=== PATIENT | male | born 1950 | race Caucasian/White ===

== ENCOUNTER 2024-11-06 21:28 | Inpatient (IN) | payer OTHER, BC ==
[~2024-11-06] VITALS: Ht 177.8 cm; Wt 104.9 kg
[2024-11-06] MEDS: SODIUM CHLORIDE 0.9% 1,000 ML IV ONE ×4 (00:34→23:34)
[2024-11-06] MEDS: FUROSEMIDE 40 MG/4 ML VIAL IV ONE (01:30)
--- NOTE | 2024-11-06 21:45 | ECG ---
[facility] Test Date: 2024-11-06 Test Time: 21:29:52 Pat Name: CLARITZA MCKEE Department: ED Room: 0264D Gender: M Certified Pediatric Nurse Practitioner: ignacio : 1950 Requested By: JACOB BISHOP Order Number: [id number] Reading MD: Khai Patel Measurements Intervals [place] Rate: 88 P: 61 ND: 200 QRS: 128 QRSD: 125 T: -4 QT: 378 QTc: 458 Interpretive Statements Atrial-sensed ventricular-paced complexes No further analysis attempted due to paced rhythm Electronically Signed On 11-10-2024 18:55:56 PDT by Khai Patel Please click the below link to view image of tracing.
[2024-11-06 22:28] LABS: Alanine Aminotransferase 26 U/L (7-40); Albumin 3.8 g/dL (3.2-4.8); Alkaline Phosphatase 77 U/L (46-116); Anion Gap 10 (5-15); BUN/Creatinine Ratio 19.8 (10.0-20.0); Bilirubin, Total 0.8 mg/dL (0.2-1.0); Calcium 10.1 mg/dL (8.7-10.4); Carbon Dioxide 31 mmol/L (20-31); Chloride 103 mmol/L (98-107); Magnesium 1.9 mg/dL (1.6-2.6); Potassium 4.7 mmol/L (3.5-5.1); Sodium 144 mmol/L (136-145); Total Protein 5.7 g/dL (5.7-8.2)
[2024-11-06 22:30] LABS: Base Excess 1.9 mmol/L (-2.0-3.0)
[2024-11-06 22:30] LABS: Blood Urea Nitrogen 40 mg/dL (9-23); Glucose 144 mg/dL (74-106)
[2024-11-06] MEDS: MORPHINE SULFATE INJ 2 MG/ml SYRG IV ONE (22:30)
[2024-11-06 22:31] LABS: Lactic Acid w/Reflex 3.6 mmol/L (0.4-2.0)
--- NOTE | 2024-11-06 22:43 | DVH ---
CHEST RADIOGRAPH Indication: cp Technique: Single frontal view of the chest was obtained COMPARISON: None FINDINGS: Lines and Tubes: Dual-lead pacemaker overlying left chest wall. Lungs: Lung volumes are low with crowding of the bronchovascular markings. No evidence of pulmonary e elena. No pulmonary infiltrates identified. Pleura: No effusion. No pneumothorax. Cardiomediastinal contours: Unremarkable Bones: Thoracolumbar spinal instrumentation noted. IMPRESSION: No acute abnormality demonstrated.
--- NOTE | 2024-11-06 22:55 | ED.PDOC ---
History of Present Illness HPI Comments 74-year-old male is brought in by ambulance from private residence for chief complaint of nonradiating, substernal chest pain, generalized weakness, and dizziness. Per EMS report, patient endorses on progressively worsening symptoms for the past 2-3 days following a, unprovoked onset. Pain is a 6/10 severity. on scene also commented on patient no longer being as mobile as his usual baseline self, today, following onset of symptoms. Significant history of bradycardia status post pacemaker placement, sleep apnea with CPAP use, hypertension, and Parkinson's disease. No recent injuries, sick contact, travel, or events or lifestyle changes endorsed. Vitals stable within normal li mits, with the exception of an initial SpO2 of 52% on room air. Patient was placed on oxygen EN route, with positive improvement. Patient denies having any palpitations, shortness of breath, cough, congestion, fever, chills, nausea, vomiting, or further associated symptoms. Chief Complaint: Chest Pain Time Seen by MD: 21:40 Reviewed Notes: Nurses Notes, Medications, Allergies Allergies: Coded Allergies: NO KNOWN ALLERGIES (Unverified , 11/06/24) Information Source: Patient, Emergency Med Personnel Mode of Arrival: EMS Severity: Moderate Timing: Days Duration: Since onset Prehospital treatment: 12 Lead EKG, Rotary Driller Prospecting, Oxygen Review of Systems: REVIEW OF SYSTEMS: No fever, no chills, or fatigue HEENT: No sore throat, no earache, no congestion, no neck pain. Cardiac: chest pain. No palpitations. Lungs: No shortness of breath, no cough. GI: No nausea, no vomiting, no diarrhea, no constipation, no abdominal pain : No dysuria, frequency, or urgency. No hematuria. Musculoskeletal: No joint pain , no joint swelling, no extremity edema. Skin: No rash, no itching. Neuro: Dizziness, weakness, no headache Vital Signs Vital Signs Date Time Temp Pulse Resp B/P (MAP) Pulse Ox O2 Delivery O2 Flow Rate FiO2 11/06/24 23:43 24 94 Nasal Cannula* 5 40 11/06/24 23:00 74 97/56 (70) 11/06/24 21:59 98.3 98.3 Physical Exam General: Awake, alert and oriented. No acute distress. Skin: Skin in warm, dry and intact. Appropriate color for ethnicity. HEENT: The head is normocephalic and atraumatic. Conjunctivae are clear without exudates or hemorrhage. Sclera is non-icteric. EOM are intact. No signs of nystagmus. Eyelids are normal in appearance without swelling or lesions. Oral mucosa is pink and moist Neck: The neck is supple with normal range of motion. No JVD. Cardiac: Heart rate and rhythm are normal. No murmurs, gallops, or rubs are auscultated. Respiratory: Diminished lung sounds, bilaterally. No signs of respiratory di stress. No signs of rales, rhonchi, or wheezes. Abdominal: Abdomen is soft, non-tender without distention, guarding or rigidity. Bowel sounds are present and normoactive in all four quadrants. Extremities: 1+ pitting edema to bilateral lower extremities. Otherwise, remaining upper and lower extremities are atraumatic in appearance without deformity or edema. Neurological: The patient is awake, alert and oriented to person, place, and time with normal speech. Speech is clear. There is no facial asymmetry. Weakness to bilateral upper and lower extremities. Psychiatric: Appropriate mood and affect. Good judgement and insight. Past Medical History PAST MEDICAL HISTORY: HTN Past Medical History (Other): Bradycardia status post pacemaker Sleep apnea with CPAP use Parkinson's disease Surgical History: Pacemaker (Secondary to bradycardia) Family History Family History: Reviewed,noncontributory to illness Social History Smoker: Non-Smoker Alcohol: Denies ETOH Use Drugs: Denies Drug Use Lives In: Home Was a procedure done? Was a procedure done?: No EKG EKG : Pulse Rate (adult): 88 [place]: Normal Cardiac Rhythm: Paced (atrial sensed, ventricularly paced complexes) Block: None Hypertrophy: None ST: Normal Differential Dx Considerations may include: Differential diagnoses considered include acute ischemic coronary syndrome, aort ic dissection, cardiac tamponade, mediastinitis, pulmonary embolus, pneumothorax, tension pneumothorax, esophageal rupture, coronary artery vasospasm, myocarditis, pericarditis, pneumonia, pulmonary edema, esophageal tear, pancreatitis, aortic stenosis, dilated cardiomyopathy, hypertrophic cardiomyopathy, mitral valve prolapse, malignancy, pleuritis, pneumomediastinum, primary pulmonary hypertension, cholecystitis, esophageal spasm, esophagus, gastritis, GERD, peptic ulcer disease, costochondritis, fibromyalgia, rib fracture, herpes zoster, radicular syndromes, thoracic outlet syndrome, somatization. X-Ray, Labs, Meds, VS Vital Signs Date Time Temp Pulse Resp B/P (MAP) Pulse Ox O2 Delivery O2 Flow Rate FiO2 11/06/24 23:43 24 94 Nasal Cannula* 5 40 11/06/24 23:00 74 13 97/56 (70) 94 11/06/24 22:55 88 11/06/24 21:59 98.3 74 25 97/53 (68) 86 98.3 11/06/24 21:40 92 11/06/24 21:40 98.6 4 16 125/77 (93) 93 98.6 11/06/24 21:29 88 11/06/24 01:30 91/48 Lab Test 11/06/24 23:07 11/06/24 22:00 11/06/24 21:55 Range/Units Troponin I High Sensitivity 100 *H 80 *H </=54 ng/L Triglycerides Level 81 < 150 mg/dL Cholesterol Level 108 < 200 mg/dL LDL Cholesterol 64 < 100 mg/dL HDL Cholesterol 35 L 40-59 mg/dL Blood Gas Specimen Type Arterial Blood Gas Sample Site Right radial Blood Gas Patient Temperature 37.0 Arterial Blood Date Drawn [id number] Arterial Blood pH 7.289 L 7.350-7.450 Arterial Blood Partial Pressure CO2 64.4 *H 35.0-48.0 mmHg Arterial Blood Partial Pressure O2 40.7 *L 83.0-108.0 mmHg Arterial Blood HCO3 30.2 H 21.0-28.0 mmol/L Arterial Blood Oxygen Saturation 67.9 *L 94.0-98.0 % Arterial Blood Base Excess 1.9 -2.0-3.0 mmol/L Arterial Blood Oxyhemoglobin 66.1 L 94.0-98.0 % Arterial Blood Carboxyhemoglobin 1.8 H 0.5-1.5 % Arterial Blood Methemoglobin 0.8 0.0-1.5 % Adonis Test Yes Blood Gas Total Hemoglobin 13.70 13.5-17.5 g/dL Blood Gas Modality Room air Blood Gas Spontaneous Rate 22 FiO2 % 21.0 Blood Gas Critical Value Read Back yes Blood Gas Notified Whom md shyam bishop Blood Gas Notified Time [id number] Blood Gas Notified By obstetrics and gynecology professor konrad pierson White Blood Count 37.1 *H 4.4-10.8 10^3/uL Red Blood Count 6.02 H 4.5-5.90 10^6/uL Hemoglobin 12.7 L 13.5-17.5 g/dL Hematocrit 41.3 41.0-53.0 % Mean Corpuscular Volume 68.6 L 80.0-100.0 fL Mean Corpuscular Hemoglobin 21.1 L 28.0-32.0 pg Mean Corpuscular Hemoglobin Concent 30.8 L 32.0-36.0 g/dL Red Cell Distribution Width 18.9 H 11.8-14.3 % Platelet Count 96 L 140-450 10^3/uL Mean Platelet Volume 9.1 6.9-10.8 fL Neutrophils (%) (Auto) 37.0-80.0 % Lymphocytes (%) (Auto) 10.0-50.0 % Monocytes (%) (Auto) 0.0-12.0 % Basophils (%) (Auto) 0.0-2.0 % Neutrophils # (Auto) 1.6-8.6 10 ^3/uL Lymphocytes # (Auto) 0.4-5.4 10 ^3/uL Monocytes # (Auto) 0-1.3 10 ^3/uL Differential Total Cells Counted 100.0 100 Neutrophils % (Manual) 64 37.0-80.0 Band Neutrophils % (Manual) 2 Lymphocytes % (Manual) 11 10.0-50.0 Monocytes % (Manual) 13 H 0-12 Eosinophils % (Manual) 1 0-7 Basophils % (Manual) 0 0.0-2.0 Metamyelocytes % (manual) 5 Myelocytes % (Manual) 1 Promyelocytes % (Manual) 0 Blast Cells % (Manual) 2 Nucleated Red Blood Cells 3.0 % Reactive Lymphocytes 1 Platelet Estimate Decreased Hypochromasia (manual) Moderate Microcytosis Marked D-Dimer, Quantitative 0.60 H 0.0-0.49 mg/L FEU Sodium Level 144 136-145 mmol/L Potassium Level 4.7 3.5-5.1 mmol/L Chloride Level 103 98-107 mmol/L Carbon Dioxide Level 31 20-31 mmol/L Anion Gap 10 5-15 Blood Urea Nitrogen 40 H 9-23 mg/dL Creatinine 2.02 H 0.700-1.30 mg/dL Glomerular Filtration Rate Calc 34 >90 mL/min BUN/Creatinine Ratio 19.8 10.0-20.0 Serum Glucose 144 H 74-106 mg/dL Hemoglobin A1c 5.2 <5.7 % A1C Lactic Acid Level 3.6 *H 0.4-2.0 mmol/L Calcium Level 10.1 8.7-10.4 mg/dL Magnesium Level 1.9 1.6-2.6 mg/dL Total Bilirubin 0.8 0.2-1.0 mg/dL Aspartate Amino Transferase (AST) 39 13-40 U/L Alanine Aminotransferase (ALT) 26 7-40 U/L Alkaline Phosphatase 77 46-116 U/L B-Type Natriuretic Peptide 587.05 0-100 pg/mL Total Protein 5.7 5.7-8.2 g/dL Albumin 3.8 3.2-4.8 g/dL Vitamin B12 Level Pending Vitamin D 25-Hydroxy Pending Thyroid Stimulating Hormone (TSH) 1.77 0.55-4.78 uIU/mL Plasma/Serum Blood Alcohol < 3.0 <10 mg/dL Current Medications Medications (Trade) Dose Ordered Sig/Amol Route Start Time Stop Time Status Last Admin Aspirin 324 mg ONCE ONCE PO 11/06/24 21:45 11/06/24 21:46 DC 11/06/24 23:23 Sodium Chloride 500 ml @ 500 mls/hr Q1H ONCE IV 11/06/24 21:45 11/06/24 22:44 DC 11/06/24 23:00 Vancomycin HCl 250 ml @ 250 mls/hr ONCE ONCE IV 11/06/24 23:30 11/07/24 00:29 DC 11/07/24 00:17 Sodium Chloride 1,000 ml @ 1,000 mls/hr Q1H ONCE IV 11/06/24 23:30 11/07/24 00:29 DC 11/06/24 23:34 Sodium Chloride 1,000 ml @ 1,000 mls/hr Q1H ONCE IV 11/06/24 23:30 11/07/24 00:29 DC 11/07/24 00:34 Ceftriaxone Sodium 50 ml @ 100 mls/hr ONCE ONCE IV 11/06/24 23:30 11/06/24 23:59 DC 11/06/24 23:34 Albuterol (Ventolin Medneb) 2.5 mg ONCE ONCE NEB 11/06/24 23:30 11/06/24 23:31 DC 11/06/24 23:43 [facility] [address] [address] [place] [address] Ph: [phone] DIAGNOSTIC IMAGING Diagnostic Imaging Report : [id number] Signed PATIENT: CLARITZA MCKEE ACCT: [id number] UNIT: [id number] : 1950 LOC: ER ROOM / BED: / AGE / SEX: 74 / M ADM STATUS: REG ER SERVICE 42 ORDERING PHYSICIAN: JACOB BISHOP MD PROCEDURE(s): CXR1 - CHEST XRAY 1 VIEW REASON: cp ORDER NUMBER(s): [id number], ACCESSION NUMBER(s): [id number] CHEST RADIOGRAPH Indication: cp Technique: Single frontal view of the chest was obtained COMPARISON: None FINDINGS: Lines and Tubes: Dual-lead pacemaker overlying left chest wall. Lungs: Lung volumes are low with crowding of the bronchovascular markings. No evidence of pulmonary edema. No pulmonary infiltrates identified. Pleura: No effusion. No pneumothorax. Cardiomediastinal contours: Unremarkable Bones: Thoracolumbar spinal instrumentation noted. IMPRESSION: No acute abnormality demonstrated. ATED BY: JORDAN CARBALLO MD DICTATED DATE/TIME: 11/06/242240 SIGNED BY: JORDAN CARBALLO MD SIGNED DATE/TIME: 11/06/242240 CC: Time of 1ST Reevaluation: 22:10 Reevaluation 1ST: Unchanged Patient Education/Counseling: Other (Need for admission) Family Education/Counseling: No Family Present SEPSIS Sepsis Screen Date sepsis recognized/suspect: Nov 06, 2024 Time Sepsis recognized/suspect: 2139 Recent Procedure: No On Antibiotic Therapy: No Respiratory Rate >20: No Heart Rate >90: No Temp<36 C (96.8 F) or >38.3 C: No SBP <90 or MAP <65 mmHG: No New Acute Mental Status Change: No Is the patient on CPAP, BIPAP,: No Physician Orders Vital Signs Q1HR (11/06/24 21:43) Chest Xray 1 View (11/06/24 21:43) Saline Lock (11/06/24 21:43) Rotary Driller Prospecting (11/06/24 ) Drug Screen (11/06/24 21:43) Urinalysis (11/06/24 21:43) Blood Culture (11/06/24 21:43) Abg W/ Co-Ox (11/06/24 21:44) Vital Signs Date Time Temp Pulse Resp B/P (MAP) Pulse Ox O2 Delivery O2 Flow Rate FiO2 11/06/24 23:43 24 94 Nasal Cannula* 5 40 11/06/24 23:00 74 13 97/56 (70) 94 11/06/24 22:55 88 11/06/24 21:59 98.3 74 25 97/53 (68) 86 98.3 11/06/24 21:40 92 11/06/24 21:40 98.6 4 16 125/77 (93) 93 98.6 11/06/24 21:29 88 11/06/24 01:30 91/48 Laboratory Tests Test 11/06/24 21:55 Lactic Acid Level 3.6 mmol/L (0.4-2.0) *H White Blood Count 37.1 10^3/uL (4.4-10.8) *H Medications Medications Dose Ordered Sig/Amol Route Start Time Stop Time Status Last Admin Dose Admin Albuterol 2.5 mg ONCE ONCE NEB 11/06/24 23:30 11/06/24 23:31 DC 11/06/24 23:43 Aspirin 324 mg ONCE ONCE PO 11/06/24 21:45 11/06/24 21:46 DC 11/06/24 23:23 Ceftriaxone Sodium 50 ml @ 100 mls/hr ONCE ONCE IV 11/06/24 23:30 11/06/24 23:59 DC 11/06/24 23:34 Sodium Chloride 500 ml @ 500 mls/hr Q1H ONCE IV 11/06/24 21:45 11/06/24 22:44 DC 11/06/24 23:00 Sodium Chloride 1,000 ml @ 1,000 mls/hr Q1H ONCE IV 11/06/24 23:30 11/07/24 00:29 DC 11/06/24 23:34 Sodium Chloride 1,000 ml @ 1,000 mls/hr Q1H ONCE IV 11/06/24 23:30 11/07/24 00:29 DC 11/07/24 00:34 Vancomycin HCl 250 ml @ 250 mls/hr ONCE ONCE IV 11/06/24 23:30 11/07/24 00:29 DC 11/07/24 00:17 Departure 1 Departure Time of Disposition: 23:28 Impression: Primary Impression: Hypoxia Additional Impressions: Generalized weakness Chest pain Disposition: ADMITTED INPATIENT Condition: Stable Comments 74-YEAR-OLD MALE WITH CHEST PAIN GENERALIZED WEAKNESS FOUND TO BE HYPOXIC. POSSIBLY SECONDARY TO CHF. AGE ADJUSTED D-DIMER NEGATIVE. EKG SHOWS NO STEMI. TROPONIN MILDLY ELEVATED. WILL TREND TROPONIN PATIENT ADMITTED TO HOSPITALIST SERVICE FOR FURTHER TREATMENT, EVALUATION AND MONITORING. Extensive evaluation was performed in attempt to identify or rule out: (See differential diagnosis section) The following tests were ordered, and results were reviewed by me and discussed with patient: (See diagnostic results section) The following test were independently interpreted by me: EKG I reviewed and agreed with the following test results read by other providers: Chest x-ray I reviewed the following notes from the pt's past medical encounters: N/A Additional information was gathered from interviewing the following independent historians: EMS PERSONNEL Discussion of management or test interpretation with external physician/other qualified health care transitions nurse: N/A Addressed an acute or chronic illness that poses a threat to life or bodily function: SHREYA, HYPOXIA, GENERALIZED WEAKNESS, ELEVATED TROPONIN, CHEST PAIN Decision regarding hospitalization or escalation of hospital level of care: Risk and benefits of admission for further treatment of patient's condition was considered. Due to patient's current clinical condition, high risk of decline and poor outcome if discharged and need for further inpatient management and monitoring, patient will be admitted to the hospital. Drug therapy requiring intensive monitoring for toxicity: IV FUROSEMIDE Parenteral controlled substances: N/A Decision regarding elective major surgery with identified patient or procedure risk factors: N/A Decision regarding emergency major surgery: N/A Decision not to resuscitate or to de-escalate care because of poor prognosis: N/A Diagnosis or treatment significantly limited by social determinants of health: N/A Critical Care Note Critical Care Time?: No Stability Stability form required: No Heart Score Heart Score: Heart Score Response (Comments) Value History Moderate Suspicious 1 EKG Normal 0 Age >65 2 Risk Factors 1 or 2 risk factors 1 Troponin 1-2 x's Normal limit 1 Total 5 I personally scribed for JACOB BISHOP MD ([email or web address]) on 11/06/24 at 22:55. Electronically submitted by Aiden Alarcon ([email or web address]). I personally scribed for JACOB BISHOP MD ([email or web address]) on 11/06/24 at 23:14. Electronically submitted by Aiden Alarcon ([email or web address]). JACOB BISHOP MD Nov 06, 2024 22:55
[2024-11-06] MEDS: SODIUM CHLORIDE 0.9% 500 ML IV ONE (23:00)
[2024-11-06 23:08] LABS: Hematocrit 41.3 % (41.0-53.0)
[2024-11-06 23:09] LABS: Hemoglobin 12.7 g/dL (13.5-17.5); Mean Corpuscular Hemoglobin 21.1 pg (28.0-32.0); Mean Corpuscular Volume 68.6 fL (80.0-100.0)
[2024-11-06] MEDS: cefTRIAXone 1GM/50ML D5W 50 ML IV ONE (23:34)
[2024-11-06] MEDS: ALBUTEROL SULF 2.5 MG/0.5ML(0.5%) NEB SOLN NEB ONE (23:43)
--- NOTE | 2024-11-06 23:48 | DVHHP2 ---
History of Present Illness History of Present Illness This is a 74-year-old male with past medical history hypertension, Bradycardia s/p cardiac pacemaker on 2021, sleep apnea, Parkinson disease BIBEMS with complain of chest pain which is substernal for last last few weeks with but worsen since evening which is 7-8/10 intensity, localized, feeling chest tightness, aggravated with walking or any kind of minimal exertion, tried Tums which helps a little. Patient is less ambulating for last few months due to feeling weakness. Patient use walker and holding on wall during ambulation. Patient also complain of shortness of breath for approximately 6 months which is also aggravates on exertion and getting worsen day by day. patient does not follow-up by wallpaperer for long time, last visit 30 years ago in [place]. Recently diagnosed Parkinson disease and started medications. Patient currently on bed, using 5 L oxygen via nasal cannula, alert and oriented. Denies any fever, headache, nausea, vomiting, diarrhea. Past Medical History: HTN, Bradycardia status post pacemaker, Sleep apnea with CPAP use, Parkinson's disease Surgical History: Pacemaker (Secondary to bradycardia) Smoker: ex-Smoker, quit 42 year ago Alcohol: Denies ETOH Use, Denies Drug Use Lives In: Home Allergy: no known allergy PCP: unknown Review of Systems Constitutional: Yes: Weakness Eyes: No: Pain, Vision change, Conjunctivae inflammation, Eyelid inflammation, Other, Redness ENT: No: Ear pain, Ear discharge, Nose pain, Nose discharge, Nose congestion, Mouth pain, Mouth swelling, Throat pain, Throat swelling, Other Respiratory: Shortness of breath, SOB with excertion; No: Cough, Dry, Wheezing, Hemoptysis, Pleuritic Pain, Sputum, Wheezing, Other Cardiovascular: Chest Pain, Edema (1+ edema bilateral leg) Gastrointestinal: No: Nausea, Vomiting, Abdominal Pain, Diarrhea, Constipation, Melena, Hematochezia, Other Genitourinary: No Dysuria, No Frequency, No Incontinence, No Hematuria, No Retention, No Other Musculoskeletal: No: other, neck pain, shoulder pain, arm pain, back pain, hand pain, leg pain, foot pain Skin: No: Rash, Lesions, Jaundice, Bruising, Other Neurological: Other (Spinal surgery , scar sammy present) Allergies: Coded Allergies: NO KNOWN ALLERGIES (Unverified , 11/06/24) Exam Vital Signs Vital Signs Date Time Temp Pulse Resp B/P (MAP) Pulse Ox O2 Delivery O2 Flow Rate FiO2 11/06/24 22:55 88 11/06/24 21:40 98.6 16 125/77 (93) 93 98.6 Labs/Xrays Labs Test 11/06/24 23:07 11/06/24 22:00 11/06/24 21:55 Range/Units Blood Gas Specimen Type Arterial Blood Gas Sample Site Right radial Blood Gas Patient Temperature 37.0 Arterial Blood Date Drawn [id number] Arterial Blood pH 7.289 L 7.350-7.450 Arterial Blood Partial Pressure CO2 64.4 *H 35.0-48.0 mmHg Arterial Blood Partial Pressure O2 40.7 *L 83.0-108.0 mmHg Arterial Blood HCO3 30.2 H 21.0-28.0 mmol/L Arterial Blood Oxygen Saturation 67.9 *L 94.0-98.0 % Arterial Blood Base Excess 1.9 -2.0-3.0 mmol/L Arterial Blood Oxyhemoglobin 66.1 L 94.0-98.0 % Arterial Blood Carboxyhemoglobin 1.8 H 0.5-1.5 % Arterial Blood Methemoglobin 0.8 0.0-1.5 % Adonis Test Yes Blood Gas Total Hemoglobin 13.70 13.5-17.5 g/dL Blood Gas Modality Room air Blood Gas Spontaneous Rate 22 FiO2 % 21.0 Blood Gas Critical Value Read Back yes Blood Gas Notified Whom md shyam barber Blood Gas Notified Time [id number] Blood Gas Notified By katie pierson White Blood Count 37.1 *H 4.4-10.8 10^3/uL Red Blood Count 6.02 H 4.5-5.90 10^6/uL Hemoglobin 12.7 L 13.5-17.5 g/dL Hematocrit 41.3 41.0-53.0 % Mean Corpuscular Volume 68.6 L 80.0-100.0 fL Mean Corpuscular Hemoglobin 21.1 L 28.0-32.0 pg Mean Corpuscular Hemoglobin Concent 30.8 L 32.0-36.0 g/dL Red Cell Distribution Width 18.9 H 11.8-14.3 % Platelet Count 96 L 140-450 10^3/uL Mean Platelet Volume 9.1 6.9-10.8 fL Neutrophils (%) (Auto) 37.0-80.0 % Lymphocytes (%) (Auto) 10.0-50.0 % Monocytes (%) (Auto) 0.0-12.0 % Basophils (%) (Auto) 0.0-2.0 % Neutrophils # (Auto) 1.6-8.6 10 ^3/uL Lymphocytes # (Auto) 0.4-5.4 10 ^3/uL Monocytes # (Auto) 0-1.3 10 ^3/uL D-Dimer, Quantitative 0.60 H 0.0-0.49 mg/L FEU Sodium Level 144 136-145 mmol/L Potassium Level 4.7 3.5-5.1 mmol/L Chloride Level 103 98-107 mmol/L Carbon Dioxide Level 31 20-31 mmol/L Anion Gap 10 5-15 Blood Urea Nitrogen 40 H 9-23 mg/dL Creatinine 2.02 H 0.700-1.30 mg/dL Glomerular Filtration Rate Calc 34 >90 mL/min BUN/Creatinine Ratio 19.8 10.0-20.0 Serum Glucose 144 H 74-106 mg/dL Lactic Acid Level 3.6 *H 0.4-2.0 mmol/L Calcium Level 10.1 8.7-10.4 mg/dL Magnesium Level 1.9 1.6-2.6 mg/dL Total Bilirubin 0.8 0.2-1.0 mg/dL Aspartate Amino Transferase (AST) 39 13-40 U/L Alanine Aminotransferase (ALT) 26 7-40 U/L Alkaline Phosphatase 77 46-116 U/L B-Type Natriuretic Peptide 587.05 0-100 pg/mL Total Protein 5.7 5.7-8.2 g/dL Albumin 3.8 3.2-4.8 g/dL Thyroid Stimulating Hormone (TSH) 1.77 0.55-4.78 uIU/mL Plasma/Serum Blood Alcohol < 3.0 <10 mg/dL Assessment/Plan Assessment/Plan # Septic shock rule out pneumonia viral/bacterial, UTI -Patient came to ED with the complaint of chest pain, shortness of breath,weakness -In ER, patient received IV furosemide, albuterol nebulization, ceftriaxone, vancomycin, NS bolus Aspirin 325 mg, -WBC count 37.1> 38.1 Neutrophils 64, band 2. -D-dimer 0.60 -PT 12.2, INR 1.17 -ABG: PH 7.289, PCO2 64.4, PO2 40.7, HC03 30.2 -REPEAT ABG: PH 7.2 0 4, PCO2 69.8, PO2 80.6, HC03 26.9 REPEAT ABG PH 7.229, PCO2 66.1, PO2 84.8, HC03 27.0 -influenza type a and type B-negative, COVID-19 negative -order a CT chest without contrast -lactic acidosis 3.3>1.9 >0.8 -Blood alcohol <3.0 -magnesium level 1.9 -troponin 100 -BNP 587.05 -THS 1.77 -bedside ultrasound done: No sign of heart failure-no Dmitry B sign, pleural sliding, no effusion seen. --Continue albuterol nebulization -cefepime 2 g IV q.12 hours -ipratropium nebulization q.4 H -Lasix 40 mg IV as per patient condition -continue vancomycin with vanco trough as per pharmacy -Bcx, ucx and sputum cx will follow -Hypotension patient systolic blood pressure 80-90, diastolic blood pressure 32 to 40, MAP around 50s even though patient getting IV fluid. leg raised, patient blood pressure slightly increased. bolus of fluid given in ER, persistent hypotension ordered Levophed. monitor blood pressure closely # Acute hypoxic hypercapnic respiratory failure -patient initially 5 L oxygen with nasal cannula -ABG: PH 7.289, PCO2 64.4, PO2 40.7, HC03 30.2 -REPEAT ABG: PH 7.2 0 4, PCO2 69.8, PO2 80.6, HC03 26.9 REPEAT ABG PH 7.229, PCO2 66.1, PO2 84.8, HC03 27.0 -start BiPAP in the setting of 04/07/35 -continue nebulization with albuterol and ipratropium # NSTEMI TYPE 2 DUE TO SEPTIC SHOCK -Troponin 80>100 -EKG heart rate 80 QTC 458 -Hold losartan 25 mg p.o. daily, resume when blood pressure stable # Low-back pain due to history of spinal surgery -HISTORY OF SPINAL SURGERY # Essential hypertension -Hold all home blood pressure medication # SHREYA DUE TO VASOMOTOR NEPHROPATHY -Creatinine 2.20, unknown baseline EGFR 34 # BPH - Tamsulosin 0.4 mg po daily, hold for now. #Parkinson disease -Levodopa 25 mg daily #Mixed metabolic and respiratory acidosis -ABG: PH 7.289, PCO2 64.4, PO2 40.7, HC03 30.2 -REPEAT ABG: PH 7.2 0 4, PCO2 69.8, PO2 80.6, HC03 26.9 REPEAT ABG PH 7.229, PCO2 66.1, PO2 84.8, HC03 27.0 Diet: Cardiac GI prophylaxis: Pantoprazole 40 mg p.o. daily DVT prophylaxis: Heparin 39999 subcutaneously q.8 Goals of care discussion, more than 29 minutes. Full code status. Case discussed with Dr. Magallanes Plan discussed with: Patient, Other (Nurse) My Orders Orders - PIERRE MULLINS Procedure Category Date Status Time Admit ADMIT 11/06/24 Transmitted 23:46 Nitroglycerin PHA 11/07/24 Transmitted Sublingual (Ntrostat 00:00 Morphine Sulfate PHA 11/07/24 Transmitted Injection 00:00 Oxygen By Nasal RT 11/06/24 Transmitted Cannula 23:46 Stat Ekg For Chest [facility] 11/06/24 Transmitted Pain 23:46 Notify Md Of Changes [facility] 11/06/24 Transmitted From Base 23:46 Chart Picker For [facility] 11/06/24 Transmitted 24 Hours 23:46 Emergency Dysrhythmia [facility] 11/06/24 Transmitted Protocol 23:46 Rhythm Strips Once [facility] 11/06/24 Transmitted Every Shift 23:46 Date of Service: Nov 06, 2024 Billing Provider: GEOVANNA MAGALLANES MD Common Visit Codes: 33173-JXCLPRX INP/OBS CARE (HIGH) Secondary Visit Codes: 80204-JITSMCGO CARE PLAN 30 MINUTES PIERRE MULLINS Nov 06, 2024 23:48
[2024-11-07] VITALS (88 sets, daily range): BP systolic 75–153; BP diastolic 39–77; PULSE 61–137; RESP 14–28; TEMP 98.1–98.7; O2SAT 80–100
[2024-11-07] MEDS ORDERED: NITROGLYCERIN 0.4 MG SL TAB SL PRN
[2024-11-07] MEDS ORDERED: MORPHINE SULFATE INJ 2 MG/ml SYRG IV PRN
[2024-11-07 00:02] LABS: Nucleated Red Blood Cells % 3.0 %; Total Cells Counted 100.0 (100)
[2024-11-07] MEDS: VANCOMYCIN 1GM/200ML PM 250 ML IV ONE (00:17)
[2024-11-07 01:14] LABS: Triglycerides 81 mg/dL (< 150)
[2024-11-07 01:16] LABS: Cholesterol 108 mg/dL (< 200)
[2024-11-07 01:17] LABS: Base Excess -2.4 mmol/L (-2.0-3.0)
[2024-11-07 01:24] LABS: HDL Cholesterol 35 mg/dL (40-59)
[2024-11-07 01:42] LABS: INR 1.17 (0.9-1.15); Prothrombin Time 12.2 sec (9.3-11.8)
[2024-11-07] MEDS ORDERED: VANCOMYCIN PER PHARMACY 0 MG IV SCH ×2 (01:45→10:45)
[2024-11-07] MEDS: ALBUTEROL SULF 2.5 MG/0.5ML(0.5%) NEB SOLN NEB SCH (01:59)
[2024-11-07] MEDS: IPRATROPIUM BROM 0.5 MG/2.5ML INH SOL NEB SCH ×2 (01:59→10:33)
[2024-11-07 02:57] LABS: COVID19 ANTIGEN SOFIA FIA NEGATIVE (NEGATIVE)
[2024-11-07 03:46] LABS: Base Excess -1.8 mmol/L (-2.0-3.0)
[2024-11-07 04:25] LABS: Hematocrit 38.3 % (41.0-53.0); Hemoglobin 11.7 g/dL (13.5-17.5)
[2024-11-07 04:27] LABS: Mean Corpuscular Hemoglobin 21.3 pg (28.0-32.0); Mean Corpuscular Volume 69.4 fL (80.0-100.0)
[2024-11-07] MEDS: NOREPINEPHRINE 8 MG/250ML KIT 250 ML IV SCH ×2 (04:31→14:15)
[2024-11-07] MEDS: NOREPINEPHRINE 8 MG/250ML KIT 250 ML IV ONE (04:33)
[2024-11-07] MEDS: FUROSEMIDE 40 MG/4 ML VIAL IV ONE (04:51)
[2024-11-07 04:59] LABS: Protein, Urine 67.4 mg/dL (1-14)
[2024-11-07 05:06] LABS: Amphetamine Screen, Urine Neg (NEGATIVE); Barbiturate Scree,Urine Neg (NEGATIVE); Benzodiazephine Screen, Urine Neg (NEGATIVE); Cannabinoid Screen, Urine Neg (NEGATIVE); Cocaine Screen, Urine Neg (NEGATIVE); Opiate Scree,Urine Neg (NEGATIVE); Phencyclidine Screen, Urine Neg (NEGATIVE)
[2024-11-07 05:08] LABS: Alanine Aminotransferase 21 U/L (7-40); Albumin 3.3 g/dL (3.2-4.8); Alkaline Phosphatase 64 U/L (46-116); Anion Gap 9 (5-15); BUN/Creatinine Ratio 18.3 (10.0-20.0); Carbon Dioxide 28 mmol/L (20-31); Chloride 107 mmol/L (98-107); Potassium 4.5 mmol/L (3.5-5.1); Sodium 144 mmol/L (136-145)
[2024-11-07 05:09] LABS: Bilirubin, Total 0.6 mg/dL (0.2-1.0)
[2024-11-07 05:09] LABS: Urine Protein, UAD 1+ (Negative)
[2024-11-07 05:18] LABS: Blood Urea Nitrogen 32 mg/dL (9-23); Calcium 8.5 mg/dL (8.7-10.4); Glucose 116 mg/dL (74-106); Total Protein 5.2 g/dL (5.7-8.2)
[2024-11-07 05:36] LABS: Nucleated Red Blood Cells % 1.0 %; Total Cells Counted 100.0 (100)
[2024-11-07] MEDS: PANTOPRAZOLE 40 MG/10 ML VIAL INJ IV ONE (06:58)
[2024-11-07 09:54] LABS: Base Excess 0.2 mmol/L (-2.0-3.0)
--- NOTE | 2024-11-07 10:05 | DVHCONRES ---
Date Seen: Nov 07, 2024 Resident Creating Document: ZACHARY GALVEZ RESIDENT Referring Physician Dr Carvalho History of Present Illness Mr. Avina is a 74-year-old male with hypertension, obstructive sleep apnea on CPAP, Parkinson's disease, bradycardia status post pacemaker placement, ascending aortic aneurysm 4.2 cm who presented to the ER with a chief complaint of substernal chest pain and generalized weakness. He has a history of recent mechanical fall, reports substernal pressure type chest pain for the past week, nonradiating, mostly postprandial, with shortness of breath. He has been taking tablet aleve 220 mg twice daily for the past 2 months for back pain. Patient denies any nausea/vomiting/urinary symptoms. On arrival to the ER patient was hypotensive and received around 3 L NS bolus. Patient was persistently hypotensive and he was started on Levophed. Patient had lactic acidosis, elevated troponin, BNP 587 in the SHREYA. Nephrology consulted for SHREYA Social history: Lives with family, quit smoking 40 years back, almost smoked a pack year for 20 years, denied drug use or alcohol. Patient seen and examined in the ER. Currently on BiPAP. at bedside. Echocardiogram pending. Allergies: Coded Allergies: NO KNOWN ALLERGIES (Unverified , 11/06/24) Home Meds Reported Medications Misc Natural Products (CRAMP RELEAF) Cap, 70 MG OR DAILY, CAP 11/07/24 Albuterol Sulfate (VENTOLIN MDI) 90 Mcg Ih, 90 MCG IN PRN, INH 11/07/24 Albuterol Sulfate (Ventolin) 2.5 Mg/0.5 Ml Nb, 1 VIAL NEB Q6HR, #120 VIAL 5 Refills 11/07/24 Azithromycin (Azithromycin) 250 Mg Tab, 250 MG PO DAILY for 6 Days, #4 11/07/24 Trazodone Hcl (Trazodone Hcl) 50 Mg Tab, 50 MG PO HSPRN PRN for FOR INSOMNIA, MG 11/07/24 Acetaminophen (Acetaminophen) 325 Mg Tab, 325 MG PO Q8HP PRN for MILD PAIN for 30 Days, MG 0 Refills 11/07/24 Naproxen (Naproxen) 375 Mg Tab, 375 MG PO BIDWM, TAB 11/07/24 Carbidopa-Levodopa (Carbidopa/Levodopa Odt 25-250 mg) 1 Tab Tab, 1 TAB PO, TAB 11/07/24 Magnesium Oxide (MAGNESIUM OXIDE) 400 Mg Tab, 1 TAB PO DAILY, #30 TAB 5 Refills 11/07/24 Tamsulosin Hcl (Flomax) 0.4 Mg Cap, 1 CAP PO DAILY, #30 CAP 11 Refills 11/07/24 Losartan Potassium (Losartan Potassium) 25 Mg Tab, 25 MG PO DAILY for 30 Days, MG 11/07/24 Naproxen Sodium (ALEVE ARTHRITIS) 220 Mg Tab, 220 MG PO, TAB 11/07/24 Current Medications Current Medications Medications (Trade) Dose Ordered Sig/Amol Route PRN Reason Start Time Stop Time Status Last Admin Nitroglycerin (Ntrostat Sublingual) 0.4 mg Q5MINP PRN SL FOR CHEST PAIN 11/07/24 00:00 Morphine Sulfate 2 mg Q30M PRN IV FOR CHEST PAIN 11/07/24 00:00 Albuterol (Ventolin Medneb) 2.5 mg Q4HR NEB 11/07/24 02:00 11/07/24 06:08 Ipratropium [place] (Atrovent Medneb) 0.5 mg Q4HR NEB 11/07/24 02:00 11/07/24 08:27 DC 11/07/24 06:08 Cefepime HCl 50 ml @ 12.5 mls/hr Q12HR IV 11/07/24 10:00 Vancomycin HCl 0 ml @ 0 mls/hr UD IV 11/07/24 01:45 Norepinephrine Bitartrate 250 ml @ 3.75 mls/hr Q24H IV 11/07/24 04:30 11/07/24 04:31 Pantoprazole Sodium (Protonix) 40 mg DAILY IV 11/08/24 10:00 Ipratropium [place] (Atrovent Medneb) 0.5 mg Q4HR NEB 11/07/24 10:00 Vital Signs Vital Signs Date Time Temp Pulse Resp B/P (MAP) Pulse Ox O2 Delivery O2 Flow Rate FiO2 11/07/24 08:45 77/41 11/07/24 08:30 78 20 96 11/07/24 08:15 Facial BiPAP Mask 35 11/07/24 08:00 98.3 98.3 11/06/24 23:43 5 Physical Exam Patient lying in bed, in no acute distress General: Overweight, afebrile, palor, mucosae are moist Cardiovascular: Regular S1 and S2. No murmurs, gallops or rubs. No JVD elevation. 1+ pitting edema bilaterally Respiratory: Bibasilar crackles heard on auscultation, currently on BiPAP Abdomen: Soft, nontender, nondistended, normoactive bowel sounds, no rebound tenderness, no organomegaly, no masses Genitourinary: Deferred MSK/skin: Mobilizes 4 limbs. Skin is dry and warm Neurological: No motor, no sensitive deficits, normal speech. Pupils are isocoric and reactive. Psych/Mental Status: A/Ox3 Labs/Diagnostic Data Labs Test 11/07/24 09:47 11/07/24 04:03 11/07/24 03:30 11/07/24 01:16 Range/Units Blood Gas Specimen Type Arterial Blood Gas Sample Site Right radial Blood Gas Patient Temperature 37.0 Arterial Blood Date Drawn [id number] Arterial Blood pH 7.321 L 7.350-7.450 Arterial Blood Partial Pressure CO2 53.8 H 35.0-48.0 mmHg Arterial Blood Partial Pressure O2 87.8 83.0-108.0 mmHg Arterial Blood HCO3 27.2 21.0-28.0 mmol/L Arterial Blood Oxygen Saturation 96.3 94.0-98.0 % Arterial Blood Base Excess 0.2 -2.0-3.0 mmol/L Arterial Blood Oxyhemoglobin 93.9 L 94.0-98.0 % Arterial Blood Carboxyhemoglobin 1.8 H 0.5-1.5 % Arterial Blood Methemoglobin 0.7 0.0-1.5 % Adonis Test Yes Blood Gas Total Hemoglobin 13.00 L 13.5-17.5 g/dL Blood Gas Set Respiration Rate 14.0 Blood Gas Modality Mask - bipap Blood Gas Spontaneous Rate 20 FiO2 % 35.0 Blood Gas EPAP 5 Blood Gas IPAP 15 White Blood Count 38.1 *H 4.4-10.8 10^3/uL Red Blood Count 5.52 4.5-5.90 10^6/uL Hemoglobin 11.7 L 13.5-17.5 g/dL Hematocrit 38.3 L 41.0-53.0 % Mean Corpuscular Volume 69.4 L 80.0-100.0 fL Mean Corpuscular Hemoglobin 21.3 L 28.0-32.0 pg Mean Corpuscular Hemoglobin Concent 30.6 L 32.0-36.0 g/dL Red Cell Distribution Width 18.5 H 11.8-14.3 % Platelet Count 82 L 140-450 10^3/uL Mean Platelet Volume 8.7 6.9-10.8 fL Neutrophils (%) (Auto) 37.0-80.0 % Lymphocytes (%) (Auto) 10.0-50.0 % Monocytes (%) (Auto) 0.0-12.0 % Basophils (%) (Auto) 0.0-2.0 % Neutrophils # (Auto) 1.6-8.6 10 ^3/uL Lymphocytes # (Auto) 0.4-5.4 10 ^3/uL Monocytes # (Auto) 0-1.3 10 ^3/uL Differential Total Cells Counted 100.0 100 Neutrophils % (Manual) 68 37.0-80.0 Band Neutrophils % (Manual) 4 Lymphocytes % (Manual) 4 L 10.0-50.0 Monocytes % (Manual) 13 H 0-12 Eosinophils % (Manual) 0 0-7 Basophils % (Manual) 0 0.0-2.0 Metamyelocytes % (manual) 4 Myelocytes % (Manual) 5 Promyelocytes % (Manual) 2 Blast Cells % (Manual) 0 Nucleated Red Blood Cells 1.0 % Reactive Lymphocytes 0 Platelet Estimate Decreased Hypochromasia (manual) Moderate Microcytosis Marked Sodium Level 144 136-145 mmol/L Potassium Level 4.5 3.5-5.1 mmol/L Chloride Level 107 98-107 mmol/L Carbon Dioxide Level 28 20-31 mmol/L Anion Gap 9 5-15 Blood Urea Nitrogen 32 H 9-23 mg/dL Creatinine 1.75 H 0.700-1.30 mg/dL Glomerular Filtration Rate Calc 40 >90 mL/min BUN/Creatinine Ratio 18.3 10.0-20.0 Serum Glucose 116 H 74-106 mg/dL Calcium Level 8.5 L 8.7-10.4 mg/dL Total Bilirubin 0.6 0.2-1.0 mg/dL Aspartate Amino Transferase (AST) 31 13-40 U/L Alanine Aminotransferase (ALT) 21 7-40 U/L Alkaline Phosphatase 64 46-116 U/L Total Protein 5.2 L 5.7-8.2 g/dL Albumin 3.3 3.2-4.8 g/dL Urine Color Yellow Yellow Urine Clarity Turbid H Clear Urine pH 5.5 5.0-9.0 Urine Specific [place] 1.032 1.001-1.035 Urine Protein 1+ H Negative Urine Ketones Trace Negative Urine Blood Negative Negative /uL Urine Nitrite Negative Negative Urine Bilirubin 1+ Negative Urine Urobilinogen 3 H Negative mg/dL Urine Leukocyte Esterase 1+ Negative /uL Urine RBC 2 0 - 3 /hpf Urine Microscopic WBC 5 H 0-3 /HPF Urine Squamous Epithelial Cells Few <5 /hpf Urine Bacteria None seen None Seen /hpf Urine Hyaline Casts Mod 0 - 2 /lpf Urine Mucus Few None Seen Urine Creatinine 391.78 H 30.0-125.0 mg/dL Urine Protein/Creatinine Ratio 0.17 Urine Sodium 20 L 40-220 mmol/L Urine Glucose Normal Normal mg/dL Urine Total Protein 67.4 H 1-14 mg/dL Blood Gas Critical Value Read Back Yes Blood Gas Notified Whom Md benjamin carvalho Blood Gas Notified Time [id number] Blood Gas Notified By Rt divine oreilly Urine Opiates Screen Neg NEGATIVE Urine Fentanyl Screen Neg NEGATIVE Urine Barbiturates Screen Neg NEGATIVE Urine Phencyclidine Screen Neg NEGATIVE Urine Amphetamines Screen Neg NEGATIVE Urine Benzodiazepines Screen Neg NEGATIVE Urine Cocaine Screen Neg NEGATIVE Urine Cannabinoids Screen Neg NEGATIVE Lactic Acid Level 0.8 0.4-2.0 mmol/L Test 11/07/24 01:02 11/07/24 00:57 11/07/24 00:25 11/07/24 00:00 Range/Units Prothrombin Time 12.2 H 9.3-11.8 sec Prothrombin Time INR 1.17 H 0.9-1.15 Troponin I High Sensitivity 113 *H </=54 ng/L Blood Gas Liter Flow 5.00 POC Glucose 123 H 70-106 mg/dl Influenza Type A Antigen Negative Negative Influenza Type B Antigen Negative Negative SARS-CoV-2 Antigen (Rapid) Negative NEGATIVE Test 11/06/24 23:07 11/06/24 21:55 Range/Units Triglycerides Level 81 < 150 mg/dL Cholesterol Level 108 < 200 mg/dL LDL Cholesterol 64 < 100 mg/dL HDL Cholesterol 35 L 40-59 mg/dL D-Dimer, Quantitative 0.60 H 0.0-0.49 mg/L FEU Hemoglobin A1c 5.2 <5.7 % A1C Magnesium Level 1.9 1.6-2.6 mg/dL B-Type Natriuretic Peptide 587.05 0-100 pg/mL Thyroid Stimulating Hormone (TSH) 1.77 0.55-4.78 uIU/mL Plasma/Serum Blood Alcohol < 3.0 <10 mg/dL Assessment Acute kidney injury likely prerenal -FENA 0.1 Septic shock requiring pressor support Acute Hypercapnic respiratory failure Lactic acidosis NSTEMI ? COPD exacerbation FAMILIA on BiPAP Patient received 3 L NS 1 dose of Lasix 40 mg IV Urine specific gravity 1.032 on arrival Plan: FENA 0.1, BUN/creatinine slightly trending down, given the septic shock, patient likely has prerenal SHREYA. Started NS 125 cc/hour. Echocardiogram shows LVEF 55%, mild LVH. Strongly advised regarding avoiding NSAIDs (patient was taking Aleve twice daily for 2 months for back pain) Continue IV antibiotics per primary team Wean off vasopressors Pending CT chest and V/Q scan We will continue to follow up Plan discussed with patient, at bedside in which all questions have been answered Case discussed with Dr. Timmons Addendum Patient seen and examined, plan discussed with resident. Agree with above, we will follow closely ct chest pending ivf for today Plan discussed with: Patient, Other (, nurse) ZACHARY GALVEZ Nov 07, 2024 10:04 LINCOLN TIMMONS MD Nov 07, 2024 17:57
[2024-11-07] MEDS: CEFEPIME 2GM/50ML NS 50 ML IV SCH (10:44)
--- NOTE | 2024-11-07 10:47 | DVHPNRES ---
Progress Note Date Seen: Nov 07, 2024 Resident Creating Document: NEERU SCHULZ RESIDENT Medical Necessity Reason Pt with a Central, PICC or Fol: Yes The following are medically ne: Castanon Catheter Subjective Review of Systems Patient is a 74-year-old male with past medical history of hypertension, symptomatic bradycardia s/p pacemaker 3 years ago, sleep apnea on CPAP, recently diagnosed Parkinson's disease, possible [place] exposure? , ascending aortic aneurysm 4.2 cm, who comes in due to severe generalized weakness. According to the patient and his , patient has been feeling increasingly weak for the past 1 week, 2 days ago he also sustained a fall where he slipped off of his bed and fell on his knees without any head trauma. Per , yesterday patient was complaining of chest pain that started 2 days ago, intermittent and worsened with eating, along with abdominal pain, sweating and generalized weakness, was unable to get up from the chair which is what prompted this visit to the hospital. On review of systems patient is complaining of chest pain that has been ongoing intermittently for the last 1 week, palpitations, urinary frequency and urinary incontinence. Serial troponins were 80, 100, 113, 107 and chest x-ray showed no acute abnormality. Past surgical history: Pacemaker, back surgery? Home medications: Smoking: Quit 40 years ago, prior to that was smoking 1 pack per day for 30 years Alcohol: Past history of heavy use, currently denies Drugs: Denies Lives with Allergies: Denies Patient seen and examined at bedside. Patient is alert and oriented to time, place person and responding to all questions. General: In moderate distress, AO x4. Eyes: No Pain, No Vision change, No Conjunctivae inflammation, No Eyelid inflammation, No Other, No Redness ENT: No Ear pain, No Ear discharge, No Nose pain, No Nose discharge, No Nose congestion, No Mouth pain, No Mouth swelling, No Throat pain, No Throat swelling, No Other Cardiovascular: Chest Pain, Palpitations, No Orthopnea, No Paroxysmal No Dyspnea, No Edema, No Lt Headedness, No Other Respiratory: No Cough, No Dry, No Shortness of breath, No SOB with exertion, No Wheezing, No Hemoptysis, No Pleuritic Pain, No Sputum, No Other Gastrointestinal: No Nausea, No Vomiting, No Abdominal Pain, No Diarrhea, No Constipation, No Melena, No Hematochezia, No Other Genitourinary: No Dysuria, Frequency, Incontinence, No Hematuria, No Retention, No Other Musculoskeletal: No other, No neck pain, No shoulder pain, No arm pain, No back pain, No hand pain, No leg pain, No foot pain Skin: No Rash, No Lesions, No Jaundice, No Bruising, No Other Objective vital signs Vital Sign Date Time Temp Pulse Resp B/P (MAP) Pulse Ox O2 Delivery O2 Flow Rate FiO2 11/07/24 10:36 63 115/62 98 Facial BiPAP Mask 35 11/07/24 08:30 20 11/07/24 08:00 98.3 98.3 11/06/24 23:43 5 Total Intake and Output 11/06/24 11/06/24 11/07/24 15:00 23:00 07:00 Intake Total 2809.20 ml Output Total 75 ml Balance 2734.20 ml medications Current Medications Medications Dose Ordered Sig/Amol Route Start Time Stop Time Status Last Admin Dose Admin Nitroglycerin 0.4 mg Q5MINP PRN SL 11/07/24 00:00 Morphine Sulfate 2 mg Q30M PRN IV 11/07/24 00:00 Albuterol 2.5 mg Q4HR NEB 11/07/24 02:00 11/07/24 10:33 2.5 MG Cefepime HCl 50 ml @ 12.5 mls/hr Q12HR IV 11/07/24 10:00 11/07/24 10:44 12.5 MLS/HR Vancomycin HCl 0 ml @ 0 mls/hr UD IV 11/07/24 01:45 Norepinephrine Bitartrate 250 ml @ 3.75 mls/hr Q24H IV 11/07/24 04:30 11/07/24 04:31 3.75 MLS/HR Pantoprazole Sodium 40 mg DAILY IV 11/08/24 10:00 Ipratropium [place] 0.5 mg Q4HR NEB 11/07/24 10:00 11/07/24 10:33 0.5 MG Vancomycin HCl 0 ml @ 0 mls/hr UD IV 11/07/24 10:45 UNV Examination General Appearance: Cooperative. Well developed. In moderate distress Pulmonary/Respiratory: Chest non-tender. Scattered bilateral wheezes Cardiovascular/Chest: Tachycardia No murmurs. No JVD. Peripheries: Cold to touch Abdominal Exam: Normal bowel sounds. Soft. normal abdomen, no visible veins, Nontender. No hepatospenomegaly. No masses Lower extremities: Trace lower extremity edema Neuro/Mental Status: A&O x4. Coherent. Thoughts/Psych: Normal thought pattern. Appropriate mood and affect. laboratory and microbiology Laboratory Tests 11/07/24 04:03 Test 11/07/24 04:03 Range/Units Serum Glucose 116 H 74-106 mg/dL Labs and/or images reviewed: Labs reviewed by me, Image(s) reviewed by me Problem List/Assessment/Plan Problem List/Assessment/Plan Neurology # newly diagnosed Parkinson's disease - resumed home medication carbidopa levodopa - outpatient follow up Cardiovascular # Septic shock possibly secondary to pneumonia versus complicated UTI # NSTEMI likely type 2 due to above # mild left atrial enlargement # moderate aortic stenosis with mean gradient of 25 mm of Hg # ascending aortic aneurysm measuring 4.2 cm 12 months ago - echocardiogram: lvef 55%. mild LVH. grade 1 diastolic dysfunction. normal rv function. RV not well seen. left atrium enlarged mild. moderate aortic stenosis, mean gradient of 25 mmg . mild pulm htn - CXR: No acute abnormality demonstrated, low lung volumes with crowding of the bronchovascular markings. - norepinephrine IV at 2 mcg Respiratory # Acute hypoxic/hypercapnic respiratory failure, on BiPAP # acute respiratory acidosis due to above with mixed metabolic acidosis secondary to elevated lactate # possible acute exacerbation of COPD # questionable community-acquired pneumonia, Gram-positive versus Gram-negative? # pulmonary hypertension, RVSP 65 mmHg # pulmonary embolism can not be ruled out - echocardiogram: lvef 55%. mild LVH. grade 1 diastolic dysfunction. normal rv function. RV not well seen. left atrium enlarged mild. moderate aortic stenosis, mean gradient of 25 mmg . mild pulm htn - IV vancomycin per-pharmacy - IV cefepime - ipratropium and albuterol med nebs - started apixaban 10mg bid - V/Q scan GI # Peptic ulcer prophylaxis -Pantoprazole 40 mg IV daily # Castanon catheter placed on 11/07/2024 # acute complicated UTI - IV vancomycin, IV cefepime - IV NS at 100 cc/hour Nephrology # SHREYA likely hemodynamically mediated/VMN on questionable CKD, baseline unavailable - nephrology on board - strict I&Os - monitor Infectious disease # acute complicated UTI # possible community-acquired pneumonia - IV vancomycin per pharmacy - IV cefepime - IV NS at 100 cc/hour - norepinephrine at 0.5 mcg Hem/onc # severe leukocytosis # microcytic anemia, MCV 69.4 # thrombocytopenia, serum platelets 82 - monitor DVT prophylaxis - bilateral lower extremity Doppler: No right or left femoropopliteal venous thrombosis - holding due to low platelet count Nutrition Cardiac diet Lines - left 20 gauge placed on 11/06/2024 Critical care time 83 minutes excluding procedure. Code status discussed greater than 20 minutes: Family at bedside explained about the condition of the patient Plan discussed with Dr. Lopez; we decided to start the patient on apixaban, consult Cardiology and continue BiPAP at night. Patient was also started on a cardiac diet with instructions to not use BiPAP 1-2 hours after feeding. Plan discussed with: Patient, Spouse, Other (RN) My Orders My Orders Orders - NEERU SCHULZ Procedure Category Date Status Time Abg W/ Co-Ox RT 11/07/24 Logged 09:37 Bilat Lower Dvt US 11/07/24 Logged 10:39 Vancomycin Per PHA 11/07/24 Logged Pharmacy 10:45 NEERU SCHULZ RESIDENT Nov 07, 2024 10:47
--- NOTE | 2024-11-07 12:02 | DVH ---
Bilateral lower extremity venous duplex Clinical History: r/o dvt edema Comparison: None Findings: Duplex Doppler evaluation of the deep venous systems of both lower extremities from the common femora l veins to the popliteal veins including color Doppler and spectral/pulsed waveform analysis was perf ormed. RIGHT SIDE: The common femoral vein demonstrates appropriate compressibility and waveform variability. There is compressibility/patency of the great saphenous vein at the proximal thigh. The femoral vein demonstrates appropriate compressibility and waveform variability. The deep femoral vein demonstrates appropriate compressibility and waveform variability. The popliteal vein demonstrates appropriate compressibility and waveform variability. There is normal compressibility at the tibioperoneal trunk. LEFT SIDE: The common femoral vein demonstrates appropriate compressibility and waveform variability. There is compressibility/patency of the great saphenous vein at the proximal thigh. The femoral vein demonstrates appropriate compressibility and waveform variability. The deep femoral vein demonstrates appropriate compressibility and waveform variability. The popliteal vein demonstrates appropriate compressibility and waveform variability. There is normal compressibility at the tibioperoneal trunk. IMPRESSION: No right or left femoropopliteal venous thrombosis. If clinical concern/symptoms persist or worsen, short-interval follow-up study is suggested. END IMPRESSION:
[2024-11-07] MEDS ORDERED: NAPR-957 PO (12:23)
[2024-11-07] MEDS ORDERED: ACET-1881 PO (12:23)
[2024-11-07] MEDS ORDERED: LOSA-533 PO (12:23)
[2024-11-07] MEDS ORDERED: ALBUAER3 IN (12:23)
[2024-11-07] MEDS ORDERED: [UNRECOGNIZED DRUG - CODE] OR (12:23)
[2024-11-07] MEDS ORDERED: CARB1TAB73 PO (12:23)
[2024-11-07] MEDS ORDERED: TRAZ-227 PO (12:23)
[2024-11-07] MEDS ORDERED: ALB5IS NEB (12:23)
[2024-11-07] MEDS ORDERED: AZIT-43 PO (12:23)
[2024-11-07] MEDS ORDERED: TAMS-35 PO (12:23)
[2024-11-07] MEDS ORDERED: MAGN400T40 PO (12:23)
[2024-11-07] MEDS ORDERED: NAPR-759 PO (12:23)
--- NOTE | 2024-11-07 12:58 | DVHSR ---
APPROVED REPORT EXAM: Two-dimensional and M-mode echocardiogram with Doppler and color Doppler. Blood Pressure: 110/58 mmHg INDICATION CHF Surgery/Intervention Pacemaker: RISK FACTORS Obesity: Height: 5'10", Weight: 200 DIMENSIONS LVDd3.6 (3.8-5.7cm)LA (2D)3.9 (1.9-4.0cm)Aortic Root4.0 (2.0-3.7cm) LVDs2.5 (2.5-4.0cm)LA (MM) (1.9-4.0cm)Aortic Cusp Exc0.8 (1.5-2.0cm) EF (%) 56.0 (55-70%)Rt. Atrium5.6 (1.9-4.0cm)Asc. Aorta cm IVSd0.9 (0.7-1.1cm)RV (D) (1.8-2.4cm) PWd1.0 (0.7-1.1cm) Mitral Valve MitralMitral Stenosis E wave0.77m/sMV Mean GR.mmHg A wave1.10m/sMV Peak GR.mmHg E/A ratio0.72D MVAcm2 DECEL [id number] 1/2 [place] Aortic Valve Aortic ValveAortic Stenosis V11.13m/Benoit Mean GR.22mmHg V23.09m/Benoit Peak GR.38mmHg LVOT Diameter2.2 (1.8-2.4cm)Doppler AVA1.39cm2 Pulmonic Valve V21.04m/s Tricuspid Valve TR Velocity3.52m/s [id number] Other Information Technically limited study due to body habitus, patient sitting up on bipap. Conclusion lvef 55% mild LVH grade 1 diastolic dysfunction normal rv functionRV not well seen left atrium enlarged mild moderate aortic stenosis, mean gradient of 25 mmg mild pulm htn
[2024-11-07] MEDS: SODIUM CHLORIDE 0.9% 250 ML IV ONE (14:49)
[2024-11-07 15:59] LABS: Base Excess -1.4 mmol/L (-2.0-3.0)
[2024-11-07] MEDS: SODIUM CHLORIDE 0.9% 1,000 ML IV SCH (16:18)
[2024-11-07] MEDS ORDERED: ENOXAPARIN SOD 100 MG/1 ML SYRINGE SC SCH (18:00)
[2024-11-07] MEDS: VANCOMYCIN 1GM/200ML PM 200 ML IV ONE (20:02)
[2024-11-07] MEDS: APIXABAN 5 MG TAB PO SCH (20:11)
[2024-11-07] MEDS: VANCOMYCIN 1GM/250ML KIT 250 ML IV ONE (20:12)
--- NOTE | 2024-11-07 20:21 | DVH ---
Procedure: CT CHEST WITHOUT CONTRAST Reason for study/Clinical History: pneumonia Comparison Study: None Exam Date: 11/07/2024 04:54 PM TECHNIQUE: Multidetector CT of the chest was performed from the lung apices to the upper abdomen with out the use of intravenous contract. Axial, coronal and sagittal multiplanar reformats were performed . Radiation Dose Information: CT Dose: CTDI volume is 29.37 mGy. Dose-length product is 1184.81 mGy*cm The dose indicators for CT are the volume Computed Tomography (CT) Dose Index (CTDIvol) and the Dose Length Product (DLP), and are measured in units of mGy and mGy-cm, respectively. These indicators are not patient dose, but values generated from the CT scanner acquisition factors. The report includes radiation exposure data for exposures received during this examination. FINDINGS: Lower neck: Normal thyroid. Lungs: No focal consolidation, pleural effusion or pneumothorax. 6.3 mm non solid nodule right middle lobe. (Series 2, image 62). Heart/Vascular Structures: Normal heart size. No pericardial effusion. Dual-chamber pacemaker in plac e pulse generator over the left chest Lymph Nodes: No adenopathy Pleura: No pleural effusion or significant pneumothorax. Musculoskeletal: No acute osseous abnormality. Pedicle screws and rods in place from mid thoracic mid lumbar spine. Soft tissues: Normal. Upper abdomen: Limited portions of the upper abdomen are unremarkable. IMPRESSION: 1. Atelectasis and airspace disease noted in the left posterior costophrenic angle with a small left pleural effusion. 2. Small pleural effusion right posterior costophrenic angle. 3. 6.3 mm soft nodule right middle lobe. (Series 2, image 62). Radiation optimization: All CT scans at this facility use at least one of these dose optimization kaz hniques: automated exposure control mA and/or kV adjustment per patient size (includes targeted exam s where dose is matched to clinical indication) or iterative reconstruction.
[2024-11-08] VITALS (40 sets, daily range): BP systolic 88–153; BP diastolic 39–87; PULSE 63–133; RESP 15–25; TEMP 98–98.4; O2SAT 84–100
[2024-11-08 06:53] LABS: Anion Gap 6 (5-15); Chloride 106 mmol/L (98-107); Potassium 4.4 mmol/L (3.5-5.1)
[2024-11-08 06:54] LABS: Carbon Dioxide 34 mmol/L (20-31); Sodium 146 mmol/L (136-145)
[2024-11-08 06:56] LABS: Calcium 8.1 mg/dL (8.7-10.4)
[2024-11-08 06:59] LABS: BUN/Creatinine Ratio 25.6 (10.0-20.0); Blood Urea Nitrogen 33 mg/dL (9-23); Glucose 82 mg/dL (74-106)
[2024-11-08 07:34] LABS: Hematocrit 38.5 % (41.0-53.0); Hemoglobin 11.8 g/dL (13.5-17.5); Mean Corpuscular Hemoglobin 21.1 pg (28.0-32.0); Mean Corpuscular Volume 69.0 fL (80.0-100.0)
[2024-11-08] MEDS: HALOPERIDOL LACTATE 5 MG/ML INJ VIAL IM ONE (08:00)
[2024-11-08 08:44] LABS: Nucleated Red Blood Cells % 2.0 %; Total Cells Counted 100.0 (100)
[2024-11-08 09:41] LABS: Base Excess 0.3 mmol/L (-2.0-3.0)
--- NOTE | 2024-11-08 10:08 | DVHINCON2 ---
Date Seen: Nov 08, 2024 Referring Physician MD Margarito Reason for Consultation NSTEMI History of Present Illness This is a 74-year-old man who presented to the emergency room via EMS with a chief complaint of chest pain for one week. Describes his chest pain as substernal, pressure-like, constant, associated with SOB/generalized weakness, and worse with inspiration which prompted to call 911. Upon EMS arrival he was found with an oxygen saturation level of 54% on room air for which he was provided with supplemental oxygenation route to the hospital. At time of assessment, the patient denied any further chest pain. He underwent multiple 12 lead electrocardiograms revealing an atrioventricular paced rhythm with underlying sinus rhythm and an associated first-degree atrioventricular block. Serial troponin levels peaked at 113 ng/L prompting cardiology consultation. 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 Past Medical History Past medical history reviewed. No other significant than mentioned above. Past Surgical History Dual chamber pacemaker implantation, 2021 Multiple back surgeries Cholecystectomy Appendectomy Family History Family history reviewed. Not significant for cardiovascular disease. Social History Denies the use of illicit drugs, alcohol, or tobacco use. Quit tobacco use for over 40 years ago. Quit alcohol use 10 years ago. Allergies: Coded Allergies: NO KNOWN ALLERGIES (Unverified , 11/06/24) Home Meds Reported Medications Misc Natural Products (CRAMP RELEAF) Cap, 70 MG OR DAILY, CAP 11/07/24 Albuterol Sulfate (VENTOLIN MDI) 90 Mcg Ih, 90 MCG IN PRN, INH 11/07/24 Albuterol Sulfate (Ventolin) 2.5 Mg/0.5 Ml Nb, 1 VIAL NEB Q6HR, #120 VIAL 5 Refills 11/07/24 Azithromycin (Azithromycin) 250 Mg Tab, 250 MG PO DAILY for 6 Days, #4 11/07/24 Trazodone Hcl (Trazodone Hcl) 50 Mg Tab, 50 MG PO HSPRN PRN for FOR INSOMNIA, MG 11/07/24 Acetaminophen (Acetaminophen) 325 Mg Tab, 325 MG PO Q8HP PRN for MILD PAIN for 30 Days, MG 0 Refills 11/07/24 Naproxen (Naproxen) 375 Mg Tab, 375 MG PO BIDWM, TAB 11/07/24 Carbidopa-Levodopa (Carbidopa/Levodopa Odt 25-250 mg) 1 Tab Tab, 1 TAB PO, TAB 11/07/24 Magnesium Oxide (MAGNESIUM OXIDE) 400 Mg Tab, 1 TAB PO DAILY, #30 TAB 5 Refills 11/07/24 Tamsulosin Hcl (Flomax) 0.4 Mg Cap, 1 CAP PO DAILY, #30 CAP 11 Refills 11/07/24 Losartan Potassium (Losartan Potassium) 25 Mg Tab, 25 MG PO DAILY for 30 Days, MG 11/07/24 Naproxen Sodium (ALEVE ARTHRITIS) 220 Mg Tab, 220 MG PO, TAB 11/07/24 Home Meds Home medications reviewed. Current Medications Current Medications Medications (Trade) Dose Ordered Sig/Amol Route PRN Reason Start Time Stop Time Status Last Admin Cefepime HCl 50 ml @ 12.5 mls/hr Q12HR IV 11/07/24 10:00 11/07/24 22:15 Pantoprazole Sodium (Protonix) 40 mg DAILY IV 11/08/24 10:00 Ipratropium [place] (Atrovent Medneb) 0.5 mg Q4HR NEB 11/07/24 10:00 11/08/24 05:54 Vancomycin HCl 0 ml @ 0 mls/hr UD IV 11/07/24 10:45 Norepinephrine Bitartrate 250 ml @ 3.75 mls/hr Q24H IV 11/07/24 14:30 11/07/24 14:15 Sodium Chloride 1,000 ml @ 125 mls/hr Q8H IV 11/07/24 15:15 11/08/24 05:48 Carbidopa/Levodopa (Sinemet 25/ 250MG) 1 tab DAILY PO 11/08/24 10:00 Enoxaparin Sodium (Lovenox) 90 mg Q12H SC 11/07/24 18:00 11/07/24 17:46 DC Apixaban (Eliquis) 10 mg Q12H PO 11/07/24 18:00 11/14/24 06:01 11/08/24 05:35 Apixaban (Eliquis) 5 mg BID PO 11/14/24 22:00 Review of Systems Constitutional: Generalized weakness Ears, Nose, & Throat: No symptom reported Eyes: No symptom reported Neurological: No symptoms reported Pulmonary/Respiratory: SOB Cardiovascular: Chest pain Gastrointestinal: No symptom reported Genitourinary: No symptom reported Musculoskeletal: No symptom reported Skin: No symptom reported Psychiatric: No symptom reported Endocrine: No symptom reported Hemotologic/Lymphatic: No symptom reported Vital Signs Vital Signs Date Time Temp Pulse Resp B/P (MAP) Pulse Ox O2 Delivery O2 Flow Rate FiO2 11/08/24 08:00 83 11/08/24 07:00 17 104/61 (75) 98 11/08/24 06:00 Nasal Cannula* 3 32 11/08/24 04:00 98.4 98.4 Physical Exam General Appearance: Cooperative. Appears very lethargic. In no acute distress Head Exam: Normal inspection Neck Exam: Normal inspection. Non-tender. Normal alignment Pulmonary/Respiratory: Chest non-tender. Diminished bilateral breath sounds Cardiovascular/Chest: Regular rate and rhythm. S1, S2. Systolic murmur IV/. Crescendo/decrescendo radiating to the RSB and bilateral carotids. No JVD. Peripheral Pulses: 2+ Radial (R). 2+ Radial (L). 2+ Pedal (R). 2+ Pedal (L) Abdominal Exam: Normal bowel sounds. Soft. Nontender. No hepatospenomegaly. No masses Ankle Exam: Negative ankle edema Lower extremities: Negative lower extremity edema Neuro/Mental Status: A&O x3. Coherent but somewhat poor historian Thoughts/Psych: Normal thought pattern. Appropriate mood and affect. Good judgement and insight Appearance: In no acute distress Skin Exam: Normal inspection. Normal color. Warm. Dry Labs/Diagnostic Data Labs Test 11/08/24 09:32 11/08/24 05:15 11/07/24 15:52 11/07/24 13:52 Range/Units Blood Gas Specimen Type Arterial Blood Gas Sample Site Right radial Blood Gas Patient Temperature 37.0 Arterial Blood Date Drawn [id number] Arterial Blood pH 7.240 *L 7.350-7.450 Arterial Blood Partial Pressure CO2 70.1 *H 35.0-48.0 mmHg Arterial Blood Partial Pressure O2 88.3 83.0-108.0 mmHg Arterial Blood HCO3 29.4 H 21.0-28.0 mmol/L Arterial Blood Oxygen Saturation 95.5 94.0-98.0 % Arterial Blood Base Excess 0.3 -2.0-3.0 mmol/L Arterial Blood Oxyhemoglobin 93.2 L 94.0-98.0 % Arterial Blood Carboxyhemoglobin 1.7 H 0.5-1.5 % Arterial Blood Methemoglobin 0.7 0.0-1.5 % Adonis Test Yes Blood Gas Total Hemoglobin 13.00 L 13.5-17.5 g/dL Blood Gas Liter Flow 4.00 Blood Gas Modality Nasal cannula Blood Gas Spontaneous Rate 20 FiO2 % 36.0 Blood Gas Critical Value Read Back Yes Blood Gas Notified Whom Md. to rudolph Blood Gas Notified Time [id number] Blood Gas Notified By Rt kassie hennessy White Blood Count 32.2 *H 4.4-10.8 10^3/uL Red Blood Count 5.58 4.5-5.90 10^6/uL Hemoglobin 11.8 L 13.5-17.5 g/dL Hematocrit 38.5 L 41.0-53.0 % Mean Corpuscular Volume 69.0 L 80.0-100.0 fL Mean Corpuscular Hemoglobin 21.1 L 28.0-32.0 pg Mean Corpuscular Hemoglobin Concent 30.6 L 32.0-36.0 g/dL Red Cell Distribution Width 18.7 H 11.8-14.3 % Platelet Count 80 L 140-450 10^3/uL Mean Platelet Volume 8.7 6.9-10.8 fL Neutrophils (%) (Auto) 37.0-80.0 % Lymphocytes (%) (Auto) 10.0-50.0 % Monocytes (%) (Auto) 0.0-12.0 % Basophils (%) (Auto) 0.0-2.0 % Neutrophils # (Auto) 1.6-8.6 10 ^3/uL Lymphocytes # (Auto) 0.4-5.4 10 ^3/uL Monocytes # (Auto) 0-1.3 10 ^3/uL Differential Total Cells Counted 100.0 100 Neutrophils % (Manual) 53 37.0-80.0 Band Neutrophils % (Manual) 5 Lymphocytes % (Manual) 9 L 10.0-50.0 Monocytes % (Manual) 25 H 0-12 Eosinophils % (Manual) 1 0-7 Basophils % (Manual) 0 0.0-2.0 Metamyelocytes % (manual) 5 Myelocytes % (Manual) 2 Promyelocytes % (Manual) 0 Blast Cells % (Manual) 0 Nucleated Red Blood Cells 2.0 % Reactive Lymphocytes 0 Platelet Estimate Decreased Hypochromasia (manual) Moderate Microcytosis Marked Sodium Level 146 H 136-145 mmol/L Potassium Level 4.4 3.5-5.1 mmol/L Chloride Level 106 98-107 mmol/L Carbon Dioxide Level 34 H 20-31 mmol/L Anion Gap 6 5-15 Blood Urea Nitrogen 33 H 9-23 mg/dL Creatinine 1.29 0.700-1.30 mg/dL Glomerular Filtration Rate Calc 57 >90 mL/min BUN/Creatinine Ratio 25.6 H 10.0-20.0 Serum Glucose 82 74-106 mg/dL Calcium Level 8.1 L 8.7-10.4 mg/dL Random Vancomycin Level 12.7 H 5-10 ug/mL Blood Gas Set Respiration Rate 14.0 Blood Gas EPAP 5 Blood Gas IPAP 15 Troponin I High Sensitivity 107 *H </=54 ng/L Test 11/07/24 10:34 11/07/24 04:03 11/07/24 03:30 11/07/24 01:16 Range/Units Creatine Kinase 48 46-171 U/L Total Bilirubin 0.6 0.2-1.0 mg/dL Aspartate Amino Transferase (AST) 31 13-40 U/L Alanine Aminotransferase (ALT) 21 7-40 U/L Alkaline Phosphatase 64 46-116 U/L Total Protein 5.2 L 5.7-8.2 g/dL Albumin 3.3 3.2-4.8 g/dL Urine Color Yellow Yellow Urine Clarity Turbid H Clear Urine pH 5.5 5.0-9.0 Urine Specific [place] 1.032 1.001-1.035 Urine Protein 1+ H Negative Urine Ketones Trace Negative Urine Blood Negative Negative /uL Urine Nitrite Negative Negative Urine Bilirubin 1+ Negative Urine Urobilinogen 3 H Negative mg/dL Urine Leukocyte Esterase 1+ Negative /uL Urine RBC 2 0 - 3 /hpf Urine Microscopic WBC 5 H 0-3 /HPF Urine Squamous Epithelial Cells Few <5 /hpf Urine Bacteria None seen None Seen /hpf Urine Hyaline Casts Mod 0 - 2 /lpf Urine Mucus Few None Seen Urine Creatinine 391.78 H 30.0-125.0 mg/dL Urine Protein/Creatinine Ratio 0.17 Urine Sodium 20 L 40-220 mmol/L Urine Glucose Normal Normal mg/dL Urine Total Protein 67.4 H 1-14 mg/dL Urine Opiates Screen Neg NEGATIVE Urine Fentanyl Screen Neg NEGATIVE Urine Barbiturates Screen Neg NEGATIVE Urine Phencyclidine Screen Neg NEGATIVE Urine Amphetamines Screen Neg NEGATIVE Urine Benzodiazepines Screen Neg NEGATIVE Urine Cocaine Screen Neg NEGATIVE Urine Cannabinoids Screen Neg NEGATIVE Lactic Acid Level 0.8 0.4-2.0 mmol/L Test 11/07/24 01:02 11/07/24 00:25 11/07/24 00:00 11/06/24 23:07 Range/Units Prothrombin Time 12.2 H 9.3-11.8 sec Prothrombin Time INR 1.17 H 0.9-1.15 POC Glucose 123 H 70-106 mg/dl Influenza Type A Antigen Negative Negative Influenza Type B Antigen Negative Negative SARS-CoV-2 Antigen (Rapid) Negative NEGATIVE Triglycerides Level 81 < 150 mg/dL Cholesterol Level 108 < 200 mg/dL LDL Cholesterol 64 < 100 mg/dL HDL Cholesterol 35 L 40-59 mg/dL Test 11/06/24 21:55 Range/Units D-Dimer, Quantitative 0.60 H 0.0-0.49 mg/L FEU Hemoglobin A1c 5.2 <5.7 % A1C Magnesium Level 1.9 1.6-2.6 mg/dL B-Type Natriuretic Peptide 587.05 0-100 pg/mL Vitamin B12 Level 1960 H 211-911 pg/mL Vitamin D 25-Hydroxy 42.2 30.0-100 ng/mL Thyroid Stimulating Hormone (TSH) 1.77 0.55-4.78 uIU/mL Plasma/Serum Blood Alcohol < 3.0 <10 mg/dL Microbiology Date/Time Source Procedure Growth Status 11/06/24 21:55 Blood Blood Culture - Preliminary NO GROWTH AFTER 24 HOURS OF INCUBATION. Resulted Assessment Septic shock with PNA/UTI Acute on chronic hypoxic respiratory failure Acute kidney injury NSTEMI type 2 secondary to above Ascending aortic aneurysm at 4.2 cm Presence of dual-chamber pacemaker ([employer]) Aortic valve stenosis, moderate degree Parkinson's disease Thrombocytopenia FAMILIA on CPAP HS Hx tobacco use Plan/Recommendation (Dr. Tamayo) Transthoracic echocardiogram revealed LVEF 55% with normal RV function, left atrial enlargement of mild degree, moderate aortic valve stenosis, and mild p ulmonary hypertension. Likely NSTEMI type 2 secondary to septic shock, acute hypoxic respiratory failure and SHREYA. 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 Consider cautious use of AC/DOAC therapy given thrombocytopenia. We will sign off at this time. Kindly call if in need to re- consul. Thank you for allowing us to participate in this patient's care. Critical care time: 35 min. This medical document was created using an electronic medical record system with voice recognition software and computerized dictation system. Although this document has been carefully reviewed, there might still be some phonetic and typographical errors. Occasional wrong-word or ``sound-alike substitutions may have occurred due to the inherent limitations of voice recognition software. These areas are purely typographical due to imperfections of the software programs and do not reflect any compromise in the patient's medical care. Please read the chart carefully and recognize, using context, where these substitutions have occurred. Plan discussed with: Patient, Other NYHA Physical activity limitations: NA Date of Service: Nov 08, 2024 Billing Provider: ORESTES LAROSE Cardiology Common Codes: 91107-WUTPVYGV CARE 30-74 MIN ORESTES LAROSE Nov 08, 2024 10:08
[2024-11-08] MEDS: HYDROcodone-ACET 5/325MG TAB PO PRN (10:58)
[2024-11-08] MEDS: PANTOPRAZOLE 40 MG/10 ML VIAL INJ IV SCH (10:58)
[2024-11-08] MEDS: VANCOMYCIN 1GM/200ML PM 200 ML IV ONE (11:00)
[2024-11-08] MEDS: SODIUM CHLORIDE 0.9% 1,000 ML IV SCH (11:03)
[2024-11-08] MEDS: methylPREDNISolone SOD SUCC 40 MG/ML VL IV ONE (11:08)
--- NOTE | 2024-11-08 11:48 | DVHPN2 ---
Progress Note Date Seen: Nov 08, 2024 Resident Creating Document: ZACHARY GALVEZ RESIDENT Medical Necessity Reason Pt with a Central, PICC or Fol: Yes The following are medically ne: [place] Catheter Subjective Review of Systems Mr. Avina is a 74-year-old male with hypertension, obstructive sleep apnea on CPAP, Parkinson's disease, bradycardia status post pacemaker placement, ascending aortic aneurysm 4.2 cm who presented to the ER with a chief complaint of substernal chest pain and generalized weakness. He has a history of recent mechanical fall, reports substernal pressure type chest pain for the past week, nonradiating, mostly postprandial, with shortness of breath. He has been taking tablet aleve 220 mg twice daily for the past 2 months for back pain. Patient denies any nausea/vomiting/urinary symptoms. On arrival to the ER patient was hypotensive and received around 3 L NS bolus. Patient was persistently hypotensive and he was started on Levophed. Patient had lactic acidosis, elevated troponin, BNP 587 in the SHREYA. Nephrology consulted for SHREYA Social history: Lives with family, quit smoking 40 years back, almost smoked a pack year for 20 years, denied drug use or alcohol. 11/07-Patient seen and examined in the ER. Currently on BiPAP. at bedside. Echocardiogram pending. 11/08-patient seen and examined in the ER, feels slightly better, lower extremity swelling improving. BUN/creatinine trending down, GFR improving. Objective vital signs Vital Sign Date Time Temp Pulse Resp B/P (MAP) Pulse Ox O2 Delivery O2 Flow Rate FiO2 11/08/24 10:08 81 134/69 95 Nasal BiPAP Mask 30 11/08/24 07:00 17 11/08/24 06:00 3 11/08/24 04:00 98.4 98.4 Total Intake and Output 11/07/24 11/07/24 11/08/24 15:00 23:00 07:00 Intake Total 53.75 ml 1137.5 ml 1337.5 ml Output Total 700 ml 450 ml Balance 53.75 ml 437.5 ml 887.5 ml medications Current Medications Medications Dose Ordered Sig/Amol Route Start Time Stop Time Status Last Admin Dose Admin Nitroglycerin 0.4 mg Q5MINP PRN SL 11/07/24 00:00 Morphine Sulfate 2 mg Q30M PRN IV 11/07/24 00:00 Albuterol 2.5 mg Q4HR NEB 11/07/24 02:00 11/08/24 10:10 2.5 MG Cefepime HCl 50 ml @ 12.5 mls/hr Q12HR IV 11/07/24 10:00 11/08/24 10:14 12.5 MLS/HR Pantoprazole Sodium 40 mg DAILY IV 11/08/24 10:00 11/08/24 11:00 40 MG Ipratropium [place] 0.5 mg Q4HR NEB 11/07/24 10:00 11/08/24 10:10 0.5 MG Vancomycin HCl 0 ml @ 0 mls/hr UD IV 11/07/24 10:45 Norepinephrine Bitartrate 250 ml @ 3.75 mls/hr Q24H IV 11/07/24 14:30 11/07/24 14:15 0.938 MLS/HR Carbidopa/Levodopa 1 tab DAILY PO 11/08/24 10:00 Apixaban 10 mg Q12H PO 11/07/24 18:00 11/14/24 06:01 11/08/24 05:35 10 MG Apixaban 5 mg BID PO 11/14/24 22:00 Acetaminophen/ Hydrocodone Bitart 1 tab Q8HPRN PRN PO 11/08/24 10:15 11/08/24 10:58 1 TAB Sodium Chloride 1,000 ml @ 75 mls/hr [id number] IV 11/08/24 10:15 11/08/24 11:03 75 MLS/HR Methylprednisolone Sodium Succinate 40 mg DAILY IV 11/09/24 10:00 Examination Patient lying in bed, in no acute distress General: Overweight, afebrile, palor, mucosae are moist Cardiovascular: Regular S1 and S2. No murmurs, gallops or rubs. No JVD elevation. Resolving 1+ pitting edema bilaterally Respiratory: Bibasilar crackles heard on auscultation, currently on BiPAP Abdomen: Soft, nontender, nondistended, normoactive bowel sounds, no rebound tenderness, no organomegaly, no masses Genitourinary: Deferred MSK/skin: Mobilizes 4 limbs. Skin is dry and warm Neurological: No motor, no sensitive deficits, normal speech. Pupils are isocoric and reactive. Psych/Mental Status: A/Ox3 laboratory and microbiology Laboratory Tests 11/08/24 05:15 Test 11/08/24 05:15 Range/Units Serum Glucose 82 74-106 mg/dL Microbiology Date/Time Source Procedure Growth Status 11/07/24 03:30 Voided Urine Urine Culture - Preliminary Resulted 11/06/24 21:55 Blood Blood Culture - Preliminary NO GROWTH AFTER 24 HOURS OF INCUBATION. Resulted Labs and/or images reviewed: Labs reviewed by me, Image(s) reviewed by me Problem List/Assessment/Plan Problem List/Assessment/Plan Acute kidney injury likely prerenal -FENA 0.1 Septic shock requiring pressor support Acute Hypercapnic respiratory failure Lactic acidosis-resolved NSTEMI ? COPD exacerbation FAMILIA on BiPAP Patient received 3 L NS 1 dose of Lasix 40 mg IV Urine specific gravity 1.032 on arrival Plan: FENA 0.1, BUN/creatinine trending down, GFR improving, given the septic shock, patient likely has prerenal SHREYA. Decreased NS to 75 cc/hour. DC fluids tomorrow. Echocardiogram shows LVEF 55%, mild LVH. Chest CT shows 6.3 mm nodule in the right middle lobe Strongly advised regarding avoiding NSAIDs (patient was taking Aleve twice daily for 2 months for back pain) Continue IV antibiotics per primary team Pending V/Q scan We will continue to follow up Off vasopressors Plan discussed with patient, at bedside in which all questions have been answered Case discussed with Dr. Timmons Addendum Patient seen and examined, plan discussed with resident. Agree with above, we will follow closely Plan discussed with: Patient ZACHARY GALVEZ RESIDENT Nov 08, 2024 11:48 LINCOLN TIMMONS MD Nov 08, 2024 19:18
[2024-11-08] MEDS: VANCOMYCIN 1GM/250ML KIT 250 ML IV ONE (12:10)
[2024-11-08 13:12] LABS: Base Excess 2.8 mmol/L (-2.0-3.0)
--- NOTE | 2024-11-08 15:22 | DVH ---
Technique: Real-time ultrasound imaging of the abdomen was performed with grayscale and color Doppler . Indication: eval for splenomegaly Comparison: None Findings: The spleen measures 14.9 x 12 x 5.9 cm consistent with splenomegaly. No perisplenic fluid seen. Impression: Splenomegaly.
[2024-11-08] MEDS: CARBIDOPA W LEVODOPA 25/250mg TABLET PO SCH ×2 (16:27→22:00)
--- NOTE | 2024-11-08 17:14 | DVHPNRES ---
Progress Note Date Seen: Nov 08, 2024 Resident Creating Document: NEERU SCHULZ RESIDENT Medical Necessity Reason Pt with a Central, PICC or Fol: Yes The following are medically ne: Castanon Catheter Subjective Review of Systems Patient is a 74-year-old male with past medical history of hypertension, symptomatic bradycardia s/p pacemaker 3 years ago, sleep apnea on CPAP, recently diagnosed Parkinson's disease, possible [place] exposure? , ascending aortic aneurysm 4.2 cm, who comes in due to severe generalized weakness. According to the patient and his , patient has been feeling increasingly weak for the past 1 week, 2 days ago he also sustained a fall where he slipped off of his bed and fell on his knees without any head trauma. Per , yesterday patient was complaining of chest pain that started 2 days ago, intermittent and worsened with eating, along with abdominal pain, sweating and generalized weakness, was unable to get up from the chair which is what prompted this visit to the hospital. On review of systems patient is complaining of chest pain that has been ongoing intermittently for the last 1 week, palpitations, urinary frequency and urinary incontinence. Serial troponins were 80, 100, 113, 107 and chest x-ray showed no acute abnormality. Past surgical history: Pacemaker, back surgery? Home medications: Smoking: Quit 40 years ago, prior to that was smoking 1 pack per day for 30 years Alcohol: Past history of heavy use, currently denies Drugs: Denies Lives with Allergies: Denies 11/08/2024: Patient seen and examined at bedside. Patient is alert and oriented to time, place person and responding to all questions. Patient reports improved symptoms from when he 1st came to the hospital. 1+ lower extremity edema, decreased bilateral breath sounds. Complaining of lower back pain, started on [place] 5q 8 hours as needed. Denies any new complaints. Denies any suicidal ideation. Objective vital signs Vital Sign Date Time Temp Pulse Resp B/P (MAP) Pulse Ox O2 Delivery O2 Flow Rate FiO2 11/08/24 16:01 98.0 88 23 143/87 (105) 98 98.0 11/08/24 16:00 Nasal Cannula* 3 32 Total Intake and Output 11/07/24 11/07/24 11/08/24 15:00 23:00 07:00 Intake Total 53.75 ml 1137.5 ml 1337.5 ml Output Total 700 ml 450 ml Balance 53.75 ml 437.5 ml 887.5 ml medications Current Medications Medications Dose Ordered Sig/Amol Route Start Time Stop Time Status Last Admin Dose Admin Nitroglycerin 0.4 mg Q5MINP PRN SL 11/07/24 00:00 Morphine Sulfate 2 mg Q30M PRN IV 11/07/24 00:00 Albuterol 2.5 mg Q4HR NEB 11/07/24 02:00 11/08/24 13:57 2.5 MG Cefepime HCl 50 ml @ 12.5 mls/hr Q12HR IV 11/07/24 10:00 11/08/24 10:14 12.5 MLS/HR Pantoprazole Sodium 40 mg DAILY IV 11/08/24 10:00 11/08/24 11:00 40 MG Ipratropium [place] 0.5 mg Q4HR NEB 11/07/24 10:00 11/08/24 13:57 0.5 MG Vancomycin HCl 0 ml @ 0 mls/hr UD IV 11/07/24 10:45 Norepinephrine Bitartrate 250 ml @ 3.75 mls/hr Q24H IV 11/07/24 14:30 11/07/24 14:15 0.938 MLS/HR Carbidopa/Levodopa 1 tab DAILY PO 11/08/24 10:00 11/08/24 16:27 1 TAB Acetaminophen/ Hydrocodone Bitart 1 tab Q8HPRN PRN PO 11/08/24 10:15 11/08/24 10:58 1 TAB Methylprednisolone Sodium Succinate 40 mg DAILY IV 11/09/24 10:00 Examination General Appearance: Cooperative. Well developed. In moderate distress Pulmonary/Respiratory: Chest non-tender. Scattered bilateral wheezes, decreased b/l breath sounds Cardiovascular/Chest: Tachycardia No murmurs. No JVD. Peripheries: Cold to touch Abdominal Exam: Normal bowel sounds. Soft. normal abdomen, no visible veins, Nontender. No hepatospenomegaly. No masses Lower extremities: 1+ lower extremity edema Neuro/Mental Status: A&O x4. Coherent. tremor noted, most pronounced in RUE Thoughts/Psych: Normal thought pattern. Appropriate mood and affect. laboratory and microbiology Laboratory Tests 11/08/24 05:15 Test 11/08/24 05:15 Range/Units Serum Glucose 82 74-106 mg/dL Microbiology Date/Time Source Procedure Growth Status 11/07/24 03:30 Voided Urine Urine Culture - Preliminary Resulted 11/06/24 21:55 Blood Blood Culture - Preliminary NO GROWTH AFTER 24 HOURS OF INCUBATION. Resulted Labs and/or images reviewed: Labs reviewed by me, Image(s) reviewed by me Problem List/Assessment/Plan Problem List/Assessment/Plan Neurology # newly diagnosed Parkinson's disease - resumed home medication carbidopa levodopa 25-250 mg b.i.d. - outpatient follow up Cardiovascular # Septic shock possibly secondary to pneumonia versus complicated UTI # NSTEMI likely type 2 due to above # mild left atrial enlargement # moderate aortic stenosis with mean gradient of 25 mm of Hg # ascending aortic aneurysm measuring 4.2 cm 12 months ago - echocardiogram: lvef 55%. mild LVH. grade 1 diastolic dysfunction. normal rv function. RV not well seen. left atrium enlarged mild. moderate aortic stenosis, mean gradient of 25 mmg . mild pulm htn - CXR: No acute abnormality demonstrated, low lung volumes with crowding of the bronchovascular markings. - norepinephrine IV at 2 mcg Respiratory # Acute hypoxic/hypercapnic respiratory failure, on BiPAP # possible acute exacerbation of COPD # community-acquired pneumonia, Gram-positive versus Gram-negative? # pulmonary hypertension, RVSP 65 mmHg # 6.3 mm soft nodule right middle lobe - echocardiogram: lvef 55%. mild LVH. grade 1 diastolic dysfunction. normal rv function. RV not well seen. left atrium enlarged mild. moderate aortic stenosis, mean gradient of 25 mmg . mild pulm htn - IV vancomycin per-pharmacy - IV cefepime - ipratropium and albuterol med nebs - started apixaban 10mg bid - V/Q scan - continue BiPAP at night - requested PT evaluation - outpatient follow up for evaluation and monitoring of right-sided soft nodule in the lung GI # Peptic ulcer prophylaxis -Pantoprazole 40 mg IV daily # Castanon catheter placed on 11/07/2024 # acute complicated UTI - IV vancomycin, IV cefepime - IV NS at 75 cc/hour Nephrology # SHREYA likely hemodynamically mediated/VMN on questionable CKD, baseline unavailable - nephrology on board - strict I&Os - monitor Infectious disease # acute complicated UTI # possible community-acquired pneumonia - IV vancomycin per pharmacy - IV cefepime - IV NS at 75 cc/hour - norepinephrine at 0.5 mcg Hem/onc # severe leukocytosis # microcytic anemia, MCV 69.4 # thrombocytopenia, serum platelets 82 - monitor DVT prophylaxis - bilateral lower extremity Doppler: No right or left femoropopliteal venous thrombosis - holding due to low platelet count Nutrition Cardiac diet Lines - left 20 gauge placed on 11/06/2024 Critical care time 83 minutes excluding procedure. Code status discussed greater than 20 minutes: Family at bedside explained about the condition of the patient Plan discussed with Dr. Blum we decided to start the patient on apixaban, consult Cardiology and continue BiPAP at night. Patient was also started on a cardiac diet with instructions to not use BiPAP 1-2 hours after feeding. Plan discussed with: Patient, Spouse, Other (RN) My Orders My Orders Orders - NEERU SCHULZ RESIDENT Procedure Category Date Status Time * Cardiology Consult CONS 11/07/24 Transmitted 17:20 Cardiac DIET 11/07/24 Transmitted Diet-2gna,Lofat,Lochol Dinner Communication Order ORDERS 11/07/24 Transmitted 17:20 Vancomycin Per JULI 11/07/24 In Process Pharmacy Protoc 18:30 BIPAP RT 11/08/24 Logged 02:47 Creatinine LAB 11/09/24 Verified 04:00 Vancomycin,Random LAB 11/09/24 Verified 04:00 Abg W/ Co-Ox RT 11/08/24 Logged 08:59 BIPAP RT 11/08/24 Logged 10:08 Abg W/ Co-Ox RT 11/08/24 Logged 11:15 Hydrocodone-Acet PHA 11/08/24 In Process 5/325mg Tab ([place] 10:15 Methylprednisolone PHA 11/09/24 In Process Sod Succ (Solu Medrol 10:00 Abdomen Limited US 11/08/24 Resulted 13:14 Carbidopa W Levodopa PHA 11/08/24 Transmitted 25/250mg (Sinemet 2 22:00 Pt Request For Service PT 11/09/24 Transmitted 04:00 Transfer Orders XFER 11/08/24 Transmitted 17:08 Date of Service: Nov 08, 2024 Billing Provider: CARMINE BLUM MD Common Visit Codes: [id number] CARE 30-74 MIN, [id number] CARE-EACH +30MIN Date of Service: Nov 08, 2024 Billing Provider: CARMINE BLUM MD Common Visit Codes: [id number] CARE 30-74 MIN, [id number] CARE-EACH +30MIN NEERU SCHULZ Nov 08, 2024 17:14 CARMINE BLUM MD Nov 09, 2024 17:30
[2024-11-08] MEDS ORDERED: ACETAMINOPHEN 325 MG TAB PO PRN (18:30)
[2024-11-08] MEDS: LIDOCAINE 5% TOPICAL PATCH TOP SCH (19:07)
[2024-11-08] MEDS: LORazepam 2MG/ML-1ML VIAL IV ONE (22:09)
--- NOTE | 2024-11-08 22:49 | DVHINCON2 ---
Date Seen: Nov 08, 2024 Referring Physician MD Margarito Reason for Consultation NSTEMI History of Present Illness This is a 74-year-old male with a PMH of profound symptomatic bradycardia status post dual-chamber pacemaker implantation ([employer], 2021), ascending aortic aneurysm at 4.2 cm, hypertension, Parkinson's disease, obstructive sleep apnea on CPAP HS, and obesity brought in by EMS with complaints of chest pain for one week. Describes his chest pain as substernal, pressure-like, constant, associated with SOB/generalized weakness, and worse with inspiration which prompted to call 911. Upon EMS arrival he was found with an oxygen saturation level of 54% on room air for which he was provided with supplemental oxygenation route to the hospital. At time of assessment, the patient denied any further chest pain. He underwent multiple 12 lead electrocardiograms revealing an atrioventricular paced rhythm with underlying sinus rhythm and an associated first-degree atrioventricular block. Serial troponin levels peaked at 113 ng/L prompting cardiology consultation. Follows up in the outpatient setting with unknown meal attendant and undergoing an unremarkable pacemaker interrogation about three months ago. Patient was admitted to the hospital. I am asked to consult on this patient. Past Medical History Past medical history reviewed. No other significant than mentioned above. Past Surgical History Dual chamber pacemaker implantation, 2021 Multiple back surgeries Cholecystectomy Appendectomy Allergies: Coded Allergies: NO KNOWN ALLERGIES (Unverified , 11/06/24) Home Meds Reported Medications Misc Natural Products (CRAMP RELEAF) Cap, 70 MG OR DAILY, CAP 11/07/24 Albuterol Sulfate (VENTOLIN MDI) 90 Mcg Ih, 90 MCG IN PRN, INH 11/07/24 Albuterol Sulfate (Ventolin) 2.5 Mg/0.5 Ml Nb, 1 VIAL NEB Q6HR, #120 VIAL 5 Refills 11/07/24 Azithromycin (Azithromycin) 250 Mg Tab, 250 MG PO DAILY for 6 Days, #4 11/07/24 Trazodone Hcl (Trazodone Hcl) 50 Mg Tab, 50 MG PO HSPRN PRN for FOR INSOMNIA, MG 11/07/24 Acetaminophen (Acetaminophen) 325 Mg Tab, 325 MG PO Q8HP PRN for MILD PAIN for 30 Days, MG 0 Refills 11/07/24 Naproxen (Naproxen) 375 Mg Tab, 375 MG PO BIDWM, TAB 11/07/24 Carbidopa-Levodopa (Carbidopa/Levodopa Odt 25-250 mg) 1 Tab Tab, 1 TAB PO, TAB 11/07/24 Magnesium Oxide (MAGNESIUM OXIDE) 400 Mg Tab, 1 TAB PO DAILY, #30 TAB 5 Refills 11/07/24 Tamsulosin Hcl (Flomax) 0.4 Mg Cap, 1 CAP PO DAILY, #30 CAP 11 Refills 11/07/24 Losartan Potassium (Losartan Potassium) 25 Mg Tab, 25 MG PO DAILY for 30 Days, MG 11/07/24 Naproxen Sodium (ALEVE ARTHRITIS) 220 Mg Tab, 220 MG PO, TAB 11/07/24 Current Medications Current Medications Medications (Trade) Dose Ordered Sig/Amol Route PRN Reason Start Time Stop Time Status Last Admin Pantoprazole Sodium (Protonix) 40 mg DAILY IV 11/08/24 10:00 11/08/24 11:00 Carbidopa/Levodopa (Sinemet 25/ 250MG) 1 tab DAILY PO 11/08/24 10:00 11/08/24 17:14 DC 11/08/24 16:27 Apixaban (Eliquis) 5 mg BID PO 11/14/24 22:00 11/08/24 15:39 DC Acetaminophen/ Hydrocodone Bitart ([place] 5/325MG Tab) 1 tab Q8HPRN PRN PO MODERATE PAIN (4-6 PAIN SCALE) 11/08/24 10:15 11/08/24 10:58 Sodium Chloride 1,000 ml @ 75 mls/hr [id number] IV 11/08/24 10:15 11/08/24 16:42 DC 11/08/24 11:03 Methylprednisolone Sodium Succinate (Solu Medrol) 40 mg DAILY IV 11/09/24 10:00 Carbidopa/Levodopa (Sinemet 25/ 250MG) 1 tab BID PO 11/08/24 22:00 Acetaminophen (Tylenol Tablet) 500 mg Q4HP PRN PO MILD PAIN (1-3 PAIN SCALE) 11/08/24 18:30 Lidocaine (Lidoderm 5% Topical Patch) 1 patch DAILY TOP 11/08/24 18:30 11/08/24 19:07 Review of Systems Constitutional: Generalized weakness Ears, Nose, & Throat: No symptom reported Eyes: No symptom reported Neurological: No symptoms reported Pulmonary/Respiratory: SOB Cardiovascular: Chest pain Gastrointestinal: No symptom reported Genitourinary: No symptom reported Musculoskeletal: No symptom reported Skin: No symptom reported Psychiatric: No symptom reported Endocrine: No symptom reported Hemotologic/Lymphatic: No symptom reported Vital Signs Vital Signs Date Time Temp Pulse Resp B/P (MAP) Pulse Ox O2 Delivery O2 Flow Rate FiO2 11/08/24 20:00 89 11/08/24 18:48 18 100 11/08/24 18:42 Nasal Cannula* 4 36 11/08/24 18:00 115/64 (81) 11/08/24 16:01 98.0 98.0 Physical Exam GENERAL: Alert and oriented x 3. Lethargic. EYES: PERRL, EOMI. Anicteric. HENT: Moist mucous membranes. LUNGS: Clear to auscultation bilaterally. CARDIOVASCULAR: Regular rate and rhythm. ABDOMEN: Soft, non-tender and non-distended. EXTREMITIES: No edema. NEUROLOGIC: No focal neurological deficits. SKIN: Warm, dry. Labs/Diagnostic Data Labs Test 11/08/24 13:05 11/08/24 09:32 11/08/24 05:15 11/07/24 13:52 Range/Units Blood Gas Specimen Type Arterial Blood Gas Sample Site Left radial Blood Gas Patient Temperature 37.0 Arterial Blood Date Drawn [id number] Arterial Blood pH 7.332 L 7.350-7.450 Arterial Blood Partial Pressure CO2 57.7 H 35.0-48.0 mmHg Arterial Blood Partial Pressure O2 64.9 L 83.0-108.0 mmHg Arterial Blood HCO3 29.9 H 21.0-28.0 mmol/L Arterial Blood Oxygen Saturation 91.9 L 94.0-98.0 % Arterial Blood Base Excess 2.8 -2.0-3.0 mmol/L Arterial Blood Oxyhemoglobin 89.7 L 94.0-98.0 % Arterial Blood Carboxyhemoglobin 1.6 H 0.5-1.5 % Arterial Blood Methemoglobin 0.8 0.0-1.5 % [place] Test Yes Blood Gas Total Hemoglobin 12.50 L 13.5-17.5 g/dL Blood Gas Set Respiration Rate 14.0 Blood Gas Modality Mask - bipap Blood Gas Spontaneous Rate 24 FiO2 % 30.0 Blood Gas EPAP 5 Blood Gas IPAP 15 Blood Gas Liter Flow 4.00 Blood Gas Critical Value Read Back Yes Blood Gas Notified Whom Md. to rudolph Blood Gas Notified Time [id number] Blood Gas Notified By Rt kassie hennessy White Blood Count 32.2 *H 4.4-10.8 10^3/uL Red Blood Count 5.58 4.5-5.90 10^6/uL Hemoglobin 11.8 L 13.5-17.5 g/dL Hematocrit 38.5 L 41.0-53.0 % Mean Corpuscular Volume 69.0 L 80.0-100.0 fL Mean Corpuscular Hemoglobin 21.1 L 28.0-32.0 pg Mean Corpuscular Hemoglobin Concent 30.6 L 32.0-36.0 g/dL Red Cell Distribution Width 18.7 H 11.8-14.3 % Platelet Count 80 L 140-450 10^3/uL Mean Platelet Volume 8.7 6.9-10.8 fL Neutrophils (%) (Auto) 37.0-80.0 % Lymphocytes (%) (Auto) 10.0-50.0 % Monocytes (%) (Auto) 0.0-12.0 % Basophils (%) (Auto) 0.0-2.0 % Neutrophils # (Auto) 1.6-8.6 10 ^3/uL Lymphocytes # (Auto) 0.4-5.4 10 ^3/uL Monocytes # (Auto) 0-1.3 10 ^3/uL Differential Total Cells Counted 100.0 100 Neutrophils % (Manual) 53 37.0-80.0 Band Neutrophils % (Manual) 5 Lymphocytes % (Manual) 9 L 10.0-50.0 Monocytes % (Manual) 25 H 0-12 Eosinophils % (Manual) 1 0-7 Basophils % (Manual) 0 0.0-2.0 Metamyelocytes % (manual) 5 Myelocytes % (Manual) 2 Promyelocytes % (Manual) 0 Blast Cells % (Manual) 0 Nucleated Red Blood Cells 2.0 % Reactive Lymphocytes 0 Platelet Estimate Decreased Hypochromasia (manual) Moderate Microcytosis Marked Sodium Level 146 H 136-145 mmol/L Potassium Level 4.4 3.5-5.1 mmol/L Chloride Level 106 98-107 mmol/L Carbon Dioxide Level 34 H 20-31 mmol/L Anion Gap 6 5-15 Blood Urea Nitrogen 33 H 9-23 mg/dL Creatinine 1.29 0.700-1.30 mg/dL Glomerular Filtration Rate Calc 57 >90 mL/min BUN/Creatinine Ratio 25.6 H 10.0-20.0 Serum Glucose 82 74-106 mg/dL Calcium Level 8.1 L 8.7-10.4 mg/dL Random Vancomycin Level 12.7 H 5-10 ug/mL Troponin I High Sensitivity 107 *H </=54 ng/L Test 11/07/24 10:34 11/07/24 04:03 11/07/24 03:30 11/07/24 01:16 Range/Units Creatine Kinase 48 46-171 U/L Total Bilirubin 0.6 0.2-1.0 mg/dL Aspartate Amino Transferase (AST) 31 13-40 U/L Alanine Aminotransferase (ALT) 21 7-40 U/L Alkaline Phosphatase 64 46-116 U/L Total Protein 5.2 L 5.7-8.2 g/dL Albumin 3.3 3.2-4.8 g/dL Urine Color Yellow Yellow Urine Clarity Turbid H Clear Urine pH 5.5 5.0-9.0 Urine Specific [place] 1.032 1.001-1.035 Urine Protein 1+ H Negative Urine Ketones Trace Negative Urine Blood Negative Negative /uL Urine Nitrite Negative Negative Urine Bilirubin 1+ Negative Urine Urobilinogen 3 H Negative mg/dL Urine Leukocyte Esterase 1+ Negative /uL Urine RBC 2 0 - 3 /hpf Urine Microscopic WBC 5 H 0-3 /HPF Urine Squamous Epithelial Cells Few <5 /hpf Urine Bacteria None seen None Seen /hpf Urine Hyaline Casts Mod 0 - 2 /lpf Urine Mucus Few None Seen Urine Creatinine 391.78 H 30.0-125.0 mg/dL Urine Protein/Creatinine Ratio 0.17 Urine Sodium 20 L 40-220 mmol/L Urine Glucose Normal Normal mg/dL Urine Total Protein 67.4 H 1-14 mg/dL Urine Opiates Screen Neg NEGATIVE Urine Fentanyl Screen Neg NEGATIVE Urine Barbiturates Screen Neg NEGATIVE Urine Phencyclidine Screen Neg NEGATIVE Urine Amphetamines Screen Neg NEGATIVE Urine Benzodiazepines Screen Neg NEGATIVE Urine Cocaine Screen Neg NEGATIVE Urine Cannabinoids Screen Neg NEGATIVE Lactic Acid Level 0.8 0.4-2.0 mmol/L Test 11/07/24 01:02 11/07/24 00:25 11/07/24 00:00 11/06/24 23:07 Range/Units Prothrombin Time 12.2 H 9.3-11.8 sec Prothrombin Time INR 1.17 H 0.9-1.15 POC Glucose 123 H 70-106 mg/dl Influenza Type A Antigen Negative Negative Influenza Type B Antigen Negative Negative SARS-CoV-2 Antigen (Rapid) Negative NEGATIVE Triglycerides Level 81 < 150 mg/dL Cholesterol Level 108 < 200 mg/dL LDL Cholesterol 64 < 100 mg/dL HDL Cholesterol 35 L 40-59 mg/dL Test 11/06/24 21:55 Range/Units D-Dimer, Quantitative 0.60 H 0.0-0.49 mg/L FEU Hemoglobin A1c 5.2 <5.7 % A1C Magnesium Level 1.9 1.6-2.6 mg/dL B-Type Natriuretic Peptide 587.05 0-100 pg/mL Vitamin B12 Level 1960 H 211-911 pg/mL Vitamin D 25-Hydroxy 42.2 30.0-100 ng/mL Thyroid Stimulating Hormone (TSH) 1.77 0.55-4.78 uIU/mL Plasma/Serum Blood Alcohol < 3.0 <10 mg/dL Microbiology Date/Time Source Procedure Growth Status 11/07/24 03:30 Voided Urine Urine Culture - Preliminary Resulted 11/06/24 21:55 Blood Blood Culture - Preliminary NO GROWTH AFTER 48 HOURS OF INCUBATION. Resulted Assessment Septic shock with PNA/UTI. Acute on chronic hypoxic respiratory failure. Acute kidney injury. NSTEMI type 2 secondary to above. Ascending aortic aneurysm at 4.2 cm. Presence of dual-chamber pacemaker ([employer]). Aortic valve stenosis, moderate degree. Parkinson's disease. Thrombocytopenia. FAMILIA on CPAP HS. History of tobacco use. Plan/Recommendation I agree with your ongoing assessment and care of plan. Patient has been seen by Bri Dias NP on my behalf. We have discussed the plan with the patient. Telemetry reviewed. Transthoracic echocardiogram revealed LVEF 55% with normal RV function, left atrial enlargement of mild degree, moderate aortic valve stenosis, and mild pulmonary hypertension. Likely NSTEMI type 2 secondary to septic shock, acute hypoxic respiratory failure and SHREYA. Continue follow-up as outpatient with primary meal attendant. Consider cautious use of AC/DOAC therapy given thrombocytopenia. Additional plan as per the hospital course. Plan discussed with: Patient NYHA Physical activity limitations: NA Date of Service: Nov 08, 2024 Billing Provider: NAYELY CHAVEZ MD Cardiology Common Codes: [id number] NAYELY CHAVEZ MD Nov 08, 2024 22:49
[2024-11-09] VITALS (56 sets, daily range): BP systolic 92–129; BP diastolic 38–72; PULSE 60–91; RESP 15–30; TEMP 97.1–98.7; O2SAT 81–100
[2024-11-09 00:10] LABS: Base Excess 2.0 mmol/L (-2.0-3.0)
[2024-11-09 06:22] LABS: Hemoglobin 11.8 g/dL (13.5-17.5); Mean Corpuscular Volume 69.3 fL (80.0-100.0)
[2024-11-09 06:26] LABS: Hematocrit 39.0 % (41.0-53.0); Mean Corpuscular Hemoglobin 21.1 pg (28.0-32.0)
[2024-11-09 06:32] LABS: Anion Gap 5 (5-15); Chloride 105 mmol/L (98-107); Potassium 5.0 mmol/L (3.5-5.1); Sodium 144 mmol/L (136-145)
[2024-11-09 06:39] LABS: BUN/Creatinine Ratio 26.0 (10.0-20.0); Glucose 104 mg/dL (74-106)
[2024-11-09 06:42] LABS: Blood Urea Nitrogen 27 mg/dL (9-23); Calcium 8.2 mg/dL (8.7-10.4); Carbon Dioxide 34 mmol/L (20-31)
[2024-11-09] MEDS: methylPREDNISolone SOD SUCC 40 MG/ML VL IV SCH (10:45)
[2024-11-09 13:14] LABS: Nucleated Red Blood Cells % 1.0 %; Total Cells Counted 100.0 (100)
[2024-11-09] MEDS: VANCOMYCIN 750MG KIT 100 ML IV SCH (14:27)
--- NOTE | 2024-11-09 15:52 | DVHPN2 ---
Progress Note Date Seen: Nov 09, 2024 Resident Creating Document: ZACHARY GALVEZ RESIDENT Medical Necessity Reason Pt with a Central, PICC or Fol: Yes The following are medically ne: Castanon Catheter Subjective Review of Systems Mr. Avina is a 74-year-old male with hypertension, obstructive sleep apnea on CPAP, Parkinson's disease, bradycardia status post pacemaker placement, ascending aortic aneurysm 4.2 cm who presented to the ER with a chief complaint of substernal chest pain and generalized weakness. He has a history of recent mechanical fall, reports substernal pressure type chest pain for the past week, nonradiating, mostly postprandial, with shortness of breath. He has been taking tablet aleve 220 mg twice daily for the past 2 months for back pain. Patient denies any nausea/vomiting/urinary symptoms. On arrival to the ER patient was hypotensive and received around 3 L NS bolus. Patient was persistently hypotensive and he was started on Levophed. Patient had lactic acidosis, elevated troponin, BNP 587 in the SHREYA. Nephrology consulted for SHREYA Social history: Lives with family, quit smoking 40 years back, almost smoked a pack year for 20 years, denied drug use or alcohol. 11/07-Patient seen and examined in the ER. Currently on BiPAP. at bedside. Echocardiogram pending. 11/08-patient seen and examined in the ER, feels slightly better, lower extremity swelling improving. BUN/creatinine trending down, GFR improving. 11/09-patient seen and examined at the bedside. Patient is off IV fluids. Made 1300 cc of urine. Creatinine 1.04, GFR 74. Objective vital signs Vital Sign Date Time Temp Pulse Resp B/P (MAP) Pulse Ox O2 Delivery O2 Flow Rate FiO2 11/09/24 14:00 65 11/09/24 14:00 25 91 Nasal Cannula* 2 28 11/09/24 06:00 11/09/24 04:00 97.8 97.8 Total Intake and Output 11/08/24 11/08/24 11/09/24 15:00 23:00 07:00 Intake Total 900.0 ml 625.0 ml 65.0 ml Output Total 600 ml 700 ml Balance 900.0 ml 25.0 ml -635.0 ml medications Current Medications Medications Dose Ordered Sig/Amol Route Start Time Stop Time Status Last Admin Dose Admin Nitroglycerin 0.4 mg Q5MINP PRN SL 11/07/24 00:00 Morphine Sulfate 2 mg Q30M PRN IV 11/07/24 00:00 Albuterol 2.5 mg Q4HR NEB 11/07/24 02:00 11/09/24 09:12 2.5 MG Cefepime HCl 50 ml @ 12.5 mls/hr Q12HR IV 11/07/24 10:00 11/09/24 10:46 12.5 MLS/HR Pantoprazole Sodium 40 mg DAILY IV 11/08/24 10:00 11/09/24 10:50 40 MG Ipratropium [place] 0.5 mg Q4HR NEB 11/07/24 10:00 11/09/24 09:12 0.5 MG Vancomycin HCl 0 ml @ 0 mls/hr UD IV 11/07/24 10:45 Norepinephrine Bitartrate 250 ml @ 3.75 mls/hr Q24H IV 11/07/24 14:30 11/07/24 14:15 0.938 MLS/HR Acetaminophen/ Hydrocodone Bitart 1 tab Q8HPRN PRN PO 11/08/24 10:15 11/09/24 11:30 1 TAB Methylprednisolone Sodium Succinate 40 mg DAILY IV 11/09/24 10:00 11/09/24 10:45 40 MG Carbidopa/Levodopa 1 tab BID PO 11/08/24 22:00 11/09/24 11:31 1 TAB Acetaminophen 500 mg Q4HP PRN PO 11/08/24 18:30 Lidocaine 1 patch Q24H TOP 11/09/24 18:00 Vancomycin HCl 150 ml @ 150 mls/hr Q12H IV 11/09/24 23:00 Examination Patient lying in bed, in no acute distress General: Overweight, afebrile, palor, mucosae are moist Cardiovascular: Regular S1 and S2. No murmurs, gallops or rubs. No JVD elevation. Resolving 1+ pitting edema bilaterally Respiratory: Bibasilar crackles heard on auscultation, currently on BiPAP Abdomen: Soft, nontender, nondistended, normoactive bowel sounds, no rebound tenderness, no organomegaly, no masses Genitourinary: Deferred MSK/skin: Mobilizes 4 limbs. Skin is dry and warm Neurological: No motor, no sensitive deficits, normal speech. Pupils are isocoric and reactive. Psych/Mental Status: A/Ox3 laboratory and microbiology Laboratory Tests 11/09/24 05:36 Test 11/09/24 05:36 Range/Units Serum Glucose 104 74-106 mg/dL Microbiology Date/Time Source Procedure Growth Status 11/07/24 03:30 Voided Urine Urine Culture - Final Complete 11/06/24 21:55 Blood Blood Culture - Preliminary NO GROWTH AFTER 48 HOURS OF INCUBATION. Resulted Labs and/or images reviewed: Labs reviewed by me, Image(s) reviewed by me Problem List/Assessment/Plan Problem List/Assessment/Plan Acute kidney injury likely prerenal -FENA 0.1 Septic shock requiring pressor support Acute Hypercapnic respiratory failure Lactic acidosis-resolved NSTEMI ? COPD exacerbation FAMILIA on BiPAP Patient received 3 L NS 1 dose of Lasix 40 mg IV Urine specific gravity 1.032 on arrival Plan: BUN/creatinine trending down, GFR improving, SHREYA is improving. Nephrology will sign off at this time. Please reconsult us if necessary. Hold off IV fluids Echocardiogram shows LVEF 55%, mild LVH. Chest CT shows 6.3 mm nodule in the right middle lobe Strongly advised regarding avoiding NSAIDs (patient was taking Aleve twice daily for 2 months for back pain) Continue IV antibiotics per primary team Pending V/Q scan We will continue to follow up Off vasopressors Thank you for consulting us Plan discussed with patient, at bedside in which all questions have been answered Case discussed with Dr. Timmons Addendum Patient seen and examined, plan discussed with resident. Agree with above, we will sign off Plan discussed with: Patient Dietary Evaluation Review Comments: 1) Refer CDE for weight management on DC 2) Monitor PO intake, Lab values, I/O, wt trend Expected Outcomes/Goals: To meet >75% estimated needs Fu 3-5 days ZACHARY GALVEZ Nov 09, 2024 15:52 LINCOLN TIMMONS MD Nov 09, 2024 18:51
[2024-11-09] MEDS: LIDOCAINE 5% TOPICAL PATCH TOP SCH (18:18)
[2024-11-09] MEDS: CEFEPIME 2GM/50ML NS 50 ML IV SCH (18:26)
--- NOTE | 2024-11-09 19:47 | DVHPNRES ---
Progress Note Date Seen: Nov 09, 2024 Resident Creating Document: NEERU SCHULZ RESIDENT Medical Necessity Reason Pt with a Central, PICC or Fol: Yes The following are medically ne: Castanon Catheter Subjective Review of Systems Patient is a 74-year-old male with past medical history of hypertension, symptomatic bradycardia s/p pacemaker 3 years ago, sleep apnea on CPAP, recently diagnosed Parkinson's disease, possible Agent [place] exposure? , ascending aortic aneurysm 4.2 cm, who comes in due to severe generalized weakness. According to the patient and his , patient has been feeling increasingly weak for the past 1 week, 2 days ago he also sustained a fall where he slipped off of his bed and fell on his knees without any head trauma. Per , yesterday patient was complaining of chest pain that started 2 days ago, intermittent and worsened with eating, along with abdominal pain, sweating and generalized weakness, was unable to get up from the chair which is what prompted this visit to the hospital. On review of systems patient is complaining of chest pain that has been ongoing intermittently for the last 1 week, palpitations, urinary frequency and urinary incontinence. Serial troponins were 80, 100, 113, 107 and chest x-ray showed no acute abnormality. Past surgical history: Pacemaker, back surgery? Home medications: Smoking: Quit 40 years ago, prior to that was smoking 1 pack per day for 30 years Alcohol: Past history of heavy use, currently denies Drugs: Denies Lives with Allergies: Denies 11/08/2024: Patient seen and examined at bedside. Patient is alert and oriented to time, place person and responding to all questions. Patient reports improved symptoms from when he 1st came to the hospital. 1+ lower extremity edema, decreased bilateral breath sounds. Complaining of lower back pain, started on Oneco 5q 8 hours as needed. Denies any new complaints. Denies any suicidal ideation. 11/09/24: overnight episode of agitation, paco2 noted to be 71, placed on bipap for 4 hours. today saturating 88-93% of 2-4L o2 via NC. improved backache. will follow serum LDH tomorrow. Objective vital signs Vital Sign Date Time Temp Pulse Resp B/P (MAP) Pulse Ox O2 Delivery O2 Flow Rate FiO2 11/09/24 19:00 76 19 113/61 (78) 94 11/09/24 18:18 Nasal Cannula 2.0 11/09/24 18:18 28 11/09/24 16:00 97.7 97.7 Total Intake and Output 11/08/24 11/08/24 11/09/24 15:00 23:00 07:00 Intake Total 900.0 ml 625.0 ml 65.0 ml Output Total 600 ml 700 ml Balance 900.0 ml 25.0 ml -635.0 ml medications Current Medications Medications Dose Ordered Sig/Amol Route Start Time Stop Time Status Last Admin Dose Admin Nitroglycerin 0.4 mg Q5MINP PRN SL 11/07/24 00:00 Morphine Sulfate 2 mg Q30M PRN IV 11/07/24 00:00 Albuterol 2.5 mg Q4HR NEB 11/07/24 02:00 11/09/24 18:18 2.5 MG Pantoprazole Sodium 40 mg DAILY IV 11/08/24 10:00 11/09/24 10:50 40 MG Ipratropium [place] 0.5 mg Q4HR NEB 11/07/24 10:00 11/09/24 18:18 0.5 MG Vancomycin HCl 0 ml @ 0 mls/hr UD IV 11/07/24 10:45 Norepinephrine Bitartrate 250 ml @ 3.75 mls/hr Q24H IV 11/07/24 14:30 11/07/24 14:15 0.938 MLS/HR Acetaminophen/ Hydrocodone Bitart 1 tab Q8HPRN PRN PO 11/08/24 10:15 11/09/24 11:30 1 TAB Methylprednisolone Sodium Succinate 40 mg DAILY IV 11/09/24 10:00 11/09/24 10:45 40 MG Carbidopa/Levodopa 1 tab BID PO 11/08/24 22:00 11/09/24 11:31 1 TAB Acetaminophen 500 mg Q4HP PRN PO 11/08/24 18:30 Lidocaine 1 patch Q24H TOP 11/09/24 18:00 11/09/24 18:18 1 PATCH Vancomycin HCl 150 ml @ 150 mls/hr Q12H IV 11/09/24 23:00 Cefepime HCl 50 ml @ 12.5 mls/hr Q8H IV 11/09/24 18:00 11/09/24 18:26 12.5 MLS/HR Examination General Appearance: Cooperative. Well developed. In moderate distress Pulmonary/Respiratory: Chest non-tender. Scattered bilateral wheezes, decreased b/l breath sounds Cardiovascular/Chest: Tachycardia No murmurs. No JVD. Peripheries: Cold to touch Abdominal Exam: Normal bowel sounds. Soft. normal abdomen, no visible veins, Nontender. No hepatospenomegaly. No masses Lower extremities: 1+ lower extremity edema Neuro/Mental Status: A&O x4. Coherent. tremor noted, most pronounced in RUE Thoughts/Psych: Normal thought pattern. Appropriate mood and affect. laboratory and microbiology Laboratory Tests 11/09/24 05:36 Test 11/09/24 05:36 Range/Units Serum Glucose 104 74-106 mg/dL Microbiology Date/Time Source Procedure Growth Status 11/07/24 03:30 Voided Urine Urine Culture - Final Complete 11/06/24 21:55 Blood Blood Culture - Preliminary NO GROWTH AFTER 48 HOURS OF INCUBATION. Resulted Problem List/Assessment/Plan Problem List/Assessment/Plan Neurology # newly diagnosed Parkinson's disease - resumed home medication carbidopa levodopa 25-250 mg b.i.d. - outpatient follow up Cardiovascular # Septic shock possibly secondary to pneumonia versus complicated UTI # NSTEMI likely type 2 due to above # mild left atrial enlargement # moderate aortic stenosis with mean gradient of 25 mm of Hg # ascending aortic aneurysm measuring 4.2 cm 12 months ago - echocardiogram: lvef 55%. mild LVH. grade 1 diastolic dysfunction. normal rv function. RV not well seen. left atrium enlarged mild. moderate aortic stenosis, mean gradient of 25 mmg . mild pulm htn - CXR: No acute abnormality demonstrated, low lung volumes with crowding of the bronchovascular markings. - norepinephrine IV at 2 mcg Respiratory # Acute hypoxic/hypercapnic respiratory failure, on BiPAP # possible acute exacerbation of COPD # community-acquired pneumonia, Gram-positive versus Gram-negative? # pulmonary hypertension, RVSP 65 mmHg # 6.3 mm soft nodule right middle lobe - echocardiogram: lvef 55%. mild LVH. grade 1 diastolic dysfunction. normal rv function. RV not well seen. left atrium enlarged mild. moderate aortic stenosis, mean gradient of 25 mmg . mild pulm htn - IV vancomycin per-pharmacy - IV cefepime - ipratropium and albuterol med nebs - started apixaban 10mg bid - V/Q scan - continue BiPAP at night - requested PT evaluation - outpatient follow up for evaluation and monitoring of right-sided soft nodule in the lung GI # Peptic ulcer prophylaxis -Pantoprazole 40 mg IV daily # Castanon catheter placed on 11/07/2024 # acute complicated UTI - IV vancomycin, IV cefepime - IV NS at 75 cc/hour Nephrology # SHREYA likely hemodynamically mediated/VMN on questionable CKD, baseline unavailable - nephrology on board - strict I&Os - monitor Infectious disease # acute complicated UTI # possible community-acquired pneumonia - IV vancomycin per pharmacy - IV cefepime - IV NS at 75 cc/hour - norepinephrine at 0.5 mcg Hem/onc # severe leukocytosis # microcytic anemia, MCV 69.4 # thrombocytopenia, serum platelets 82 - abdominal usg: splenomegaly - ordered serum LDH - monitor DVT prophylaxis - bilateral lower extremity Doppler: No right or left femoropopliteal venous thrombosis - holding due to low platelet count Nutrition Cardiac diet Lines - left 20 gauge placed on 11/06/2024 Critical care time 63 minutes excluding procedure. Code status discussed greater than 20 minutes: Family at bedside explained about the condition of the patient Plan discussed with Dr. Blum we decided to start the patient on apixaban, consult Cardiology and continue BiPAP at night. Patient was also started on a cardiac diet with instructions to not use BiPAP 1-2 hours after feeding. Plan discussed with: Patient, Other (RN) My Orders My Orders Orders - NEERU SCHULZ RESIDENT Procedure Category Date Status Time Vancomycin,Trough LAB 11/10/24 Verified 22:00 Vancomycin Per JULI 11/09/24 In Process Pharmacy Protoc 11:00 Creatinine LAB 11/10/24 Verified 04:00 Lidocaine 5% Topical PHA 11/09/24 In Process Patch (Lidoderm 5% 18:00 Vancomycin PHA 11/09/24 In Process 750mg/150ml 23:00 Mrsa Screen VENKAT 11/09/24 In Process 05:50 Complete Blood Count LAB 11/10/24 Verified 04:00 Basic Metabolic Panel LAB 11/10/24 Verified 04:00 Lactate Dehydrogenase LAB 11/10/24 Verified 04:00 Dietary Evaluation Review Comments: 1) Refer CDE for weight management on DC 2) Monitor PO intake, Lab values, I/O, wt trend Expected Outcomes/Goals: To meet >75% estimated needs Fu 3-5 days Date of Service: Nov 09, 2024 Billing Provider: CARMINE BLUM MD Common Visit Codes: 85622-INJKZGMR CARE 30-74 MIN NEERU SCHULZ Nov 09, 2024 19:47 CARMINE BLUM MD Nov 10, 2024 13:34
[2024-11-09] MEDS: VANCOMYCIN 750mg/150ml 150 ML IV SCH (23:22)
--- NOTE | 2024-11-09 23:54 | DVHPN2 ---
Progress Note - Dictate Date Seen: Nov 09, 2024 Medical Necessity Reason Pt with a Central, PICC or Fol: No The following are medically ne: Castanon Catheter Subjective Patient was seen and evaluated in follow up in the ICU. Overnight, the patient developed worsening SOB requiring BiPAP. Patient is on 4 LPM NC. WBC 32.6, CO2 34, BUN 27, CA 8.2. Abdominal US shows splenomegaly. vital signs Vital Sign Date Time Temp Pulse Resp B/P (MAP) Pulse Ox O2 Delivery O2 Flow Rate FiO2 11/09/24 15:30 63 20 121/59 (79) 94 11/09/24 14:00 Nasal Cannula* 2 28 11/09/24 12:00 97.6 97.6 Total Intake and Output 11/08/24 11/08/24 11/09/24 15:00 23:00 07:00 Intake Total 900.0 ml 625.0 ml 65.0 ml Output Total 600 ml 700 ml Balance 900.0 ml 25.0 ml -635.0 ml medications Current Medications Medications Dose Ordered Sig/Amol Route Start Time Stop Time Status Last Admin Dose Admin Nitroglycerin 0.4 mg Q5MINP PRN SL 11/07/24 00:00 Morphine Sulfate 2 mg Q30M PRN IV 11/07/24 00:00 Albuterol 2.5 mg Q4HR NEB 11/07/24 02:00 11/09/24 09:12 2.5 MG Pantoprazole Sodium 40 mg DAILY IV 11/08/24 10:00 11/09/24 10:50 40 MG Ipratropium [place] 0.5 mg Q4HR NEB 11/07/24 10:00 11/09/24 09:12 0.5 MG Vancomycin HCl 0 ml @ 0 mls/hr UD IV 11/07/24 10:45 Norepinephrine Bitartrate 250 ml @ 3.75 mls/hr Q24H IV 11/07/24 14:30 11/07/24 14:15 0.938 MLS/HR Acetaminophen/ Hydrocodone Bitart 1 tab Q8HPRN PRN PO 11/08/24 10:15 11/09/24 11:30 1 TAB Methylprednisolone Sodium Succinate 40 mg DAILY IV 11/09/24 10:00 11/09/24 10:45 40 MG Carbidopa/Levodopa 1 tab BID PO 11/08/24 22:00 11/09/24 11:31 1 TAB Acetaminophen 500 mg Q4HP PRN PO 11/08/24 18:30 Lidocaine 1 patch Q24H TOP 11/09/24 18:00 Vancomycin HCl 150 ml @ 150 mls/hr Q12H IV 11/09/24 23:00 Cefepime HCl 50 ml @ 12.5 mls/hr Q8H IV 11/09/24 18:00 objective GENERAL: Alert and oriented x 3. Lethargic. EYES: PERRL, EOMI. Anicteric. HENT: Moist mucous membranes. LUNGS: Clear to auscultation bilaterally. CARDIOVASCULAR: Regular rate and rhythm. ABDOMEN: Soft, non-tender and non-distended. EXTREMITIES: No edema. NEUROLOGIC: No focal neurological deficits. SKIN: Warm, dry. laboratory and microbiology Laboratory Tests 11/09/24 05:36 Test 11/09/24 05:36 Range/Units Serum Glucose 104 74-106 mg/dL Problem List Septic shock with PNA/UTI. Acute on chronic hypoxic respiratory failure. Acute kidney injury. NSTEMI type 2 secondary to above. Ascending aortic aneurysm at 4.2 cm. Presence of dual-chamber pacemaker ([employer]). Aortic valve stenosis, moderate degree. Parkinson's disease. Thrombocytopenia. FAMILIA on CPAP HS. History of tobacco use. Assessment/Plan Continued all current supportive medical care. Morphine and [place] for pain management. Sinemet. IV antibiotics as ordered. GI prophylactics. Vasopressors for hemodynamic support. Additional plan as per the hospital course. Critical care time of 45 minutes provided to include time spent evaluation of patient at bedside, when appropriate patient/family education for diagnosis, treatment plan, review of pertinent medical information and discussion of care with specialty providers and PCP. Dietary Evaluation Review Comments: 1) Refer CDE for weight management on DC 2) Monitor PO intake, Lab values, I/O, wt trend Expected Outcomes/Goals: To meet >75% estimated needs Fu 3-5 days Plan discussed with: Patient NAYELY CHAVEZ MD Nov 09, 2024 17:50
[2024-11-10] VITALS (62 sets, daily range): BP systolic 98–147; BP diastolic 48–86; PULSE 60–125; RESP 14–28; TEMP 97.4–99.3; O2SAT 90–100
[2024-11-10 05:53] LABS: Hemoglobin 11.5 g/dL (13.5-17.5); Mean Corpuscular Hemoglobin 20.9 pg (28.0-32.0)
[2024-11-10 05:59] LABS: Anion Gap 5 (5-15); Calcium 8.9 mg/dL (8.7-10.4); Chloride 103 mmol/L (98-107); Sodium 141 mmol/L (136-145)
[2024-11-10 06:00] LABS: Carbon Dioxide 33 mmol/L (20-31); Potassium 5.1 mmol/L (3.5-5.1)
[2024-11-10 06:02] LABS: Hematocrit 37.6 % (41.0-53.0); Mean Corpuscular Volume 68.7 fL (80.0-100.0)
[2024-11-10 06:05] LABS: BUN/Creatinine Ratio 34.9 (10.0-20.0)
[2024-11-10 06:14] LABS: Blood Urea Nitrogen 29 mg/dL (9-23); Glucose 113 mg/dL (74-106)
[2024-11-10 06:59] LABS: Total Cells Counted 100.0 (100)
[2024-11-10] MEDS: predniSONE 20 MG TAB PO SCH (09:58)
[2024-11-10] MEDS: DOCUSATE SOD 100 MG CAP PO SCH (09:58)
[2024-11-10] MEDS: POLYETHYLENE GLYCOL 17 GM PWDR PO SCH (09:58)
[2024-11-10] MEDS: fentaNYL CITRATE 100 MCG/2 ML VL IV ONE (13:00)
[2024-11-10] MEDS ORDERED: ONDANSETRON ODT 4 MG TAB PO PRN (13:15)
[2024-11-10] MEDS: ONDANSETRON HCL 4 MG/2 ML VIAL ONE (13:22)
[2024-11-10] MEDS ORDERED: ONDANSETRON HCL 4 MG/2 ML VIAL IV PRN (13:30)
--- NOTE | 2024-11-10 14:08 | DVH ---
CHEST RADIOGRAPH Indication: PNEUMONIA Technique: Single frontal view of the chest was obtained COMPARISON: XY CHEST XRAY 1 VIEW on DOS: 11/06/24 FINDINGS: Lines and Tubes: Left chest wall pacemaker Lungs: Multifocal airspace disease Pleura: No effusion. No pneumothorax. Cardiomediastinal contours: Cardiomegaly Bones: Unremarkable IMPRESSION: No significant interval change.
[2024-11-10] MEDS: ACETAMINOPHEN 325 MG TAB PO SCH (14:58)
[2024-11-10] MEDS: TROLAMINE SALICYLATE 10% TOP CREAM TOP SCH (15:01)
--- NOTE | 2024-11-10 15:02 | DVHPN2 ---
Progress Note - Dictate Date Seen: Nov 10, 2024 Medical Necessity Reason Pt with a Central, PICC or Fol: No The following are medically ne: Castanon Catheter Subjective Patient was seen and evaluated in follow up in the ICU. No overnight events. Patient complains of BLE swelling. He is on 3 LPM NC. Patient in V paced rhythm on phototypesetting equipment monitor. Patient is able to follow simple commands. WBC 41.6, CO2 33, BUN 29. vital signs Vital Sign Date Time Temp Pulse Resp B/P (MAP) Pulse Ox O2 Delivery O2 Flow Rate FiO2 11/10/24 11:30 69 21 114/62 (79) 93 11/10/24 10:05 Nasal Cannula* 3 32 11/10/24 08:00 97.6 97.6 Total Intake and Output 11/09/24 11/09/24 11/10/24 15:00 23:00 07:00 Intake Total 100 ml 550.0 ml 350 ml Output Total 0 ml 650 ml 950 ml Balance 100 ml -100.0 ml -600 ml medications Current Medications Medications Dose Ordered Sig/Amol Route Start Time Stop Time Status Last Admin Dose Admin Albuterol 2.5 mg Q4HR NEB 11/07/24 02:00 11/10/24 10:05 2.5 MG Pantoprazole Sodium 40 mg DAILY IV 11/08/24 10:00 11/10/24 09:56 40 MG Ipratropium [place] 0.5 mg Q4HR NEB 11/07/24 10:00 11/10/24 10:05 0.5 MG Vancomycin HCl 0 ml @ 0 mls/hr UD IV 11/07/24 10:45 Carbidopa/Levodopa 1 tab BID PO 11/08/24 22:00 11/10/24 10:05 1 TAB Lidocaine 1 patch Q24H TOP 11/09/24 18:00 11/09/24 18:18 1 PATCH Vancomycin HCl 150 ml @ 150 mls/hr Q12H IV 11/09/24 23:00 11/09/24 23:22 150 MLS/HR Cefepime HCl 50 ml @ 12.5 mls/hr Q8H IV 11/09/24 18:00 11/10/24 09:56 12.5 MLS/HR Acetaminophen 500 mg Q8HR PO 11/10/24 14:00 Docusate Sodium 100 mg BID PO 11/10/24 10:00 7/10/25 09:58 100 MG Polyethylene Glycol 17 gm DAILY PO 11/10/24 10:00 11/10/24 09:58 17 GM Trolamine Salicylate 1 applic BID TOP 11/10/24 10:00 Prednisone 40 mg DAILY PO 11/10/24 10:00 11/10/24 09:58 40 MG objective GENERAL: Alert and oriented x 3. Lethargic. EYES: PERRL, EOMI. Anicteric. HENT: Moist mucous membranes. LUNGS: Clear to auscultation bilaterally. CARDIOVASCULAR: Regular rate and rhythm. ABDOMEN: Soft, non-tender and non-distended. EXTREMITIES: No edema. NEUROLOGIC: No focal neurological deficits. SKIN: Warm, dry. laboratory and microbiology Laboratory Tests 11/10/24 04:53 Test 11/10/24 04:53 Range/Units Serum Glucose 113 H 74-106 mg/dL Problem List Septic shock with PNA/UTI. Acute on chronic hypoxic respiratory failure. Acute kidney injury. NSTEMI type 2 secondary to above. Ascending aortic aneurysm at 4.2 cm. Presence of dual-chamber pacemaker ([employer]). Aortic valve stenosis, moderate degree. Parkinson's disease. Thrombocytopenia. FAMILIA on CPAP HS. History of tobacco use. Assessment/Plan Continued all current supportive medical care. Tylenol for pain management. Sinemet. IV antibiotics as ordered. GI prophylactics. Additional plan as per the hospital course. Critical care time of 45 minutes provided to include time spent evaluation of patient at bedside, when appropriate patient/family education for diagnosis, treatment plan, review of pertinent medical information and discussion of care with specialty providers and PCP. Dietary Evaluation Review Comments: 1) Refer CDE for weight management on DC 2) Monitor PO intake, Lab values, I/O, wt trend Expected Outcomes/Goals: To meet >75% estimated needs Fu 3-5 days Plan discussed with: Patient NAYELY CHAVEZ MD Nov 10, 2024 12:13
--- NOTE | 2024-11-10 17:38 | DVHPNRES ---
Progress Note Date Seen: Nov 10, 2024 Resident Creating Document: NEERU SCHULZ RESIDENT Medical Necessity Reason Pt with a Central, PICC or Fol: No The following are medically ne: Castanon Catheter Subjective Review of Systems Patient is a 74-year-old male with past medical history of hypertension, symptomatic bradycardia s/p pacemaker 3 years ago, sleep apnea on CPAP, recently diagnosed Parkinson's disease, possible Agent [place] exposure? , ascending aortic aneurysm 4.2 cm, who comes in due to severe generalized weakness. According to the patient and his , patient has been feeling increasingly weak for the past 1 week, 2 days ago he also sustained a fall where he slipped off of his bed and fell on his knees without any head trauma. Per , yesterday patient was complaining of chest pain that started 2 days ago, intermittent and worsened with eating, along with abdominal pain, sweating and generalized weakness, was unable to get up from the chair which is what prompted this visit to the hospital. On review of systems patient is complaining of chest pain that has been ongoing intermittently for the last 1 week, palpitations, urinary frequency and urinary incontinence. Serial troponins were 80, 100, 113, 107 and chest x-ray showed no acute abnormality. Past surgical history: Pacemaker, back surgery? Home medications: Smoking: Quit 40 years ago, prior to that was smoking 1 pack per day for 30 years Alcohol: Past history of heavy use, currently denies Drugs: Denies Lives with Allergies: Denies 11/08/2024: Patient seen and examined at bedside. Patient is alert and oriented to time, place person and responding to all questions. Patient reports improved symptoms from when he 1st came to the hospital. 1+ lower extremity edema, decreased bilateral breath sounds. Complaining of lower back pain, started on [place] 5q 8 hours as needed. Denies any new complaints. Denies any suicidal ideation. 11/09/24: overnight episode of agitation, paco2 noted to be 71, placed on bipap for 4 hours. today saturating 88-93% of 2-4L o2 via NC. improved backache. will follow serum LDH tomorrow. 02/10/2025: Patient notes improvement in symptoms, however, overnight episode of desaturation along with an episode of vomiting with desaturation in the afternoon. LDH was in the 500s, scheduled patient for bone marrow biopsy tomorrow. Transition IV steroids to p.o. prednisolone. Objective vital signs Vital Sign Date Time Temp Pulse Resp B/P (MAP) Pulse Ox O2 Delivery O2 Flow Rate FiO2 11/10/24 16:51 60 127/66 91 Facial BiPAP Mask 30 11/10/24 13:45 18 11/10/24 13:37 2.0 11/10/24 08:00 97.6 97.6 Total Intake and Output 11/09/24 11/09/24 11/10/24 15:00 23:00 07:00 Intake Total 100 ml 550.0 ml 350 ml Output Total 0 ml 650 ml 950 ml Balance 100 ml -100.0 ml -600 ml medications Current Medications Medications Dose Ordered Sig/Amol Route Start Time Stop Time Status Last Admin Dose Admin Albuterol 2.5 mg Q4HR NEB 11/07/24 02:00 11/10/24 13:37 2.5 MG Ipratropium [place] 0.5 mg Q4HR NEB 11/07/24 10:00 11/10/24 13:37 0.5 MG Vancomycin HCl 0 ml @ 0 mls/hr UD IV 11/07/24 10:45 Carbidopa/Levodopa 1 tab BID PO 11/08/24 22:00 11/10/24 10:05 1 TAB Lidocaine 1 patch Q24H TOP 11/09/24 18:00 11/09/24 18:18 1 PATCH Vancomycin HCl 150 ml @ 150 mls/hr Q12H IV 11/09/24 23:00 11/10/24 14:58 150 MLS/HR Cefepime HCl 50 ml @ 12.5 mls/hr Q8H IV 11/09/24 18:00 11/10/24 09:56 12.5 MLS/HR Acetaminophen 500 mg Q8HR PO 11/10/24 14:00 Docusate Sodium 100 mg BID PO 11/10/24 10:00 11/10/24 09:58 100 MG Polyethylene Glycol 17 gm DAILY PO 11/10/24 10:00 11/10/24 09:58 17 GM Trolamine Salicylate 1 applic BID TOP 11/10/24 10:00 Prednisone 40 mg DAILY PO 11/10/24 10:00 11/10/24 09:58 40 MG Pantoprazole Sodium 40 mg DAILY@0600 PO 11/11/24 06:00 Ondansetron HCl 4 mg Q6HP PRN PO 11/10/24 13:15 Ondansetron HCl 4 mg Q6HPRN PRN IV 11/10/24 13:30 Examination General Appearance: Cooperative. Well developed. In moderate distress Pulmonary/Respiratory: Chest non-tender. Scattered bilateral wheezes, decreased b/l breath sounds Cardiovascular/Chest: Tachycardia No murmurs. No JVD. Peripheries: Cold to touch Abdominal Exam: Normal bowel sounds. Soft. normal abdomen, no visible veins, Nontender. No hepatospenomegaly. No masses Lower extremities: 1+ lower extremity edema Neuro/Mental Status: A&O x4. Coherent. tremor noted, most pronounced in RUE Thoughts/Psych: Normal thought pattern. Appropriate mood and affect. laboratory and microbiology Laboratory Tests 11/10/24 04:53 Test 11/10/24 04:53 Range/Units Serum Glucose 113 H 74-106 mg/dL Microbiology Date/Time Source Procedure Growth Status 11/09/24 05:50 Nose MRSA Screen - Final Complete 11/07/24 03:30 Voided Urine Urine Culture - Final Complete 11/06/24 21:55 Blood Blood Culture - Preliminary NO GROWTH AFTER 72 HOURS OF INCUBATION. Resulted Labs and/or images reviewed: Labs reviewed by me, Image(s) reviewed by me Problem List/Assessment/Plan Problem List/Assessment/Plan Neurology # newly diagnosed Parkinson's disease - resumed home medication carbidopa levodopa 25-250 mg b.i.d. - outpatient follow up Cardiovascular # Septic shock possibly secondary to pneumonia versus complicated UTI # NSTEMI likely type 2 due to above # mild left atrial enlargement # moderate aortic stenosis with mean gradient of 25 mm of Hg # ascending aortic aneurysm measuring 4.2 cm 12 months ago - echocardiogram: lvef 55%. mild LVH. grade 1 diastolic dysfunction. normal rv function. RV not well seen. left atrium enlarged mild. moderate aortic stenosis, mean gradient of 25 mmg . mild pulm htn - CXR: No acute abnormality demonstrated, low lung volumes with crowding of the bronchovascular markings. Respiratory # Acute hypoxic/hypercapnic respiratory failure, on BiPAP # possible acute exacerbation of COPD # community-acquired pneumonia, Gram-positive versus Gram-negative? # pulmonary hypertension, RVSP 65 mmHg # 6.3 mm soft nodule right middle lobe - echocardiogram: lvef 55%. mild LVH. grade 1 diastolic dysfunction. normal rv function. RV not well seen. left atrium enlarged mild. moderate aortic stenosis, mean gradient of 25 mmg . mild pulm htn - IV vancomycin per-pharmacy - IV cefepime - ipratropium and albuterol med nebs - started apixaban 10mg bid - V/Q scan - continue BiPAP at night - requested PT evaluation - outpatient follow up for evaluation and monitoring of right-sided soft nodule in the lung GI # Peptic ulcer prophylaxis -Pantoprazole 40 mg IV daily # Castanon catheter placed on 11/07/2024 # acute complicated UTI - IV vancomycin, IV cefepime - IV NS at 75 cc/hour Nephrology # SHREYA likely hemodynamically mediated/VMN on questionable CKD, baseline unavailable - nephrology on board - strict I&Os - monitor Infectious disease # acute complicated UTI # possible community-acquired pneumonia - IV vancomycin per pharmacy - IV cefepime - IV NS at 75 cc/hour - norepinephrine at 0.5 mcg Hem/onc # severe leukocytosis # microcytic anemia, MCV 69.4 # thrombocytopenia, serum platelets 82 - abdominal usg: splenomegaly - ordered serum LDH; 550 - scheduled for bone marrow biopsy tomorrow - monitor DVT prophylaxis - bilateral lower extremity Doppler: No right or left femoropopliteal venous thrombosis - holding due to low platelet count Nutrition Cardiac diet Lines - left 20 gauge placed on 11/06/2024 Critical care time 53 minutes excluding procedure. Code status discussed greater than 20 minutes: Family at bedside explained about the condition of the patient Plan discussed with Dr. Blum we decided to start the patient on apixaban, consult Cardiology and continue BiPAP at night. Patient was also started on a cardiac diet with instructions to not use BiPAP 1-2 hours after feeding. Plan discussed with: Patient, Other (RN) My Orders My Orders Orders - NEERU SCHULZ RESIDENT Procedure Category Date Status Time Modified Resuscitive CODE 11/09/24 Transmitted Measures 18:30 Acetaminophen Tablet PHA 11/10/24 In Process (Tylenol Tablet) 14:00 Docusate Sodium PHA 11/10/24 In Process Capsule (Colace 10:00 Polyethylene Glycol PHA 11/10/24 In Process 17g Powder (Miralax 10:00 Trolamine Salicylate PHA 11/10/24 In Process Topical (Aspercreme 10:00 Prednisone Tablet PHA 11/10/24 In Process 10:00 Ondansetron Po PHA 11/10/24 In Process (Zofran Po) 13:15 Dietary Evaluation Review Comments: 1) Refer CDE for weight management on DC 2) Monitor PO intake, Lab values, I/O, wt trend Expected Outcomes/Goals: To meet >75% estimated needs Fu 3-5 days Date of Service: Nov 10, 2024 Billing Provider: CARMINE BLUM MD Common Visit Codes: 54417-UVCVHHMN CARE 30-74 MIN NEERU SCHULZ RESIDENT Nov 10, 2024 17:38 CARMINE BLUM MD Nov 13, 2024 11:13
[2024-11-11] VITALS (68 sets, daily range): BP systolic 89–147; BP diastolic 30–78; PULSE 60–103; RESP 13–37; TEMP 97.7–98.9; O2SAT 87–100
[2024-11-11] MEDS: PANTOPRAZOLE 40 MG TAB PO SCH (05:41)
[2024-11-11 05:46] LABS: Base Excess 5.4 mmol/L (-2.0-3.0)
[2024-11-11 06:16] LABS: Anion Gap 6 (5-15); Chloride 104 mmol/L (98-107); Sodium 142 mmol/L (136-145)
[2024-11-11 06:22] LABS: BUN/Creatinine Ratio 32.9 (10.0-20.0); Glucose 83 mg/dL (74-106)
[2024-11-11 06:37] LABS: Blood Urea Nitrogen 25 mg/dL (9-23); Calcium 8.5 mg/dL (8.7-10.4); Carbon Dioxide 32 mmol/L (20-31)
[2024-11-11 06:38] LABS: Potassium 5.8 mmol/L (3.5-5.1)
[2024-11-11 06:46] LABS: Hematocrit 40.9 % (41.0-53.0); Hemoglobin 12.3 g/dL (13.5-17.5); Mean Corpuscular Hemoglobin 21.2 pg (28.0-32.0); Mean Corpuscular Volume 70.4 fL (80.0-100.0)
[2024-11-11] MEDS: ALBUTEROL SULF 2.5 MG/0.5ML(0.5%) NEB SOLN NEB ONE (07:11)
[2024-11-11 08:55] LABS: Anisocytosis Slight
[2024-11-11 08:57] LABS: Total Cells Counted 100.0 (100)
[2024-11-11] MEDS: DEXTROSE (50%) 50ML SYRG IV ONE (09:29)
[2024-11-11] MEDS: SODIUM BICARB 8.4% 50Meq/50ml SYR INJ IV ONE (09:29)
[2024-11-11] MEDS: CALCIUM GLUC 1,000mg/50ml-NS 50 ML IV ONE (09:29)
[2024-11-11] MEDS: SODIUM ZIRCONIUM CYCL 10 GM PAK PO ONE (09:29)
[2024-11-11] MEDS: InsuLIN REG 1unit/0.01ml Soln (100units/ml) IV ONE (09:39)
[2024-11-11 10:14] LABS: Base Excess 5.0 mmol/L (-2.0-3.0)
--- NOTE | 2024-11-11 10:46 | DVH ---
EXAM: XY CHEST PORTABLE Indication: pain pna Technique: Single frontal view of the chest was obtained Comparison: XY CHEST PORTABLE on DOS: 11/10/24, XY CHEST XRAY 1 VIEW on DOS: 11/06/24 FINDINGS: Lines and Tubes: Cardiac pacemaker projects over the left chest wall. Lungs: Pulmonary vascular congestion. Left retrocardiac opacity. Pleura: Small left pleural effusion. No pneumothorax. Cardiomediastinal contours: Cardiomegaly. Bones: No acute osseous abnormality. IMPRESSION: Cardiomegaly and small left pleural effusion. Left retrocardiac opacity.
[2024-11-11] MEDS: ACETAMINOPHEN 500 MG TAB or CAP PO SCH (13:42)
--- NOTE | 2024-11-11 14:15 | DVH ---
Indication: dec pulses Technique: Real- time ultrasound images of the bilateral lower extremity with grayscale, color, and s pectral wave Doppler. Comparison: None Findings: Biphasic/ triphasic waveforms throughout the bilateral lower extremities. Peak systolic velocities are as follows (in cm/s): Right: Common femoral artery: 142 Profunda femoris: 72 Proximal superficial femoral: 115 Mid superficial femoral artery: 102 Distal superficial femoral artery: 87 Popliteal artery: 89 Posterior tibial artery: 70 Dorsalis pedis artery: 70 Left: Common femoral artery: 152 Profunda femoris: 89 Proximal superficial femoral: 120 Mid superficial femoral artery: 105 Distal superficial femoral artery: 84 Popliteal artery: 52 Posterior tibial artery: 100 Dorsalis pedis artery: 91 Impression: No sonographic evidence for hemodynamically significant stenosis.
--- NOTE | 2024-11-11 14:41 | DVHPNRES ---
Progress Note Date Seen: Nov 11, 2024 Resident Creating Document: NEERU SCHULZ RESIDENT Medical Necessity Reason Pt with a Central, PICC or Fol: No The following are medically ne: Castanon Catheter Subjective Review of Systems Patient is a 74-year-old male with past medical history of hypertension, symptomatic bradycardia s/p pacemaker 3 years ago, sleep apnea on CPAP, recently diagnosed Parkinson's disease, possible Agent [place] exposure? , ascending aortic aneurysm 4.2 cm, who comes in due to severe generalized weakness. According to the patient and his , patient has been feeling increasingly weak for the past 1 week, 2 days ago he also sustained a fall where he slipped off of his bed and fell on his knees without any head trauma. Per , yesterday patient was complaining of chest pain that started 2 days ago, intermittent and worsened with eating, along with abdominal pain, sweating and generalized weakness, was unable to get up from the chair which is what prompted this visit to the hospital. On review of systems patient is complaining of chest pain that has been ongoing intermittently for the last 1 week, palpitations, urinary frequency and urinary incontinence. Serial troponins were 80, 100, 113, 107 and chest x-ray showed no acute abnormality. Past surgical history: Pacemaker, back surgery? Home medications: Smoking: Quit 40 years ago, prior to that was smoking 1 pack per day for 30 years Alcohol: Past history of heavy use, currently denies Drugs: Denies Lives with Allergies: Denies 11/08/2024: Patient seen and examined at bedside. Patient is alert and oriented to time, place person and responding to all questions. Patient reports improved symptoms from when he 1st came to the hospital. 1+ lower extremity edema, decreased bilateral breath sounds. Complaining of lower back pain, started on [place] 5q 8 hours as needed. Denies any new complaints. Denies any suicidal ideation. 11/09/24: overnight episode of agitation, paco2 noted to be 71, placed on bipap for 4 hours. today saturating 88-93% of 2-4L o2 via NC. improved backache. will follow serum LDH tomorrow. 02/10/2025: Patient notes improvement in symptoms, however, overnight episode of desaturation along with an episode of vomiting with desaturation in the afternoon. LDH was in the 500s, scheduled patient for bone marrow biopsy tomorrow. Transition IV steroids to p.o. prednisolone. 02/11/25: Patient seen and examined at bedside, continued dependence on bipap, bone marrow biopsy deferred. increasing tremor and rigidity, increased carbidopa-levodopa to tid. Objective vital signs Vital Sign Date Time Temp Pulse Resp B/P (MAP) Pulse Ox O2 Delivery O2 Flow Rate FiO2 11/11/24 12:40 91 111/52 98 Nasal BiPAP Mask 30 11/11/24 11:15 23 11/11/24 08:00 98.6 98.6 11/11/24 02:12 3.0 Total Intake and Output 11/10/24 11/10/24 11/11/24 15:00 23:00 07:00 Intake Total 200.0 ml 510 ml 120 ml Output Total 0 ml 850 ml 1475 ml Balance 200.0 ml -340 ml -1355 ml medications Current Medications Medications Dose Ordered Sig/Amol Route Start Time Stop Time Status Last Admin Dose Admin Albuterol 2.5 mg Q4HR [facility] 11/07/24 02:00 11/11/24 14:37 2.5 MG Ipratropium [place] 0.5 mg Q4HR [facility] 11/07/24 10:00 11/11/24 14:37 0.5 MG Vancomycin HCl 0 ml @ 0 mls/hr UD IV 11/07/24 10:45 Lidocaine 1 patch Q24H TOP 11/09/24 18:00 11/10/24 19:42 1 PATCH Vancomycin HCl 150 ml @ 150 mls/hr Q12H IV 11/09/24 23:00 11/11/24 11:43 150 MLS/HR Cefepime HCl 50 ml @ 12.5 mls/hr Q8H IV 11/09/24 18:00 11/11/24 13:06 12.5 MLS/HR Docusate Sodium 100 mg BID PO 11/10/24 10:00 11/11/24 11:44 100 MG Polyethylene Glycol 17 gm DAILY PO 11/10/24 10:00 11/11/24 12:02 17 GM Trolamine Salicylate 1 applic BID TOP 11/10/24 10:00 11/11/24 09:52 1 APPLIC Prednisone 40 mg DAILY PO 11/10/24 10:00 11/11/24 11:44 40 MG Pantoprazole Sodium 40 mg DAILY@0600 PO 11/11/24 06:00 11/11/24 11:43 40 MG Ondansetron HCl 4 mg Q6HP PRN PO 11/10/24 13:15 Ondansetron HCl 4 mg Q6HPRN PRN IV 11/10/24 13:30 Acetaminophen 500 mg Q8H PO 11/11/24 13:45 11/11/24 13:42 500 MG Carbidopa/Levodopa 1 tab TID PO 11/11/24 14:00 UNV Examination General Appearance: Cooperative. Well developed. In moderate distress Pulmonary/Respiratory: Chest non-tender. Scattered bilateral wheezes, decreased b/l breath sounds Cardiovascular/Chest: Tachycardia No murmurs. No JVD. Peripheries: Cold to touch Abdominal Exam: Normal bowel sounds. Soft. normal abdomen, no visible veins, Nontender. No hepatospenomegaly. No masses Lower extremities: 1+ lower extremity edema Neuro/Mental Status: A&O x4. Coherent. tremor noted, most pronounced in RUE Thoughts/Psych: Normal thought pattern. Appropriate mood and affect. laboratory and microbiology Laboratory Tests 11/11/24 11:09 11/11/24 05:11 Test 11/11/24 05:11 Range/Units Serum Glucose 83 74-106 mg/dL Microbiology Date/Time Source Procedure Growth Status 11/09/24 05:50 Nose MRSA Screen - Final Complete 11/07/24 03:30 Voided Urine Urine Culture - Final Complete 11/06/24 21:55 Blood Blood Culture - Preliminary NO GROWTH AFTER 72 HOURS OF INCUBATION. Resulted Labs and/or images reviewed: Labs reviewed by me, Image(s) reviewed by me Problem List/Assessment/Plan Problem List/Assessment/Plan Neurology # newly diagnosed Parkinson's disease - resumed home medication carbidopa levodopa 25-250 mg b.i.d. - outpatient follow up Cardiovascular # Septic shock possibly secondary to pneumonia versus complicated UTI # NSTEMI likely type 2 due to above # mild left atrial enlargement # moderate aortic stenosis with mean gradient of 25 mm of Hg # ascending aortic aneurysm measuring 4.2 cm 12 months ago - echocardiogram: lvef 55%. mild LVH. grade 1 diastolic dysfunction. normal rv function. RV not well seen. left atrium enlarged mild. moderate aortic stenosis, mean gradient of 25 mmg . mild pulm htn - CXR: No acute abnormality demonstrated, low lung volumes with crowding of the bronchovascular markings. Respiratory # Acute hypoxic/hypercapnic respiratory failure, on BiPAP # possible acute exacerbation of COPD # community-acquired pneumonia, Gram-positive versus Gram-negative? # pulmonary hypertension, RVSP 65 mmHg # 6.3 mm soft nodule right middle lobe - echocardiogram: lvef 55%. mild LVH. grade 1 diastolic dysfunction. normal rv function. RV not well seen. left atrium enlarged mild. moderate aortic stenosis, mean gradient of 25 mmg . mild pulm htn - IV vancomycin per-pharmacy - IV cefepime - ipratropium and albuterol med nebs - started apixaban 10mg bid - V/Q scan - continue BiPAP at night - requested PT evaluation - outpatient follow up for evaluation and monitoring of right-sided soft nodule in the lung GI # Peptic ulcer prophylaxis -Pantoprazole 40 mg IV daily # Castanon catheter placed on 11/07/2024 # acute complicated UTI - IV vancomycin, IV cefepime - IV NS at 75 cc/hour Nephrology # SHREYA likely hemodynamically mediated/VMN on questionable CKD, baseline unavailable - nephrology on board - strict I&Os - monitor Infectious disease # acute complicated UTI # possible community-acquired pneumonia - IV vancomycin per pharmacy - IV cefepime - IV NS at 75 cc/hour - norepinephrine at 0.5 mcg Hem/onc # severe leukocytosis # microcytic anemia, MCV 69.4 # thrombocytopenia, serum platelets 82 - abdominal usg: splenomegaly - ordered serum LDH; 550 - scheduled for bone marrow biopsy tomorrow - monitor DVT prophylaxis - bilateral lower extremity Doppler: No right or left femoropopliteal venous thrombosis - holding due to low platelet count Nutrition Cardiac diet Lines - left 20 gauge placed on 11/06/2024 Critical care time 83 minutes excluding procedure. Code status discussed greater than 20 minutes: Family at bedside explained about the condition of the patient Plan discussed with Dr. Lopez Plan discussed with: Other (RN) My Orders My Orders Orders - NEERU SCHULZ RESIDENT Procedure Category Date Status Time Chest Portable XY 11/11/24 Resulted 09:07 Abg W/ Co-Ox RT 11/11/24 Logged 10:00 Bilat Low Ext Art US 11/11/24 Resulted Duplex 13:07 Carbidopa W Levodopa PHA 11/11/24 Logged 25/250mg (Sinemet 2 14:00 Dietary Evaluation Review Comments: 1) Refer CDE for weight management on DC 2) Monitor PO intake, Lab values, I/O, wt trend Expected Outcomes/Goals: To meet >75% estimated needs Fu 3-5 days NEERU SCHULZ RESIDENT Nov 11, 2024 14:40
[2024-11-11] MEDS: CARBIDOPA W LEVODOPA 25/250mg TABLET PO SCH (16:52)
[2024-11-11 19:47] LABS: Base Excess 6.3 mmol/L (-2.0-3.0)
--- NOTE | 2024-11-11 23:16 | DVHPN2 ---
Progress Note - Dictate Date Seen: Nov 11, 2024 Medical Necessity Reason Pt with a Central, PICC or Fol: No The following are medically ne: Castanon Catheter Subjective Patient was seen and evaluated in follow up in the ICU. No overnight events. Patient complains of worsening shortness of breath, he is on Bi-PAP at 30% FiO2. WBC 44, K 5.8, CO2 32, BUN 25, CA 8.5. Chest x-ray shows cardiomegaly and small left pleural effusion. vital signs Vital Sign Date Time Temp Pulse Resp B/P (MAP) Pulse Ox O2 Delivery O2 Flow Rate FiO2 11/11/24 11:15 79 23 95 11/11/24 08:34 120/55 Nasal BiPAP Mask 30 11/11/24 08:00 98.6 98.6 11/11/24 02:12 3.0 Total Intake and Output 11/10/24 11/10/24 11/11/24 15:00 23:00 07:00 Intake Total 200.0 ml 510 ml 120 ml Output Total 0 ml 850 ml 1475 ml Balance 200.0 ml -340 ml -1355 ml medications Current Medications Medications Dose Ordered Sig/Amol Route Start Time Stop Time Status Last Admin Dose Admin Albuterol 2.5 mg Q4HR NEB 11/07/24 02:00 11/11/24 11:14 2.5 MG Ipratropium [place] 0.5 mg Q4HR NEB 11/07/24 10:00 11/11/24 11:14 0.5 MG Vancomycin HCl 0 ml @ 0 mls/hr UD IV 11/07/24 10:45 Carbidopa/Levodopa 1 tab BID PO 11/08/24 22:00 11/10/24 21:59 1 TAB Lidocaine 1 patch Q24H TOP 11/09/24 18:00 11/10/24 19:42 1 PATCH Vancomycin HCl 150 ml @ 150 mls/hr Q12H IV 11/09/24 23:00 11/10/24 23:27 150 MLS/HR Cefepime HCl 50 ml @ 12.5 mls/hr Q8H IV 11/09/24 18:00 11/11/24 02:00 12.5 MLS/HR Acetaminophen 500 mg Q8HR PO 11/10/24 14:00 11/10/24 21:59 500 MG Docusate Sodium 100 mg BID PO 11/10/24 10:00 11/10/24 22:00 100 MG Polyethylene Glycol 17 gm DAILY PO 11/10/24 10:00 11/10/24 09:58 17 GM Trolamine Salicylate 1 applic BID TOP 11/10/24 10:00 11/11/24 09:52 1 APPLIC Prednisone 40 mg DAILY PO 11/10/24 10:00 11/10/24 09:58 40 MG Pantoprazole Sodium 40 mg DAILY@0600 PO 11/11/24 06:00 Ondansetron HCl 4 mg Q6HP PRN PO 11/10/24 13:15 Ondansetron HCl 4 mg Q6HPRN PRN IV 11/10/24 13:30 objective GENERAL: Alert and oriented x 3. Lethargic. EYES: PERRL, EOMI. Anicteric. HENT: Moist mucous membranes. LUNGS: Clear to auscultation bilaterally. CARDIOVASCULAR: Regular rate and rhythm. ABDOMEN: Soft, non-tender and non-distended. EXTREMITIES: No edema. NEUROLOGIC: No focal neurological deficits. SKIN: Warm, dry. laboratory and microbiology Laboratory Tests 11/11/24 11:09 11/11/24 05:11 Test 11/11/24 05:11 Range/Units Serum Glucose 83 74-106 mg/dL Problem List Septic shock with PNA/UTI. Acute on chronic hypoxic respiratory failure. Acute kidney injury. NSTEMI type 2 secondary to above. Ascending aortic aneurysm at 4.2 cm. Presence of dual-chamber pacemaker ([employer]). Aortic valve stenosis, moderate degree. Parkinson's disease. Thrombocytopenia. FAMIL[place] on CPAP HS. History of tobacco use. Assessment/Plan Continued all current supportive medical care. Tylenol for pain management. IV antibiotics as ordered. Nebulized breathing treatments. Additional plan as per the hospital course. Critical care time of 45 minutes provided to include time spent evaluation of patient at bedside, when appropriate patient/family education for diagnosis, treatment plan, review of pertinent medical information and discussion of care with specialty providers and PCP. Dietary Evaluation Review Comments: 1) Refer CDE for weight management on DC 2) Monitor PO intake, Lab values, I/O, wt trend Expected Outcomes/Goals: To meet >75% estimated needs Fu 3-5 days Plan discussed with: Patient NAYELY CHAVEZ MD Nov 11, 2024 12:07
[2024-11-12] VITALS (37 sets, daily range): BP systolic 118–147; BP diastolic 31–84; PULSE 62–93; RESP 15–33; TEMP 97.7–98.6; O2SAT 70–100
--- NOTE | 2024-11-12 06:18 | DVH ---
CHEST RADIOGRAPH Indication: pna Technique: Single frontal view of the chest was obtained COMPARISON: XY CHEST PORTABLE on DOS: 11/11/24, XY CHEST PORTABLE on DOS: 11/10/24, XY CHEST XRAY 1 VIE W on DOS: 11/06/24 FINDINGS: Lines and Tubes: Left chest pacemaker. Lungs: Pulmonary vascular congestion. Left basilar subsegmental atelectasis. Pleura: No effusion. No pneumothorax. Cardiomediastinal contours: Cardiomegaly Bones: Unremarkable IMPRESSION: No significant interval change.
[2024-11-12 09:00] LABS: Hemoglobin 11.3 g/dL (13.5-17.5); Nucleated Red Blood Cells % 0.2 %
[2024-11-12 09:05] LABS: Hematocrit 37.2 % (41.0-53.0); Mean Corpuscular Hemoglobin 20.7 pg (28.0-32.0); Mean Corpuscular Volume 68.0 fL (80.0-100.0)
[2024-11-12 09:18] LABS: Alanine Aminotransferase 11 U/L (7-40); Albumin 3.4 g/dL (3.2-4.8); Alkaline Phosphatase 57 U/L (46-116); Anion Gap 5 (5-15); BUN/Creatinine Ratio 34.8 (10.0-20.0); Calcium 9.4 mg/dL (8.7-10.4); Chloride 101 mmol/L (98-107); Glucose 80 mg/dL (74-106); Potassium 4.9 mmol/L (3.5-5.1); Sodium 143 mmol/L (136-145)
[2024-11-12 09:19] LABS: Bilirubin, Total 1.0 mg/dL (0.2-1.0); Blood Urea Nitrogen 24 mg/dL (9-23); Carbon Dioxide 37 mmol/L (20-31); Total Protein 5.3 g/dL (5.7-8.2)
--- NOTE | 2024-11-12 11:21 | DVHPN2 ---
Subjective Review of Systems Patient is a 74-year-old male with past medical history of hypertension, symptomatic bradycardia s/p pacemaker 3 years ago, sleep apnea on CPAP, recently diagnosed Parkinson's disease, possible [employer] [place] exposure? , ascending aortic aneurysm 4.2 cm, who comes in due to severe generalized weakness. According to the patient and his , patient has been feeling increasingly weak for the past 1 week, 2 days ago he also sustained a fall where he slipped off of his bed and fell on his knees without any head trauma. Per , yesterday patient was complaining of chest pain that started 2 days ago, intermittent and worsened with eating, along with abdominal pain, sweating and generalized weakness, was unable to get up from the chair which is what prompted this visit to the hospital. On review of systems patient is complaining of chest pain that has been ongoing intermittently for the last 1 week, palpitations, urinary frequency and urinary incontinence. Serial troponins were 80, 100, 113, 107 and chest x-ray showed no acute abnormality. Past surgical history: Pacemaker, back surgery? Home medications: Smoking: Quit 40 years ago, prior to that was smoking 1 pack per day for 30 years Alcohol: Past history of heavy use, currently denies Drugs: Denies Lives with Allergies: Denies 11/08/2024: Patient seen and examined at bedside. Patient is alert and oriented to time, place person and responding to all questions. Patient reports improved symptoms from when he 1st came to the hospital. 1+ lower extremity edema, decreased bilateral breath sounds. Complaining of lower back pain, started on [place] 5q 8 hours as needed. Denies any new complaints. Denies any suicidal ideation. 11/09/24: overnight episode of agitation, paco2 noted to be 71, placed on bipap for 4 hours. today saturating 88-93% of 2-4L o2 via NC. improved backache. will follow serum LDH tomorrow. 11/10/2024: Patient notes improvement in symptoms, however, overnight episode of desaturation along with an episode of vomiting with desaturation in the afternoon. LDH was in the 500s, scheduled patient for bone marrow biopsy tomorrow. Transition IV steroids to p.o. prednisolone. 11/11/24 - 11/12-patient doing well. No significant or severe cramps concerning for worsening of Parkinson's or failure. Continue IV antibiotics. Patient has decreased breath sounds at bases we will start incentive spirometer. No PT onboard. We will get PT and continue q.2 hours turns until patient is able to move himself. Castanon in place good urine output. Patient is able to talk in short sentences due to his parkinsonism.. Platelets stable, WBCs elevated in stable. Primary team planning for possible bone marrow biopsy. I will hold off neurology consult as patient appears to be stable Parkinson's and defer to primary for the neurology consult. No other complaints from patient. Cough is improved. Reviewed: H&P Changes from previous H/P or p: No Changes General: Per HPI Eyes: No Pain, No Vision change, No Conjunctivae inflammation, No Eyelid inflammation, No Other, No Redness ENT: No Ear pain, No Ear discharge, No Nose pain, No Nose discharge, No Nose congestion, No Mouth pain, No Mouth swelling, No Throat pain, No Throat swelling, No Other Cardiovascular: Chest Pain, Edema (1+ edema bilateral leg) Respiratory: No Cough, No Dry; Shortness of breath, SOB with excertion; No Wheezing, No Hemoptysis, No Pleuritic Pain, No Sputum, No Other Gastrointestinal: No Nausea, No Vomiting, No Abdominal Pain, No Diarrhea, No Constipation, No Melena, No Hematochezia, No Other Genitourinary: No Dysuria, No Frequency, No Incontinence, No Hematuria, No Retention, No Other Musculoskeletal: No other, No neck pain, No shoulder pain, No arm pain, No back pain, No hand pain, No leg pain, No foot pain Skin: No Rash, No Lesions, No Jaundice, No Bruising, No Other Objective Vitals Vital Signs Date Time Temp Pulse Resp B/P (MAP) Pulse Ox O2 Delivery O2 Flow Rate FiO2 11/12/24 11:02 72 20 99 11/12/24 10:56 Nasal Cannula 3.0 11/12/24 10:56 32 11/12/24 10:00 129/69 (89) 11/12/24 08:00 98.5 98.5 Intake/Output Intake and Output 11/12/24 07:00 Intake Total 960.0 ml Output Total 725 ml Balance 235.0 ml Intake Oral 440 ml IV Total 520.0 ml Output Urine Total 725 ml Stool Total 0 ml Exam General Appearance: Cooperative. Well developed. In moderate distress Pulmonary/Respiratory: Chest non-tender. Scattered bilateral wheezes, decreased b/l breath sounds Cardiovascular/Chest: Tachycardia No murmurs. No JVD. Peripheries: Cold to touch Abdominal Exam: Normal bowel sounds. Soft. normal abdomen, no visible veins, Nontender. No hepatospenomegaly. No masses Lower extremities: 1+ lower extremity edema Neuro/Mental Status: A&O x4. Coherent. tremor noted, most pronounced in RUE Thoughts/Psych: Normal thought pattern. Appropriate mood and affect. Medications Current Medications Medications Dose Ordered Sig/Amol Route Start Time Stop Time Status Last Admin Dose Admin Albuterol 2.5 mg Q4HR [facility] 11/07/24 02:00 11/12/24 10:56 2.5 MG Ipratropium [place] 0.5 mg Q4HR [facility] 11/07/24 10:00 11/12/24 10:56 0.5 MG Vancomycin HCl 0 ml @ 0 mls/hr UD IV 11/07/24 10:45 Lidocaine 1 patch Q24H [facility] 11/09/24 18:00 11/11/24 18:45 1 PATCH Vancomycin HCl 150 ml @ 150 mls/hr Q12H IV 11/09/24 23:00 11/11/24 23:07 150 MLS/HR Cefepime HCl 50 ml @ 12.5 mls/hr Q8H IV 11/09/24 18:00 11/12/24 08:05 12.5 MLS/HR Docusate Sodium 100 mg BID PO 11/10/24 10:00 11/12/24 08:05 100 MG Polyethylene Glycol 17 gm DAILY PO 11/10/24 10:00 11/12/24 08:04 17 GM Trolamine Salicylate 1 applic BID TOP 11/10/24 10:00 11/12/24 08:05 1 APPLIC Prednisone 40 mg DAILY PO 11/10/24 10:00 11/12/24 08:05 40 MG Pantoprazole Sodium 40 mg DAILY@0600 PO 11/11/24 06:00 11/11/24 11:43 40 MG Ondansetron HCl 4 mg Q6HPRN PRN IV 11/10/24 13:30 Acetaminophen 500 mg Q8H PO 11/11/24 13:45 11/12/24 06:38 500 MG Carbidopa/Levodopa 1 tab TID PO 11/11/24 14:00 11/12/24 06:38 1 TAB Laboratory Results Laboratory Tests 11/12/24 08:22 Chemistry Test 11/12/24 08:22 Albumin 3.4 g/dL (3.2-4.8) Calcium Level 9.4 mg/dL (8.7-10.4) Total Protein 5.3 g/dL (5.7-8.2) L LFT Test 11/12/24 08:22 Alanine Aminotransferase (ALT) 11 U/L (7-40) Alkaline Phosphatase 57 U/L (46-116) Aspartate Amino Transferase (AST) 58 U/L (13-40) H Total Bilirubin 1.0 mg/dL (0.2-1.0) Urinalysis Test 11/07/24 03:30 Urine Color Yellow (Yellow) Urine Clarity Turbid (Clear) H Urine pH 5.5 (5.0-9.0) Urine Specific [place] 1.032 (1.001-1.035) Urine Protein 1+ (Negative) H Urine Ketones Trace (Negative) Urine Blood Negative /uL (Negative) Urine Nitrite Negative (Negative) Urine Bilirubin 1+ (Negative) Urine Urobilinogen 3 mg/dL (Negative) H Urine Leukocyte Esterase 1+ /uL (Negative) Urine RBC 2 /hpf (0 - 3) Urine Microscopic WBC 5 /HPF (0-3) H Urine Squamous Epithelial Cells Few /hpf (<5) Urine Bacteria None seen /hpf (None Seen) Urine Hyaline Casts Mod /lpf (0 - 2) Urine Mucus Few (None Seen) Urine Creatinine 391.78 mg/dL (30.0-125.0) H Urine Protein/Creatinine Ratio 0.17 Urine Sodium 20 mmol/L (40-220) L Urine Glucose Normal mg/dL (Normal) Urine Total Protein 67.4 mg/dL (1-14) H Blood Gas Results Test 11/11/24 19:40 Arterial Blood pH 7.376 (7.350-7.450) FiO2 % 32.0 Microbiology Microbiology Date/Time Source Procedure Growth Status 11/09/24 05:50 Nose MRSA Screen - Final Complete 11/07/24 03:30 Voided Urine Urine Culture - Final Complete 11/06/24 21:55 Blood Blood Culture - Final NO GROWTH AFTER 5 DAYS OF INCUBATION. Complete Labs and/or images reviewed: Labs reviewed by me, Image(s) reviewed by me Assessment/Plan Assessment/Plan Neurology # newly diagnosed Parkinson's disease - resumed home medication carbidopa levodopa 25-250 mg b.i.d. - outpatient follow up Cardiovascular # Septic shock possibly secondary to pneumonia versus complicated UTI # NSTEMI likely type 2 due to above # mild left atrial enlargement # moderate aortic stenosis with mean gradient of 25 mm of Hg # ascending aortic aneurysm measuring 4.2 cm 12 months ago - echocardiogram: lvef 55%. mild LVH. grade 1 diastolic dysfunction. normal rv function. RV not well seen. left atrium enlarged mild. moderate aortic stenosis, mean gradient of 25 mmg . mild pulm htn - CXR: No acute abnormality demonstrated, low lung volumes with crowding of the bronchovascular markings. Respiratory # Acute hypoxic/hypercapnic respiratory failure, on BiPAP # possible acute exacerbation of COPD # community-acquired pneumonia, Gram-positive versus Gram-negative? # pulmonary hypertension, RVSP 65 mmHg # 6.3 mm soft nodule right middle lobe - echocardiogram: lvef 55%. mild LVH. grade 1 diastolic dysfunction. normal rv function. RV not well seen. left atrium enlarged mild. moderate aortic stenosis, mean gradient of 25 mmg . mild pulm htn - IV vancomycin per-pharmacy - IV cefepime - ipratropium and albuterol med nebs - started apixaban 10mg bid - V/Q scan - continue BiPAP at night - requested PT evaluation - outpatient follow up for evaluation and monitoring of right-sided soft nodule in the lung GI # Peptic ulcer prophylaxis -Pantoprazole 40 mg IV daily # Castanon catheter placed on 11/07/2024 # acute complicated UTI - IV vancomycin, IV cefepime - IV NS at 75 cc/hour Nephrology # SHREYA likely hemodynamically mediated/VMN on questionable CKD, baseline unavailable - nephrology on board - strict I&Os - monitor Infectious disease # acute complicated UTI # possible community-acquired pneumonia - IV vancomycin per pharmacy - IV cefepime - IV NS at 75 cc/hour - norepinephrine at 0.5 mcg Hem/onc # severe leukocytosis # microcytic anemia, MCV 69.4 # thrombocytopenia, serum platelets 82 - abdominal usg: splenomegaly - ordered serum LDH; 550 - scheduled for bone marrow biopsy tomorrow - monitor DVT prophylaxis - bilateral lower extremity Doppler: No right or left femoropopliteal venous thrombosis - holding due to low platelet count Nutrition Cardiac diet Lines - left 20 gauge placed on 11/06/2024 Plan discussed with: Patient Date of Service: Nov 12, 2024 Billing Provider: LEI DOUGLASS MD Common Visit Codes: 85992-LLIOVLKN CARE 30-74 MIN LEI DOUGLASS MD Nov 12, 2024 11:21
--- NOTE | 2024-11-12 13:37 | DVHPN2 ---
Progress Note - Dictate Date Seen: Nov 12, 2024 Medical Necessity Reason Pt with a Central, PICC or Fol: No The following are medically ne: Castanon Catheter vital signs Vital Sign Date Time Temp Pulse Resp B/P (MAP) Pulse Ox O2 Delivery O2 Flow Rate FiO2 11/12/24 12:00 75 11/12/24 12:00 20 98 Nasal Cannula* 4 36 11/12/24 10:00 129/69 (89) 11/12/24 08:00 98.5 98.5 Total Intake and Output 11/11/24 11/11/24 11/12/24 15:00 23:00 07:00 Intake Total 295.0 ml 265.0 ml 400 ml Output Total 475 ml 250 ml Balance 295.0 ml -210.0 ml 150 ml medications Current Medications Medications Dose Ordered Sig/Amol Route Start Time Stop Time Status Last Admin Dose Admin Albuterol 2.5 mg Q4HR [facility] 11/07/24 02:00 11/12/24 10:56 2.5 MG Ipratropium [place] 0.5 mg Q4HR [facility] 11/07/24 10:00 11/12/24 10:56 0.5 MG Vancomycin HCl 0 ml @ 0 mls/hr UD IV 11/07/24 10:45 Lidocaine 1 patch Q24H TOP 11/09/24 18:00 11/11/24 18:45 1 PATCH Vancomycin HCl 150 ml @ 150 mls/hr Q12H IV 11/09/24 23:00 11/12/24 12:12 150 MLS/HR Cefepime HCl 50 ml @ 12.5 mls/hr Q8H IV 11/09/24 18:00 11/12/24 08:05 12.5 MLS/HR Docusate Sodium 100 mg BID PO 11/10/24 10:00 11/12/24 08:05 100 MG Polyethylene Glycol 17 gm DAILY PO 11/10/24 10:00 11/12/24 08:04 17 GM Trolamine Salicylate 1 applic BID TOP 11/10/24 10:00 11/12/24 08:05 1 APPLIC Prednisone 40 mg DAILY PO 11/10/24 10:00 11/12/24 08:05 40 MG Pantoprazole Sodium 40 mg DAILY@0600 PO 11/11/24 06:00 11/11/24 11:43 40 MG Ondansetron HCl 4 mg Q6HPRN PRN IV 11/10/24 13:30 Acetaminophen 500 mg Q8H PO 11/11/24 13:45 11/12/24 13:25 500 MG Carbidopa/Levodopa 1 tab TID PO 11/11/24 14:00 11/12/24 13:25 1 TAB laboratory and microbiology Laboratory Tests 11/12/24 08:22 Test 11/12/24 08:22 Range/Units Serum Glucose 80 74-106 mg/dL Assessment/Plan Impression Acute hypoxemic respiratory failure Acute COPD exacerbation Cardiomyopathy Leukocytosis Pacemaker Patient seen and examined in INOCENCIO Events High oxygen requirements On bipap 15/09 Respiratory status tenuous Complaining of cough Labs and imaging reviewed CT of the chest shows right lower lobe pulmonary nodule Will require follow up Management Supplemental oxygen Titrate to maintain sats 90% or above Incentive spirometry Prn bipap Continue antibiotics F/u cultures Bronchodilators Steroids for COPD management Monitor renal function Monitor electrolytes Supplement as needed DVT prophylaxis Critical care time 35 minutes Dietary Evaluation Review Comments: 1) Refer CDE for weight management on DC 2) Monitor PO intake, Lab values, I/O, wt trend Expected Outcomes/Goals: To meet >75% estimated needs Fu 3-5 days Plan discussed with: Patient ARTHUR DARLING MD Nov 12, 2024 13:37
--- NOTE | 2024-11-12 23:42 | DVHPN2 ---
Progress Note - Dictate Date Seen: Nov 12, 2024 Medical Necessity Reason Pt with a Central, PICC or Fol: No The following are medically ne: [place] Catheter Subjective Patient was seen and evaluated in follow up in the ICU. Early this am, per RN the patient was noted to be agitated and combative with lab techs and refusing blood draws. Patient has since calmed down. Patient's Nikki at bedside. Patient is now on 4 LPM NC. WBC is trending higher at 45.1. CO2 37, BUN 24, AST 58. vital signs Vital Sign Date Time Temp Pulse Resp B/P (MAP) Pulse Ox O2 Delivery O2 Flow Rate FiO2 11/12/24 12:00 75 11/12/24 12:00 20 98 Nasal Cannula* 4 36 11/12/24 10:00 129/69 (89) 11/12/24 08:00 98.5 98.5 Total Intake and Output 11/11/24 11/11/24 11/12/24 15:00 23:00 07:00 Intake Total 295.0 ml 265.0 ml 400 ml Output Total 475 ml 250 ml Balance 295.0 ml -210.0 ml 150 ml medications Current Medications Medications Dose Ordered Sig/Amol Route Start Time Stop Time Status Last Admin Dose Admin Albuterol 2.5 mg Q4HR [facility] 11/07/24 02:00 11/12/24 10:56 2.5 MG Ipratropium [place] 0.5 mg Q4HR [facility] 11/07/24 10:00 11/12/24 10:56 0.5 MG Vancomycin HCl 0 ml @ 0 mls/hr UD IV 11/07/24 10:45 Lidocaine 1 patch Q24H TOP 11/09/24 18:00 11/11/24 18:45 1 PATCH Vancomycin HCl 150 ml @ 150 mls/hr Q12H IV 11/09/24 23:00 11/12/24 12:12 150 MLS/HR Cefepime HCl 50 ml @ 12.5 mls/hr Q8H IV 11/09/24 18:00 11/12/24 08:05 12.5 MLS/HR Docusate Sodium 100 mg BID PO 11/10/24 10:00 11/12/24 08:05 100 MG Polyethylene Glycol 17 gm DAILY PO 11/10/24 10:00 11/12/24 08:04 17 GM Trolamine Salicylate 1 applic BID TOP 11/10/24 10:00 11/12/24 08:05 1 APPLIC Prednisone 40 mg DAILY PO 11/10/24 10:00 11/12/24 08:05 40 MG Pantoprazole Sodium 40 mg DAILY@0600 PO 11/11/24 06:00 11/11/24 11:43 40 MG Ondansetron HCl 4 mg Q6HPRN PRN IV 11/10/24 13:30 Acetaminophen 500 mg Q8H PO 11/11/24 13:45 11/12/24 06:38 500 MG Carbidopa/Levodopa 1 tab TID PO 11/11/24 14:00 11/12/24 06:38 1 TAB objective GENERAL: Alert and oriented x 3. Lethargic. EYES: PERRL, EOMI. Anicteric. HENT: Moist mucous membranes. LUNGS: Clear to auscultation bilaterally. CARDIOVASCULAR: Regular rate and rhythm. ABDOMEN: Soft, non-tender and non-distended. EXTREMITIES: No edema. NEUROLOGIC: No focal neurological deficits. SKIN: Warm, dry. laboratory and microbiology Laboratory Tests 11/12/24 08:22 Test 11/12/24 08:22 Range/Units Serum Glucose 80 74-106 mg/dL Problem List Septic shock with PNA/UTI. Acute on chronic hypoxic respiratory failure. Acute kidney injury. NSTEMI type 2 secondary to above. Ascending aortic aneurysm at 4.2 cm. Presence of dual-chamber pacemaker ([employer]). Aortic valve stenosis, moderate degree. Parkinson's disease. Thrombocytopenia. [place] on CPAP HS. History of tobacco use. Assessment/Plan Continued all current supportive medical care. Sinemet. Tylenol for pain management. IV antibiotics as ordered. Nebulized breathing treatments. Additional plan as per the hospital course. Critical care time of 45 minutes provided to include time spent evaluation of patient at bedside, when appropriate patient/family education for diagnosis, treatment plan, review of pertinent medical information and discussion of care with specialty providers and PCP. Dietary Evaluation Review Comments: 1) Refer CDE for weight management on DC 2) Monitor PO intake, Lab values, I/O, wt trend Expected Outcomes/Goals: To meet >75% estimated needs Fu 3-5 days Plan discussed with: Patient NAYELY CHAVEZ MD Nov 12, 2024 13:11
[2024-11-13] VITALS (35 sets, daily range): BP systolic 120–184; BP diastolic 57–82; PULSE 60–92; RESP 14–32; TEMP 97.7–99; O2SAT 88–100
[2024-11-13] MEDS: LORazepam 2MG/ML-1ML VIAL IV ONE (03:54)
[2024-11-13] MEDS: LORazepam 2MG/ML-1ML VIAL ONE (03:55)
[2024-11-13 07:11] LABS: Base Excess 9.5 mmol/L (-2.0-3.0)
[2024-11-13 11:41] LABS: Mean Corpuscular Hemoglobin 20.6 pg (28.0-32.0)
[2024-11-13 11:47] LABS: Hematocrit 39.8 % (41.0-53.0); Hemoglobin 12.0 g/dL (13.5-17.5); Mean Corpuscular Volume 68.3 fL (80.0-100.0)
[2024-11-13 11:54] LABS: Alanine Aminotransferase 21 U/L (7-40); Albumin 3.5 g/dL (3.2-4.8); Alkaline Phosphatase 68 U/L (46-116); Anion Gap 4 (5-15); BUN/Creatinine Ratio 43.9 (10.0-20.0); Bilirubin, Total 1.0 mg/dL (0.2-1.0); Calcium 9.3 mg/dL (8.7-10.4); Chloride 101 mmol/L (98-107); Magnesium 1.7 mg/dL (1.6-2.6); Potassium 4.6 mmol/L (3.5-5.1); Sodium 143 mmol/L (136-145)
--- NOTE | 2024-11-13 11:58 | DVHPN2 ---
Subjective Review of Systems Patient is a 74-year-old male with past medical history of hypertension, sympt omatic bradycardia s/p pacemaker 3 years ago, sleep apnea on CPAP, recently diagnosed Parkinson's disease, possible [employer] [place] exposure? , ascending aortic aneurysm 4.2 cm, who comes in due to severe generalized weakness. According to the patient and his , patient has been feeling increasingly weak for the past 1 week, 2 days ago he also sustained a fall where he slipped off of his bed and fell on his knees without any head trauma. Per , yesterday patient was complaining of chest pain that started 2 days ago, intermittent and worsened with eating, along with abdominal pain, sweating and generalized weakness, was unable to get up from the chair which is what prompted this visit to the hospital. On review of systems patient is complaining of chest pain that has been ongoing intermittently for the last 1 week, palpitations, urinary frequency and urinary incontinence. Serial troponins were 80, 100, 113, 107 and chest x-ray showed no acute abnormality. Past surgical history: Pacemaker, back surgery? Home medications: Smoking: Quit 40 years ago, prior to that was smoking 1 pack per day for 30 years Alcohol: Past history of heavy use, currently denies Drugs: Denies Lives with Allergies: Denies 11/08/2024: Patient seen and examined at bedside. Patient is alert and oriented to time, place person and responding to all questions. Patient reports improved symptoms from when he 1st came to the hospital. 1+ lower extremity edema, decreased bilateral breath sounds. Complaining of lower back pain, started on [place] 5q 8 hours as needed. Denies any new complaints. Denies any suicidal ideation. 11/09/24: overnight episode of agitation, paco2 noted to be 71, placed on bipap for 4 hours. today saturating 88-93% of 2-4L o2 via NC. improved backache. will follow serum LDH tomorrow. 11/10/2024: Patient notes improvement in symptoms, however, overnight episode of desaturation along with an episode of vomiting with desaturation in the afternoon. LDH was in the 500s, scheduled patient for bone marrow biopsy tomorrow. Transition IV steroids to p.o. prednisolone. 11/11/24 - 11/12-patient doing well. No significant or severe cramps concerning for worsening of Parkinson's or failure. Continue IV antibiotics. Patient has decreased breath sounds at bases we will start incentive spirometer. No PT onboard. We will get PT and continue q.2 hours turns until patient is able to move himself. Castanon in place good urine output. Patient is able to talk in short sentences due to his parkinsonism.. Platelets stable, WBCs elevated in stable. Primary team planning for possible bone marrow biopsy. I will hold off neurology consult as patient appears to be stable Parkinson's and defer to primary for the neurology consult. No other complaints from patient. Cough is improved. 11/13/2024-overnight patient became aggressive, confused swinging arms at staff. soft mittens were put on. This a.m. patient is A&O times 3-4, delusional as keeps saying that we are there to hurt him, but he is able to articulate reason for being here and understands if he declines therapy his condition could worsen. We will get psych evaluation to determine if patient has decision making capacity. He is declining suicidal ideations but appears very depressive and emotionally abusive comments towards spouse. Which is not his normal. Right now it is hard to assess if he has decision-making capacity as he is not as his normal function mentally. Patient is also too weak to get out of bed. Otherwise we will continue antibiotics for pneumonia in wait for bone marrow biopsy tomorrow. Reviewed: H&P Changes from previous H/P or p: No Changes General: Per HPI Eyes: No Pain, No Vision change, No Conjunctivae inflammation, No Eyelid inflammation, No Other, No Redness ENT: No Ear pain, No Ear discharge, No Nose pain, No Nose discharge, No Nose congestion, No Mouth pain, No Mouth swelling, No Throat pain, No Throat swelling, No Other Cardiovascular: Chest Pain, Edema (1+ edema bilateral leg) Respiratory: No Cough, No Dry; Shortness of breath, SOB with excertion; No Wheezing, No Hemoptysis, No Pleuritic Pain, No Sputum, No Other Gastrointestinal: No Nausea, No Vomiting, No Abdominal Pain, No Diarrhea, No Constipation, No Melena, No Hematochezia, No Other Genitourinary: No Dysuria, No Frequency, No Incontinence, No Hematuria, No Retention, No Other Musculoskeletal: No other, No neck pain, No shoulder pain, No arm pain, No back pain, No hand pain, No leg pain, No foot pain Skin: No Rash, No Lesions, No Jaundice, No Bruising, No Other Objective Vitals Vital Signs Date Time Temp Pulse Resp B/P (MAP) Pulse Ox O2 Delivery O2 Flow Rate FiO2 11/13/24 10:02 68 18 100 11/13/24 10:00 Nasal Cannula* 2 28 11/13/24 10:00 155/69 (97) 11/13/24 08:00 97.9 97.9 Intake/Output Intake and Output 11/13/24 07:00 Intake Total 1030.0 ml Output Total 2850 ml Balance -1820.0 ml Intake Oral 630 ml IV Total 400.0 ml Output Urine Total 2850 ml Exam General Appearance: Cooperative. Well developed. In moderate distress Pulmonary/Respiratory: Chest non-tender. Scattered bilateral wheezes, decreased b/l breath sounds Cardiovascular/Chest: Tachycardia No murmurs. No JVD. Peripheries: Cold to touch Abdominal Exam: Normal bowel sounds. Soft. normal abdomen, no visible veins, Nontender. No hepatospenomegaly. No masses Lower extremities: 1+ lower extremity edema Neuro/Mental Status: A&O x4. Coherent. tremor noted, most pronounced in RUE Thoughts/Psych: Normal thought pattern. Appropriate mood and affect. Medications Current Medications Medications Dose Ordered Sig/Amol Route Start Time Stop Time Status Last Admin Dose Admin Albuterol 2.5 mg Q4HR NEB 11/07/24 02:00 11/13/24 09:55 2.5 MG Ipratropium [place] 0.5 mg Q4HR NEB 11/07/24 10:00 11/13/24 09:55 0.5 MG Vancomycin HCl 0 ml @ 0 mls/hr UD IV 11/07/24 10:45 Lidocaine 1 patch Q24H TOP 11/09/24 18:00 11/12/24 17:18 1 PATCH Vancomycin HCl 150 ml @ 150 mls/hr Q12H IV 11/09/24 23:00 11/12/24 22:21 150 MLS/HR Cefepime HCl 50 ml @ 12.5 mls/hr Q8H IV 11/09/24 18:00 11/13/24 09:00 12.5 MLS/HR Docusate Sodium 100 mg BID PO 11/10/24 10:00 11/12/24 21:50 100 MG Polyethylene Glycol 17 gm DAILY PO 11/10/24 10:00 11/12/24 08:04 17 GM Trolamine Salicylate 1 applic BID TOP 11/10/24 10:00 11/13/24 09:01 1 APPLIC Prednisone 40 mg DAILY PO 11/10/24 10:00 11/13/24 09:00 40 MG Pantoprazole Sodium 40 mg DAILY@0600 PO 11/11/24 06:00 11/11/24 11:43 40 MG Ondansetron HCl 4 mg Q6HPRN PRN IV 11/10/24 13:30 Acetaminophen 500 mg Q8H PO 11/11/24 13:45 11/12/24 21:51 500 MG Carbidopa/Levodopa 1 tab TID PO 11/11/24 14:00 11/12/24 21:51 1 TAB Laboratory Results Chemistry Test 11/13/24 10:50 Albumin Pending Calcium Level Pending Magnesium Level Pending Total Protein Pending LFT Test 11/13/24 10:50 Alanine Aminotransferase (ALT) Pending Alkaline Phosphatase Pending Aspartate Amino Transferase (AST) Pending Total Bilirubin Pending Urinalysis Test 11/07/24 03:30 Urine Color Yellow (Yellow) Urine Clarity Turbid (Clear) H Urine pH 5.5 (5.0-9.0) Urine Specific [place] 1.032 (1.001-1.035) Urine Protein 1+ (Negative) H Urine Ketones Trace (Negative) Urine Blood Negative /uL (Negative) Urine Nitrite Negative (Negative) Urine Bilirubin 1+ (Negative) Urine Urobilinogen 3 mg/dL (Negative) H Urine Leukocyte Esterase 1+ /uL (Negative) Urine RBC 2 /hpf (0 - 3) Urine Microscopic WBC 5 /HPF (0-3) H Urine Squamous Epithelial Cells Few /hpf (<5) Urine Bacteria None seen /hpf (None Seen) Urine Hyaline Casts Mod /lpf (0 - 2) Urine Mucus Few (None Seen) Urine Creatinine 391.78 mg/dL (30.0-125.0) H Urine Protein/Creatinine Ratio 0.17 Urine Sodium 20 mmol/L (40-220) L Urine Glucose Normal mg/dL (Normal) Urine Total Protein 67.4 mg/dL (1-14) H Blood Gas Results Test 11/13/24 06:54 Arterial Blood pH 7.396 (7.350-7.450) FiO2 % 30.0 Microbiology Microbiology Date/Time Source Procedure Growth Status 11/09/24 05:50 Nose MRSA Screen - Final Complete 11/07/24 03:30 Voided Urine Urine Culture - Final Complete 11/06/24 21:55 Blood Blood Culture - Final NO GROWTH AFTER 5 DAYS OF INCUBATION. Complete Labs and/or images reviewed: Labs reviewed by me, Image(s) reviewed by me Assessment/Plan Assessment/Plan Neurology # newly diagnosed Parkinson's disease - resumed home medication carbidopa levodopa 25-250 mg b.i.d. - outpatient follow up Cardiovascular # Septic shock possibly secondary to pneumonia versus complicated UTI # NSTEMI likely type 2 due to above # mild left atrial enlargement # moderate aortic stenosis with mean gradient of 25 mm of Hg # ascending aortic aneurysm measuring 4.2 cm 12 months ago - echocardiogram: lvef 55%. mild LVH. grade 1 diastolic dysfunction. normal rv function. RV not well seen. left atrium enlarged mild. moderate aortic stenosis, mean gradient of 25 mmg . mild pulm htn - CXR: No acute abnormality demonstrated, low lung volumes with crowding of the bronchovascular markings. Respiratory # Acute hypoxic/hypercapnic respiratory failure, on BiPAP # possible acute exacerbation of COPD # community-acquired pneumonia, Gram-positive versus Gram-negative? # pulmonary hypertension, RVSP 65 mmHg # 6.3 mm soft nodule right middle lobe - echocardiogram: lvef 55%. mild LVH. grade 1 diastolic dysfunction. normal rv function. RV not well seen. left atrium enlarged mild. moderate aortic stenosis, mean gradient of 25 mmg . mild pulm htn - IV vancomycin per-pharmacy - IV cefepime - ipratropium and albuterol med nebs - started apixaban 10mg bid - V/Q scan - continue BiPAP at night - requested PT evaluation - outpatient follow up for evaluation and monitoring of right-sided soft nodule in the lung GI # Peptic ulcer prophylaxis -Pantoprazole 40 mg IV daily # Castanon catheter placed on 11/07/2024 # acute complicated UTI - IV vancomycin, IV cefepime - IV NS at 75 cc/hour Nephrology # SHREYA likely hemodynamically mediated/VMN on questionable CKD, baseline unavailable - nephrology on board - strict I&Os - monitor Infectious disease # acute complicated UTI # possible community-acquired pneumonia - IV vancomycin per pharmacy - IV cefepime - IV NS at 75 cc/hour - norepinephrine at 0.5 mcg Hem/onc # severe leukocytosis # microcytic anemia, MCV 69.4 # thrombocytopenia, serum platelets 82 - abdominal usg: splenomegaly - ordered serum LDH; 550 - scheduled for bone marrow biopsy tomorrow - monitor DVT prophylaxis - bilateral lower extremity Doppler: No right or left femoropopliteal venous thrombosis - holding due to low platelet count Nutrition Cardiac diet Lines - left 20 gauge placed on 11/06/2024 Plan discussed with: Patient My Orders Orders - LEI DOUGLASS MD Procedure Category Date Status Time Comprehensive LAB 11/13/24 In Process Metabolic Panel 04:00 Complete Blood Count LAB 11/13/24 In Process 04:00 Magnesium LAB 11/13/24 In Process 04:00 Incentive Spirometry ORDERS 11/12/24 Transmitted 14:17 Date of Service: Nov 13, 2024 Billing Provider: LEI DOUGLASS MD Common Visit Codes: 21215-[id number] CARE 30-74 MIN LEI DOUGLASS MD Nov 13, 2024 11:58
[2024-11-13 12:18] LABS: Blood Urea Nitrogen 25 mg/dL (9-23); Carbon Dioxide 38 mmol/L (20-31); Glucose 110 mg/dL (74-106); Total Protein 5.2 g/dL (5.7-8.2)
[2024-11-13 12:40] LABS: Total Cells Counted 100.0 (100)
[2024-11-13 12:41] LABS: Anisocytosis Slight
[2024-11-13 12:42] LABS: Ovalocytes FEW
--- NOTE | 2024-11-13 13:54 | DVHPN2 ---
Progress Note - Dictate Date Seen: Nov 13, 2024 Medical Necessity Reason Pt with a Central, PICC or Fol: No The following are medically ne: Castanon Catheter vital signs Vital Sign Date Time Temp Pulse Resp B/P (MAP) Pulse Ox O2 Delivery O2 Flow Rate FiO2 11/13/24 12:00 25 93 Nasal Cannula* 2 28 11/13/24 12:00 74 166/68 (100) 11/13/24 08:00 97.9 97.9 Total Intake and Output 11/12/24 11/12/24 11/13/24 15:00 23:00 07:00 Intake Total 200.0 ml 480 ml 350 ml Output Total 1300 ml 1550 ml Balance 200.0 ml -820 ml -1200 ml medications Current Medications Medications Dose Ordered Sig/Amol Route Start Time Stop Time Status Last Admin Dose Admin Albuterol 2.5 mg Q4HR [facility] 11/07/24 02:00 11/13/24 09:55 2.5 MG Ipratropium [place] 0.5 mg Q4HR [facility] 11/07/24 10:00 11/13/24 09:55 0.5 MG Vancomycin HCl 0 ml @ 0 mls/hr UD IV 11/07/24 10:45 Lidocaine 1 patch Q24H TOP 11/09/24 18:00 11/12/24 17:18 1 PATCH Vancomycin HCl 150 ml @ 150 mls/hr Q12H IV 11/09/24 23:00 11/13/24 12:49 150 MLS/HR Cefepime HCl 50 ml @ 12.5 mls/hr Q8H IV 11/09/24 18:00 11/13/24 09:00 12.5 MLS/HR Docusate Sodium 100 mg BID PO 11/10/24 10:00 11/12/24 21:50 100 MG Polyethylene Glycol 17 gm DAILY PO 11/10/24 10:00 11/12/24 08:04 17 GM Trolamine Salicylate 1 applic BID TOP 11/10/24 10:00 11/13/24 09:01 1 APPLIC Prednisone 40 mg DAILY PO 11/10/24 10:00 11/13/24 09:00 40 MG Pantoprazole Sodium 40 mg DAILY@0600 PO 11/11/24 06:00 11/11/24 11:43 40 MG Ondansetron HCl 4 mg Q6HPRN PRN IV 11/10/24 13:30 Acetaminophen 500 mg Q8H PO 11/11/24 13:45 11/13/24 13:16 500 MG Carbidopa/Levodopa 1 tab TID PO 11/11/24 14:00 11/13/24 13:16 1 TAB Lorazepam 0.5 mg Q4HPRN PRN IV 11/13/24 12:30 laboratory and microbiology Laboratory Tests 11/13/24 10:50 Test 11/13/24 10:50 Range/Units Serum Glucose 110 H 74-106 mg/dL Assessment/Plan Impression Acute hypoxemic respiratory failure Acute COPD exacerbation Cardiomyopathy Leukocytosis Pacemaker Patient seen and examined in INOCENCIO Events Improving oxygen requirements Transitioned to 2 liters nasal cannula Awaiting bone marrow biopsy Labs and imaging reviewed White count elevated Management Supplemental oxygen Titrate to maintain sats 90% or above Incentive spirometry Prn bipap Continue antibiotics F/u cultures Bronchodilators Steroids for COPD management Monitor renal function Monitor electrolytes Supplement as needed DVT prophylaxis Critical care time 35 minutes Dietary Evaluation Review Comments: 1) Refer CDE for weight management on DC 2) Monitor PO intake, Lab values, I/O, wt trend Expected Outcomes/Goals: To meet >75% estimated needs Fu 3-5 days Plan discussed with: Patient ARTHUR DARLING MD Nov 13, 2024 13:54
--- NOTE | 2024-11-13 22:37 | DVHPN2 ---
Progress Note - Dictate Date Seen: Nov 13, 2024 Medical Necessity Reason Pt with a Central, PICC or Fol: No The following are medically ne: Castanon Catheter Subjective Patient was seen and evaluated in follow up in the ICU. Overnight patient became aggressive, confused swinging arms at staff. Code vaughn was called, soft mittens were placed Sitter at bedside. WBC 56.3. CO2 38, BUN 25, AST 58. vital signs Vital Sign Date Time Temp Pulse Resp B/P (MAP) Pulse Ox O2 Delivery O2 Flow Rate FiO2 11/13/24 12:00 25 93 Nasal Cannula* 2 28 11/13/24 12:00 74 166/68 (100) 11/13/24 08:00 97.9 97.9 Total Intake and Output 11/12/24 11/12/24 11/13/24 15:00 23:00 07:00 Intake Total 200.0 ml 480 ml 350 ml Output Total 1300 ml 1550 ml Balance 200.0 ml -820 ml -1200 ml medications Current Medications Medications Dose Ordered Sig/Amol Route Start Time Stop Time Status Last Admin Dose Admin Albuterol 2.5 mg Q4HR NEB 11/07/24 02:00 11/13/24 09:55 2.5 MG Ipratropium [place] 0.5 mg Q4HR NEB 11/07/24 10:00 11/13/24 09:55 0.5 MG Vancomycin HCl 0 ml @ 0 mls/hr UD IV 11/07/24 10:45 Lidocaine 1 patch Q24H TOP 11/09/24 18:00 11/12/24 17:18 1 PATCH Vancomycin HCl 150 ml @ 150 mls/hr Q12H IV 11/09/24 23:00 11/13/24 12:49 150 MLS/HR Cefepime HCl 50 ml @ 12.5 mls/hr Q8H IV 11/09/24 18:00 11/13/24 09:00 12.5 MLS/HR Docusate Sodium 100 mg BID PO 11/10/24 10:00 11/12/24 21:50 100 MG Polyethylene Glycol 17 gm DAILY PO 11/10/24 10:00 11/12/24 08:04 17 GM Trolamine Salicylate 1 applic BID TOP 11/10/24 10:00 11/13/24 09:01 1 APPLIC Prednisone 40 mg DAILY PO 11/10/24 10:00 11/13/24 09:00 40 MG Pantoprazole Sodium 40 mg DAILY@0600 PO 11/11/24 06:00 11/11/24 11:43 40 MG Ondansetron HCl 4 mg Q6HPRN PRN IV 11/10/24 13:30 Acetaminophen 500 mg Q8H PO 11/11/24 13:45 11/13/24 13:16 500 MG Carbidopa/Levodopa 1 tab TID PO 11/11/24 14:00 11/13/24 13:16 1 TAB Lorazepam 0.5 mg Q4HPRN PRN IV 11/13/24 12:30 objective GENERAL: Alert and oriented x 3. Lethargic. EYES: PERRL, EOMI. Anicteric. HENT: Moist mucous membranes. LUNGS: Clear to auscultation bilaterally. CARDIOVASCULAR: Regular rate and rhythm. ABDOMEN: Soft, non-tender and non-distended. EXTREMITIES: No edema. NEUROLOGIC: No focal neurological deficits. SKIN: Warm, dry. laboratory and microbiology Laboratory Tests 11/13/24 10:50 Test 11/13/24 10:50 Range/Units Serum Glucose 110 H 74-106 mg/dL Problem List Septic shock with PNA/UTI. Acute on chronic hypoxic respiratory failure. Acute kidney injury. NSTEMI type 2 secondary to above. Ascending aortic aneurysm at 4.2 cm. Presence of dual-chamber pacemaker ([employer]mify). Aortic valve stenosis, moderate degree. Parkinson's disease. Thrombocytopenia. FAMILIA on CPAP HS. History of tobacco use. Assessment/Plan Continued all current supportive medical care. Sinemet. Tylenol for pain management. IV antibiotics as ordered. Nebulized breathing treatments. Additional plan as per the hospital course. Critical care time of 45 minutes provided to include time spent evaluation of patient at bedside, when appropriate patient/family education for diagnosis, treatment plan, review of pertinent medical information and discussion of care with specialty providers and PCP. Dietary Evaluation Review Comments: 1) Refer CDE for weight management on DC 2) Monitor PO intake, Lab values, I/O, wt trend Expected Outcomes/Goals: To meet >75% estimated needs Fu 3-5 days Plan discussed with: Patient NAYELY CHAVEZ MD Nov 13, 2024 13:21
[2024-11-14] VITALS (34 sets, daily range): BP systolic 102–144; BP diastolic 45–77; PULSE 65–98; RESP 18–38; TEMP 98.1–98.5; O2SAT 85–100
[2024-11-14 06:42] LABS: Hematocrit 39.3 % (41.0-53.0); Hemoglobin 11.9 g/dL (13.5-17.5); Mean Corpuscular Hemoglobin 20.5 pg (28.0-32.0); Mean Corpuscular Volume 67.5 fL (80.0-100.0)
[2024-11-14 06:49] LABS: INR 1.19 (0.9-1.15); Partial Thromboplastin Time 25.6 SEC (24.5-34.5); Prothrombin Time 12.4 sec (9.3-11.8)
[2024-11-14 06:55] LABS: Alanine Aminotransferase 21 U/L (7-40); Anion Gap 7 (5-15); Calcium 9.7 mg/dL (8.7-10.4); Chloride 100 mmol/L (98-107); Potassium 4.0 mmol/L (3.5-5.1); Sodium 144 mmol/L (136-145)
[2024-11-14 06:56] LABS: BUN/Creatinine Ratio 28.6 (10.0-20.0); Blood Urea Nitrogen 22 mg/dL (9-23); Carbon Dioxide 37 mmol/L (20-31); Glucose 76 mg/dL (74-106)
[2024-11-14 06:57] LABS: Magnesium 1.7 mg/dL (1.6-2.6); Total Protein 5.3 g/dL (5.7-8.2)
[2024-11-14 06:58] LABS: Albumin 3.5 g/dL (3.2-4.8); Bilirubin, Total 0.9 mg/dL (0.2-1.0); Total Cells Counted 100.0 (100)
[2024-11-14 06:59] LABS: Anisocytosis Slight; Ovalocytes FEW
[2024-11-14 07:01] LABS: Alkaline Phosphatase 68 U/L (46-116)
[2024-11-14] MEDS: fentaNYL CITRATE 100 MCG/2 ML VL ONE (08:03)
[2024-11-14] MEDS: MIDAZOLAM HCL 2MG/2ML 2ml VIAL (1mg/ml) ONE (08:03)
[2024-11-14] MEDS: LIDOCAINE 2%HCL (LOCAL ANESTH.) INJ 10ml MDV ONE (08:07)
--- NOTE | 2024-11-14 09:09 | DVH ---
CT PELVIS WO CONTRAST HISTORY: BONE MARROW BX COMPARISON: None PROCEDURE: Informed consent and time-out was performed before the procedure. Conscious sedation was p erformed by the interventional radiology nurse. The left posterior pelvic bone was marked, sterilized , draped, and locally anesthetized using approximately 9 ml of 1% lidocaine. Axial CT images were use d for localization. A 11 gauge [employer] Bone Biopsy kit was used to take 15 mL aspirate and 1 core s ample. The biopsy needle was then removed. No immediate complications noted. FINDINGS: Axial CT images demonstrates biopsy needle within the left posterior pelvic bone. IMPRESSION: CT-guided bone marrow aspiration biopsy of the left posterior pelvic bone.
--- NOTE | 2024-11-14 09:09 | DVH ---
CT CT GUIDANCE FOR NEEDLE PLACEME, HISTORY: BONE MARROW BX COMPARISON: None PROCEDURE: Informed consent and time-out was performed before the procedure. Conscious sedation was p erformed by the interventional radiology nurse. The left posterior pelvic bone was marked, sterilized , draped, and locally anesthetized using approximately 9 ml of 1% lidocaine. Axial CT images were use d for localization. A 11 gauge [employer] Bone Biopsy kit was used to take 15 mL aspirate and 1 core s ample. The biopsy needle was then removed. No immediate complications noted. FINDINGS: Axial CT images demonstrates biopsy needle within the left posterior pelvic bone. IMPRESSION: CT-guided bone marrow aspiration biopsy of the left posterior pelvic bone.
[2024-11-14] MEDS: LORazepam 2MG/ML-1ML VIAL IV ONE (11:36)
[2024-11-14] MEDS: MIDAZOLAM HCL 2MG/2ML 2ml VIAL (1mg/ml) IV ONE (11:36)
--- NOTE | 2024-11-14 16:48 | DVHPNRES ---
Progress Note Date Seen: Nov 14, 2024 Resident Creating Document: NEERU SCHULZ RESIDENT Medical Necessity Reason Pt with a Central, PICC or Fol: No The following are medically ne: Castanon Catheter Subjective Review of Systems Patient is a 74-year-old male with past medical history of hypertension, symptomatic bradycardia s/p pacemaker 3 years ago, sleep apnea on CPAP, recently diagnosed Parkinson's disease, possible Agent [place] exposure? , ascending aortic aneurysm 4.2 cm, who comes in due to severe generalized weakness. According to the patient and his , patient has been feeling increasingly weak for the past 1 week, 2 days ago he also sustained a fall where he slipped off of his bed and fell on his knees without any head trauma. Per , yesterday patient was complaining of chest pain that started 2 days ago, intermittent and worsened with eating, along with abdominal pain, sweating and generalized weakness, was unable to get up from the chair which is what prompted this visit to the hospital. On review of systems patient is complaining of chest pain that has been ongoing intermittently for the last 1 week, palpitations, urinary frequency and urinary incontinence. Serial troponins were 80, 100, 113, 107 and chest x-ray showed no acute abnormality. Past surgical history: Pacemaker, back surgery? Home medications: Smoking: Quit 40 years ago, prior to that was smoking 1 pack per day for 30 years Alcohol: Past history of heavy use, currently denies Drugs: Denies Lives with Allergies: Denies 11/08/2024: Patient seen and examined at bedside. Patient is alert and oriented to time, place person and responding to all questions. Patient reports improved symptoms from when he 1st came to the hospital. 1+ lower extremity edema, decreased bilateral breath sounds. Complaining of lower back pain, started on Castine 5q 8 hours as needed. Denies any new complaints. Denies any suicidal ideation. 11/09/24: overnight episode of agitation, paco2 noted to be 71, placed on bipap for 4 hours. today saturating 88-93% of 2-4L o2 via NC. improved backache. will follow serum LDH tomorrow. 11/10/2024: Patient notes improvement in symptoms, however, overnight episode of desaturation along with an episode of vomiting with desaturation in the afternoon. LDH was in the 500s, scheduled patient for bone marrow biopsy tomorrow. Transition IV steroids to p.o. prednisolone. 11/11/24 - 11/12-patient doing well. No significant or severe cramps concerning for worsening of Parkinson's or failure. Continue IV antibiotics. Patient has decreased breath sounds at bases we will start incentive spirometer. No PT onboard. We will get PT and continue q.2 hours turns until patient is able to move himself. Castanon in place good urine output. Patient is able to talk in short sentences due to his parkinsonism.. Platelets stable, WBCs elevated in stable. Primary team planning for possible bone marrow biopsy. I will hold off neurology consult as patient appears to be stable Parkinson's and defer to primary for the neurology consult. No other complaints from patient. Cough is improved. 11/13/2024-overnight patient became aggressive, confused swinging arms at staff. soft mittens were put on. This a.m. patient is A&O times 3-4, delusional as keeps saying that we are there to hurt him, but he is able to articulate reason for being here and understands if he declines therapy his condition could worsen. We will get psych evaluation to determine if patient has decision making capacity. He is declining suicidal ideations but appears very depressive and emotionally abusive comments towards spouse. Which is not his normal. Right now it is hard to assess if he has decision-making capacity as he is not as his normal function mentally. Patient is also too weak to get out of bed. Otherwise we will continue antibiotics for pneumonia in wait for bone marrow biopsy tomorrow. 11/14/24: Patient seen and examined at bedside, notes increasing weakness. Repeatedly had episodes of delirium overnight. Added Flomax 0.4 mg, neurology consulted. Patient completed bone marrow biopsy today, we will follow results. Objective vital signs Vital Sign Date Time Temp Pulse Resp B/P (MAP) Pulse Ox O2 Delivery O2 Flow Rate FiO2 11/14/24 16:00 25 95 Nasal Cannula* 1 24 11/14/24 16:00 87 11/14/24 15:00 103/61 (75) 11/14/24 12:00 98.1 98.1 Total Intake and Output 11/13/24 11/13/24 11/14/24 15:00 23:00 07:00 Intake Total 187.5 ml 302.5 ml 150 ml Output Total 1275 ml 1050 ml Balance 187.5 ml -972.5 ml -900 ml medications Current Medications Medications Dose Ordered Sig/Amol Route Start Time Stop Time Status Last Admin Dose Admin Albuterol 2.5 mg Q4HR [facility] 11/07/24 02:00 11/14/24 14:03 2.5 MG Ipratropium [place] 0.5 mg Q4HR [facility] 11/07/24 10:00 11/14/24 14:03 0.5 MG Vancomycin HCl 0 ml @ 0 mls/hr UD IV 11/07/24 10:45 Lidocaine 1 patch Q24H TOP 11/09/24 18:00 11/13/24 17:22 1 PATCH Vancomycin HCl 150 ml @ 150 mls/hr Q12H IV 11/09/24 23:00 11/14/24 13:32 150 MLS/HR Cefepime HCl 50 ml @ 12.5 mls/hr Q8H IV 11/09/24 18:00 11/14/24 10:12 12.5 MLS/HR Docusate Sodium 100 mg BID PO 11/10/24 10:00 11/14/24 10:12 100 MG Polyethylene Glycol 17 gm DAILY PO 11/10/24 10:00 11/14/24 10:12 17 GM Trolamine Salicylate 1 applic BID TOP 11/10/24 10:00 11/14/24 10:12 1 APPLIC Pantoprazole Sodium 40 mg DAILY@0600 PO 11/11/24 06:00 11/14/24 05:40 40 MG Ondansetron HCl 4 mg Q6HPRN PRN IV 11/10/24 13:30 Acetaminophen 500 mg Q8H PO 11/11/24 13:45 11/14/24 13:39 500 MG Carbidopa/Levodopa 1 tab TID PO 11/11/24 14:00 11/14/24 13:43 1 TAB Lorazepam 0.5 mg Q4HPRN PRN IV 11/13/24 12:30 Tamsulosin HCl 0.4 mg QPM PO 11/14/24 18:00 Nicotine 1 patch DAILY TD 11/15/24 10:00 Examination General Appearance: Cooperative. Well developed. In moderate distress Pulmonary/Respiratory: Chest non-tender. Scattered bilateral wheezes, decreased b/l breath sounds Cardiovascular/Chest: Tachycardia No murmurs. No JVD. Peripheries: Cold to touch Abdominal Exam: Normal bowel sounds. Soft. normal abdomen, no visible veins, Nontender. No hepatospenomegaly. No masses Lower extremities: 1+ lower extremity edema Neuro/Mental Status: A&O x4. Coherent. tremor noted, most pronounced in RUE Thoughts/Psych: Normal thought pattern. Appropriate mood and affect. laboratory and microbiology Laboratory Tests 11/14/24 05:13 Test 11/14/24 05:13 Range/Units Serum Glucose 76 74-106 mg/dL Microbiology Date/Time Source Procedure Growth Status 11/09/24 05:50 Nose MRSA Screen - Final Complete 11/07/24 03:30 Voided Urine Urine Culture - Final Complete 11/06/24 21:55 Blood Blood Culture - Final NO GROWTH AFTER 5 DAYS OF INCUBATION. Complete Labs and/or images reviewed: Labs reviewed by me, Image(s) reviewed by me Problem List/Assessment/Plan Problem List/Assessment/Plan Neurology # newly diagnosed Parkinson's disease - resumed home medication carbidopa levodopa 25-250 mg b.i.d. - consulted neurology - nicotine patch Cardiovascular # Septic shock possibly secondary to pneumonia versus complicated UTI # NSTEMI likely type 2 due to above # mild left atrial enlargement # moderate aortic stenosis with mean gradient of 25 mm of Hg # ascending aortic aneurysm measuring 4.2 cm 12 months ago - echocardiogram: lvef 55%. mild LVH. grade 1 diastolic dysfunction. normal rv function. RV not well seen. left atrium enlarged mild. moderate aortic stenosis, mean gradient of 25 mmg . mild pulm htn - CXR: No acute abnormality demonstrated, low lung volumes with crowding of the bronchovascular markings. Respiratory # Acute hypoxic/hypercapnic respiratory failure, on BiPAP # possible acute exacerbation of COPD # community-acquired pneumonia, Gram-positive versus Gram-negative? # pulmonary hypertension, RVSP 65 mmHg # 6.3 mm soft nodule right middle lobe - echocardiogram: lvef 55%. mild LVH. grade 1 diastolic dysfunction. normal rv function. RV not well seen. left atrium enlarged mild. moderate aortic stenosis, mean gradient of 25 mmg . mild pulm htn - IV vancomycin per-pharmacy - IV cefepime - ipratropium and albuterol med nebs - started apixaban 10mg bid - V/Q scan - continue BiPAP at night - requested PT evaluation - outpatient follow up for evaluation and monitoring of right-sided soft nodule in the lung GI # Peptic ulcer prophylaxis -Pantoprazole 40 mg IV daily # Castanon catheter placed on 11/07/2024 # acute complicated UTI # likely benign prostatic hyperplasia - IV vancomycin, IV cefepime -tamsulosin 0.4 mg Nephrology # SHREYA likely hemodynamically mediated/VMN on questionable CKD, baseline unavailable - nephrology on board - strict I&Os - monitor Infectious disease # acute complicated UTI # possible community-acquired pneumonia - IV vancomycin per pharmacy - IV cefepime - IV NS at 75 cc/hour - norepinephrine at 0.5 mcg Hem/onc # severe leukocytosis # microcytic anemia, MCV 69.4 # thrombocytopenia, serum platelets 82 - abdominal usg: splenomegaly - ordered serum LDH; 550 - scheduled for bone marrow biopsy tomorrow - monitor DVT prophylaxis - bilateral lower extremity Doppler: No right or left femoropopliteal venous thrombosis - holding due to low platelet count Nutrition Cardiac diet Lines - right 20 gauge placed on 11/11/2024 Critical care time 63 minutes excluding procedure. Code status discussed greater than 20 minutes: Family at bedside explained about the condition of the patient Plan discussed with Dr. Blum Plan discussed with: Patient, Spouse, Other (RN) My Orders My Orders Orders - NEERU SCHULZ Procedure Category Date Status Time Ct Guidance For CT 11/14/24 Resulted Needle Placeme 08:[address] 11/14/24 Resulted 08:03 Creatinine LAB 11/15/24 Verified 10:00 Tamsulosin PHA 11/14/24 In Process Hydrochloride (Flomax) 18:00 * Neurology Consult CONS 11/14/24 Transmitted 16:27 Nicotine 14mg/24hr PHA 11/15/24 In Process (Nicoderm 14mg/24hr) 10:00 Comprehensive LAB 11/15/24 Verified Metabolic Panel 04:00 Complete Blood Count LAB 11/15/24 Verified 04:00 Chest Portable XY 11/15/24 Logged 04:00 Dietary Evaluation Review Comments: 1) Refer CDE for weight management on DC 2) Monitor PO intake, Lab values, I/O, wt trend Expected Outcomes/Goals: To meet >75% estimated needs Fu 3-5 days Date of Service: Nov 14, 2024 Billing Provider: CARMINE BLUM MD Common Visit Codes: 95140-[id number] CARE 30-74 MIN NEERU SCHULZ Nov 14, 2024 16:48 CARMINE BLUM MD Nov 15, 2024 13:11
[2024-11-14] MEDS: TAMSULOSIN HYDROCHLORIDE 0.4 MG CAP PO SCH (17:30)
[2024-11-14] MEDS: NICOTINE 14 MG/24HR TOPICAL PATCH TD ONE (18:26)
--- NOTE | 2024-11-14 21:27 | DVHINCON2 ---
Date of service: Nov 14, [address] Pimentel Reason for Consultation Progressive Parkinson's History of Present Illness I am seeing him at 11/15/2019 09/09/2054, his last Sinemet was 11/15/2019 09/13/2042 Mr. Avina is a 74 years old right-handed gentleman with a history of hyperte nsion, bradycardia status post pacemaker insertion, chronic lung disease, he came to the hospital on 11/06/2024 with a chief complaint of chest pain, general weakness, and dizziness. At this time, he is alert, oriented to person, place, he knows year and the month, good social skills, able to maintain good conversation, and he is able to give information, but he does not remember our conversation He developed progressive tremor in the right hand in early 2023, and then later he developed similar tremor in the left hand in early 2024. He has tremors when he is eating, writing, he also claimed that he has tremors when he is resting however I could not confirmed this during this consultation. He does not not drink alcoholic beverage. He reports the voice has been soft, he has poor sense of smell since 2021, constipation since 2020, he vocalizes and moves the extremities during sleep. [facility] and was said to have Parkinson's disease, but Sinemet 25/250 does not help He has chronic lung problem, he reported having hallucination sometimes during the daytime or in the evening for a while He has spine injury after a fall six years ago, he is status post thoracic spine and lumbar spine surgery. He reports problem with walking, because general weakness, he shuffles with a walker, he has no problem with bowel or bladder control In the hospital, the patient is found to have significant elevated white count, he has stopped post bone marrow biopsy Blood culture, 11/06/2024: Negative UDS, 11/07/2024: Negative Plasma alcohol, 11/06/2024: <3 Urinalysis, 11/07/2024: WBC: Five, urine leukocyte esterase: 1+ ABG, 11/08/2024: Respiratory acidosis, hypoxia 11/11/2024: Respiratory acidosis, hypoxia 11/13/24: Respiratory acidosis, hypoxia /INR/PTT, 11/14/2024: 12.4/1.19/25.6 WBC/HB/PLT/MCV, 11/14/2024: 61/10.9/98/67.5 BUN/CR, 11/06/2024: 40/2.02 Lactic acid, 11/06/2024: 3.6 HGB A1c, 11/06/24: 5.2 TBI/AST/ALT/AP, 11/06/2024: 0.8/39/26/77 TG/HDL/LDL/HDL, 11/06/2024: 81/108/64/35 Vitamin B12, 11/06/2024: 1960 TSH, 11/06/2024: 1.77 Past Medical History Hypertension, bradycardia status post pacemaker insertion, chronic lung disorder, sleep apnea on CPAP Past Surgical History Pacemaker insertion in 2022, T-spine and the lumbar spine surgery Family History Diabetes, no tremors, Parkinson's disease Social History he was a tobacco smoker, but no history of drug or alcohol abuse Allergies: Coded Allergies: NO KNOWN ALLERGIES (Unverified , 11/06/24) Home Meds Reported Medications Misc Natural Products (CRAMP RELEAF) Cap, 70 MG OR DAILY, CAP 11/07/24 Albuterol Sulfate (VENTOLIN MDI) 90 Mcg Ih, 90 MCG IN PRN, INH 11/07/24 Albuterol Sulfate (Ventolin) 2.5 Mg/0.5 Ml Nb, 1 VIAL NEB Q6HR, #120 VIAL 5 Refills 11/07/24 Azithromycin (Azithromycin) 250 Mg Tab, 250 MG PO DAILY for 6 Days, #4 11/07/24 Trazodone Hcl (Trazodone Hcl) 50 Mg Tab, 50 MG PO HSPRN PRN for FOR INSOMNIA, MG 11/07/24 Acetaminophen (Acetaminophen) 325 Mg Tab, 325 MG PO Q8HP PRN for MILD PAIN for 30 Days, MG 0 Refills 11/07/24 Naproxen (Naproxen) 375 Mg Tab, 375 MG PO BIDWM, TAB 11/07/24 Carbidopa-Levodopa (Carbidopa/Levodopa Odt 25-250 mg) 1 Tab Tab, 1 TAB PO, TAB 11/07/24 Magnesium Oxide (MAGNESIUM OXIDE) 400 Mg Tab, 1 TAB PO DAILY, #30 TAB 5 Refills 11/07/24 Tamsulosin Hcl (Flomax) 0.4 Mg Cap, 1 CAP PO DAILY, #30 CAP 11 Refills 11/07/24 Losartan Potassium (Losartan Potassium) 25 Mg Tab, 25 MG PO DAILY for 30 Days, MG 11/07/24 Naproxen Sodium (ALEVE ARTHRITIS) 220 Mg Tab, 220 MG PO, TAB 11/07/24 Current Medications Current Medications Medications (Trade) Dose Ordered Sig/Amol Route PRN Reason Start Time Stop Time Status Last Admin Apixaban (Eliquis) 5 mg BID PO 11/14/24 22:00 11/08/24 15:39 DC Tamsulosin HCl (Flomax) 0.4 mg QPM PO 11/14/24 18:00 11/14/24 17:30 Nicotine (Nicoderm 14MG/ 24HR) 1 patch DAILY TD 11/15/24 10:00 Review of Systems As above, the other systems are negative Vital Signs Vital Signs Date Time Temp Pulse Resp B/P (MAP) Pulse Ox O2 Delivery O2 Flow Rate FiO2 11/14/24 18:16 86 18 100 11/14/24 18:10 Nasal Cannula* 1 24 11/14/24 18:00 123/45 (71) 11/14/24 16:00 98.5 98.5 Physical Exam GENERAL EXAM: General: the patient is well developed and nourished. No acute distress. HEENT: Normocephalic, neck is supple, no carotid bruits. No mass. RESPIRATORY: Normal respiratory effort with symmetrical lung expansion. Lungs clear to auscultation. CARDIOVASCULAR: Regular rate and rhythm with no murmurs. S1, S2. ABDOMEN: Soft, nontender, normal bowel sound NEUROLOGICAL: MENTAL STATUS: Awake and alert. Oriented to person, place, he knows year and the month, able to maintain good conversation, able to provide reasonable history SPEECH, LANGUAGE, HIGHER CORTICAL FUNCTION: no aphasia or dysathria. CRANIAL NERVES: #2: Intact visual howell to confrontation. The optic discs were sharp. #3,4,6: Pupils are equal, round and reactive. EOMs full and conjugate. No nystagmus. #5: Facial sensation intact in all three divisions bilaterally. Mandibular strength intact. #7: Facial muscles symmetrical and strength intact. #8: Hearing grossly normal to voice. #9,10: Uvula and soft palate rise in the midline. Swallow and voice are normal. #11: Trapezius and sternomastoid strength intact bilaterally. #12: Tongue midline. No fasciculations or atrophy. SENSATION: Sensation to touch and pinprick is normal. MOTOR: Normal tone in the upper and lower extremity. Normal muscle bulk. No fasciculations. Mild tremor in both upper extremities, worse on the right side. Muscle strength of the major groups in the upper extremities is 5/5. Muscle strength of the major groups in the lower extremities is 5/5. REFLEXES: Deep tendon reflexes normal and symmetrical. No pathological reflexes. CEREBELLAR/COORDINATION: Finger to nose is normal bilaterally. GAIT/STATION: deferred. Labs/Diagnostic Data Labs Test 11/14/24 05:13 11/13/24 10:50 11/13/24 06:54 11/12/24 08:22 Range/Units White Blood Count 61.0 *H 4.4-10.8 10^3/uL Red Blood Count 5.82 4.5-5.90 10^6/uL Hemoglobin 11.9 L 13.5-17.5 g/dL Hematocrit 39.3 L 41.0-53.0 % Mean Corpuscular Volume 67.5 L 80.0-100.0 fL Mean Corpuscular Hemoglobin 20.5 L 28.0-32.0 pg Mean Corpuscular Hemoglobin Concent 30.4 L 32.0-36.0 g/dL Red Cell Distribution Width 18.9 H 11.8-14.3 % Platelet Count 98 L 140-450 10^3/uL Mean Platelet Volume 8.6 6.9-10.8 fL Neutrophils (%) (Auto) 37.0-80.0 % Lymphocytes (%) (Auto) 10.0-50.0 % Monocytes (%) (Auto) 0.0-12.0 % Basophils (%) (Auto) 0.0-2.0 % Neutrophils # (Auto) 1.6-8.6 10 ^3/uL Lymphocytes # (Auto) 0.4-5.4 10 ^3/uL Monocytes # (Auto) 0-1.3 10 ^3/uL Differential Total Cells Counted 100.0 100 Neutrophils % (Manual) 64 37.0-80.0 Band Neutrophils % (Manual) 5 Lymphocytes % (Manual) 5 L 10.0-50.0 Monocytes % (Manual) 21 H 0-12 Eosinophils % (Manual) 0 0-7 Basophils % (Manual) 0 0.0-2.0 Metamyelocytes % (manual) 0 Myelocytes % (Manual) 1 Promyelocytes % (Manual) 0 Blast Cells % (Manual) 0 Reactive Lymphocytes 4 Platelet Estimate Decreased Hypochromasia (manual) Moderate Anisocytosis (manual) Slight Microcytosis Marked Ovalocytes Few Prothrombin Time 12.4 H 9.3-11.8 sec Prothrombin Time INR 1.19 H 0.9-1.15 Activated Partial Thromboplast Time 25.6 24.5-34.5 SEC Sodium Level 144 136-145 mmol/L Potassium Level 4.0 3.5-5.1 mmol/L Chloride Level 100 98-107 mmol/L Carbon Dioxide Level 37 H 20-31 mmol/L Anion Gap 7 5-15 Blood Urea Nitrogen 22 9-23 mg/dL Creatinine 0.77 0.700-1.30 mg/dL Glomerular Filtration Rate Calc 93 >90 mL/min BUN/Creatinine Ratio 28.6 H 10.0-20.0 Serum Glucose 76 74-106 mg/dL Calcium Level 9.7 8.7-10.4 mg/dL Magnesium Level 1.7 1.6-2.6 mg/dL Total Bilirubin 0.9 0.2-1.0 mg/dL Aspartate Amino Transferase (AST) 50 H 13-40 U/L Alanine Aminotransferase (ALT) 21 7-40 U/L Alkaline Phosphatase 68 46-116 U/L Total Protein 5.3 L 5.7-8.2 g/dL Albumin 3.5 3.2-4.8 g/dL Vancomycin Level Trough 14.5 H 5-10 ug/mL Blood Gas Specimen Type Arterial Blood Gas Sample Site Right radial Blood Gas Patient Temperature 37.0 Arterial Blood Date Drawn [id number] Arterial Blood pH 7.396 7.350-7.450 Arterial Blood Partial Pressure CO2 60.8 *H 35.0-48.0 mmHg Arterial Blood Partial Pressure O2 71.2 L 83.0-108.0 mmHg Arterial Blood HCO3 36.5 H 21.0-28.0 mmol/L Arterial Blood Oxygen Saturation 92.4 L 94.0-98.0 % Arterial Blood Base Excess 9.5 H -2.0-3.0 mmol/L Arterial Blood Oxyhemoglobin 90.4 L 94.0-98.0 % Arterial Blood Carboxyhemoglobin 1.7 H 0.5-1.5 % Arterial Blood Methemoglobin 0.5 0.0-1.5 % Adonis Test Yes Blood Gas Total Hemoglobin 12.90 L 13.5-17.5 g/dL Blood Gas Set Respiration Rate 14.0 Blood Gas Modality Mask - bipap FiO2 % 30.0 Blood Gas EPAP 5 Blood Gas IPAP 15 Blood Gas Critical Value Read Back yes Blood Gas Notified Whom ryan caruso md Blood Gas Notified Time [id number] Blood Gas Notified By blood tester josseline harris Eosinophils (%) (Auto) 0.1 0.0-7.0 % Eosinophils # (Auto) 0.1 0-0.8 10 ^3/uL Basophils # (Auto) 0.3 H 0-0.2 10 ^3/uL Nucleated Red Blood Cells 0.2 % Test 11/11/24 19:40 11/11/24 09:54 11/10/24 04:53 11/09/24 05:36 Range/Units Blood Gas Liter Flow 3.00 POC Glucose 172 H 70-106 mg/dl Lactate Dehydrogenase 559 H 120-246 U/L Random Vancomycin Level 10.2 H 5-10 ug/mL Test 11/08/24 13:05 11/08/24 11:55 11/07/24 13:52 11/07/24 10:34 Range/Units Blood Gas Spontaneous Rate 24 Specimen Drawn By [employer] Developer estefany duncan Troponin I High Sensitivity 107 *H </=54 ng/L Creatine Kinase 48 46-171 U/L Test 11/07/24 03:30 11/07/24 01:16 11/07/24 00:00 11/06/24 23:07 Range/Units Urine Color Yellow Yellow Urine Clarity Turbid H Clear Urine pH 5.5 5.0-9.0 Urine Specific [place] 1.032 1.001-1.035 Urine Protein 1+ H Negative Urine Ketones Trace Negative Urine Blood Negative Negative /uL Urine Nitrite Negative Negative Urine Bilirubin 1+ Negative Urine Urobilinogen 3 H Negative mg/dL Urine Leukocyte Esterase 1+ Negative /uL Urine RBC 2 0 - 3 /hpf Urine Microscopic WBC 5 H 0-3 /HPF Urine Squamous Epithelial Cells Few <5 /hpf Urine Bacteria None seen None Seen /hpf Urine Hyaline Casts Mod 0 - 2 /lpf Urine Mucus Few None Seen Urine Creatinine 391.78 H 30.0-125.0 mg/dL Urine Protein/Creatinine Ratio 0.17 Urine Sodium 20 L 40-220 mmol/L Urine Glucose Normal Normal mg/dL Urine Total Protein 67.4 H 1-14 mg/dL Urine Opiates Screen Neg NEGATIVE Urine Fentanyl Screen Neg NEGATIVE Urine Barbiturates Screen Neg NEGATIVE Urine Phencyclidine Screen Neg NEGATIVE Urine Amphetamines Screen Neg NEGATIVE Urine Benzodiazepines Screen Neg NEGATIVE Urine Cocaine Screen Neg NEGATIVE Urine Cannabinoids Screen Neg NEGATIVE Lactic Acid Level 0.8 0.4-2.0 mmol/L Influenza Type A Antigen Negative Negative Influenza Type B Antigen Negative Negative SARS-CoV-2 Antigen (Rapid) Negative NEGATIVE Triglycerides Level 81 < 150 mg/dL Cholesterol Level 108 < 200 mg/dL LDL Cholesterol 64 < 100 mg/dL HDL Cholesterol 35 L 40-59 mg/dL Test 11/06/24 21:55 Range/Units D-Dimer, Quantitative 0.60 H 0.0-0.49 mg/L FEU Hemoglobin A1c 5.2 <5.7 % A1C B-Type Natriuretic Peptide 587.05 0-100 pg/mL Vitamin B12 Level 1960 H 211-911 pg/mL Vitamin D 25-Hydroxy 42.2 30.0-100 ng/mL Thyroid Stimulating Hormone (TSH) 1.77 0.55-4.78 uIU/mL Plasma/Serum Blood Alcohol < 3.0 <10 mg/dL Microbiology Date/Time Source Procedure Growth Status 11/09/24 05:50 Nose MRSA Screen - Final Complete 11/07/24 03:30 Voided Urine Urine Culture - Final Complete 11/06/24 21:55 Blood Blood Culture - Final NO GROWTH AFTER 5 DAYS OF INCUBATION. Complete Assessment Tremors ? Parkinson's disease ? Essential tremors Gait disturbance, multifactorial ? REM sleep behavior disorder Chronic spine fracture status post surgical repair Chronic respiratory failure Leukocytosis status post bone marrow biopsy Visual hallucination/metabolic encephalopathy secondary to respiratory failure Plan/Recommendation Monitoring Supportive treatment Bone marrow biopsy INOCENCIO care Cut down Sinemet to 25/100 mg q.i.d. and Gradual wean him off Sinemet BiPAP Oxygen Consider physical therapy later More recommendation per clinical course Prognosis: Critical This medical document was created using an electronic medical record system with [employer] system. Although this document has been carefully reviewed, there may still be some phonetic and typographical errors. These areas are purely typographical due to imperfections of the software programs, and do not reflect any compromise in the patient's medical care. Plan discussed with: BRITNEY Cadena MD Nov 14, 2024 21:27
[2024-11-14] MEDS ORDERED: APIXABAN 5 MG TAB PO SCH (22:00)
[2024-11-14] MEDS: CARBIDOPA W LEVODOPA 25/100mg TABLET PO ONE (22:37)
--- NOTE | 2024-11-14 23:33 | DVHPN2 ---
Progress Note - Dictate Date Seen: Nov 14, 2024 Medical Necessity Reason Pt with a Central, PICC or Fol: No The following are medically ne: Castanon Catheter Subjective Patient was seen and evaluated in follow up in the ICU. Patient had episodes of delirium overnight. Sitter at bedside. Patient appears weak. Patient is bone marrow biopsy today. WBC continues to worsen. vital signs Vital Sign Date Time Temp Pulse Resp B/P (MAP) Pulse Ox O2 Delivery O2 Flow Rate FiO2 11/14/24 23:00 85 24 124/62 (82) 99 11/14/24 22:03 Facial BiPAP Mask 35 11/14/24 20:00 1 11/14/24 20:00 98.3 98.3 Total Intake and Output 11/13/24 11/13/24 11/14/24 15:00 23:00 07:00 Intake Total 187.5 ml 302.5 ml 150 ml Output Total 1275 ml 1050 ml Balance 187.5 ml -972.5 ml -900 ml medications Current Medications Medications Dose Ordered Sig/Amol Route Start Time Stop Time Status Last Admin Dose Admin Albuterol 2.5 mg Q4HR NEB 11/07/24 02:00 11/14/24 22:08 2.5 MG Ipratropium [employer] 0.5 mg Q4HR NEB 11/07/24 10:00 11/14/24 22:08 0.5 MG Vancomycin HCl 0 ml @ 0 mls/hr UD IV 11/07/24 10:45 Lidocaine 1 patch Q24H TOP 11/09/24 18:00 11/14/24 17:30 1 PATCH Vancomycin HCl 150 ml @ 150 mls/hr Q12H IV 11/09/24 23:00 11/14/24 23:08 150 MLS/HR Cefepime HCl 50 ml @ 12.5 mls/hr Q8H IV 11/09/24 18:00 11/14/24 17:30 12.5 MLS/HR Docusate Sodium 100 mg BID PO 11/10/24 10:00 11/14/24 22:37 100 MG Polyethylene Glycol 17 gm DAILY PO 11/10/24 10:00 11/14/24 10:12 17 GM Trolamine Salicylate 1 applic BID TOP 11/10/24 10:00 11/14/24 10:12 1 APPLIC Pantoprazole Sodium 40 mg DAILY@0600 PO 11/11/24 06:00 11/14/24 05:40 40 MG Ondansetron HCl 4 mg Q6HPRN PRN IV 11/10/24 13:30 Acetaminophen 500 mg Q8H PO 11/11/24 13:45 11/14/24 13:39 500 MG Lorazepam 0.5 mg Q4HPRN PRN IV 11/13/24 12:30 Tamsulosin HCl 0.4 mg QPM PO 11/14/24 18:00 11/14/24 17:30 0.4 MG Nicotine 1 patch DAILY TD 11/15/24 10:00 Carbidopa/Levodopa 1 tab QID PO 11/15/24 06:00 objective GENERAL: Alert and oriented x 2. Lethargic. EYES: PERRL, EOMI. Anicteric. HENT: Moist mucous membranes. LUNGS: Clear to auscultation bilaterally. CARDIOVASCULAR: Regular rate and rhythm. ABDOMEN: Soft, non-tender and non-distended. EXTREMITIES: No edema. SKIN: Warm, dry. laboratory and microbiology Laboratory Tests 11/14/24 05:13 Test 11/14/24 05:13 Range/Units Serum Glucose 76 74-106 mg/dL Problem List Septic shock with PNA/UTI. Acute on chronic hypoxic respiratory failure. Acute kidney injury. NSTEMI type 2 secondary to above. Ascending aortic aneurysm at 4.2 cm. Presence of dual-chamber pacemaker ([employer]). Aortic valve stenosis, moderate degree. Parkinson's disease. Thrombocytopenia. FAMILIA on CPAP HS. History of tobacco use. Assessment/Plan Continued all current supportive medical care. Sinemet. Tylenol for pain management. IV antibiotics as ordered. Nebulized breathing treatments. Additional plan as per the hospital course. Critical care time of 45 minutes provided to include time spent evaluation of patient at bedside, when appropriate patient/family education for diagnosis, treatment plan, review of pertinent medical information and discussion of care with specialty providers and PCP. Dietary Evaluation Review Comments: 1) Refer CDE for weight management on DC 2) Monitor PO intake, Lab values, I/O, wt trend Expected Outcomes/Goals: To meet >75% estimated needs Fu 3-5 days Plan discussed with: Other NAYELY CHAVEZ MD Nov 14, 2024 23:33
[2024-11-15] VITALS (43 sets, daily range): BP systolic 95–122; BP diastolic 46–76; PULSE 68–106; RESP 16–32; TEMP 98–98.8; O2SAT 85–100
[2024-11-15 05:33] LABS: Hematocrit 37.3 % (41.0-53.0); Hemoglobin 11.5 g/dL (13.5-17.5); Mean Corpuscular Hemoglobin 20.8 pg (28.0-32.0); Mean Corpuscular Volume 67.5 fL (80.0-100.0)
[2024-11-15] MEDS: CARBIDOPA W LEVODOPA 25/100mg TABLET PO SCH (05:34)
[2024-11-15 05:42] LABS: Alanine Aminotransferase 20 U/L (7-40); Albumin 3.3 g/dL (3.2-4.8); Alkaline Phosphatase 64 U/L (46-116); Anion Gap 4 (5-15); BUN/Creatinine Ratio 34.3 (10.0-20.0); Blood Urea Nitrogen 23 mg/dL (9-23); Calcium 9.4 mg/dL (8.7-10.4); Chloride 101 mmol/L (98-107); Glucose 74 mg/dL (74-106); Potassium 4.6 mmol/L (3.5-5.1); Sodium 143 mmol/L (136-145)
[2024-11-15 05:43] LABS: Bilirubin, Total 1.1 mg/dL (0.2-1.0)
[2024-11-15 05:49] LABS: Carbon Dioxide 38 mmol/L (20-31); Total Protein 5.1 g/dL (5.7-8.2)
--- NOTE | 2024-11-15 06:00 | DVH ---
CHEST RADIOGRAPH Indication: PNA Technique: Single frontal view of the chest was obtained Comparison: XY CHEST PORTABLE on DOS: 11/12/24 FINDINGS: Lines and Tubes: None Lungs: Pulmonary vascular congestion. There is a left basilar opacity which is unchanged. Pleura: Possible left pleural effusion. No pneumothorax. Cardiomediastinal contours: Cardiomegaly. Dual-chamber pacemaker with right atrial and ventricular le ads. Bones: No acute osseous abnormality. Posterior instrumented fusion of the thoracolumbar spine. IMPRESSION: 1. No significant interval change in pulmonary vascular congestion and left basilar opacity which may reflect atelectasis, consolidation and/or fluid.
[2024-11-15 06:56] LABS: Total Cells Counted 100.0 (100)
--- NOTE | 2024-11-15 09:53 | DVHPN2 ---
Progress Note - Dictate Date Seen: Nov 15, 2024 Medical Necessity Reason Pt with a Central, PICC or Fol: No The following are medically ne: Castanon Catheter Subjective Mr. Avina is a 74 years old right-handed gentleman with a history of hypertension, bradycardia status post pacemaker insertion, chronic lung disease, he came to the hospital on 11/06/2024 with a chief complaint of chest pain, general weakness, and dizziness. I have seen and examined the patient, talked to his nurse and Drs. Garcia, and Margarito. He is awake, oriented oriented x3, he can maintain bed conversation yesterday, again I do not see typical Parkinson's feature on him except for mild tremors on posturing with the right-sided more affected He reports gait disturbance, he shuffles Blood culture, 11/06/2024: Negative UDS, 11/07/2024: Negative Plasma alcohol, 11/06/2024: <3 Urinalysis, 11/07/2024: WBC: Five, urine leukocyte esterase: 1+ ABG, 11/08/2024: Respiratory acidosis, hypoxia 11/11/2024: Respiratory acidosis, hypoxia 11/13/24: Respiratory acidosis, hypoxia /INR/PTT, 11/14/2024: 12.4/1.19/25.6 WBC/HB/PLT/MCV, 11/14/2024: 61/10.9/98/67.5 BUN/CR, 11/06/2024: 40/2.02 Lactic acid, 11/06/2024: 3.6 HGB A1c, 11/06/24: 5.2 TBI/AST/ALT/AP, 11/06/2024: 0.8/39/26/77 TG/HDL/LDL/HDL, 11/06/2024: 81/108/64/35 Vitamin B12, 11/06/2024: 1960 TSH, 11/06/2024: 1.77 vital signs Vital Sign Date Time Temp Pulse Resp B/P (MAP) Pulse Ox O2 Delivery O2 Flow Rate FiO2 11/15/24 08:00 Nasal Cannula* 3 32 11/15/24 08:00 86 11/15/24 06:26 26 100 11/15/24 06:00 119/58 (78) 11/15/24 00:00 98.8 98.8 Total Intake and Output 11/14/24 11/14/24 11/15/24 15:00 23:00 07:00 Intake Total 200 ml 530 ml 220 ml Output Total 650 ml 810 ml Balance 200 ml -120 ml -590 ml medications Current Medications Medications Dose Ordered Sig/Amol Route Start Time Stop Time Status Last Admin Dose Admin Albuterol 2.5 mg Q4HR [facility] 11/07/24 02:00 11/15/24 06:16 2.5 MG Ipratropium [place] 0.5 mg Q4HR NEB 11/07/24 10:00 11/15/24 06:16 0.5 MG Vancomycin HCl 0 ml @ 0 mls/hr UD IV 11/07/24 10:45 Lidocaine 1 patch Q24H TOP 11/09/24 18:00 Hold 11/14/24 17:30 1 PATCH Vancomycin HCl 150 ml @ 150 mls/hr Q12H IV 11/09/24 23:00 11/14/24 23:08 150 MLS/HR Cefepime HCl 50 ml @ 12.5 mls/hr Q8H IV 11/09/24 18:00 11/15/24 02:11 12.5 MLS/HR Docusate Sodium 100 mg BID PO 11/10/24 10:00 11/14/24 22:37 100 MG Polyethylene Glycol 17 gm DAILY PO 11/10/24 10:00 11/14/24 10:12 17 GM Trolamine Salicylate 1 applic BID TOP 11/10/24 10:00 11/14/24 10:12 1 APPLIC Pantoprazole Sodium 40 mg DAILY@0600 PO 11/11/24 06:00 11/15/24 05:34 40 MG Ondansetron HCl 4 mg Q6HPRN PRN IV 11/10/24 13:30 Acetaminophen 500 mg Q8H PO 11/11/24 13:45 11/15/24 05:34 500 MG Lorazepam 0.5 mg Q4HPRN PRN IV 11/13/24 12:30 Tamsulosin HCl 0.4 mg QPM PO 11/14/24 18:00 11/14/24 17:30 0.4 MG Nicotine 1 patch DAILY TD 11/15/24 10:00 Carbidopa/Levodopa 1 tab QID PO 11/15/24 06:00 11/15/24 05:34 1 TAB objective General: the patient is well developed and nourished. No acute distress. MENTAL STATUS: SUBJECTIVE SPEECH, LANGUAGE, HIGHER CORTICAL FUNCTION: no aphasia or dysathria. CRANIAL NERVES: Pupils are equal, round and reactive. EOMs full and conjugate. No nystagmus. Facial sensation intact in all three divisions bilaterally. Mandibular strength intact. Facial muscles symmetrical and strength intact. SENSATION: Sensation to touch and pinprick is normal. MOTOR: Normal tone in the upper and lower extremity. Normal muscle bulk. No fasciculations. Mild tremor in both upper extremities, worse on the right side. Muscle strength of the major groups in the extremities is 5/5. REFLEXES: Deep tendon reflexes normal and symmetrical. No pathological reflexes. CEREBELLAR/COORDINATION: Finger to nose is normal bilaterally. GAIT/STATION: deferred laboratory and microbiology Laboratory Tests 11/15/24 04:57 Test 11/15/24 04:57 Range/Units Serum Glucose 74 74-106 mg/dL Problem List Tremors ? Parkinson's disease ? Essential tremors Gait disturbance, multifactorial ? REM sleep behavior disorder Chronic spine fracture status post surgical repair Chronic respiratory failure Leukocytosis status post bone marrow biopsy Visual hallucination/metabolic encephalopathy secondary to respiratory failure Assessment/Plan Monitoring Supportive treatment Bone marrow biopsy INOCENCIO care Sinemet 25/100 mg q.i.d. and gradually wean off BiPAP Oxygen Consider physical therapy later More recommendation per clinical course This medical document was created using an electronic medical record system with [employer] dictation system. Although this document has been carefully reviewed, there may still be some phonetic and typographical errors. These areas are purely typographical due to imperfections of the software programs, and do not reflect any compromise in the patient's medical care. Prognosis poor Dietary Evaluation Review Comments: 1) Refer CDE for weight management on DC 2) Monitor PO intake, Lab values, I/O, wt trend Expected Outcomes/Goals: To meet >75% estimated needs Fu 3-5 days Plan discussed with: Patient, Other Critical Care Time(min): 35 BRITNEY HORTA MD Nov 15, 2024 09:53
[2024-11-15] MEDS: NICOTINE 14 MG/24HR TOPICAL PATCH TD SCH (10:59)
--- NOTE | 2024-11-15 18:09 | DVHPNRES ---
Progress Note Date Seen: Nov 15, 2024 Resident Creating Document: NEERU SCHULZ RESIDENT Medical Necessity Reason Pt with a Central, PICC or Fol: No The following are medically ne: Castanon Catheter Subjective Review of Systems Patient is a 74-year-old male with past medical history of hypertension, symptomatic bradycardia s/p pacemaker 3 years ago, sleep apnea on CPAP, recently diagnosed Parkinson's disease, possible [employer] exposure? , ascending aortic aneurysm 4.2 cm, who comes in due to severe generalized weakness. According to the patient and his , patient has been feeling increasingly weak for the past 1 week, 2 days ago he also sustained a fall where he slipped off of his bed and fell on his knees without any head trauma. Per , yesterday patient was complaining of chest pain that started 2 days ago, intermittent and worsened with eating, along with abdominal pain, sweating and generalized weakness, was unable to get up from the chair which is what prompted this visit to the hospital. On review of systems patient is complaining of chest pain that has been ongoing intermittently for the last 1 week, palpitations, urinary frequency and urinary incontinence. Serial troponins were 80, 100, 113, 107 and chest x-ray showed no acute abnormality. Past surgical history: Pacemaker, back surgery? Home medications: Smoking: Quit 40 years ago, prior to that was smoking 1 pack per day for 30 years Alcohol: Past history of heavy use, currently denies Drugs: Denies Lives with Allergies: Denies 11/08/2024: Patient seen and examined at bedside. Patient is alert and oriented to time, place person and responding to all questions. Patient reports improved symptoms from when he 1st came to the hospital. 1+ lower extremity edema, decreased bilateral breath sounds. Complaining of lower back pain, started on [place] 5q 8 hours as needed. Denies any new complaints. Denies any suicidal ideation. 11/09/24: overnight episode of agitation, paco2 noted to be 71, placed on bipap for 4 hours. today saturating 88-93% of 2-4L o2 via NC. improved backache. will follow serum LDH tomorrow. 11/10/2024: Patient notes improvement in symptoms, however, overnight episode of desaturation along with an episode of vomiting with desaturation in the afternoon. LDH was in the 500s, scheduled patient for bone marrow biopsy tomorrow. Transition IV steroids to p.o. prednisolone. 11/11/24 - 11/12-patient doing well. No significant or severe cramps concerning for worsening of Parkinson's or failure. Continue IV antibiotics. Patient has decreased breath sounds at bases we will start incentive spirometer. No PT onboard. We will get PT and continue q.2 hours turns until patient is able to move himself. Castanon in place good urine output. Patient is able to talk in short sentences due to his parkinsonism.. Platelets stable, WBCs elevated in stable. Primary team planning for possible bone marrow biopsy. I will hold off neurology consult as patient appears to be stable Parkinson's and defer to primary for the neurology consult. No other complaints from patient. Cough is improved. 11/13/2024-overnight patient became aggressive, confused swinging arms at staff. soft mittens were put on. This a.m. patient is A&O times 3-4, delusional as keeps saying that we are there to hurt him, but he is able to articulate reason for being here and understands if he declines therapy his condition could worsen. We will get psych evaluation to determine if patient has decision making capacity. He is declining suicidal ideations but appears very depressive and emotionally abusive comments towards spouse. Which is not his normal. Right now it is hard to assess if he has decision-making capacity as he is not as his normal function mentally. Patient is also too weak to get out of bed. Otherwise we will continue antibiotics for pneumonia in wait for bone marrow biopsy tomorrow. 11/14/24: Patient seen and examined at bedside, notes increasing weakness. Repeatedly had episodes of delirium overnight. Added Flomax 0.4 mg, neurology consulted. Patient completed bone marrow biopsy today, we will follow results. 11/15/2024: Patient seen and examined at bedside, reports improvement in breathing, however, reports increasing weakness and generalized body aches. Currently on 1 L of oxygen, downgraded to telemetry. We will get PT evaluation today. Objective vital signs Vital Sign Date Time Temp Pulse Resp B/P (MAP) Pulse Ox O2 Delivery O2 Flow Rate FiO2 11/15/24 18:00 74 11/15/24 18:00 Nasal Cannula* 1 24 11/15/24 17:00 97 11/15/24 16:00 98.0 25 98.0 Total Intake and Output 11/14/24 11/14/24 11/15/24 15:00 23:00 07:00 Intake Total 200 ml 530 ml 220 ml Output Total 650 ml 810 ml Balance 200 ml -120 ml -590 ml medications Current Medications Medications Dose Ordered Sig/Amol Route Start Time Stop Time Status Last Admin Dose Admin Albuterol 2.5 mg Q4HR NEB 11/07/24 02:00 11/15/24 14:08 2.5 MG Ipratropium [place] 0.5 mg Q4HR NEB 11/07/24 10:00 11/15/24 14:08 0.5 MG Lidocaine 1 patch Q24H TOP 11/09/24 18:00 Hold 11/14/24 17:30 1 PATCH Docusate Sodium 100 mg BID PO 11/10/24 10:00 11/15/24 11:00 100 MG Polyethylene Glycol 17 gm DAILY PO 11/10/24 10:00 11/15/24 11:00 17 GM Trolamine Salicylate 1 applic BID TOP 11/10/24 10:00 11/15/24 10:59 1 APPLIC Pantoprazole Sodium 40 mg DAILY@0600 PO 11/11/24 06:00 11/15/24 05:34 40 MG Ondansetron HCl 4 mg Q6HPRN PRN IV 11/10/24 13:30 Acetaminophen 500 mg Q8H PO 11/11/24 13:45 11/15/24 15:06 500 MG Lorazepam 0.5 mg Q4HPRN PRN IV 11/13/24 12:30 Tamsulosin HCl 0.4 mg QPM PO 11/14/24 18:00 11/15/24 17:52 0.4 MG Nicotine 1 patch DAILY TD 11/15/24 10:00 11/15/24 10:59 1 PATCH Carbidopa/Levodopa 1 tab QID PO 11/15/24 06:00 11/15/24 17:52 1 TAB Ceftriaxone Sodium 50 ml @ 100 mls/hr DAILY@09 IV 11/16/24 09:00 Doxycycline Monohydrate 100 mg Q12HR PO 11/15/24 22:00 Examination General Appearance: Cooperative. Well developed. In moderate distress Pulmonary/Respiratory: Chest non-tender. Scattered bilateral wheezes, decreased b/l breath sounds Cardiovascular/Chest: Tachycardia No murmurs. No JVD. Peripheries: Cold to touch Abdominal Exam: Normal bowel sounds. Soft. normal abdomen, no visible veins, Nontender. No hepatospenomegaly. No masses Lower extremities: 1+ lower extremity edema Neuro/Mental Status: A&O x4. Coherent. tremor noted, most pronounced in RUE Thoughts/Psych: Normal thought pattern. Appropriate mood and affect. laboratory and microbiology Laboratory Tests 11/15/24 10:05 11/15/24 04:57 Test 11/15/24 04:57 Range/Units Serum Glucose 74 74-106 mg/dL Microbiology Date/Time Source Procedure Growth Status 11/09/24 05:50 Nose MRSA Screen - Final Complete 11/07/24 03:30 Voided Urine Urine Culture - Final Complete 11/06/24 21:55 Blood Blood Culture - Final NO GROWTH AFTER 5 DAYS OF INCUBATION. Complete Labs and/or images reviewed: Labs reviewed by me, Image(s) reviewed by me Problem List/Assessment/Plan Problem List/Assessment/Plan Neurology # newly diagnosed Parkinson's disease - resumed home medication carbidopa levodopa - consulted neurology - nicotine patch Cardiovascular # Septic shock possibly secondary to pneumonia versus complicated UTI # NSTEMI likely type 2 due to above # mild left atrial enlargement # moderate aortic stenosis with mean gradient of 25 mm of Hg # ascending aortic aneurysm measuring 4.2 cm 12 months ago - echocardiogram: lvef 55%. mild LVH. grade 1 diastolic dysfunction. normal rv function. RV not well seen. left atrium enlarged mild. moderate aortic stenosis, mean gradient of 25 mmg . mild pulm htn - CXR: No acute abnormality demonstrated, low lung volumes with crowding of the bronchovascular markings. - Vancomycin, cefepime Respiratory # Acute hypoxic/hypercapnic respiratory failure, on BiPAP # possible acute exacerbation of COPD # community-acquired pneumonia, Gram-positive versus Gram-negative? # pulmonary hypertension, RVSP 65 mmHg # 6.3 mm soft nodule right middle lobe - echocardiogram: lvef 55%. mild LVH. grade 1 diastolic dysfunction. normal rv function. RV not well seen. left atrium enlarged mild. moderate aortic stenosis, mean gradient of 25 mmg . mild pulm htn - IV vancomycin per-pharmacy - IV cefepime - ipratropium and albuterol med nebs - started apixaban 10mg bid - V/Q scan - continue BiPAP at night - requested PT evaluation - outpatient follow up for evaluation and monitoring of right-sided soft nodule in the lung GI # Peptic ulcer prophylaxis -Pantoprazole 40 mg IV daily # Castanon catheter placed on 11/07/2024 # acute complicated UTI # likely benign prostatic hyperplasia - IV vancomycin, IV cefepime -tamsulosin 0.4 mg Nephrology # SHREYA likely hemodynamically mediated/VMN on questionable CKD, baseline unavailable - nephrology on board - strict I&Os - monitor Infectious disease # acute complicated UTI # possible community-acquired pneumonia - IV vancomycin per pharmacy - IV cefepime - IV NS at 75 cc/hour, now dc'ed - norepinephrine at 0.5 mcg, now dc'ed Hem/onc # severe leukocytosis # microcytic anemia, MCV 69.4 # thrombocytopenia, serum platelets 82 - abdominal usg: splenomegaly - ordered serum LDH; 550 - scheduled for bone marrow biopsy tomorrow - monitor DVT prophylaxis - bilateral lower extremity Doppler: No right or left femoropopliteal venous thrombosis - holding due to low platelet count Nutrition Cardiac diet Lines - right 20 gauge placed on 11/11/2024 Social service consulted for [facility] facility for physical therapy. Critical care time 43 minutes excluding procedure. Code status discussed greater than 20 minutes: Family at bedside explained about the condition of the patient Plan discussed with Dr. Blum Plan discussed with: Patient, Spouse, Other (RN) My Orders My Orders Orders - NEERU SCHULZ Procedure Category Date Status Time Transfer Orders XFER 11/15/24 Transmitted 10:31 * Delinquent Tax [employer]or CONS 11/15/24 Transmitted Consult Ceftriaxone 1gm/50ml PHA 11/16/24 In Process D5w (Rocephin) 09:00 Doxycycline Tablet PHA 11/15/24 In Process (Vibramycin Tablet) 22:00 Dietary Evaluation Review Comments: 1) Refer CDE for weight management on DC 2) Monitor PO intake, Lab values, I/O, wt trend Expected Outcomes/Goals: To meet >75% estimated needs Fu 3-5 days Date of Service: Nov 15, 2024 Billing Provider: CARMINE BLUM MD Common Visit Codes: 20407-LKKGHFLY CARE 30-74 MIN NEERU SCHULZ Nov 15, 2024 18:09 CARMINE BLUM MD Nov 16, 2024 16:20
[2024-11-15] MEDS: DOXYCYCLINE 100 MG TAB/CAP PO SCH (22:17)
--- NOTE | 2024-11-15 23:12 | DVHPN2 ---
Progress Note - Dictate Date Seen: Nov 15, 2024 Medical Necessity Reason Pt with a Central, PICC or Fol: No The following are medically ne: Castanon Catheter Subjective Patient was seen and evaluated in follow up in the ICU. Patient is on 1 LPM NC. Patients mentation improved. Patient is able to maintain a conversation. Patient has mild tremors on posturing with the right-sided more affected. WBC 57.6, CO2 38. vital signs Vital Sign Date Time Temp Pulse Resp B/P (MAP) Pulse Ox O2 Delivery O2 Flow Rate FiO2 11/15/24 21:37 78 112/52 100 Facial BiPAP Mask 35 11/15/24 20:00 98.6 28 98.6 11/15/24 20:00 1 Total Intake and Output 11/14/24 11/14/24 11/15/24 15:00 23:00 07:00 Intake Total 200 ml 530 ml 220 ml Output Total 650 ml 810 ml Balance 200 ml -120 ml -590 ml medications Current Medications Medications Dose Ordered Sig/Amol Route Start Time Stop Time Status Last Admin Dose Admin Albuterol 2.5 mg Q4HR NEB 11/07/24 02:00 11/15/24 21:37 2.5 MG Ipratropium [place] 0.5 mg Q4HR NEB 11/07/24 10:00 11/15/24 21:37 0.5 MG Lidocaine 1 patch Q24H TOP 11/09/24 18:00 Hold 11/14/24 17:30 1 PATCH Docusate Sodium 100 mg BID PO 11/10/24 10:00 11/15/24 22:18 100 MG Polyethylene Glycol 17 gm DAILY PO 11/10/24 10:00 11/15/24 11:00 17 GM Trolamine Salicylate 1 applic BID TOP 11/10/24 10:00 11/15/24 10:59 1 APPLIC Pantoprazole Sodium 40 mg DAILY@0600 PO 11/11/24 06:00 11/15/24 05:34 40 MG Ondansetron HCl 4 mg Q6HPRN PRN IV 11/10/24 13:30 Acetaminophen 500 mg Q8H PO 11/11/24 13:45 11/15/24 15:06 500 MG Lorazepam 0.5 mg Q4HPRN PRN IV 11/13/24 12:30 Tamsulosin HCl 0.4 mg QPM PO 11/14/24 18:00 11/15/24 17:52 0.4 MG Nicotine 1 patch DAILY TD 11/15/24 10:00 11/15/24 10:59 1 PATCH Carbidopa/Levodopa 1 tab QID PO 11/15/24 06:00 11/15/24 22:19 1 TAB Ceftriaxone Sodium 50 ml @ 100 mls/hr DAILY@09 IV 11/16/24 09:00 Doxycycline Monohydrate 100 mg Q12HR PO 11/15/24 22:00 11/15/24 22:17 100 MG objective GENERAL: Alert and oriented x 3. No acute distress. EYES: PERRL, EOMI. Anicteric. HENT: Moist mucous membranes. LUNGS: Clear to auscultation bilaterally. CARDIOVASCULAR: Regular rate and rhythm. ABDOMEN: Soft, non-tender and non-distended. EXTREMITIES: No edema. SKIN: Warm, dry. laboratory and microbiology Laboratory Tests 11/15/24 10:05 11/15/24 04:57 Test 11/15/24 04:57 Range/Units Serum Glucose 74 74-106 mg/dL Problem List Septic shock with PNA/UTI. Acute on chronic hypoxic respiratory failure. Acute kidney injury. NSTEMI type 2 secondary to above. Ascending aortic aneurysm at 4.2 cm. Presence of dual-chamber pacemaker ([employer]). Aortic valve stenosis, moderate degree. Parkinson's disease. Thrombocytopenia. FAMILIA on CPAP HS. History of tobacco use. Assessment/Plan Continued all current supportive medical care. Sinemet. Tylenol for pain management. IV antibiotics as ordered. Nebulized breathing treatments. Additional plan as per the hospital course. Critical care time of 45 minutes provided to include time spent evaluation of patient at bedside, when appropriate patient/family education for diagnosis, treatment plan, review of pertinent medical information and discussion of care with specialty providers and PCP. Dietary Evaluation Review Comments: 1) Refer CDE for weight management on DC 2) Monitor PO intake, Lab values, I/O, wt trend Expected Outcomes/Goals: To meet >75% estimated needs Fu 3-5 days Plan discussed with: Patient NAYELY CHAVEZ MD Nov 15, 2024 23:12
[2024-11-16] VITALS (21 sets, daily range): BP systolic 105–128; BP diastolic 57–77; PULSE 70–92; RESP 16–28; TEMP 97.3–99.1; O2SAT 90–100
[2024-11-16] MEDS: HYDROcodone-ACET 5/325MG TAB PO ONE (01:42)
[2024-11-16 07:33] LABS: Anion Gap 5 (5-15); Chloride 100 mmol/L (98-107); Potassium 4.2 mmol/L (3.5-5.1); Sodium 142 mmol/L (136-145)
[2024-11-16 07:34] LABS: Calcium 9.5 mg/dL (8.7-10.4)
[2024-11-16 07:39] LABS: BUN/Creatinine Ratio 29.2 (10.0-20.0); Blood Urea Nitrogen 19 mg/dL (9-23); Glucose 81 mg/dL (74-106); Hematocrit 36.6 % (41.0-53.0); Hemoglobin 11.3 g/dL (13.5-17.5); Magnesium 1.6 mg/dL (1.6-2.6); Mean Corpuscular Hemoglobin 20.8 pg (28.0-32.0); Mean Corpuscular Volume 67.5 fL (80.0-100.0)
[2024-11-16 07:42] LABS: Carbon Dioxide 37 mmol/L (20-31)
[2024-11-16 08:18] LABS: Nucleated Red Blood Cells % 3.0 %; Total Cells Counted 100.0 (100)
[2024-11-16] MEDS: cefTRIAXone 1GM/50ML D5W 50 ML IV SCH (09:16)
--- NOTE | 2024-11-16 09:22 | DVHPN2 ---
Progress Note - Dictate Date Seen: Nov 16, 2024 Medical Necessity Reason Pt with a Central, PICC or Fol: No The following are medically ne: Castanon Catheter Subjective Mr. Avina is a 74 years old right-handed gentleman with a history of hypertension, bradycardia status post pacemaker insertion, chronic lung disease, he came to the hospital on 11/06/2024 with a chief complaint of chest pain, general weakness, and dizziness. I have seen and examined the patient, talked to his nurse. He is awake, oriented oriented x3, his voice is fine, I do not see resting tremors He has a long history of severe back pain, at home he took oxycodone 30 mg t.i.d., he reports the pain control here in the hospital is inadequate He got a dose of [place] 5 mg with good result Blood culture, 11/06/2024: Negative UDS, 11/07/2024: Negative Plasma alcohol, 11/06/2024: <3 Urinalysis, 11/07/2024: WBC: Five, urine leukocyte esterase: 1+ ABG, 11/08/2024: Respiratory acidosis, hypoxia 11/11/2024: Respiratory acidosis, hypoxia 11/13/24: Respiratory acidosis, hypoxia /INR/PTT, 11/14/2024: 12.4/1.19/25.6 WBC/HB/PLT/MCV, 11/14/2024: 61/10.9/98/67.5 BUN/CR, 11/06/2024: 40/2.02 Lactic acid, 11/06/2024: 3.6 HGB A1c, 11/06/24: 5.2 TBI/AST/ALT/AP, 11/06/2024: 0.8/39/26/77 TG/HDL/LDL/HDL, 11/06/2024: 81/108/64/35 Vitamin B12, 11/06/2024: 1960 TSH, 11/06/2024: 1.77 vital signs Vital Sign Date Time Temp Pulse Resp B/P (MAP) Pulse Ox O2 Delivery O2 Flow Rate FiO2 11/16/24 06:03 87 19 99 11/16/24 05:57 Nasal Cannula 4.5 11/16/24 05:57 36 11/16/24 05:00 97.3 123/77 (92) 97.3 Total Intake and Output 7/15/25 7/15/25 7/16/25 15:00 23:00 07:00 Intake Total 350 ml 200 ml Output Total 600 ml 325 ml Balance -250 ml -125 ml medications Current Medications Medications Dose Ordered Sig/Amol Route Start Time Stop Time Status Last Admin Dose Admin Albuterol 2.5 mg Q4HR NEB 11/07/24 02:00 11/16/24 05:57 2.5 MG Ipratropium [place] 0.5 mg Q4HR NEB 11/07/24 10:00 11/16/24 05:57 0.5 MG Lidocaine 1 patch Q24H TOP 11/09/24 18:00 11/16/24 09:09 1 PATCH Docusate Sodium 100 mg BID PO 11/10/24 10:00 11/16/24 09:12 100 MG Polyethylene Glycol 17 gm DAILY PO 11/10/24 10:00 11/16/24 09:13 17 GM Trolamine Salicylate 1 applic BID TOP 11/10/24 10:00 11/15/24 10:59 1 APPLIC Pantoprazole Sodium 40 mg DAILY@0600 PO 11/11/24 06:00 11/16/24 05:26 40 MG Ondansetron HCl 4 mg Q6HPRN PRN IV 11/10/24 13:30 Acetaminophen 500 mg Q8H PO 11/11/24 13:45 11/16/24 05:25 500 MG Lorazepam 0.5 mg Q4HPRN PRN IV 11/13/24 12:30 Tamsulosin HCl 0.4 mg QPM PO 11/14/24 18:00 11/15/24 17:52 0.4 MG Nicotine 1 patch DAILY TD 11/15/24 10:00 11/16/24 09:14 1 PATCH Carbidopa/Levodopa 1 tab QID PO 11/15/24 06:00 11/16/24 05:26 1 TAB Ceftriaxone Sodium 50 ml @ 100 mls/hr DAILY@09 IV 11/16/24 09:00 11/16/24 09:16 100 MLS/HR Doxycycline Monohydrate 100 mg Q12HR PO 11/15/24 22:00 11/16/24 09:15 100 MG objective General: the patient is well developed and nourished. No acute distress. MENTAL STATUS: SUBJECTIVE SPEECH, LANGUAGE, HIGHER CORTICAL FUNCTION: no aphasia or dysathria. CRANIAL NERVES: Pupils are equal, round and reactive. EOMs full and conjugate. No nystagmus. Facial sensation intact in all three divisions bilaterally. Mandibular strength intact. Facial muscles symmetrical and strength intact. SENSATION: Sensation to touch and pinprick is normal. MOTOR: Normal tone in the upper and lower extremity. Normal muscle bulk. No fasciculations. Mild tremor in both upper extremities, worse on the right side. Muscle strength of the major groups in the extremities is 5/5. REFLEXES: Deep tendon reflexes normal and symmetrical. No pathological reflexes. CEREBELLAR/COORDINATION: Finger to nose is normal bilaterally. GAIT/STATION: deferred laboratory and microbiology Laboratory Tests 11/16/24 06:26 Test 11/16/24 06:26 Range/Units Serum Glucose 81 74-106 mg/dL Problem List Tremors ? Parkinson's disease ? Essential tremors Gait disturbance, multifactorial ? REM sleep behavior disorder Chronic spine fracture status post surgical repair Chronic pain syndrome secondary to spine injury/fracture Chronic respiratory failure Leukocytosis status post bone marrow biopsy Visual hallucination/metabolic encephalopathy secondary to respiratory failure Assessment/Plan Monitoring Supportive treatment Bone marrow biopsy INOCENCIO care Sinemet 25/100 mg q.i.d. and gradually wean off Tylenol 500 mg t.i.d. Lidocaine patch A trial of [place] 5/325 q.6 hours, escalate as indicated BiPAP Oxygen Consider physical therapy later More recommendation per clinical course This medical document was created using an electronic medical record system with [employer] dictation system. Although this document has been carefully reviewed, there may still be some phonetic and typographical errors. These areas are purely typographical due to imperfections of the software programs, and do not reflect any compromise in the patient's medical care. Prognosis poor Dietary Evaluation Review Comments: 1) Refer CDE for weight management on DC 2) Monitor PO intake, Lab values, I/O, wt trend Expected Outcomes/Goals: To meet >75% estimated needs Fu 3-5 days Plan discussed with: Other BRITNEY HORTA MD Nov 16, 2024 09:22
[2024-11-16] MEDS: KETOROLAC TROMETH 30 MG/ML 1ML VIAL IV ONE ×2 (10:31→18:43)
--- NOTE | 2024-11-16 10:58 | ECG ---
[facility] Test Date: 2024-11-15 Test Time: 12:47:28 Pat Name: CLARITZA MCKEE Department: Respiratoy Room: [address] [place] [address] Gender: M Quantitative Research Analyst: : 1950 Requested By: NEERU SCHULZ Order Number: [id number] Reading MD: Khai Patel Measurements Intervals [place] Rate: 92 P: 37 [place]: 224 QRS: -29 QRSD: 120 T: 95 QT: 363 QTc: 450 Interpretive Statements Sinus rhythm Prolonged [place] interval Incomplete left bundle branch block Inferior infarct, old Consider anterior infarct Electronically Signed On 11-21-2024 21:24:20 PDT by Khai Patel Please click the below link to view image of tracing.
[2024-11-16] MEDS: HYDROcodone-ACET 5/325MG TAB PO PRN (13:50)
--- NOTE | 2024-11-16 21:32 | DVHPN2 ---
Progress Note - Dictate Date Seen: Nov 16, 2024 Medical Necessity Reason Pt with a Central, PICC or Fol: No The following are medically ne: Castanon Catheter Subjective Patient was seen and evaluated in follow up. Patient was downgraded to telemetry.Patient complains of back pain. Patient's O2 was increased to 4 LPM NC. WBC 55.8, CO2 37. Telemetry reviewed. vital signs Vital Sign Date Time Temp Pulse Resp B/P (MAP) Pulse Ox O2 Delivery O2 Flow Rate FiO2 11/16/24 09:52 78 18 100 11/16/24 09:46 Nasal Cannula 4.0 11/16/24 09:46 36 11/16/24 09:00 97.9 107/57 (74) 97.9 Total Intake and Output 11/15/24 11/15/24 11/16/24 15:00 23:00 07:00 Intake Total 350 ml 200 ml Output Total 600 ml 325 ml Balance -250 ml -125 ml medications Current Medications Medications Dose Ordered Sig/Amol Route Start Time Stop Time Status Last Admin Dose Admin Albuterol 2.5 mg Q4HR [facility] 11/07/24 02:00 11/16/24 09:46 2.5 MG Ipratropium [place] 0.5 mg Q4HR [facility] 11/07/24 10:00 11/16/24 09:46 0.5 MG Lidocaine 1 patch Q24H TOP 11/09/24 18:00 11/16/24 09:09 1 PATCH Docusate Sodium 100 mg BID PO 11/10/24 10:00 11/16/24 09:12 100 MG Polyethylene Glycol 17 gm DAILY PO 11/10/24 10:00 11/15/24 11:00 17 GM Trolamine Salicylate 1 applic BID TOP 11/10/24 10:00 11/15/24 10:59 1 APPLIC Pantoprazole Sodium 40 mg DAILY@0600 PO 11/11/24 06:00 11/16/24 05:26 40 MG Ondansetron HCl 4 mg Q6HPRN PRN IV 11/10/24 13:30 Acetaminophen 500 mg Q8H PO 11/11/24 13:45 11/16/24 05:25 500 MG Lorazepam 0.5 mg Q4HPRN PRN IV 11/13/24 12:30 Tamsulosin HCl 0.4 mg QPM PO 11/14/24 18:00 11/15/24 17:52 0.4 MG Nicotine 1 patch DAILY TD 11/15/24 10:00 11/16/24 09:14 1 PATCH Carbidopa/Levodopa 1 tab QID PO 11/15/24 06:00 11/16/24 12:05 1 TAB Ceftriaxone Sodium 50 ml @ 100 mls/hr DAILY@09 IV 11/16/24 09:00 11/16/24 09:16 100 MLS/HR Doxycycline Monohydrate 100 mg Q12HR PO 11/15/24 22:00 11/16/24 09:15 100 MG Acetaminophen/ Hydrocodone Bitart 1 tab Q6HPRN PRN PO 11/16/24 10:45 objective GENERAL: Alert and oriented x 3. No acute distress. EYES: PERRL, EOMI. Anicteric. HENT: Moist mucous membranes. LUNGS: Clear to auscultation bilaterally. CARDIOVASCULAR: Regular rate and rhythm. ABDOMEN: Soft, non-tender and non-distended. EXTREMITIES: No edema. SKIN: Warm, dry. laboratory and microbiology Laboratory Tests 11/16/24 06:26 Test 11/16/24 06:26 Range/Units Serum Glucose 81 74-106 mg/dL Problem List Septic shock with PNA/UTI. Acute on chronic hypoxic respiratory failure. Acute kidney injury. NSTEMI type 2 secondary to above. Ascending aortic aneurysm at 4.2 cm. Presence of dual-chamber pacemaker ([facility]). Aortic valve stenosis, moderate degree. Parkinson's disease. Thrombocytopenia. FAMILIA on CPAP HS. History of tobacco use. Assessment/Plan Continued all current supportive medical care. Sinemet. GI prophylactics. IV antibiotics as ordered. Nebulized breathing treatments. [place] for pain management. Additional plan as per the hospital course. Dietary Evaluation Review Comments: 1) Refer CDE for weight management on DC 2) Monitor PO intake, Lab values, I/O, wt trend Expected Outcomes/Goals: To meet >75% estimated needs Fu 3-5 days Plan discussed with: Patient NAYELY CHAVEZ MD Nov 16, 2024 13:07
[2024-11-17] VITALS (19 sets, daily range): BP systolic 90–140; BP diastolic 39–82; PULSE 72–98; RESP 16–20; TEMP 97.7–99.6; O2SAT 88–99
--- NOTE | 2024-11-17 07:45 | DVHPNRES ---
Progress Note Date Seen: Nov 16, 2024 Resident Creating Document: NEERU SCHULZ RESIDENT Medical Necessity Reason Pt with a Central, PICC or Fol: No The following are medically ne: Castanon Catheter Subjective Review of Systems Patient is a 74-year-old male with past medical history of hypertension, symptomatic bradycardia s/p pacemaker 3 years ago, sleep apnea on CPAP, recently diagnosed Parkinson's disease, possible [place] exposure? , ascending aortic aneurysm 4.2 cm, who comes in due to severe generalized weakness. According to the patient and his , patient has been feeling increasingly weak for the past 1 week, 2 days ago he also sustained a fall where he slipped off of his bed and fell on his knees without any head trauma. Per , yesterday patient was complaining of chest pain that started 2 days ago, intermittent and worsened with eating, along with abdominal pain, sweating and generalized weakness, was unable to get up from the chair which is what prompted this visit to the hospital. On review of systems patient is complaining of chest pain that has been ongoing intermittently for the last 1 week, palpitations, urinary frequency and urinary incontinence. Serial troponins were 80, 100, 113, 107 and chest x-ray showed no acute abnormality. Past surgical history: Pacemaker, back surgery? Home medications: Smoking: Quit 40 years ago, prior to that was smoking 1 pack per day for 30 years Alcohol: Past history of heavy use, currently denies Drugs: Denies Lives with Allergies: Denies 11/08/2024: Patient seen and examined at bedside. Patient is alert and oriented to time, place person and responding to all questions. Patient reports improved symptoms from when he 1st came to the hospital. 1+ lower extremity edema, decreased bilateral breath sounds. Complaining of lower back pain, started on [place] 5q 8 hours as needed. Denies any new complaints. Denies any suicidal ideation. 11/09/24: overnight episode of agitation, paco2 noted to be 71, placed on bipap for 4 hours. today saturating 88-93% of 2-4L o2 via NC. improved backache. will follow serum LDH tomorrow. 11/10/2024: Patient notes improvement in symptoms, however, overnight episode of desaturation along with an episode of vomiting with desaturation in the afternoon. LDH was in the 500s, scheduled patient for bone marrow biopsy tomorrow. Transition IV steroids to p.o. prednisolone. 11/12-patient doing well. No significant or severe cramps concerning for worsening of Parkinson's or failure. Continue IV antibiotics. Patient has decreased breath sounds at bases we will start incentive spirometer. No PT onboard. We will get PT and continue q.2 hours turns until patient is able to move himself. Castanon in place good urine output. Patient is able to talk in short sentences due to his parkinsonism.. Platelets stable, WBCs elevated in stable. Primary team planning for possible bone marrow biopsy. I will hold off neurology consult as patient appears to be stable Parkinson's and defer to primary for the neurology consult. No other complaints from patient. Cough is improved. 11/13/2024-overnight patient became aggressive, confused swinging arms at staff. soft mittens were put on. This a.m. patient is A&O times 3-4, delusional as keeps saying that we are there to hurt him, but he is able to articulate reason for being here and understands if he declines therapy his condition could worsen. We will get psych evaluation to determine if patient has decision making capacity. He is declining suicidal ideations but appears very depressive and emotionally abusive comments towards spouse. Which is not his normal. Right now it is hard to assess if he has decision-making capacity as he is not as his normal function mentally. Patient is also too weak to get out of bed. Otherwise we will continue antibiotics for pneumonia in wait for bone marrow biopsy tomorrow. 11/14/24: Patient seen and examined at bedside, notes increasing weakness. Repeatedly had episodes of delirium overnight. Added Flomax 0.4 mg, neurology consulted. Patient completed bone marrow biopsy today, we will follow results. 11/15/2024: Patient seen and examined at bedside, reports improvement in breathing, however, reports increasing weakness and generalized body aches. Currently on 1 L of oxygen, downgraded to telemetry. We will get PT evaluation today. 11/16/2024: Tried weaning oxygen off of patient, however desaturated, continues to use 1 L. Currently on doxycycline and ceftriaxone. Objective vital signs Vital Sign Date Time Temp Pulse Resp B/P (MAP) Pulse Ox O2 Delivery O2 Flow Rate FiO2 11/17/24 06:43 76 18 97 11/17/24 06:37 Nasal Cannula* 3 32 11/17/24 04:34 98.3 140/82 (101) 98.3 Total Intake and Output 11/16/24 11/16/24 11/17/24 15:00 23:00 07:00 Intake Total 50 ml 240 ml 120 ml Output Total 150 ml Balance 50 ml 90 ml 120 ml medications Current Medications Medications Dose Ordered Sig/Amol Route Start Time Stop Time Status Last Admin Dose Admin Albuterol 2.5 mg Q4HR NEB 11/07/24 02:00 11/17/24 06:32 2.5 MG Ipratropium [place] 0.5 mg Q4HR NEB 11/07/24 10:00 11/17/24 06:33 0.5 MG Lidocaine 1 patch Q24H TOP 11/09/24 18:00 11/16/24 09:09 1 PATCH Docusate Sodium 100 mg BID PO 11/10/24 10:00 11/16/24 23:05 100 MG Polyethylene Glycol 17 gm DAILY PO 11/10/24 10:00 11/15/24 11:00 17 GM Trolamine Salicylate 1 applic BID TOP 11/10/24 10:00 11/15/24 10:59 1 APPLIC Pantoprazole Sodium 40 mg DAILY@0600 PO 11/11/24 06:00 11/17/24 05:58 40 MG Ondansetron HCl 4 mg Q6HPRN PRN IV 11/10/24 13:30 Acetaminophen 500 mg Q8H PO 11/11/24 13:45 11/17/24 05:57 500 MG Lorazepam 0.5 mg Q4HPRN PRN IV 11/13/24 12:30 Tamsulosin HCl 0.4 mg QPM PO 11/14/24 18:00 11/16/24 17:53 0.4 MG Nicotine 1 patch DAILY TD 11/15/24 10:00 11/16/24 09:14 1 PATCH Carbidopa/Levodopa 1 tab QID PO 11/15/24 06:00 11/17/24 05:57 1 TAB Ceftriaxone Sodium 50 ml @ 100 mls/hr DAILY@09 IV 11/16/24 09:00 11/16/24 09:16 100 MLS/HR Doxycycline Monohydrate 100 mg Q12HR PO 11/15/24 22:00 11/16/24 23:04 100 MG Acetaminophen/ Hydrocodone Bitart 1 tab Q6HPRN PRN PO 11/16/24 10:45 11/17/24 03:33 1 TAB Examination General Appearance: Cooperative. Well developed. In moderate distress Pulmonary/Respiratory: Chest non-tender. Scattered bilateral wheezes, decreased b/l breath sounds Cardiovascular/Chest: Tachycardia No murmurs. No JVD. Peripheries: Cold to touch Abdominal Exam: Normal bowel sounds. Soft. normal abdomen, no visible veins, Nontender. No hepatospenomegaly. No masses Lower extremities: 1+ lower extremity edema Neuro/Mental Status: A&O x4. Coherent. tremor noted, most pronounced in RUE Thoughts/Psych: Normal thought pattern. Appropriate mood and affect. laboratory and microbiology Laboratory Tests 11/16/24 06:26 Test 11/16/24 06:26 Range/Units Serum Glucose 81 74-106 mg/dL Microbiology Date/Time Source Procedure Growth Status 11/09/24 05:50 Nose MRSA Screen - Final Complete 11/07/24 03:30 Voided Urine Urine Culture - Final Complete 11/06/24 21:55 Blood Blood Culture - Final NO GROWTH AFTER 5 DAYS OF INCUBATION. Complete Labs and/or images reviewed: Labs reviewed by me, Image(s) reviewed by me Problem List/Assessment/Plan Problem List/Assessment/Plan Neurology # newly diagnosed Parkinson's disease - resumed home medication carbidopa levodopa - consulted neurology - nicotine patch Cardiovascular # Septic shock possibly secondary to pneumonia versus complicated UTI # NSTEMI likely type 2 due to above # mild left atrial enlargement # moderate aortic stenosis with mean gradient of 25 mm of Hg # ascending aortic aneurysm measuring 4.2 cm 12 months ago - echocardiogram: lvef 55%. mild LVH. grade 1 diastolic dysfunction. normal rv function. RV not well seen. left atrium enlarged mild. moderate aortic stenosis, mean gradient of 25 mmg . mild pulm htn - CXR: No acute abnormality demonstrated, low lung volumes with crowding of the bronchovascular markings. - Vancomycin, cefepime Respiratory # Acute hypoxic/hypercapnic respiratory failure, on BiPAP # possible acute exacerbation of COPD # community-acquired pneumonia, Gram-positive versus Gram-negative? # pulmonary hypertension, RVSP 65 mmHg # 6.3 mm soft nodule right middle lobe - echocardiogram: lvef 55%. mild LVH. grade 1 diastolic dysfunction. normal rv function. RV not well seen. left atrium enlarged mild. moderate aortic stenosis, mean gradient of 25 mmg . mild pulm htn - IV vancomycin per-pharmacy - IV cefepime - ipratropium and albuterol med nebs - started apixaban 10mg bid - V/Q scan - continue BiPAP at night - requested PT evaluation - outpatient follow up for evaluation and monitoring of right-sided soft nodule in the lung GI # Peptic ulcer prophylaxis -Pantoprazole 40 mg IV daily # Castanon catheter placed on 11/07/2024 # acute complicated UTI # likely benign prostatic hyperplasia - IV vancomycin, IV cefepime -tamsulosin 0.4 mg Nephrology # SHREYA likely hemodynamically mediated/VMN on questionable CKD, baseline unavailable - nephrology on board - strict I&Os - monitor Infectious disease # acute complicated UTI # possible community-acquired pneumonia - IV vancomycin per pharmacy - IV cefepime - IV NS at 75 cc/hour, now dc'ed - norepinephrine at 0.5 mcg, now dc'ed Hem/onc # severe leukocytosis # microcytic anemia, MCV 69.4 # thrombocytopenia, serum platelets 82 - abdominal usg: splenomegaly - ordered serum LDH; 550 - scheduled for bone marrow biopsy tomorrow - monitor DVT prophylaxis - bilateral lower extremity Doppler: No right or left femoropopliteal venous thrombosis - holding due to low platelet count Nutrition Cardiac diet Lines - right 20 gauge placed on 11/11/2024 Social service consulted for long term facility for physical therapy. Code status discussed greater than 20 minutes: Family at bedside explained about the condition of the patient Plan discussed with Dr. Blum Plan discussed with: Patient, Spouse, Other (RN) Dietary Evaluation Review Comments: 1) Refer CDE for weight management on DC 2) Monitor PO intake, Lab values, I/O, wt trend Expected Outcomes/Goals: To meet >75% estimated needs Fu 3-5 days Date of Service: Nov 16, 2024 Billing Provider: CARMINE BLUM MD Common Visit Codes: 98043-[id number] INP/OBS CARE(HIGH) Secondary Visit Codes: [id number] CARE PLAN 30 MINUTES NEERU SCHULZ RESIDENT Nov 17, 2024 07:45 CARMINE BLUM MD Nov 17, 2024 11:48
[2024-11-17 11:11] LABS: Hematocrit 36.4 % (41.0-53.0); Hemoglobin 10.9 g/dL (13.5-17.5); Mean Corpuscular Hemoglobin 20.5 pg (28.0-32.0); Mean Corpuscular Volume 68.4 fL (80.0-100.0)
[2024-11-17 11:12] LABS: Anion Gap 4 (5-15); Chloride 100 mmol/L (98-107); Potassium 4.4 mmol/L (3.5-5.1); Sodium 141 mmol/L (136-145)
[2024-11-17 11:13] LABS: Calcium 9.0 mg/dL (8.7-10.4)
[2024-11-17 11:15] LABS: Carbon Dioxide 37 mmol/L (20-31)
--- NOTE | 2024-11-17 11:15 | DVHPN2 ---
Progress Note - Dictate Date Seen: Nov 17, 2024 Medical Necessity Reason Pt with a Central, PICC or Fol: No The following are medically ne: Castanon Catheter Subjective Mr. Avina is a 74 years old right-handed gentleman with a history of hypertension, bradycardia status post pacemaker insertion, chronic lung disease, he came to the hospital on 11/06/2024 with a chief complaint of chest pain, general weakness, and dizziness. I have seen and examined the patient, talked to his nurse. He is awake, oriented oriented x3, his voice is fine He reports the tremors persist, and on 11/17/2024, I saw tremors when the right- handed was resting and dynamic, and the nurse tremor looks worse Crumpton 5 mg was not good enough for pain control Blood culture, 11/06/2024: Negative UDS, 11/07/2024: Negative Plasma alcohol, 11/06/2024: <3 Urinalysis, 11/07/2024: WBC: Five, urine leukocyte esterase: 1+ ABG, 11/08/2024: Respiratory acidosis, hypoxia 11/11/2024: Respiratory acidosis, hypoxia 11/13/24: Respiratory acidosis, hypoxia /INR/PTT, 11/14/2024: 12.4/1.19/25.6 WBC/HB/PLT/MCV, 11/14/2024: 61/10.9/98/67.5 BUN/CR, 11/06/2024: 40/2.02 Lactic acid, 11/06/2024: 3.6 HGB A1c, 11/06/24: 5.2 TBI/AST/ALT/AP, 11/06/2024: 0.8/39/26/77 TG/HDL/LDL/HDL, 11/06/2024: 81/108/64/35 Vitamin B12, 11/06/2024: 1960 TSH, 11/06/2024: 1.77 vital signs Vital Sign Date Time Temp Pulse Resp B/P (MAP) Pulse Ox O2 Delivery O2 Flow Rate FiO2 11/17/24 10:23 84 18 91 11/17/24 08:08 98.0 119/61 (80) 98.0 11/17/24 06:37 Nasal Cannula* 3 32 Total Intake and Output 11/16/24 11/16/24 11/17/24 15:00 23:00 07:00 Intake Total 50 ml 240 ml 120 ml Output Total 150 ml Balance 50 ml 90 ml 120 ml medications Current Medications Medications Dose Ordered Sig/Amol Route Start Time Stop Time Status Last Admin Dose Admin Albuterol 2.5 mg Q4HR NEB 11/07/24 02:00 11/17/24 10:23 2.5 MG Ipratropium [place] 0.5 mg Q4HR [facility] 11/07/24 10:00 11/17/24 10:23 0.5 MG Lidocaine 1 patch Q24H TOP 11/09/24 18:00 11/16/24 09:09 1 PATCH Docusate Sodium 100 mg BID PO 11/10/24 10:00 11/17/24 09:04 100 MG Polyethylene Glycol 17 gm DAILY PO 11/10/24 10:00 11/17/24 09:04 17 GM Trolamine Salicylate 1 applic BID TOP 11/10/24 10:00 11/15/24 10:59 1 APPLIC Pantoprazole Sodium 40 mg DAILY@0600 PO 11/11/24 06:00 11/17/24 05:58 40 MG Ondansetron HCl 4 mg Q6HPRN PRN IV 11/10/24 13:30 Acetaminophen 500 mg Q8H PO 11/11/24 13:45 11/17/24 05:57 500 MG Lorazepam 0.5 mg Q4HPRN PRN IV 11/13/24 12:30 Tamsulosin HCl 0.4 mg QPM PO 11/14/24 18:00 11/16/24 17:53 0.4 MG Nicotine 1 patch DAILY TD 11/15/24 10:00 11/17/24 09:10 1 PATCH Carbidopa/Levodopa 1 tab QID PO 11/15/24 06:00 11/17/24 11:09 1 TAB Ceftriaxone Sodium 50 ml @ 100 mls/hr DAILY@09 IV 11/16/24 09:00 11/17/24 09:03 100 MLS/HR Doxycycline Monohydrate 100 mg Q12HR PO 11/15/24 22:00 11/17/24 09:04 100 MG Acetaminophen/ Hydrocodone Bitart 1 tab Q6HPRN PRN PO 11/16/24 10:45 11/17/24 09:04 1 TAB objective General: the patient is well developed and nourished. No acute distress. MENTAL STATUS: SUBJECTIVE SPEECH, LANGUAGE, HIGHER CORTICAL FUNCTION: no aphasia or dysathria. CRANIAL NERVES: Pupils are equal, round and reactive. EOMs full and conjugate. No nystagmus. Facial sensation intact in all three divisions bilaterally. Mandibular strength intact. Facial muscles symmetrical and strength intact. SENSATION: Sensation to touch and pinprick is normal. MOTOR: Normal tone in the upper and lower extremity. Normal muscle bulk. No fasciculations. Mild tremor in both upper extremities, worse on the right side. Muscle strength of the major groups in the extremities is 5/5. REFLEXES: Deep tendon reflexes normal and symmetrical. No pathological reflexes. CEREBELLAR/COORDINATION: Finger to nose is normal bilaterally. GAIT/STATION: deferred laboratory and microbiology Test 11/17/24 10:29 Range/Units Serum Glucose Pending Problem List Tremors ? Parkinson's disease ? Essential tremors Gait disturbance, multifactorial ? REM sleep behavior disorder Chronic spine fracture status post surgical repair Chronic pain syndrome secondary to spine injury/fracture Chronic respiratory failure Leukocytosis status post bone marrow biopsy Visual hallucination/metabolic encephalopathy secondary to respiratory failure Assessment/Plan Monitoring Supportive treatment Bone marrow biopsy Further cut down Sinemet to 25/100 mg b.i.d. and Mysoline symptoms, Tylenol 500 mg t.i.d. Lidocaine patch Increase the C[place]pton to 10/325 q.6 hours, escalate as indicated BiPAP Oxygen Consider physical therapy later More recommendation per clinical course This medical document was created using an electronic medical record system with [employer] dictation system. Although this document has been carefully reviewed, there may still be some phonetic and typographical errors. These areas are purely typographical due to imperfections of the software programs, and do not reflect any compromise in the patient's medical care. Prognosis poor Dietary Evaluation Review Comments: 1) Refer CDE for weight management on DC 2) Monitor PO intake, Lab values, I/O, wt trend Expected Outcomes/Goals: To meet >75% estimated needs Fu 3-5 days Plan discussed with: Other BIRTNEY HORTA MD Nov 17, 2024 11:15
[2024-11-17 11:18] LABS: BUN/Creatinine Ratio 30.8 (10.0-20.0); Blood Urea Nitrogen 20 mg/dL (9-23); Glucose 90 mg/dL (74-106)
[2024-11-17 11:45] LABS: Total Cells Counted 100.0 (100)
[2024-11-17 11:46] LABS: Ovalocytes FEW; Stomatocytes Few
[2024-11-17] MEDS: HYDROcodone-ACET 5/325MG TAB PO ONE (13:24)
[2024-11-17] MEDS: HYDROcodone-ACET 10/325MG TAB PO PRN (15:17)
--- NOTE | 2024-11-17 16:03 | DVHPNRES ---
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 , ascending aortic aneurysm 4.2 cm, who comes in due to severe generalized weakness. According to the patient and his , patient has been feeling increasingly weak for the past 1 week, 2 days ago he also sustained a fall where he slipped off of his bed and fell on his knees without any head trauma. Per , yesterday patient was complaining of chest pain that started 2 days ago, intermittent and worsened with eating, along with abdominal pain, sweating and generalized weakness, was unable to get up from the chair which is what prompted this visit to the hospital. On review of systems patient is complaining of chest pain that has been ongoing intermittently for the last 1 week, palpitations, urinary frequency and urinary incontinence. Serial troponins were 80, 100, 113, 107 and chest x-ray showed no acute abnormality. Past surgical history: Pacemaker, back surgery? Home medications: Smoking: Quit 40 years ago, prior to that was smoking 1 pack per day for 30 years Alcohol: Past history of heavy use, currently denies Drugs: Denies Lives with Allergies: Denies 11/08/2024: Patient seen and examined at bedside. Patient is alert and oriented to time, place person and responding to all questions. Patient reports improved symptoms from when he 1st came to the hospital. 1+ lower extremity edema, decreased bilateral breath sounds. Complaining of lower back pain, started on [place] 5q 8 hours as needed. Denies any new complaints. Denies any suicidal ideation. 11/09/24: overnight episode of agitation, paco2 noted to be 71, placed on bipap for 4 hours. today saturating 88-93% of 2-4L o2 via NC. improved backache. will follow serum LDH tomorrow. 11/10/2024: Patient notes improvement in symptoms, however, overnight episode of desaturation along with an episode of vomiting with desaturation in the afternoon. LDH was in the 500s, scheduled patient for bone marrow biopsy tomorrow. Transition IV steroids to p.o. prednisolone. 11/12-patient doing well. No significant or severe cramps concerning for worsening of Parkinson's or failure. Continue IV antibiotics. Patient has decreased breath sounds at bases we will start incentive spirometer. No PT onboard. We will get PT and continue q.2 hours turns until patient is able to move himself. Castanon in place good urine output. Patient is able to talk in short sentences due to his parkinsonism.. Platelets stable, WBCs elevated in stable. Primary team planning for possible bone marrow biopsy. I will hold off neurology consult as patient appears to be stable Parkinson's and defer to primary for the neurology consult. No other complaints from patient. Cough is improved. 11/13/2024-overnight patient became aggressive, confused swinging arms at staff. soft mittens were put on. This a.m. patient is A&O times 3-4, delusional as keeps saying that we are there to hurt him, but he is able to articulate reason for being here and understands if he declines therapy his condition could worsen. We will get psych evaluation to determine if patient has decision making capacity. He is declining suicidal ideations but appears very depressive and emotionally abusive comments towards spouse. Which is not his normal. Right now it is hard to assess if he has decision-making capacity as he is not as his normal function mentally. Patient is also too weak to get out of bed. Otherwise we will continue antibiotics for pneumonia in wait for bone marrow biopsy tomorrow. 11/14/24: Patient seen and examined at bedside, notes increasing weakness. Repeatedly had episodes of delirium overnight. Added Flomax 0.4 mg, neurology consulted. Patient completed bone marrow biopsy today, we will follow results. 11/15/2024: Patient seen and examined at bedside, reports improvement in breathing, however, reports increasing weakness and generalized body aches. Currently on 1 L of oxygen, downgraded to telemetry. We will get PT evaluation today. 11/16/2024: Tried weaning oxygen off of patient, however desaturated, continues to use 1 L. Currently on doxycycline and ceftriaxone. 11/17/2024: Patient is seen and examined at bedside, continued back pain. Scheduled to work with physical therapy today. Awaiting biopsy results, preliminarily inconclusive. Objective vital signs Vital Sign Date Time Temp Pulse Resp B/P (MAP) Pulse Ox O2 Delivery O2 Flow Rate FiO2 11/17/24 14:39 84 16 98 11/17/24 13:00 98.1 107/59 (75) 98.1 11/17/24 08:00 Nasal Cannula* 1 24 Total Intake and Output 11/16/24 11/16/24 11/17/24 15:00 23:00 07:00 Intake Total 50 ml 240 ml 120 ml Output Total 150 ml Balance 50 ml 90 ml 120 ml medications Current Medications Medications Dose Ordered Sig/Amol Route Start Time Stop Time Status Last Admin Dose Admin Albuterol 2.5 mg Q4HR NEB 11/07/24 02:00 11/17/24 14:28 2.5 MG Ipratropium [place] 0.5 mg Q4HR NEB 11/07/24 10:00 11/17/24 14:28 0.5 MG Lidocaine 1 patch Q24H TOP 11/09/24 18:00 11/16/24 09:09 1 PATCH Docusate Sodium 100 mg BID PO 11/10/24 10:00 11/17/24 09:04 100 MG Polyethylene Glycol 17 gm DAILY PO 11/10/24 10:00 11/17/24 09:04 17 GM Trolamine Salicylate 1 applic BID TOP 11/10/24 10:00 11/15/24 10:59 1 APPLIC Pantoprazole Sodium 40 mg DAILY@0600 PO 11/11/24 06:00 11/17/24 05:58 40 MG Ondansetron HCl 4 mg Q6HPRN PRN IV 11/10/24 13:30 Acetaminophen 500 mg Q8H PO 11/11/24 13:45 11/17/24 13:24 500 MG Lorazepam 0.5 mg Q4HPRN PRN IV 11/13/24 12:30 Tamsulosin HCl 0.4 mg QPM PO 11/14/24 18:00 11/16/24 17:53 0.4 MG Nicotine 1 patch DAILY TD 11/15/24 10:00 11/17/24 09:10 1 PATCH Doxycycline Monohydrate 100 mg Q12HR PO 11/15/24 22:00 11/17/24 09:04 100 MG Carbidopa/Levodopa 1 tab BID PO 11/17/24 22:00 Acetaminophen/ Hydrocodone Bitart 1 tab Q6HP PRN PO 11/17/24 11:15 11/17/24 15:17 1 TAB Examination General Appearance: Cooperative. Well developed. In moderate distress Pulmonary/Respiratory: Chest non-tender. Scattered bilateral wheezes, decreased b/l breath sounds Cardiovascular/Chest: Tachycardia No murmurs. No JVD. Peripheries: Cold to touch Abdominal Exam: Normal bowel sounds. Soft. normal abdomen, no visible veins, Nontender. No hepatospenomegaly. No masses Lower extremities: 1+ lower extremity edema Neuro/Mental Status: A&O x4. Coherent. tremor noted, most pronounced in RUE Thoughts/Psych: Normal thought pattern. Appropriate mood and affect. laboratory and microbiology Laboratory Tests 11/17/24 10:29 Test 11/17/24 10:29 Range/Units Serum Glucose 90 74-106 mg/dL Microbiology Date/Time Source Procedure Growth Status 11/09/24 05:50 Nose MRSA Screen - Final Complete 11/07/24 03:30 Voided Urine Urine Culture - Final Complete 11/06/24 21:55 Blood Blood Culture - Final NO GROWTH AFTER 5 DAYS OF INCUBATION. Complete Labs and/or images reviewed: Labs reviewed by me, Image(s) reviewed by me Problem List/Assessment/Plan Problem List/Assessment/Plan Neurology # newly diagnosed Parkinson's disease - resumed home medication carbidopa levodopa - consulted neurology - nicotine patch Cardiovascular # Septic shock possibly secondary to pneumonia versus complicated UTI # NSTEMI likely type 2 due to above # mild left atrial enlargement # moderate aortic stenosis with mean gradient of 25 mm of Hg # ascending aortic aneurysm measuring 4.2 cm 12 months ago - echocardiogram: lvef 55%. mild LVH. grade 1 diastolic dysfunction. normal rv function. RV not well seen. left atrium enlarged mild. moderate aortic stenosis, mean gradient of 25 mmg . mild pulm htn - CXR: No acute abnormality demonstrated, low lung volumes with crowding of the bronchovascular markings. - Vancomycin, cefepime Respiratory # Acute hypoxic/hypercapnic respiratory failure, on BiPAP # possible acute exacerbation of COPD # community-acquired pneumonia, Gram-positive versus Gram-negative? # pulmonary hypertension, RVSP 65 mmHg # 6.3 mm soft nodule right middle lobe - echocardiogram: lvef 55%. mild LVH. grade 1 diastolic dysfunction. normal rv function. RV not well seen. left atrium enlarged mild. moderate aortic stenosis, mean gradient of 25 mmg . mild pulm htn - IV vancomycin per-pharmacy - IV cefepime - ipratropium and albuterol med nebs - started apixaban 10mg bid - V/Q scan - continue BiPAP at night - requested PT evaluation - outpatient follow up for evaluation and monitoring of right-sided soft nodule in the lung GI # Peptic ulcer prophylaxis -Pantoprazole 40 mg IV daily # Castanon catheter placed on 11/07/2024 # acute complicated UTI # likely benign prostatic hyperplasia - IV vancomycin, IV cefepime -tamsulosin 0.4 mg Nephrology # SHREYA likely hemodynamically mediated/VMN on questionable CKD, baseline unavailable - nephrology on board - strict I&Os - monitor Infectious disease # acute complicated UTI # possible community-acquired pneumonia - IV vancomycin per pharmacy - IV cefepime - IV NS at 75 cc/hour, now dc'ed - norepinephrine at 0.5 mcg, now dc'ed Hem/onc # severe leukocytosis # microcytic anemia, MCV 69.4 # thrombocytopenia, serum platelets 82 - abdominal usg: splenomegaly - ordered serum LDH; 550 - scheduled for bone marrow biopsy tomorrow - monitor DVT prophylaxis - bilateral lower extremity Doppler: No right or left femoropopliteal venous thrombosis - holding due to low platelet count Nutrition Cardiac diet Lines - right 20 gauge placed on 11/11/2024 Social service consulted for half-way facility for physical therapy. Code status discussed greater than 20 minutes: Family at bedside explained about the condition of the patient Plan discussed with Dr. Blum Plan discussed with: Patient, Other (RN) Dietary Evaluation Review Comments: 1) Refer CDE for weight management on DC 2) Monitor PO intake, Lab values, I/O, wt trend Expected Outcomes/Goals: To meet >75% estimated needs Fu 3-5 days Date of Service: Nov 17, 2024 Billing Provider: CARMINE BLUM MD Common Visit Codes: 54275-[id number] INP/OBS CARE(HIGH) Secondary Visit Codes: 31431-[id number] CARE PLAN 30 MINUTES NEERU SCHULZ Nov 17, 2024 16:03 CARMINE BLUM MD Nov 19, 2024 10:58
--- NOTE | 2024-11-17 21:49 | DVHPN2 ---
Progress Note - Dictate Date Seen: Nov 17, 2024 Medical Necessity Reason Pt with a Central, PICC or Fol: No The following are medically ne: Castanon Catheter Subjective Patient was seen and evaluated in follow up. Patient is on 2 LPM NC. Overnight, the patient refused to wear BiPAP. Patient has right hand tremors. WBC 51.2, CO2 37. Telemetry reviewed. vital signs Vital Sign Date Time Temp Pulse Resp B/P (MAP) Pulse Ox O2 Delivery O2 Flow Rate FiO2 11/17/24 13:00 98.1 90 18 107/59 (75) 91 98.1 11/17/24 08:00 Nasal Cannula* 1 24 Total Intake and Output 11/16/24 11/16/24 11/17/24 15:00 23:00 07:00 Intake Total 50 ml 240 ml 120 ml Output Total 150 ml Balance 50 ml 90 ml 120 ml medications Current Medications Medications Dose Ordered Sig/Amol Route Start Time Stop Time Status Last Admin Dose Admin Albuterol 2.5 mg Q4HR NEB 11/07/24 02:00 11/17/24 10:23 2.5 MG Ipratropium [place] 0.5 mg Q4HR NEB 11/07/24 10:00 11/17/24 10:23 0.5 MG Lidocaine 1 patch Q24H TOP 11/09/24 18:00 11/16/24 09:09 1 PATCH Docusate Sodium 100 mg BID PO 11/10/24 10:00 11/17/24 09:04 100 MG Polyethylene Glycol 17 gm DAILY PO 11/10/24 10:00 11/17/24 09:04 17 GM Trolamine Salicylate 1 applic BID TOP 11/10/24 10:00 11/15/24 10:59 1 APPLIC Pantoprazole Sodium 40 mg DAILY@0600 PO 11/11/24 06:00 11/17/24 05:58 40 MG Ondansetron HCl 4 mg Q6HPRN PRN IV 11/10/24 13:30 Acetaminophen 500 mg Q8H PO 11/11/24 13:45 11/17/24 05:57 500 MG Lorazepam 0.5 mg Q4HPRN PRN IV 11/13/24 12:30 Tamsulosin HCl 0.4 mg QPM PO 11/14/24 18:00 11/16/24 17:53 0.4 MG Nicotine 1 patch DAILY TD 11/15/24 10:00 11/17/24 09:10 1 PATCH Doxycycline Monohydrate 100 mg Q12HR PO 11/15/24 22:00 11/17/24 09:04 100 MG Carbidopa/Levodopa 1 tab BID PO 11/17/24 22:00 Acetaminophen/ Hydrocodone Bitart 1 tab Q6HP PRN PO 11/17/24 11:15 objective GENERAL: Alert and oriented x 3. No acute distress. EYES: PERRL, EOMI. Anicteric. HENT: Moist mucous membranes. LUNGS: Clear to auscultation bilaterally. CARDIOVASCULAR: Regular rate and rhythm. ABDOMEN: Soft, non-tender and non-distended. EXTREMITIES: No edema. SKIN: Warm, dry. laboratory and microbiology Laboratory Tests 11/17/24 10:29 Test 11/17/24 10:29 Range/Units Serum Glucose 90 74-106 mg/dL Problem List Septic shock with PNA/UTI. Acute on chronic hypoxic respiratory failure. Acute kidney injury. NSTEMI type 2 secondary to above. Ascending aortic aneurysm at 4.2 cm. Presence of dual-chamber pacemaker ([employer]). Aortic valve stenosis, moderate degree. Parkinson's disease. Thrombocytopenia. FAMILIA on CPAP HS. History of tobacco use. Assessment/Plan Continued all current supportive medical care. Sinemet. GI prophylactics. IV antibiotics as ordered. Nebulized breathing treatments. [place] for pain management. Additional plan as per the hospital course. Dietary Evaluation Review Comments: 1) Refer CDE for weight management on DC 2) Monitor PO intake, Lab values, I/O, wt trend Expected Outcomes/Goals: To meet >75% estimated needs Fu 3-5 days Plan discussed with: Patient NAYELY CHAVEZ MD Nov 17, 2024 13:07
[2024-11-17] MEDS: CARBIDOPA W LEVODOPA 25/100mg TABLET PO SCH (21:59)
[2024-11-18] VITALS (21 sets, daily range): BP systolic 111–126; BP diastolic 62–78; PULSE 61–99; RESP 16–22; TEMP 97.9–100.2; O2SAT 90–100
[2024-11-18] MEDS: LORazepam 2MG/ML-1ML VIAL IV PRN (00:13)
[2024-11-18 06:37] LABS: Hematocrit 38.2 % (41.0-53.0); Hemoglobin 11.4 g/dL (13.5-17.5); Mean Corpuscular Hemoglobin 20.5 pg (28.0-32.0); Mean Corpuscular Volume 68.8 fL (80.0-100.0)
[2024-11-18 06:44] LABS: Potassium 4.7 mmol/L (3.5-5.1); Sodium 141 mmol/L (136-145)
[2024-11-18 06:45] LABS: Anion Gap 4 (5-15); Calcium 9.7 mg/dL (8.7-10.4)
[2024-11-18 06:50] LABS: BUN/Creatinine Ratio 32.0 (10.0-20.0); Glucose 89 mg/dL (74-106)
[2024-11-18 06:52] LABS: Blood Urea Nitrogen 24 mg/dL (9-23); Carbon Dioxide 39 mmol/L (20-31); Chloride 98 mmol/L (98-107)
[2024-11-18 07:02] LABS: Nucleated Red Blood Cells % 1.0 %; Total Cells Counted 100.0 (100)
[2024-11-18 07:03] LABS: Stomatocytes Few
--- NOTE | 2024-11-18 09:41 | DVHPNRES ---
Progress Note Date Seen: Nov 18, 2024 Resident Creating Document: NEERU SCHULZ RESIDENT Medical Necessity Reason Pt with a Central, PICC or Fol: No The following are medically ne: Castanon Catheter Subjective Review of Systems Patient is a 74-year-old male with past medical history of hypertension, symptomatic bradycardia s/p pacemaker 3 years ago, sleep apnea on CPAP, recently diagnosed Parkinson's disease, possible Agent [place] exposure? , ascending aortic aneurysm 4.2 cm, who comes in due to severe generalized weakness. According to the patient and his , patient has been feeling increasingly weak for the past 1 week, 2 days ago he also sustained a fall where he slipped off of his bed and fell on his knees without any head trauma. Per , yesterday patient was complaining of chest pain that started 2 days ago, intermittent and worsened with eating, along with abdominal pain, sweating and generalized weakness, was unable to get up from the chair which is what prompted this visit to the hospital. On review of systems patient is complaining of chest pain that has been ongoing intermittently for the last 1 week, palpitations, urinary frequency and urinary incontinence. Serial troponins were 80, 100, 113, 107 and chest x-ray showed no acute abnormality. Past surgical history: Pacemaker, back surgery? Home medications: Smoking: Quit 40 years ago, prior to that was smoking 1 pack per day for 30 years Alcohol: Past history of heavy use, currently denies Drugs: Denies Lives with Allergies: Denies 11/08/2024: Patient seen and examined at bedside. Patient is alert and oriented to time, place person and responding to all questions. Patient reports improved symptoms from when he 1st came to the hospital. 1+ lower extremity edema, decreased bilateral breath sounds. Complaining of lower back pain, started on [place] 5q 8 hours as needed. Denies any new complaints. Denies any suicidal ideation. 11/09/24: overnight episode of agitation, paco2 noted to be 71, placed on bipap for 4 hours. today saturating 88-93% of 2-4L o2 via NC. improved backache. will follow serum LDH tomorrow. 11/10/2024: Patient notes improvement in symptoms, however, overnight episode of desaturation along with an episode of vomiting with desaturation in the afternoon. LDH was in the 500s, scheduled patient for bone marrow biopsy tomorrow. Transition IV steroids to p.o. prednisolone. 11/12-patient doing well. No significant or severe cramps concerning for worsening of Parkinson's or failure. Continue IV antibiotics. Patient has decreased breath sounds at bases we will start incentive spirometer. No PT onboard. We will get PT and continue q.2 hours turns until patient is able to move himself. Castanon in place good urine output. Patient is able to talk in short sentences due to his parkinsonism.. Platelets stable, WBCs elevated in stable. Primary team planning for possible bone marrow biopsy. I will hold off neurology consult as patient appears to be stable Parkinson's and defer to primary for the neurology consult. No other complaints from patient. Cough is improved. 11/13/2024-overnight patient became aggressive, confused swinging arms at staff. soft mittens were put on. This a.m. patient is A&O times 3-4, delusional as keeps saying that we are there to hurt him, but he is able to articulate reason for being here and understands if he declines therapy his condition could worsen. We will get psych evaluation to determine if patient has decision making capacity. He is declining suicidal ideations but appears very depressive and emotionally abusive comments towards spouse. Which is not his normal. Right now it is hard to assess if he has decision-making capacity as he is not as his normal function mentally. Patient is also too weak to get out of bed. Otherwise we will continue antibiotics for pneumonia in wait for bone marrow biopsy tomorrow. 11/14/24: Patient seen and examined at bedside, notes increasing weakness. Repeatedly had episodes of delirium overnight. Added Flomax 0.4 mg, neurology consulted. Patient completed bone marrow biopsy today, we will follow results. 11/15/2024: Patient seen and examined at bedside, reports improvement in breathing, however, reports increasing weakness and generalized body aches. Currently on 1 L of oxygen, downgraded to telemetry. We will get PT evaluation today. 11/16/2024: Tried weaning oxygen off of patient, however desaturated, continues to use 1 L. Currently on doxycycline and ceftriaxone. 11/17/2024: Patient is seen and examined at bedside, continued back pain. Scheduled to work with physical therapy today. Awaiting biopsy results, preliminarily inconclusive. Later in the day, patient was noted to have difficulty coughing up phlegm and clearing secretions requiring increasing levels of oxygen, patient cleared bedside swallow evaluation, was placed on a pureed diet. Progressing with PT evaluation. Objective vital signs Vital Sign Date Time Temp Pulse Resp B/P (MAP) Pulse Ox O2 Delivery O2 Flow Rate FiO2 11/18/24 08:46 97.9 91 17 111/65 (80) 94 97.9 11/18/24 08:00 Nasal Cannula* 2 28 Total Intake and Output 11/17/24 11/17/24 11/18/24 15:00 23:00 07:00 Intake Total 50 ml 120 ml Output Total 100 ml Balance 50 ml 120 ml -100 ml medications Current Medications Medications Dose Ordered Sig/Amol Route Start Time Stop Time Status Last Admin Dose Admin Albuterol 2.5 mg Q4HR NEB 11/07/24 02:00 11/18/24 06:14 2.5 MG Ipratropium [place] 0.5 mg Q4HR NEB 11/07/24 10:00 11/18/24 06:14 0.5 MG Lidocaine 1 patch Q24H TOP 11/09/24 18:00 11/17/24 17:34 1 PATCH Docusate Sodium 100 mg BID PO 11/10/24 10:00 11/17/24 21:59 100 MG Polyethylene Glycol 17 gm DAILY PO 11/10/24 10:00 11/17/24 09:04 17 GM Trolamine Salicylate 1 applic BID TOP 11/10/24 10:00 11/15/24 10:59 1 APPLIC Pantoprazole Sodium 40 mg DAILY@0600 PO 11/11/24 06:00 11/18/24 06:27 40 MG Ondansetron HCl 4 mg Q6HPRN PRN IV 11/10/24 13:30 Acetaminophen 500 mg Q8H PO 11/11/24 13:45 11/18/24 06:27 500 MG Lorazepam 0.5 mg Q4HPRN PRN IV 11/13/24 12:30 11/18/24 00:13 0.5 MG Tamsulosin HCl 0.4 mg QPM PO 11/14/24 18:00 11/17/24 17:34 0.4 MG Nicotine 1 patch DAILY TD 11/15/24 10:00 11/17/24 09:10 1 PATCH Doxycycline Monohydrate 100 mg Q12HR PO 11/15/24 22:00 7/17/25 21:59 100 MG Carbidopa/Levodopa 1 tab BID PO 11/17/24 22:00 11/17/24 21:59 1 TAB Acetaminophen/ Hydrocodone Bitart 1 tab Q6HP PRN PO 11/17/24 11:15 11/17/24 21:59 1 TAB Examination General Appearance: Cooperative. Well developed. In moderate distress Pulmonary/Respiratory: Chest non-tender. Scattered bilateral wheezes, decreased b/l breath sounds Cardiovascular/Chest: Tachycardia No murmurs. No JVD. Peripheries: Cold to touch Abdominal Exam: Normal bowel sounds. Soft. normal abdomen, no visible veins, Nontender. No hepatospenomegaly. No masses Lower extremities: 1+ lower extremity edema Neuro/Mental Status: A&O x4. Coherent. tremor noted, most pronounced in RUE Thoughts/Psych: Normal thought pattern. Appropriate mood and affect. laboratory and microbiology Laboratory Tests 11/18/24 05:54 Test 11/18/24 05:54 Range/Units Serum Glucose 89 74-106 mg/dL Microbiology Date/Time Source Procedure Growth Status 11/09/24 05:50 Nose MRSA Screen - Final Complete 11/07/24 03:30 Voided Urine Urine Culture - Final Complete 11/06/24 21:55 Blood Blood Culture - Final NO GROWTH AFTER 5 DAYS OF INCUBATION. Complete Labs and/or images reviewed: Labs reviewed by me, Image(s) reviewed by me Problem List/Assessment/Plan Problem List/Assessment/Plan Neurology # newly diagnosed Parkinson's disease - resumed home medication carbidopa levodopa - consulted neurology - nicotine patch Cardiovascular # Septic shock possibly secondary to pneumonia versus complicated UTI # NSTEMI likely type 2 due to above # mild left atrial enlargement # moderate aortic stenosis with mean gradient of 25 mm of Hg # ascending aortic aneurysm measuring 4.2 cm 12 months ago - echocardiogram: lvef 55%. mild LVH. grade 1 diastolic dysfunction. normal rv function. RV not well seen. left atrium enlarged mild. moderate aortic stenosis, mean gradient of 25 mmg . mild pulm htn - CXR: No acute abnormality demonstrated, low lung volumes with crowding of the bronchovascular markings. - Vancomycin, cefepime Respiratory # Acute hypoxic/hypercapnic respiratory failure, on BiPAP # possible acute exacerbation of COPD # community-acquired pneumonia, Gram-positive versus Gram-negative? # pulmonary hypertension, RVSP 65 mmHg # 6.3 mm soft nodule right middle lobe - echocardiogram: lvef 55%. mild LVH. grade 1 diastolic dysfunction. normal rv function. RV not well seen. left atrium enlarged mild. moderate aortic stenosis, mean gradient of 25 mmg . mild pulm htn - IV vancomycin per-pharmacy - IV cefepime - ipratropium and albuterol med nebs - V/Q scan - continue BiPAP at night - requested PT evaluation - outpatient follow up for evaluation and monitoring of right-sided soft nodule in the lung - incentive spirometry GI # Peptic ulcer prophylaxis -Pantoprazole 40 mg IV daily # Castanon catheter placed on 11/07/2024 # acute complicated UTI # likely benign prostatic hyperplasia - IV vancomycin, IV cefepime -tamsulosin 0.4 mg Nephrology # SHREYA likely hemodynamically mediated/VMN on questionable CKD, baseline unavailable - nephrology on board - strict I&Os - monitor Infectious disease # acute complicated UTI # possible community-acquired pneumonia - IV vancomycin per pharmacy - IV cefepime - IV NS at 75 cc/hour, now dc'ed - norepinephrine at 0.5 mcg, now dc'ed Hem/onc # severe leukocytosis # microcytic anemia, MCV 69.4 # thrombocytopenia, serum platelets 82 - abdominal usg: splenomegaly - ordered serum LDH; 550 - scheduled for bone marrow biopsy tomorrow - monitor DVT prophylaxis - bilateral lower extremity Doppler: No right or left femoropopliteal venous thrombosis - holding due to low platelet count Nutrition Cardiac diet Lines - right 20 gauge placed on 11/11/2024 Social service consulted for senior care facility for physical therapy. Code status discussed greater than 20 minutes: Family at bedside explained about the condition of the patient Plan discussed with Dr. Lopez; we decided to include incentive spirometry. Also instructed patient to repeat CT scan in 3-6 months. Plan discussed with: Patient, Spouse, Other (RN) My Orders My Orders Orders - NEERU SCHULZ RESIDENT Procedure Category Date Status Time Oxygen By Nasal RT 11/17/24 Transmitted Cannula 18:17 Communication Order ORDERS 11/17/24 Transmitted 18:17 Dietary Evaluation Review Comments: 1) Refer CDE for weight management on DC 2) Monitor PO intake, Lab values, I/O, wt trend Expected Outcomes/Goals: To meet >75% estimated needs Fu 3-5 days NEERU SCHULZ RESIDENT Nov 18, 2024 09:41
--- NOTE | 2024-11-18 13:57 | DVH ---
CHEST RADIOGRAPH Indication: crackles Technique: Single frontal view of the chest was obtained COMPARISON: XY CHEST PORTABLE on DOS: 11/15/24, XY CHEST PORTABLE on DOS: 11/12/24, XY CHEST PORTABLE o n DOS: 11/11/24, XY CHEST PORTABLE on DOS: 11/10/24, XY CHEST XRAY 1 VIEW on DOS: 11/06/24 FINDINGS: Lines and Tubes: Left chest pacemaker Lungs: Low lung volumes. Mild increased interstitial prominence. Pleura: No effusion. No pneumothorax. Cardiomediastinal contours: Unremarkable Bones: Thoracolumbar spinal fixation hardware. IMPRESSION: Lower lung volumes and mild pulmonary vascular congestion.
--- NOTE | 2024-11-18 21:49 | DVHPN2 ---
Progress Note - Dictate Date Seen: Nov 18, 2024 Medical Necessity Reason Pt with a Central, PICC or Fol: No The following are medically ne: Castanon Catheter Subjective Mr. Avina is a 74 years old right-handed gentleman with a history of hypertension, bradycardia status post pacemaker insertion, chronic lung disease, he came to the hospital on 11/06/2024 with a chief complaint of chest pain, general weakness, and dizziness. I have seen and examined the patient, talked to his nurse. He is not doing what today, he has some respiratory difficulty, pulse ox is low and he is on oxygen He is awake, oriented x3, voices awake, I see more resting tremors in the right- handed Blood culture, 11/06/2024: Negative UDS, 11/07/2024: Negative Plasma alcohol, 11/06/2024: <3 Urinalysis, 11/07/2024: WBC: Five, urine leukocyte esterase: 1+ ABG, 11/08/2024: Respiratory acidosis, hypoxia 11/11/2024: Respiratory acidosis, hypoxia 11/13/24: Respiratory acidosis, hypoxia /INR/PTT, 11/14/2024: 12.4/1.19/25.6 WBC/HB/PLT/MCV, 11/14/2024: 61/10.9/98/67.5 BUN/CR, 11/06/2024: 40/2.02 Lactic acid, 11/06/2024: 3.6 HGB A1c, 11/06/24: 5.2 TBI/AST/ALT/AP, 11/06/2024: 0.8/39/26/77 TG/HDL/LDL/HDL, 11/06/2024: 81/108/64/35 Vitamin B12, 11/06/2024: 1960 TSH, 11/06/2024: 1.77 vital signs Vital Sign Date Time Temp Pulse Resp B/P (MAP) Pulse Ox O2 Delivery O2 Flow Rate FiO2 11/18/24 18:26 69 18 94 11/18/24 18:16 Mask 10.0 11/18/24 18:16 99 11/18/24 16:49 98.6 119/62 (81) 98.6 Total Intake and Output 11/17/24 11/17/24 11/18/24 15:00 23:00 07:00 Intake Total 50 ml 120 ml Output Total 100 ml Balance 50 ml 120 ml -100 ml medications Current Medications Medications Dose Ordered Sig/Amol Route Start Time Stop Time Status Last Admin Dose Admin Albuterol 2.5 mg Q4HR [facility] 11/07/24 02:00 11/18/24 18:16 2.5 MG Ipratropium [place] 0.5 mg Q4HR [facility] 11/07/24 10:00 11/18/24 18:16 0.5 MG Lidocaine 1 patch Q24H TOP 11/09/24 18:00 11/18/24 17:47 1 PATCH Docusate Sodium 100 mg BID PO 11/10/24 10:00 11/18/24 21:28 100 MG Polyethylene Glycol 17 gm DAILY PO 11/10/24 10:00 11/17/24 09:04 17 GM Trolamine Salicylate 1 applic BID TOP 11/10/24 10:00 11/15/24 10:59 1 APPLIC Pantoprazole Sodium 40 mg DAILY@0600 PO 11/11/24 06:00 11/18/24 06:27 40 MG Ondansetron HCl 4 mg Q6HPRN PRN IV 11/10/24 13:30 Acetaminophen 500 mg Q8H PO 11/11/24 13:45 11/18/24 21:29 500 MG Lorazepam 0.5 mg Q4HPRN PRN IV 11/13/24 12:30 11/18/24 00:13 0.5 MG Tamsulosin HCl 0.4 mg QPM PO 11/14/24 18:00 11/17/24 17:34 0.4 MG Nicotine 1 patch DAILY TD 11/15/24 10:00 11/18/24 09:49 1 PATCH Doxycycline Monohydrate 100 mg Q12HR PO 11/15/24 22:00 11/18/24 21:28 100 MG Carbidopa/Levodopa 1 tab BID PO 11/17/24 22:00 11/18/24 21:29 1 TAB Acetaminophen/ Hydrocodone Bitart 1 tab Q6HP PRN PO 11/17/24 11:15 11/17/24 21:59 1 TAB objective General: the patient is well developed and nourished. No acute distress. MENTAL STATUS: SUBJECTIVE SPEECH, LANGUAGE, HIGHER CORTICAL FUNCTION: no aphasia or dysathria. CRANIAL NERVES: Pupils are equal, round and reactive. EOMs full and conjugate. No nystagmus. Facial sensation intact in all three divisions bilaterally. Mandibular strength intact. Facial muscles symmetrical and strength intact. SENSATION: Sensation to touch and pinprick is normal. MOTOR: Normal tone in the upper and lower extremity. Normal muscle bulk. No fasciculations. Mild tremor in both upper extremities, worse on the right side. Muscle strength of the major groups in the extremities is 5/5. REFLEXES: Deep tendon reflexes normal and symmetrical. No pathological reflexes. CEREBELLAR/COORDINATION: Finger to nose is normal bilaterally. GAIT/STATION: deferred laboratory and microbiology Laboratory Tests 11/18/24 05:54 Test 11/18/24 05:54 Range/Units Serum Glucose 89 74-106 mg/dL Problem List Tremors ? Parkinson's disease ? Essential tremors Gait disturbance, multifactorial ? 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 Tylenol 500 mg t.i.d. Lidocaine patch [place] 10/325 q.6 hours, escalate as indicated BiPAP Oxygen Consider physical therapy later More recommendation per clinical course This medical document was created using an electronic medical record system with [employer] dictation system. Although this document has been carefully reviewed, there may still be some phonetic and typographical errors. These areas are purely typographical due to imperfections of the software programs, and do not reflect any compromise in the patient's medical care. Prognosis poor Dietary Evaluation Review Comments: 1) Refer CDE for weight management on DC 2) Monitor PO intake, Lab values, I/O, wt trend Expected Outcomes/Goals: To meet >75% estimated needs Fu 3-5 days Plan discussed with: Other BRITNEY HORTA MD Nov 18, 2024 21:49
--- NOTE | 2024-11-18 23:28 | DVHPN2 ---
Progress Note - Dictate Date Seen: Nov 18, 2024 Medical Necessity Reason Pt with a Central, PICC or Fol: No The following are medically ne: Castanon Catheter Subjective Patient was seen and evaluated in follow up. Patient is on 3 LPM NC. Patient complains of back pain. Patient working with PT. WBC 56.4, CO2 39, BUN 24. Telemetry reviewed. vital signs Vital Sign Date Time Temp Pulse Resp B/P (MAP) Pulse Ox O2 Delivery O2 Flow Rate FiO2 11/18/24 10:34 85 17 99 11/18/24 10:28 Nasal Cannula* 3 32 11/18/24 08:46 97.9 111/65 (80) 97.9 Total Intake and Output 11/17/24 11/17/24 11/18/24 15:00 23:00 07:00 Intake Total 50 ml 120 ml Output Total 100 ml Balance 50 ml 120 ml -100 ml medications Current Medications Medications Dose Ordered Sig/Amol Route Start Time Stop Time Status Last Admin Dose Admin Albuterol 2.5 mg Q4HR NEB 11/07/24 02:00 11/18/24 10:28 2.5 MG Ipratropium [place] 0.5 mg Q4HR NEB 11/07/24 10:00 11/18/24 10:28 0.5 MG Lidocaine 1 patch Q24H TOP 11/09/24 18:00 11/17/24 17:34 1 PATCH Docusate Sodium 100 mg BID PO 11/10/24 10:00 11/18/24 09:48 100 MG Polyethylene Glycol 17 gm DAILY PO 11/10/24 10:00 11/17/24 09:04 17 GM Trolamine Salicylate 1 applic BID TOP 11/10/24 10:00 11/15/24 10:59 1 APPLIC Pantoprazole Sodium 40 mg DAILY@0600 PO 11/11/24 06:00 11/18/24 06:27 40 MG Ondansetron HCl 4 mg Q6HPRN PRN IV 11/10/24 13:30 Acetaminophen 500 mg Q8H PO 11/11/24 13:45 11/18/24 12:38 500 MG Lorazepam 0.5 mg Q4HPRN PRN IV 11/13/24 12:30 11/18/24 00:13 0.5 MG Tamsulosin HCl 0.4 mg QPM PO 11/14/24 18:00 11/17/24 17:34 0.4 MG Nicotine 1 patch DAILY TD 11/15/24 10:00 11/18/24 09:49 1 PATCH Doxycycline Monohydrate 100 mg Q12HR PO 11/15/24 22:00 11/18/24 09:48 100 MG Carbidopa/Levodopa 1 tab BID PO 11/17/24 22:00 11/18/24 09:48 1 TAB Acetaminophen/ Hydrocodone Bitart 1 tab Q6HP PRN PO 11/17/24 11:15 11/17/24 21:59 1 TAB objective GENERAL: Alert and oriented x 3. No acute distress. EYES: PERRL, EOMI. Anicteric. HENT: Moist mucous membranes. LUNGS: Clear to auscultation bilaterally. CARDIOVASCULAR: Regular rate and rhythm. ABDOMEN: Soft, non-tender and non-distended. EXTREMITIES: No edema. SKIN: Warm, dry. laboratory and microbiology Laboratory Tests 11/18/24 05:54 Test 11/18/24 05:54 Range/Units Serum Glucose 89 74-106 mg/dL Problem List Septic shock with PNA/UTI. Acute on chronic hypoxic respiratory failure. Acute kidney injury. NSTEMI type 2 secondary to above. Ascending aortic aneurysm at 4.2 cm. Presence of dual-chamber pacemaker ([employer]). Aortic valve stenosis, moderate degree. Parkinson's disease. Thrombocytopenia. FAMILIA on CPAP HS. History of tobacco use. Assessment/Plan Continued all current supportive medical care. Sinemet. GI prophylactics. Oral antibiotics as ordered. Nebulized breathing treatments. Tylenol for pain management. Additional plan as per the hospital course. Dietary Evaluation Review Comments: 1) Refer CDE for weight management on DC 2) Monitor PO intake, Lab values, I/O, wt trend Expected Outcomes/Goals: To meet >75% estimated needs Fu 3-5 days Plan discussed with: Patient NAYELY CHAVEZ MD Nov 18, 2024 12:44
[2024-11-19] VITALS (81 sets, daily range): BP systolic 77–225; BP diastolic 11–204; PULSE 60–114; RESP 16–22; TEMP 98.7–102.6; O2SAT 89–100
[2024-11-19] MEDS ORDERED: ACETYLCYSTEINE 20%(200MG/ML) SOL 4ML NEB SCH
[2024-11-19] MEDS: ACETYLCYSTEINE 20%(200MG/ML) SOL 4ML NEB SCH (02:00)
[2024-11-19] MEDS: CARBIDOPA W LEVODOPA 25/100mg TABLET PO SCH (06:00)
[2024-11-19 06:24] LABS: Hematocrit 36.6 % (41.0-53.0)
[2024-11-19 06:30] LABS: Hemoglobin 11.3 g/dL (13.5-17.5); Mean Corpuscular Hemoglobin 21.4 pg (28.0-32.0); Mean Corpuscular Volume 69.4 fL (80.0-100.0)
[2024-11-19] MEDS: ETOMIDATE (2MG/ML) 20ML VIAL IV ONE ×2 (06:31→06:54)
[2024-11-19] MEDS: ROCURONIUM 10MG/ML 10ML VIAL IV ONE ×2 (06:31→06:54)
[2024-11-19 06:33] LABS: Chloride 99 mmol/L (98-107); Potassium 5.1 mmol/L (3.5-5.1); Sodium 141 mmol/L (136-145)
[2024-11-19 06:34] LABS: Anion Gap 3 (5-15); Calcium 8.8 mg/dL (8.7-10.4); Carbon Dioxide 39 mmol/L (20-31)
[2024-11-19 06:39] LABS: Glucose 101 mg/dL (74-106)
[2024-11-19 06:40] LABS: BUN/Creatinine Ratio 37.2 (10.0-20.0)
[2024-11-19] MEDS: NOREPINEPHRINE 8 MG/250ML KIT 250 ML IV ONE (06:43)
[2024-11-19] MEDS: MIDAZOLAM DRIP 50 mg/50mL 50 ML IV ONE (06:43)
[2024-11-19] MEDS: fentaNYL Drip 2500mCg/250mlNS 250 ML IV ONE (06:43)
[2024-11-19 06:53] LABS: Blood Urea Nitrogen 29 mg/dL (9-23)
[2024-11-19] MEDS: fentaNYL Drip 2500mCg/250mlNS 250 ML IV SCH (06:56)
--- NOTE | 2024-11-19 07:35 | DVH ---
CHEST RADIOGRAPH Indication: S/P intubation Technique: Single frontal view of the chest was obtained Comparison: XY CHEST PORTABLE on DOS: 11/18/24 FINDINGS: Lines and Tubes: Endotracheal tube terminates 3.4 cm above. Lungs: Bilateral interstitial airspace. Pleura: No effusion. No pneumothorax. Cardiomediastinal contours: Stable. AICD/pacemaker. Bones: No acute osseous abnormality. Fusion hardware in the thoracic spine. IMPRESSION: 1. Endotracheal tube terminates 4 cm above the orestes. 2. Pulmonary edema.
[2024-11-19 07:36] LABS: Magnesium 1.8 mg/dL (1.6-2.6)
--- NOTE | 2024-11-19 07:49 | DVHNC2 ---
Intubation Indication: Respiratory Insufficiency Prep: Preoxygenation Pretreated with: Analgesia, Sedation Medicated with: Other (etomodate and rocuronium) Intubation Approach: Orotracheal Intubation size: cm (8) Informed consent obtained: Yes Risks/benefits/alt described: Yes Notes Patient was found to be in respiratory distress, with bilateral lung crackles, seemed to be patient is aspirating given underlying neuromuscular disorder. ABG was done patient on retaining CO2 around 78, not opening eyes, was called however did not machine pecan picker the call, we went ahead with intubation for protection of airway and with acute hypercapnic respiratory failure. A time out was performed. My hands were washed immediately prior to the procedure. I wore a surgical cap, mask with protective eyewear, gown and gloves throughout the procedure. The patient was placed on a potline monitor including continuous pulse oximetry. Rapid Sequence Intubation was conducted. The patient received 20mg of etomidate for induction and 50 mg of rocuronium for adequate paralysis. Cricoid pressure was maintained from time induction agent was given to time of cuff balloon inflation. Using a GlideScope _ laryngoscope and a size _ eight endotracheal tube with stylet, the patient was intubated on the _ 1st attempt. The stylet was removed and cuff balloon was inflated. Appropriate endotracheal tube position was confirmed by direct visualization of vocal cord passage, fogging of the tube, CO2 colormetric indicator and symmetric breath sounds. The tube was secured at _ 24 cm at the lips. Post intubation chest x- ray reviewed, with physical examination bilateral entry of air present. Date of Service: Nov 19, 2024 Billing Provider: MARJORIE COYNE MD Common Visit Codes: PROCEDURE ONLY Procedure Codes: 75128-[id number] KAREN SUAREZ Nov 19, 2024 07:49
[2024-11-19] MEDS: MIDAZOLAM DRIP 50 mg/50mL 50 ML IV SCH (08:05)
[2024-11-19 08:28] LABS: Total Cells Counted 100.0 (100)
[2024-11-19 08:29] LABS: Stomatocytes Few
[2024-11-19 08:54] LABS: Base Excess 3.3 mmol/L (-2.0-3.0)
[2024-11-19 09:16] LABS: Urine Protein, UAD 1+ (Negative)
[2024-11-19 09:39] LABS: Base Excess 9.2 mmol/L (-2.0-3.0)
[2024-11-19] MEDS ORDERED: VANCOMYCIN PER PHARMACY 0 MG IV SCH (10:00)
[2024-11-19] MEDS: VANCOMYCIN 1GM/200ML PM 200 ML IV ONE ×2 (10:39→11:03)
[2024-11-19] MEDS: ACETAMINOPHEN 650 MG RECT SUPP PR PRN (10:40)
--- NOTE | 2024-11-19 10:45 | DVH ---
CHEST RADIOGRAPH Indication: S/P CENTRAL LINE PLACEMENT Technique: Single frontal view of the chest was obtained Comparison: XY CHEST PORTABLE on DOS: 11/19/24 FINDINGS: Lines and Tubes: The patient is rotated to the left which limits evaluation. There appears to be a ri ght neck catheter but the tip is obscured. Pacemaker noted with right atrial and ventricular leads. Lungs: Left basilar airspace disease. Pleura: Possible left pleural effusion. No pneumothorax. Cardiomediastinal contours: Cardiomegaly. Bones: No acute osseous abnormality. IMPRESSION: 1. Limited study. Appears to be right neck catheter however the tip is obscured in part due to patie nt rotation. 2. Left basilar airspace disease. 3. Possible left pleural effusion.
[2024-11-19] MEDS: NOREPINEPHRINE 8 MG/250ML KIT 250 ML IV SCH (12:00)
--- NOTE | 2024-11-19 12:05 | DVH ---
XY CHEST PORTABLE, HISTORY: CONFIRM CENTRAL LINE PLACEMENT COMPARISON: XY CHEST PORTABLE on DOS: 11/19/24, XY CHEST PORTABLE on DOS: 11/19/24, XY CHEST PORTABLE o n DOS: 11/18/24 XY CHEST PORTABLE on DOS: 11/19/24, XY CHEST PORTABLE on DOS: 11/19/24, XY CHEST PORTABLE on DOS: TECHNICAL DATA: 1 view of the chest was obtained. FINDINGS: Lines and tubes: Similar to prior. Cardiomediastinal silhouette: Enlarged. Pulmonary vasculature: normal Lung expansion: Low Lung airspace: Left basilar airspace opacity. Lung interstitium: normal Pleura: normal Pneumothorax: no Bones: Unremarkable Other: no IMPRESSION: Stable lines and tubes. Right CVC in the RA. Similar lung aeration. Cardiomegaly.
--- NOTE | 2024-11-19 14:26 | DVHNC2 ---
Procedure - Procedure- Right IJ central line placement ultrasound guided Indication- Intravenous access Procedure in detail Consent was obtained and timeout performed per protocol. The patient was placed in the supine position and the right IJ vein was localized using ultrasound SonoSite. ChloraPrep was used to clean the operative field, sterile drapes used to cover the area and local analgesia Lidocaine 1% 3 cc. Triple-lumen catheter was inserted over the wire with direct ultrasound guidance in the right IJ vein. The wire was removed, catheter flushed with normal saline and secured with 2 sutures. Sterile dressing applied. No complications. ARTHUR DARLING MD Nov 19, 2024 14:26
--- NOTE | 2024-11-19 14:26 | DVHPN2 ---
Progress Note - Dictate Date Seen: Nov 19, 2024 Medical Necessity Reason Pt with a Central, PICC or Fol: No The following are medically ne: Castanon Catheter vital signs Vital Sign Date Time Temp Pulse Resp B/P (MAP) Pulse Ox O2 Delivery O2 Flow Rate FiO2 11/19/24 12:01 75/40 11/19/24 12:00 67 11/19/24 11:54 101.5 11/19/24 11:52 18 91 35 11/19/24 08:00 Mechanical Ventilator 11/19/24 05:48 10.0 Total Intake and Output 11/18/24 11/18/24 11/19/24 15:00 23:00 07:00 Intake Total 400 ml 515 ml Balance 400 ml 515 ml medications Current Medications Medications Dose Ordered Sig/Amol Route Start Time Stop Time Status Last Admin Dose Admin Albuterol 2.5 mg Q4HR NEB 11/07/24 02:00 11/19/24 09:24 2.5 MG Ipratropium [place] 0.5 mg Q4HR NEB 11/07/24 10:00 11/19/24 09:24 0.5 MG Lidocaine 1 patch Q24H TOP 11/09/24 18:00 11/18/24 17:47 1 PATCH Docusate Sodium 100 mg BID PO 11/10/24 10:00 11/18/24 21:28 100 MG Polyethylene Glycol 17 gm DAILY PO 11/10/24 10:00 11/19/24 10:37 17 GM Trolamine Salicylate 1 applic BID TOP 11/10/24 10:00 11/19/24 11:04 1 APPLIC Pantoprazole Sodium 40 mg DAILY@0600 PO 11/11/24 06:00 11/18/24 06:27 40 MG Ondansetron HCl 4 mg Q6HPRN PRN IV 11/10/24 13:30 Lorazepam 0.5 mg Q4HPRN PRN IV 11/13/24 12:30 11/18/24 00:13 0.5 MG Tamsulosin HCl 0.4 mg QPM PO 11/14/24 18:00 11/17/24 17:34 0.4 MG Nicotine 1 patch DAILY TD 11/15/24 10:00 11/19/24 10:38 1 PATCH Doxycycline Monohydrate 100 mg Q12HR PO 11/15/24 22:00 11/19/24 10:37 100 MG Acetaminophen/ Hydrocodone Bitart 1 tab Q6HP PRN PO 11/17/24 11:15 11/17/24 21:59 1 TAB Carbidopa/Levodopa 1 tab QID PO 11/19/24 06:00 Acetylcysteine 200 mg Q4HR NEB 11/18/24 23:00 11/19/24 09:24 200 MG Midazolam HCl 50 ml @ 1 mls/hr Q24H IV 11/19/24 07:45 11/19/24 11:53 5 MLS/HR Fentanyl Citrate 250 ml @ 2.5 mls/hr Q24H IV 11/19/24 07:45 11/19/24 06:56 10 MLS/HR Norepinephrine Bitartrate 250 ml @ 3.75 mls/hr Q24H IV 11/19/24 07:45 Acetaminophen 650 mg Q6HP PRN [place] 11/19/24 07:45 11/19/24 10:40 650 MG Vancomycin HCl 0 ml @ 0 mls/hr UD IV 11/19/24 10:00 Vancomycin HCl 150 ml @ 150 mls/hr Q12H IV 11/19/24 23:00 Acetaminophen 1,000 mg Q8H PRN IV 11/19/24 12:30 laboratory and microbiology Laboratory Tests 11/19/24 06:09 Test 11/19/24 06:09 Range/Units Serum Glucose 101 74-106 mg/dL Assessment/Plan *Food Service Representative rounds* Asked to see patient for central line placement Impression Acute hypoxemic respiratory failure Acute COPD exacerbation Cardiomyopathy Leukocytosis Pacemaker Patient seen and examined in INOCENCIO Events Patient found to be unresponsive on the medical floor ABG was obtained, findings demonstrate with CO2 retention He was subsequently intubated and placed on mechanical ventilation Initial settings RR 18, tidal volume 500, PEEP 5, FiO2 30% Minimal secretions reported Right IJ central line was placed for intravenous access See separate note for procedure in detail White count elevated, concern raised for leukemia S/p bone marrow biopsy Pathology pending Labs and imaging reviewed Chest x-ray post intubation shows pulmonary edema Management Vent support Titrate to maintain sats 90% or above Sedation for vent synchrony Continue antibiotics F/u cultures Bronchodilators Monitor renal function Monitor electrolytes Supplement as needed Pressors as needed for hemodynamic support To maintain a mean arterial pressure of 65 mmHg Will consider bronchoscopy DVT prophylaxis Critical care time 35 minutes Dietary Evaluation Review Comments: 1) Refer CDE for weight management on DC 2) Monitor PO intake, Lab values, I/O, wt trend Expected Outcomes/Goals: To meet >75% estimated needs Fu 3-5 days Plan discussed with: Other (Rn) ARTHUR DARLING MD Nov 19, 2024 14:26
--- NOTE | 2024-11-19 15:40 | DVHPN2 ---
Subjective He got intubated this morning Reviewed: H&P Changes from previous H/P or p: No Changes General: Per HPI Eyes: No Pain, No Vision change, No Conjunctivae inflammation, No Eyelid inflammation, No Other, No Redness ENT: No Ear pain, No Ear discharge, No Nose pain, No Nose discharge, No Nose congestion, No Mouth pain, No Mouth swelling, No Throat pain, No Throat swelling, No Other Cardiovascular: Chest Pain, Edema (1+ edema bilateral leg) Respiratory: No Cough, No Dry; Shortness of breath, SOB with excertion; No Wheezing, No Hemoptysis, No Pleuritic Pain, No Sputum, No Other Gastrointestinal: No Nausea, No Vomiting, No Abdominal Pain, No Diarrhea, No Constipation, No Melena, No Hematochezia, No Other Genitourinary: No Dysuria, No Frequency, No Incontinence, No Hematuria, No Retention, No Other Musculoskeletal: No other, No neck pain, No shoulder pain, No arm pain, No back pain, No hand pain, No leg pain, No foot pain Skin: No Rash, No Lesions, No Jaundice, No Bruising, No Other Objective Vitals Vital Signs Date Time Temp Pulse Resp B/P (MAP) Pulse Ox O2 Delivery O2 Flow Rate FiO2 11/19/24 14:48 80 18 90/43 (59) 94 35 11/19/24 11:54 101.5 11/19/24 08:00 Mechanical Ventilator 11/19/24 05:48 10.0 Intake/Output Intake and Output 11/19/24 07:00 Intake Total 915 ml Balance 915 ml Intake Oral 900 ml IV Total 15 ml # Voids 13 General Appearance: Other (intubated and sedated) HEENT: Atraumatic Lungs: Clear to auscultation Cardiovascular: Regular rate, Normal S1, Normal S2 Abdomen: Normal bowel sounds Medications Current Medications Medications Dose Ordered Sig/Amol Route Start Time Stop Time Status Last Admin Dose Admin Albuterol 2.5 mg Q4HR [facility] 11/07/24 02:00 11/19/24 14:48 2.5 MG Ipratropium [place] 0.5 mg Q4HR [facility] 11/07/24 10:00 11/19/24 14:48 0.5 MG Lidocaine 1 patch Q24H [facility] 11/09/24 18:00 11/18/24 17:47 1 PATCH Docusate Sodium 100 mg BID PO 11/10/24 10:00 11/18/24 21:28 100 MG Polyethylene Glycol 17 gm DAILY PO 11/10/24 10:00 11/19/24 10:37 17 GM Trolamine Salicylate 1 applic BID TOP 11/10/24 10:00 11/19/24 11:04 1 APPLIC Pantoprazole Sodium 40 mg DAILY@0600 PO 11/11/24 06:00 11/18/24 06:27 40 MG Ondansetron HCl 4 mg Q6HPRN PRN IV 11/10/24 13:30 Lorazepam 0.5 mg Q4HPRN PRN IV 11/13/24 12:30 11/18/24 00:13 0.5 MG Tamsulosin HCl 0.4 mg QPM PO 11/14/24 18:00 11/17/24 17:34 0.4 MG Nicotine 1 patch DAILY TD 11/15/24 10:00 11/19/24 10:38 1 PATCH Doxycycline Monohydrate 100 mg Q12HR PO 11/15/24 22:00 11/19/24 10:37 100 MG Acetaminophen/ Hydrocodone Bitart 1 tab Q6HP PRN PO 11/17/24 11:15 11/17/24 21:59 1 TAB Carbidopa/Levodopa 1 tab QID PO 11/19/24 06:00 11/19/24 15:26 1 TAB Acetylcysteine 200 mg Q4HR NEB 11/18/24 23:00 11/19/24 14:48 200 MG Midazolam HCl 50 ml @ 1 mls/hr Q24H IV 11/19/24 07:45 11/19/24 11:53 5 MLS/HR Fentanyl Citrate 250 ml @ 2.5 mls/hr Q24H IV 11/19/24 07:45 11/19/24 06:56 10 MLS/HR Norepinephrine Bitartrate 250 ml @ 3.75 mls/hr Q24H IV 11/19/24 07:45 Acetaminophen 650 mg Q6HP PRN [place] 11/19/24 07:45 11/19/24 10:40 650 MG Vancomycin HCl 0 ml @ 0 mls/hr UD IV 11/19/24 10:00 Vancomycin HCl 150 ml @ 150 mls/hr Q12H IV 11/19/24 23:00 Acetaminophen 1,000 mg Q8H PRN IV 11/19/24 12:30 Laboratory Results Laboratory Tests 11/19/24 06:09 Chemistry Test 11/19/24 06:09 11/19/24 06:41 Calcium Level 8.8 mg/dL (8.7-10.4) Magnesium Level 1.8 mg/dL (1.6-2.6) Phosphorus Level 3.9 mg/dL (2.4-5.1) Urinalysis Test 11/07/24 03:30 11/19/24 08:32 Urine Hyaline Casts Mod /lpf (0 - 2) Urine Creatinine 391.78 mg/dL (30.0-125.0) H Urine Protein/Creatinine Ratio 0.17 Urine Sodium 20 mmol/L (40-220) L Urine Total Protein 67.4 mg/dL (1-14) H Urine Color Yellow (Yellow) Urine Clarity Turbid (Clear) H Urine pH 5.5 (5.0-9.0) Urine Specific [place] 1.022 (1.001-1.035) Urine Protein 1+ (Negative) H Urine Ketones Negative (Negative) Urine Blood 2+ /uL (Negative) H Urine Nitrite Negative (Negative) Urine Bilirubin Negative (Negative) Urine Urobilinogen Normal mg/dL (Negative) Urine Leukocyte Esterase Negative /uL (Negative) Urine RBC 5 /hpf (0 - 3) Urine Microscopic WBC 5 /HPF (0-3) H Urine Squamous Epithelial Cells Few /hpf (<5) Urine Bacteria Few /hpf (None Seen) H Urine Mucus Few (None Seen) Urine Glucose Normal mg/dL (Normal) Blood Gas Results Test 11/19/24 06:42 11/19/24 09:23 Arterial Blood pH 7.241 (7.350-7.450) 7.458 (7.350-7.450) FiO2 % 55.0 100.0 Microbiology Microbiology Date/Time Source Procedure Growth Status 11/09/24 05:50 Nose MRSA Screen - Final Complete 11/07/24 03:30 Voided Urine Urine Culture - Final Complete 11/06/24 21:55 Blood Blood Culture - Final NO GROWTH AFTER 5 DAYS OF INCUBATION. Complete Assessment/Plan Assessment/Plan Neurology # acute toxic vs metabolic encephalopathy # possible alcohol withdrawal # hx of withdrawal seizures? # Sedated - head CT: No acute intracranial abnormality - IV banana bag once - Versed 10 mcg per hour Cardiovascular # septic shock due to pneumonia # atrial flutter with hemodynamic instability, s/p cardioversion x2 # NSTEMI 1 vs 2 # End- stage dilated cardiomyopathy # Heart failure with reduced ejection fraction <20% # Prolonged QTC - amiodarone drip - cardiology on board - norepinephrine at 10 micrograms/hour - amiodarone drip at 0.5mg/min - phenylephrine at 15mcg/min - IV digoxin 500mcg x 2 - serum digoxin level 3.69 5 hours after 2nd dose in 24 hours after 1st dose - repeat serum digoxin level Respiratory # Acute hypoxic respiratory failure # community-acquired pneumonia, Gram-positive versus Gram-negative # Ventilator # ruled out pulmonary embolism -intubated (11/14/24) -on [facility] vent : VCAC Mode RR 20 TV 550ml, PEEP Of 8 and FiO2 of 100% - CXR: Moderate interstitial pulmonary edema in the setting of cardiomegaly. Probable trace bilateral effusions. - CT angio: No evidence of pulmonary embolism. Pulmonary edema. Large bilateral pleural effusions. Associated consolidation of the majority of bilateral lower lobes independent portions of the remaining lobes of the lung. Cirrhotic liver. Small amount of ascites in the visualized upper abdomen. - chest ultrasound: Small bilateral pleural effusion, trace ascites. - holding IV Lasix until tomorrow - IV cefepime, IV metronidazole GI # Hx of GI bleed # cirrhosis, MELD 19 # Hx of portal hypertension gastropathy # mild abdominal ascites # Peptic ulcer prophylaxis -Pantoprazole 40 mg IV daily # Castanon catheter placed on 11/14/24 - urine culture Nephrology # Hyperkalemia # SHREYA likely ATN/VMN on ?CKD (GFR 70 on admission, unknown baseline) - monitor - nephrology on board; recommended to start lokelma qD if hyperkalemia persists, holding for now as last serum K 3.9 - IV Lasix 40 mg daily Infectious disease # community acquired pneumonia, gram + vs -ve # Influenza B positive - IV cefepime - IV metronidazole - Oseltamivir - norepinephrine at 10 micrograms/hour - phenylephrine at 15mcg/min - respiratory, blood, urine cultures Hem/onc # mild normocytic anemia # ruled out lower extremity DVT # thrombocytopenia - lower extremity Doppler: No right or left lower extremity deep vein thrombosis. Psychiatry # Alcohol use disorder # hx of depression - outpatient psychiatry follow up versus psychiatry consult upon extubation DVT prophylaxis - discontinue therapeutic Lovenox due to patient having thrombocytopenia Nutrition TF nepro carbsteady Lines L IJ CVC 11/14/24 LUE 20g 11/14/24 RUE 20g 11/14/24 Drips during mech ventilation Fentanyl 200 mcg/hr Versed 10 Intubated on 11/14/24 Critical care time 82 minutes excluding procedure and discussions with the family. Plan discussed with: Other (nurse) My Orders Orders - VLADISLAV MORENO MD Procedure Category Date Status Time Vancomycin Per PHA 11/19/24 In Process Pharmacy 10:00 Vancomycin PHA 11/19/24 In Process 750mg/150ml 23:00 Vancomycin,Trough LAB 11/20/24 Verified 22:00 Vancomycin Per JULI 11/20/24 In Process Pharmacy Protoc 23:00 Creatinine LAB 11/21/24 Verified 05:00 Acetaminophen Iv PHA 11/19/24 In Process ([facility]) 12:30 Urine Bacterial VENKAT 11/19/24 Logged Culture 12:28 Date of Service: Nov 19, 2024 Billing Provider: VLADISLAV MORENO MD Common Visit Codes: 80009-[id number] CARE 30-74 MIN VLADISLAV MORENO MD Nov 19, 2024 15:40
[2024-11-19 19:43] LABS: COVID19 ANTIGEN SOFIA FIA NEGATIVE (NEGATIVE)
--- NOTE | 2024-11-19 21:08 | DVHPN2 ---
Progress Note - Dictate Date Seen: Nov 19, 2024 Medical Necessity Reason Pt with a Central, PICC or Fol: No The following are medically ne: Castanon Catheter Subjective Mr. Avina is a 74 years old right-handed gentleman with a history of hypertension, bradycardia status post pacemaker insertion, chronic lung disease, he came to the hospital on 11/06/2024 with a chief complaint of chest pain, general weakness, and dizziness. I have seen and examined the patient, talked to his nurse. He was intubated, transferred to ICU on 11/19/2024 He sedated, but is respond to painful stimuli, he has brainstem reflexes Fentanyl 100 mcg/hour, Versed 5 mg/hour levo 2 mcg//minute, Blood culture, 11/06/2024: Negative UDS, 11/07/2024: Negative Plasma alcohol, 11/06/2024: <3 Urinalysis, 11/07/2024: WBC: Five, urine leukocyte esterase: 1+ ABG, 11/08/2024: Respiratory acidosis, hypoxia 11/11/2024: Respiratory acidosis, hypoxia 11/13/24: Respiratory acidosis, hypoxia, 11/19/2024: Respiratory acidosis PT/INR/PTT, 11/14/2024: 12.4/1..6 WBC/HB/PLT/MCV, 11/14/2024: 61/10.9/98/67.5, 11/1924: 61.9/11.3/70/69.4 BUN/CR, 11/06/2024: 40/2.02 Lactic acid, 11/06/2024: 3.6 HGB A1c, 11/06/24: 5.2 TBI/AST/ALT/AP, 11/06/2024: 0.8/39/26/77 TG/HDL/LDL/HDL, 11/06/2024: 81/108/64/35 Vitamin B12, 11/06/2024: 1960 TSH, 11/06/2024: 1.77 Chest x-ray, 11/19/2024: 1. Endotracheal tube terminates 4 cm above the orestes. 2. Pulmonary edema. vital signs Vital Sign Date Time Temp Pulse Resp B/P (MAP) Pulse Ox O2 Delivery O2 Flow Rate FiO2 11/19/24 20:09 90 18 130/53 (78) 95 35 7/19/25 19:15 99.3 210.7 11/19/24 18:12 Mechanical Ventilator+ 11/19/24 05:48 10.0 Total Intake and Output 11/18/24 11/18/24 11/19/24 15:00 23:00 07:00 Intake Total 400 ml 515 ml Balance 400 ml 515 ml medications Current Medications Medications Dose Ordered Sig/Amol Route Start Time Stop Time Status Last Admin Dose Admin Albuterol 2.5 mg Q4HR [facility] 11/07/24 02:00 11/19/24 18:11 2.5 MG Ipratropium [place] 0.5 mg Q4HR [facility] 11/07/24 10:00 11/19/24 18:11 0.5 MG Lidocaine 1 patch Q24H [facility] 11/09/24 18:00 11/18/24 17:47 1 PATCH Docusate Sodium 100 mg BID PO 11/10/24 10:00 11/18/24 21:28 100 MG Polyethylene Glycol 17 gm DAILY PO 11/10/24 10:00 11/19/24 10:37 17 GM Trolamine Salicylate 1 applic BID TOP 11/10/24 10:00 11/19/24 11:04 1 APPLIC Pantoprazole Sodium 40 mg DAILY@0600 PO 11/11/24 06:00 11/18/24 06:27 40 MG Ondansetron HCl 4 mg Q6HPRN PRN IV 11/10/24 13:30 Lorazepam 0.5 mg Q4HPRN PRN IV 11/13/24 12:30 11/18/24 00:13 0.5 MG Tamsulosin HCl 0.4 mg QPM PO 11/14/24 18:00 11/17/24 17:34 0.4 MG Nicotine 1 patch DAILY TD 11/15/24 10:00 11/19/24 10:38 1 PATCH Doxycycline Monohydrate 100 mg Q12HR PO 11/15/24 22:00 11/19/24 10:37 100 MG Acetaminophen/ Hydrocodone Bitart 1 tab Q6HP PRN PO 11/17/24 11:15 11/17/24 21:59 1 TAB Carbidopa/Levodopa 1 tab QID PO 11/19/24 06:00 11/19/24 19:07 1 TAB Acetylcysteine 200 mg Q4HR NEB 11/18/24 23:00 11/19/24 18:11 200 MG Midazolam HCl 50 ml @ 1 mls/hr Q24H IV 11/19/24 07:45 11/19/24 11:53 5 MLS/HR Fentanyl Citrate 250 ml @ 2.5 mls/hr Q24H IV 11/19/24 07:45 11/19/24 06:56 10 MLS/HR Norepinephrine Bitartrate 250 ml @ 3.75 mls/hr Q24H IV 11/19/24 07:45 11/19/24 12:00 3.75 MLS/HR Acetaminophen 650 mg Q6HP PRN [place] 11/19/24 07:45 11/19/24 10:40 650 MG Vancomycin HCl 0 ml @ 0 mls/hr UD IV 11/19/24 10:00 Vancomycin HCl 150 ml @ 150 mls/hr Q12H IV 11/19/24 23:00 Acetaminophen 1,000 mg Q8H PRN IV 11/19/24 12:30 objective The patient is well-nourished and well-developed with no distress. The patient is intubated MENTAL STATUS: Subjective SPEECH, LANGUAGE, HIGHER CORTICAL FUNCTION: Subjective. CRANIAL NERVES: Pupils are equal, round and reactive.There are corneal reflexes and doll's eyes phenomenon. No signs of facial weakness. There are gagging or coughing reflexes SENSATION: Responses to pain stimuli. MOTOR: Normal tone in the upper and lower extremity. Normal muscle bulk. No fasciculations. No spontaneous movement. REFLEXES: Deep tendon reflexes are symmetrical. No pathological reflexes. CEREBELLAR/COORDINATION: Deferred GAIT/STATION: deferred. laboratory and microbiology Laboratory Tests 11/19/24 06:09 Test 11/19/24 06:09 Range/Units Serum Glucose 101 74-106 mg/dL Problem List Acute respiratory failure Metabolic/hypoxic/toxic encephalopathy Tremors ? Parkinson's disease ? Essential tremors Gait disturbance, multifactorial ? REM sleep behavior disorder Chronic spine fracture status post surgical repair Chronic pain syndrome secondary to spine injury/fracture Chronic respiratory failure Leukocytosis status post bone marrow biopsy Visual hallucination/metabolic encephalopathy secondary to respiratory failure Assessment/Plan Monitoring Supportive treatment ICU care Stabilize vitals/pressor drip Respiratory support/vent management Oxygen IV antibiotics Sinemet to 25/100 mg Q.i.d. Tylenol 500 mg t.i.d. Lidocaine patch [place] 10/325 q.6 hours, escalate as indicated Consider physical therapy once the patient proved More recommendation per clinical course This medical document was created using an electronic medical record system with [employer] dictation system. Although this document has been carefully reviewed, there may still be some phonetic and typographical errors. These areas are purely typographical due to imperfections of the software programs, and do not reflect any compromise in the patient's medical care. Prognosis guarded Dietary Evaluation Review Comments: 1) Refer CDE for weight management on DC 2) Monitor PO intake, Lab values, I/O, wt trend Expected Outcomes/Goals: To meet >75% estimated needs Fu 3-5 days Plan discussed with: Other Critical Care Time(min): 35 BRITNEY HORTA MD Nov 19, 2024 21:08
[2024-11-19] MEDS: VANCOMYCIN 750mg/150ml 150 ML IV SCH (22:29)
--- NOTE | 2024-11-19 23:54 | DVHPN2 ---
Progress Note - Dictate Date Seen: Nov 19, 2024 Medical Necessity Reason Pt with a Central, PICC or Fol: No The following are medically ne: Castanon Catheter Subjective Patient was seen and evaluated in follow-up in the ICU. Early this am per RN, the patient was unable to stay awake and alert for his morning PO medications and exhibiting slower response times to commands. Patient was intubated for airway protection and transferred to the ICU. WBC 61.9, TROP 278. Chest x-ray showed cardiomegaly. vital signs Vital Sign Date Time Temp Pulse Resp B/P (MAP) Pulse Ox O2 Delivery O2 Flow Rate FiO2 11/19/24 12:01 75/40 11/19/24 11:54 101.5 11/19/24 11:52 69 18 91 35 11/19/24 08:00 Mechanical Ventilator 11/19/24 05:48 10.0 Total Intake and Output 11/18/24 11/18/24 11/19/24 15:00 23:00 07:00 Intake Total 400 ml 515 ml Balance 400 ml 515 ml medications Current Medications Medications Dose Ordered Sig/Amol Route Start Time Stop Time Status Last Admin Dose Admin Albuterol 2.5 mg Q4HR [facility] 11/07/24 02:00 11/19/24 09:24 2.5 MG Ipratropium [place] 0.5 mg Q4HR [facility] 11/07/24 10:00 11/19/24 09:24 0.5 MG Lidocaine 1 patch Q24H TOP 11/09/24 18:00 11/18/24 17:47 1 PATCH Docusate Sodium 100 mg BID PO 11/10/24 10:00 11/18/24 21:28 100 MG Polyethylene Glycol 17 gm DAILY PO 11/10/24 10:00 11/19/24 10:37 17 GM Trolamine Salicylate 1 applic BID TOP 11/10/24 10:00 11/19/24 11:04 1 APPLIC Pantoprazole Sodium 40 mg DAILY@0600 PO 11/11/24 06:00 11/18/24 06:27 40 MG Ondansetron HCl 4 mg Q6HPRN PRN IV 11/10/24 13:30 Lorazepam 0.5 mg Q4HPRN PRN IV 11/13/24 12:30 11/18/24 00:13 0.5 MG Tamsulosin HCl 0.4 mg QPM PO 11/14/24 18:00 11/17/24 17:34 0.4 MG Nicotine 1 patch DAILY TD 11/15/24 10:00 11/19/24 10:38 1 PATCH Doxycycline Monohydrate 100 mg Q12HR PO 11/15/24 22:00 11/19/24 10:37 100 MG Acetaminophen/ Hydrocodone Bitart 1 tab Q6HP PRN PO 11/17/24 11:15 11/17/24 21:59 1 TAB Carbidopa/Levodopa 1 tab QID PO 11/19/24 06:00 Acetylcysteine 200 mg Q4HR NEB 11/18/24 23:00 11/19/24 09:24 200 MG Midazolam HCl 50 ml @ 1 mls/hr Q24H IV 11/19/24 07:45 11/19/24 11:53 5 MLS/HR Fentanyl Citrate 250 ml @ 2.5 mls/hr Q24H IV 11/19/24 07:45 11/19/24 06:56 10 MLS/HR Norepinephrine Bitartrate 250 ml @ 3.75 mls/hr Q24H IV 11/19/24 07:45 Acetaminophen 650 mg Q6HP PRN [place] 11/19/24 07:45 11/19/24 10:40 650 MG Vancomycin HCl 0 ml @ 0 mls/hr UD IV 11/19/24 10:00 Vancomycin HCl 150 ml @ 150 mls/hr Q12H IV 11/19/24 23:00 Acetaminophen 1,000 mg Q8H PRN IV 11/19/24 12:30 objective GENERAL: Ill appearing, intubated on ventilator. EYES: PERRL, EOMI. Anicteric. HENT: Moist mucous membranes. LUNGS: Decreased breath sounds. CARDIOVASCULAR: Regular rate and rhythm. ABDOMEN: Soft, non-tender and non-distended. EXTREMITIES: No edema. SKIN: Warm, dry. laboratory and microbiology Laboratory Tests 11/19/24 06:09 Test 11/19/24 06:09 Range/Units Serum Glucose 101 74-106 mg/dL Problem List Septic shock with PNA/UTI. Acute on chronic hypoxic respiratory failure. Acute kidney injury. NSTEMI type 2 secondary to above. Ascending aortic aneurysm at 4.2 cm. Presence of dual-chamber pacemaker ([employer]). Aortic valve stenosis, moderate degree. Parkinson's disease. Thrombocytopenia. FAMILIA on CPAP HS. History of tobacco use. Assessment/Plan Continued all current supportive medical care. IV antibiotics as ordered. Nebulized breathing treatments. Tylenol for pain management. Vasopressors for hemodynamic support. Additional plan as per the hospital course. Critical care time of 45 minutes provided to include time spent evaluation of patient at bedside, when appropriate patient/family education for diagnosis, treatment plan, review of pertinent medical information and discussion of care with specialty providers and PCP. Mechanical ventilator parameters, treatment and adjustments have personally been reviewed by me and treatment plan by office equipment mechanic has also been reviewed. Dietary Evaluation Review Comments: 1) Refer CDE for weight management on DC 2) Monitor PO intake, Lab values, I/O, wt trend Expected Outcomes/Goals: To meet >75% estimated needs Fu 3-5 days Plan discussed with: Other NAYELY CHAVEZ MD Nov 19, 2024 13:16
[2024-11-20] VITALS (108 sets, daily range): BP systolic 83–122; BP diastolic 42–65; PULSE 78–105; RESP 13–19; TEMP 98.8–100.6; O2SAT 89–99
[2024-11-20 03:16] LABS: Hemoglobin 10.9 g/dL (13.5-17.5)
[2024-11-20 03:21] LABS: Hematocrit 34.5 % (41.0-53.0); Mean Corpuscular Hemoglobin 21.2 pg (28.0-32.0); Mean Corpuscular Volume 66.8 fL (80.0-100.0)
[2024-11-20 03:34] LABS: Alanine Aminotransferase 11 U/L (7-40); Albumin 3.5 g/dL (3.2-4.8); Alkaline Phosphatase 112 U/L (46-116); Anion Gap 7 (5-15); BUN/Creatinine Ratio 48.6 (10.0-20.0); Calcium 8.9 mg/dL (8.7-10.4); Chloride 98 mmol/L (98-107); Potassium 4.4 mmol/L (3.5-5.1); Sodium 141 mmol/L (136-145)
[2024-11-20 03:39] LABS: Bilirubin, Total 1.8 mg/dL (0.2-1.0); Blood Urea Nitrogen 34 mg/dL (9-23); Carbon Dioxide 36 mmol/L (20-31); Glucose 73 mg/dL (74-106); Total Protein 5.5 g/dL (5.7-8.2)
[2024-11-20 04:08] LABS: Total Cells Counted 100.0 (100)
[2024-11-20 04:10] LABS: Ovalocytes FEW; Stomatocytes Few
--- NOTE | 2024-11-20 05:52 | DVH ---
EXAM: XY CHEST PORTABLE Indication: intubated Technique: Single frontal view of the chest was obtained Comparison: XY CHEST PORTABLE on DOS: 11/19/24, XY CHEST PORTABLE on DOS: 11/19/24, XY CHEST PORTABLE o n DOS: 11/19/24, XY CHEST PORTABLE on DOS: 11/18/24, XY CHEST PORTABLE on DOS: 11/15/24, XY CHEST PORTAB LE on DOS: 11/19/24 FINDINGS: Lines and tubes: Similar to prior. Cardiomediastinal silhouette: Enlarged. Pulmonary vasculature: normal Lung expansion: Low Lung airspace: Left basilar airspace opacity. Lung interstitium: normal Pleura: Small left pleural effusion. Pneumothorax: no Bones: Unremarkable IMPRESSION: Small left pleural effusion. No significant change compared to prior exam allowing for differences in technique.
[2024-11-20 08:53] LABS: Base Excess 5.7 mmol/L (-2.0-3.0)
--- NOTE | 2024-11-20 13:45 | DVHPN2 ---
Progress Note - Dictate Date Seen: Nov 20, 2024 Medical Necessity Reason Pt with a Central, PICC or Fol: No The following are medically ne: Castanon Catheter vital signs Vital Sign Date Time Temp Pulse Resp B/P (MAP) Pulse Ox O2 Delivery O2 Flow Rate FiO2 11/20/24 13:26 99/57 11/20/24 12:52 104 18 95 30 11/20/24 11:30 99.0 210.2 11/20/24 06:00 Mechanical Ventilator+ 11/19/24 05:48 10.0 Total Intake and Output 11/19/24 11/19/24 11/20/24 15:00 23:00 07:00 Intake Total 325.50 ml 249.00 ml 342.00 ml Output Total 0 ml 650 ml 600 ml Balance 325.50 ml -401.00 ml -258.00 ml medications Current Medications Medications Dose Ordered Sig/Amol Route Start Time Stop Time Status Last Admin Dose Admin Albuterol 2.5 mg Q4HR NEB 11/07/24 02:00 11/20/24 10:31 2.5 MG Ipratropium [place] 0.5 mg Q4HR NEB 11/07/24 10:00 11/20/24 10:31 0.5 MG Lidocaine 1 patch Q24H TOP 11/09/24 18:00 11/18/24 17:47 1 PATCH Polyethylene Glycol 17 gm DAILY PO 11/10/24 10:00 11/20/24 09:43 17 GM Trolamine Salicylate 1 applic BID TOP 11/10/24 10:00 11/20/24 10:00 1 APPLIC Ondansetron HCl 4 mg Q6HPRN PRN IV 11/10/24 13:30 Lorazepam 0.5 mg Q4HPRN PRN IV 11/13/24 12:30 11/18/24 00:13 0.5 MG Tamsulosin HCl 0.4 mg QPM PO 11/14/24 18:00 11/17/24 17:34 0.4 MG Nicotine 1 patch DAILY TD 11/15/24 10:00 11/20/24 09:44 1 PATCH Doxycycline Monohydrate 100 mg Q12HR PO 11/15/24 22:00 11/20/24 09:43 100 MG Acetaminophen/ Hydrocodone Bitart 1 tab Q6HP PRN PO 11/17/24 11:15 11/17/24 21:59 1 TAB Carbidopa/Levodopa 1 tab QID PO 11/19/24 06:00 11/20/24 11:59 1 TAB Acetylcysteine 200 mg Q4HR NEB 11/18/24 23:00 11/20/24 10:31 200 MG Midazolam HCl 50 ml @ 1 mls/hr Q24H IV 11/19/24 07:45 11/19/24 11:53 5 MLS/HR Fentanyl Citrate 250 ml @ 2.5 mls/hr Q24H IV 11/19/24 07:45 11/19/24 06:56 10 MLS/HR Acetaminophen 650 mg Q6HP PRN [place] 11/19/24 07:45 11/19/24 10:40 650 MG Vancomycin HCl 0 ml @ 0 mls/hr UD IV 11/19/24 10:00 Vancomycin HCl 150 ml @ 150 mls/hr Q12H IV 11/19/24 23:00 11/20/24 11:59 150 MLS/HR Acetaminophen 1,000 mg Q8H PRN IV 11/19/24 12:30 Docusate Sodium 100 mg BID GT 11/20/24 22:00 Pantoprazole Sodium 40 mg DAILY IV 11/21/24 10:00 Norepinephrine Bitartrate 250 ml @ 3.75 mls/hr Q24H IV 11/20/24 12:15 laboratory and microbiology Laboratory Tests 11/20/24 02:43 Test 11/20/24 02:43 Range/Units Serum Glucose 73 L 74-106 mg/dL Assessment/Plan *Aerodynamics Professor rounds* Impression Acute hypoxemic respiratory failure Acute COPD exacerbation Cardiomyopathy Leukocytosis Pacemaker Patient seen and examined in INOCENCIO Events On mechanical ventilation S/p intubation for airway protection PEEP 5, FiO2 30% Interval history provided by family Patient has severe Parkinson's disease Therefore mobility is reduced White count trending up, concern raised for leukemia S/p bone marrow biopsy Pathology pending Labs and imaging reviewed Management Vent support Titrate to maintain sats 90% or above Sedation for vent synchrony Continue antibiotics F/u cultures Bronchodilators Monitor renal function Monitor electrolytes Supplement as needed Pressors as needed for hemodynamic support To maintain a mean arterial pressure of 65 mmHg Will consider bronchoscopy Continue Sinemet Obtain CT of the brain to rule out acute changes DVT prophylaxis Critical care time 35 minutes Dietary Evaluation Review Comments: 1) Refer CDE for weight management on DC 2) Monitor PO intake, Lab values, I/O, wt trend Expected Outcomes/Goals: To meet >75% estimated needs Fu 3-5 days Plan discussed with: Other (Rn) ARTHUR DARLING MD Nov 20, 2024 13:45
--- NOTE | 2024-11-20 15:33 | DVHPN2 ---
Subjective intubated and sedated Reviewed: H&P Changes from previous H/P or p: No Changes General: Per HPI Eyes: No Pain, No Vision change, No Conjunctivae inflammation, No Eyelid inflammation, No Other, No Redness ENT: No Ear pain, No Ear discharge, No Nose pain, No Nose discharge, No Nose congestion, No Mouth pain, No Mouth swelling, No Throat pain, No Throat swelling, No Other Cardiovascular: Chest Pain, Edema (1+ edema bilateral leg) Respiratory: No Cough, No Dry; Shortness of breath, SOB with excertion; No Wheezing, No Hemoptysis, No Pleuritic Pain, No Sputum, No Other Gastrointestinal: No Nausea, No Vomiting, No Abdominal Pain, No Diarrhea, No Constipation, No Melena, No Hematochezia, No Other Genitourinary: No Dysuria, No Frequency, No Incontinence, No Hematuria, No Retention, No Other Musculoskeletal: No other, No neck pain, No shoulder pain, No arm pain, No back pain, No hand pain, No leg pain, No foot pain Skin: No Rash, No Lesions, No Jaundice, No Bruising, No Other Objective Vitals Vital Signs Date Time Temp Pulse Resp B/P (MAP) Pulse Ox O2 Delivery O2 Flow Rate FiO2 11/20/24 14:15 105 18 109/49 (69) 92 30 11/20/24 13:45 99.1 210.4 11/20/24 06:00 Mechanical Ventilator+ 11/19/24 05:48 10.0 Intake/Output Intake and Output 11/20/24 07:00 Intake Total 916.50 ml Output Total 1250 ml Balance -333.50 ml Intake Oral 150 ml IV Total 766.50 ml Output Urine Total 1250 ml Stool Total 0 ml General Appearance: Other (intubated and sedated) HEENT: Atraumatic Lungs: Clear to auscultation Cardiovascular: Regular rate, Normal S1, Normal S2 Abdomen: Normal bowel sounds Medications Current Medications Medications Dose Ordered Sig/Amol Route Start Time Stop Time Status Last Admin Dose Admin Albuterol 2.5 mg Q4HR [place] 11/07/24 02:00 11/20/24 14:11 2.5 MG Ipratropium [place] 0.5 mg Q4HR [place] 11/07/24 10:00 11/20/24 14:11 0.5 MG Lidocaine 1 patch Q24H [facility] 11/09/24 18:00 11/18/24 17:47 1 PATCH Polyethylene Glycol 17 gm DAILY PO 11/10/24 10:00 11/20/24 09:43 17 GM Trolamine Salicylate 1 applic BID TOP 11/10/24 10:00 11/20/24 10:00 1 APPLIC Ondansetron HCl 4 mg Q6HPRN PRN IV 11/10/24 13:30 Lorazepam 0.5 mg Q4HPRN PRN IV 11/13/24 12:30 11/18/24 00:13 0.5 MG Tamsulosin HCl 0.4 mg QPM PO 11/14/24 18:00 11/17/24 17:34 0.4 MG Nicotine 1 patch DAILY TD 11/15/24 10:00 11/20/24 09:44 1 PATCH Doxycycline Monohydrate 100 mg Q12HR PO 11/15/24 22:00 11/20/24 09:43 100 MG Acetaminophen/ Hydrocodone Bitart 1 tab Q6HP PRN PO 11/17/24 11:15 11/17/24 21:59 1 TAB Carbidopa/Levodopa 1 tab QID PO 11/19/24 06:00 11/20/24 11:59 1 TAB Acetylcysteine 200 mg Q4HR NEB 11/18/24 23:00 11/20/24 14:11 200 MG Midazolam HCl 50 ml @ 1 mls/hr Q24H IV 11/19/24 07:45 11/19/24 11:53 5 MLS/HR Fentanyl Citrate 250 ml @ 2.5 mls/hr Q24H IV 11/19/24 07:45 11/19/24 06:56 10 MLS/HR Acetaminophen 650 mg Q6HP PRN [place] 11/19/24 07:45 11/19/24 10:40 650 MG Vancomycin HCl 0 ml @ 0 mls/hr UD IV 11/19/24 10:00 Vancomycin HCl 150 ml @ 150 mls/hr Q12H IV 11/19/24 23:00 11/20/24 11:59 150 MLS/HR Acetaminophen 1,000 mg Q8H PRN IV 11/19/24 12:30 Docusate Sodium 100 mg BID GT 11/20/24 22:00 Pantoprazole Sodium 40 mg DAILY IV 11/21/24 10:00 Norepinephrine Bitartrate 250 ml @ 3.75 mls/hr Q24H IV 11/20/24 12:15 Laboratory Results Laboratory Tests 11/20/24 02:43 Chemistry Test 11/20/24 02:43 Albumin 3.5 g/dL (3.2-4.8) Calcium Level 8.9 mg/dL (8.7-10.4) Total Protein 5.5 g/dL (5.7-8.2) L LFT Test 11/20/24 02:43 Alanine Aminotransferase (ALT) 11 U/L (7-40) Alkaline Phosphatase 112 U/L (46-116) Aspartate Amino Transferase (AST) 86 U/L (13-40) H Total Bilirubin 1.8 mg/dL (0.2-1.0) H Urinalysis Test 11/07/24 03:30 11/19/24 08:32 Urine Hyaline Casts Mod /lpf (0 - 2) Urine Creatinine 391.78 mg/dL (30.0-125.0) H Urine Protein/Creatinine Ratio 0.17 Urine Sodium 20 mmol/L (40-220) L Urine Total Protein 67.4 mg/dL (1-14) H Urine Color Yellow (Yellow) Urine Clarity Turbid (Clear) H Urine pH 5.5 (5.0-9.0) Urine Specific [place] 1.022 (1.001-1.035) Urine Protein 1+ (Negative) H Urine Ketones Negative (Negative) Urine Blood 2+ /uL (Negative) H Urine Nitrite Negative (Negative) Urine Bilirubin Negative (Negative) Urine Urobilinogen Normal mg/dL (Negative) Urine Leukocyte Esterase Negative /uL (Negative) Urine RBC 5 /hpf (0 - 3) Urine Microscopic WBC 5 /HPF (0-3) H Urine Squamous Epithelial Cells Few /hpf (<5) Urine Bacteria Few /hpf (None Seen) H Urine Mucus Few (None Seen) Urine Glucose Normal mg/dL (Normal) Blood Gas Results Test 11/20/24 08:08 Arterial Blood pH 7.432 (7.350-7.450) FiO2 % 30.0 Microbiology Microbiology Date/Time Source Procedure Growth Status 11/19/24 19:00 Urine - Catheterized Urine Culture - Preliminary Resulted 11/19/24 08:41 Blood Blood Culture - Preliminary NO GROWTH AFTER 24 HOURS OF INCUBATION. Resulted 11/19/24 07:25 Sputum Gram Stain - Final Resulted 11/19/24 07:25 Sputum Respiratory Culture - Preliminary Resulted 11/09/24 05:50 Nose MRSA Screen - Final Complete Assessment/Plan Assessment/Plan Neurology # acute toxic vs metabolic encephalopathy # possible alcohol withdrawal # hx of withdrawal seizures? # Sedated - head CT: No acute intracranial abnormality - IV banana bag once - Versed 10 mcg per hour Cardiovascular # septic shock due to pneumonia # atrial flutter with hemodynamic instability, s/p cardioversion x2 # NSTEMI 1 vs 2 # End- stage dilated cardiomyopathy # Heart failure with reduced ejection fraction <20% # Prolonged QTC - amiodarone drip - cardiology on board - norepinephrine at 10 micrograms/hour - amiodarone drip at 0.5mg/min - phenylephrine at 15mcg/min - IV digoxin 500mcg x 2 - serum digoxin level 3.69 5 hours after 2nd dose in 24 hours after 1st dose - repeat serum digoxin level Respiratory # Acute hypoxic respiratory failure # community-acquired pneumonia, Gram-positive versus Gram-negative # Ventilator # ruled out pulmonary embolism -intubated (11/14/24) -on [facility] vent : VCAC Mode RR 20 TV 550ml, PEEP Of 8 and FiO2 of 100% - CXR: Moderate interstitial pulmonary edema in the setting of cardiomegaly. Probable trace bilateral effusions. - CT angio: No evidence of pulmonary embolism. Pulmonary edema. Large bilateral pleural effusions. Associated consolidation of the majority of bilateral lower lobes independent portions of the remaining lobes of the lung. Cirrhotic liver. Small amount of ascites in the visualized upper abdomen. - chest ultrasound: Small bilateral pleural effusion, trace ascites. - holding IV Lasix until tomorrow - IV cefepime, IV metronidazole GI # Hx of GI bleed # cirrhosis, MELD 19 # Hx of portal hypertension gastropathy # mild abdominal ascites # Peptic ulcer prophylaxis -Pantoprazole 40 mg IV daily # Castanon catheter placed on 11/14/24 - urine culture Nephrology # Hyperkalemia # SHREYA likely ATN/VMN on ?CKD (GFR 70 on admission, unknown baseline) - monitor - nephrology on board; recommended to start lokelma qD if hyperkalemia persists, holding for now as last serum K 3.9 - IV Lasix 40 mg daily Infectious disease # community acquired pneumonia, gram + vs -ve # Influenza B positive - IV cefepime - IV metronidazole - Oseltamivir - norepinephrine at 10 micrograms/hour - phenylephrine at 15mcg/min - respiratory, blood, urine cultures Hem/onc # mild normocytic anemia # ruled out lower extremity DVT # thrombocytopenia - lower extremity Doppler: No right or left lower extremity deep vein thrombosis. Psychiatry # Alcohol use disorder # hx of depression - outpatient psychiatry follow up versus psychiatry consult upon extubation DVT prophylaxis - discontinue therapeutic Lovenox due to patient having thrombocytopenia Nutrition TF nepro carbsteady Lines L IJ CVC 11/14/24 LUE 20g 11/14/24 RUE 20g 11/14/24 Drips during mech ventilation Fentanyl 200 mcg/hr Versed 10 Intubated on 11/14/24 Critical care time 82 minutes excluding procedure and discussions with the family. Plan discussed with: Other (nurse) My Orders Orders - VLADISLAV OMRENO MD Procedure Category Date Status Time * Wound Consult CONS 11/20/24 Transmitted Docusate Sodium PHA 11/20/24 In Process Liquid (Colace Liquid) 22:00 Pantoprazole PHA 11/21/24 In Process (Protonix) 10:00 Complete Blood Count LAB 11/21/24 Verified 05:00 Comprehensive LAB 11/21/24 Verified Metabolic Panel 05:00 Date of Service: Nov 20, 2024 Billing Provider: VLADISLAV MORENO MD Common Visit Codes: 70354-IAEBESCK CARE 30-74 MIN VLADISLAV MORENO MD Nov 20, 2024 15:32
[2024-11-20] MEDS: PANTOPRAZOLE 40 MG/10 ML VIAL INJ IV ONE (15:58)
[2024-11-20] MEDS: NOREPINEPHRINE 8 MG/250ML KIT 250 ML IV SCH (16:01)
[2024-11-20] MEDS: DOCUSATE ORAL LIQUID 100 MG/10 ML UD GT ONE (16:01)
--- NOTE | 2024-11-20 16:53 | DVH ---
EXAM: CT HEAD WITHOUT CONTRAST INDICATION: ALOC/INTUBATED TECHNIQUE: CT of the head without intravenous contrast. Radiation Dose : 1. Head: CT Dose: CTDI volume is 65 mGy. Dose-length product is 1.71 mGy*cm The dose indicators for CT are the volume Computed Tomography (CT) Dose Index (CTDIvol) and the Dose Length Product (DLP), and are measured in units of mGy and mGy-cm, respectively. These indicators are not patient dose, but values generated from the CT scanner acquisition factors. The report includes radiation exposure data for exposures received during this examination. COMPARISON: None FINDINGS: There is no evidence of acute intracranial hemorrhage, extra-axial collection, mass effect, midline s hift, herniation or hydrocephalus. The ventricles, sulci and cisterns are age appropriate. The newell-white differentiation is intact. Patchy periventricular and subcortical white matter hypoattenuation is nonspecific but may be related to small vessel ischemic disease. The visualized paranasal sinuses and mastoid air cells are clear. The surrounding soft tissues and osseous structures are unremarkable. IMPRESSION: No acute intracranial abnormality. Radiation optimization: All CT scans at this facility use at least one of these dose optimization kaz hniques: automated exposure control mA and/or kV adjustment per patient size (includes targeted exam s where dose is matched to clinical indication) or iterative reconstruction.
--- NOTE | 2024-11-20 21:54 | DVHPN2 ---
Progress Note - Dictate Date Seen: Nov 20, 2024 Medical Necessity Reason Pt with a Central, PICC or Fol: No The following are medically ne: Castanon Catheter Subjective Mr. Avina is a 74 years old right-handed gentleman with a history of hypertension, bradycardia status post pacemaker insertion, chronic lung disease, he came to the hospital on 11/06/2024 with a chief complaint of chest pain, general weakness, and dizziness. I have seen and examined the patient, talked to his nurse. He was intubated, transferred to ICU on 11/19/2024 He sedated, but is respond to touch, he has tremor in the hands on waking up Fentanyl 75 mcg/hour, Versed 2 mg/hour levo 1 mcg//minute, Blood culture, 11/06/2024: Negative UDS, 11/07/2024: Negative Plasma alcohol, 11/06/2024: <3 Urinalysis, 11/07/2024: WBC: Five, urine leukocyte esterase: 1+ ABG, 11/08/2024: Respiratory acidosis, hypoxia 11/11/2024: Respiratory acidosis, hypoxia 11/13/24: Respiratory acidosis, hypoxia, 11/19/2024: Respiratory acidosis PT/INR/PTT, 11/14/2024: 12.4/1./25.6 WBC/HB/PLT/MCV, 11/14/2024: 61/10.9/98/67.5, 11/1924: 61.9/11.3/70/69.4 BUN/CR, 11/06/2024: 40/2.02 Lactic acid, 11/06/2024: 3.6 HGB A1c, 11/06/24: 5.2 TBI/AST/ALT/AP, 11/06/2024: 0.8/39/26/77 TG/HDL/LDL/HDL, 11/06/2024: 81/108/64/35 Vitamin B12, 11/06/2024: 1960 TSH, 11/06/2024: 1.77 Chest x-ray, 11/19/2024: 1. Endotracheal tube terminates 4 cm above the orestes. 2. Pulmonary edema. CT head, 11/20/2024: No acute intracranial abnormality. vital signs Vital Sign Date Time Temp Pulse Resp B/P (MAP) Pulse Ox O2 Delivery O2 Flow Rate FiO2 11/20/24 20:30 81 18 110/53 (72) 95 30 11/20/24 19:15 99.9 211.8 11/20/24 19:10 Mechanical Ventilator+ 11/19/24 05:48 10.0 Total Intake and Output 11/19/24 11/19/24 11/20/24 15:00 23:00 07:00 Intake Total 325.50 ml 249.00 ml 359.75 ml Output Total 0 ml 650 ml 600 ml Balance 325.50 ml -401.00 ml -240.25 ml medications Current Medications Medications Dose Ordered Sig/Amol Route Start Time Stop Time Status Last Admin Dose Admin Albuterol 2.5 mg Q4HR NEB 11/07/24 02:00 11/20/24 18:00 2.5 MG Ipratropium [place] 0.5 mg Q4HR NEB 11/07/24 10:00 11/20/24 18:00 0.5 MG Lidocaine 1 patch Q24H TOP 11/09/24 18:00 11/20/24 17:48 1 PATCH Polyethylene Glycol 17 gm DAILY PO 11/10/24 10:00 11/20/24 09:43 17 GM Trolamine Salicylate 1 applic BID TOP 11/10/24 10:00 11/20/24 10:00 1 APPLIC Ondansetron HCl 4 mg Q6HPRN PRN IV 11/10/24 13:30 Lorazepam 0.5 mg Q4HPRN PRN IV 11/13/24 12:30 11/18/24 00:13 0.5 MG Tamsulosin HCl 0.4 mg QPM PO 11/14/24 18:00 11/20/24 17:48 0.4 MG Nicotine 1 patch DAILY TD 11/15/24 10:00 11/20/24 09:44 1 PATCH Doxycycline Monohydrate 100 mg Q12HR PO 11/15/24 22:00 11/20/24 09:43 100 MG Acetaminophen/ Hydrocodone Bitart 1 tab Q6HP PRN PO 11/17/24 11:15 11/17/24 21:59 1 TAB Carbidopa/Levodopa 1 tab QID PO 11/19/24 06:00 11/20/24 17:48 1 TAB Acetylcysteine 200 mg Q4HR NEB 11/18/24 23:00 11/20/24 18:00 200 MG Midazolam HCl 50 ml @ 1 mls/hr Q24H IV 11/19/24 07:45 11/19/24 11:53 5 MLS/HR Fentanyl Citrate 250 ml @ 2.5 mls/hr Q24H IV 11/19/24 07:45 11/19/24 06:56 10 MLS/HR Acetaminophen 650 mg Q6HP PRN [place] 11/19/24 07:45 11/19/24 10:40 650 MG Vancomycin HCl 0 ml @ 0 mls/hr UD IV 11/19/24 10:00 Vancomycin HCl 150 ml @ 150 mls/hr Q12H IV 11/19/24 23:00 11/20/24 11:59 150 MLS/HR Acetaminophen 1,000 mg Q8H PRN IV 11/19/24 12:30 Docusate Sodium 100 mg BID GT 11/20/24 22:00 Pantoprazole Sodium 40 mg DAILY IV 11/21/24 10:00 Norepinephrine Bitartrate 250 ml @ 3.75 mls/hr Q24H IV 11/20/24 12:15 11/20/24 16:01 3.75 MLS/HR objective The patient is well-nourished and well-developed with no distress. The patient is intubated MENTAL STATUS: Subjective SPEECH, LANGUAGE, HIGHER CORTICAL FUNCTION: Subjective. CRANIAL NERVES: Pupils are equal, round and reactive.There are corneal reflexes and doll's eyes phenomenon. No signs of facial weakness. There are gagging or coughing reflexes SENSATION: Responses to pain stimuli. MOTOR: Normal tone in the upper and lower extremity. Normal muscle bulk. No fasciculations. Tremor in the arms on waking up, he moves the arms to touch stimuli REFLEXES: Deep tendon reflexes are symmetrical. No pathological reflexes. CEREBELLAR/COORDINATION: Deferred GAIT/STATION: deferred. laboratory and microbiology Laboratory Tests 11/20/24 02:43 Test 11/20/24 02:43 Range/Units Serum Glucose 73 L 74-106 mg/dL Problem List Acute respiratory failure Metabolic/hypoxic/toxic encephalopathy Tremors Parkinson's disease ? Essential tremors Gait disturbance, multifactorial ? REM sleep behavior disorder Chronic spine fracture status post surgical repair Chronic pain syndrome secondary to spine injury/fracture Chronic respiratory failure Leukocytosis status post bone marrow biopsy Visual hallucination/metabolic encephalopathy secondary to respiratory failure Assessment/Plan Monitoring Supportive treatment ICU care Stabilize vitals/pressor drip Respiratory support/vent management Oxygen IV antibiotics Sinemet to 25/100 mg Q.i.d. Tylenol 500 mg t.i.d. Lidocaine patch [place] 10/325 q.6 hours, escalate as indicated Consider physical therapy once the patient proved More recommendation per clinical course This medical document was created using an electronic medical record system with [employer] dictation system. Although this document has been carefully reviewed, there may still be some phonetic and typographical errors. These areas are purely typographical due to imperfections of the software programs, and do not reflect any compromise in the patient's medical care. Prognosis guarded Dietary Evaluation Review Comments: 1) Refer CDE for weight management on DC 2) Monitor PO intake, Lab values, I/O, wt trend Expected Outcomes/Goals: To meet >75% estimated needs Fu 3-5 days Plan discussed with: Other Critical Care Time(min): 35 BRITNEY HORTA MD Nov 20, 2024 21:54
[2024-11-20] MEDS: DOCUSATE ORAL LIQUID 100 MG/10 ML UD GT SCH (22:11)
--- NOTE | 2024-11-20 22:46 | DVHPN2 ---
Progress Note - Dictate Date Seen: Nov 20, 2024 Medical Necessity Reason Pt with a Central, PICC or Fol: No The following are medically ne: Castanon Catheter Subjective Patient was seen and evaluated in follow up in the ICU. Patient is intubated and sedated on ventilator. 30% FiO2. Patient receiving vasopressors for hemodynamic support. WBC 60.1, CO2 36, BUN 34, AST 86. Chest x-ray shows small left pleural effusion. vital signs Vital Sign Date Time Temp Pulse Resp B/P (MAP) Pulse Ox O2 Delivery O2 Flow Rate FiO2 11/20/24 13:45 99.1 104 16 102/57 (72) 210.4 11/20/24 13:30 93 11/20/24 12:52 30 11/20/24 06:00 Mechanical Ventilator+ 11/19/24 05:48 10.0 Total Intake and Output 11/19/24 11/19/24 11/20/24 15:00 23:00 07:00 Intake Total 325.50 ml 249.00 ml 342.00 ml Output Total 0 ml 650 ml 600 ml Balance 325.50 ml -401.00 ml -258.00 ml medications Current Medications Medications Dose Ordered Sig/Amol Route Start Time Stop Time Status Last Admin Dose Admin Albuterol 2.5 mg Q4HR NEB 11/07/24 02:00 11/20/24 10:31 2.5 MG Ipratropium [place] 0.5 mg Q4HR NEB 11/07/24 10:00 11/20/24 10:31 0.5 MG Lidocaine 1 patch Q24H TOP 11/09/24 18:00 11/18/24 17:47 1 PATCH Polyethylene Glycol 17 gm DAILY PO 11/10/24 10:00 11/20/24 09:43 17 GM Trolamine Salicylate 1 applic BID TOP 11/10/24 10:00 11/20/24 10:00 1 APPLIC Ondansetron HCl 4 mg Q6HPRN PRN IV 11/10/24 13:30 Lorazepam 0.5 mg Q4HPRN PRN IV 11/13/24 12:30 11/18/24 00:13 0.5 MG Tamsulosin HCl 0.4 mg QPM PO 11/14/24 18:00 11/17/24 17:34 0.4 MG Nicotine 1 patch DAILY TD 11/15/24 10:00 11/20/24 09:44 1 PATCH Doxycycline Monohydrate 100 mg Q12HR PO 11/15/24 22:00 11/20/24 09:43 100 MG Acetaminophen/ Hydrocodone Bitart 1 tab Q6HP PRN PO 11/17/24 11:15 11/17/24 21:59 1 TAB Carbidopa/Levodopa 1 tab QID PO 11/19/24 06:00 11/20/24 11:59 1 TAB Acetylcysteine 200 mg Q4HR NEB 11/18/24 23:00 11/20/24 10:31 200 MG Midazolam HCl 50 ml @ 1 mls/hr Q24H IV 11/19/24 07:45 11/19/24 11:53 5 MLS/HR Fentanyl Citrate 250 ml @ 2.5 mls/hr Q24H IV 11/19/24 07:45 11/19/24 06:56 10 MLS/HR Acetaminophen 650 mg Q6HP PRN [place] 11/19/24 07:45 11/19/24 10:40 650 MG Vancomycin HCl 0 ml @ 0 mls/hr UD IV 11/19/24 10:00 Vancomycin HCl 150 ml @ 150 mls/hr Q12H IV 11/19/24 23:00 11/20/24 11:59 150 MLS/HR Acetaminophen 1,000 mg Q8H PRN IV 11/19/24 12:30 Docusate Sodium 100 mg BID GT 11/20/24 22:00 Pantoprazole Sodium 40 mg DAILY IV 11/21/24 10:00 Norepinephrine Bitartrate 250 ml @ 3.75 mls/hr Q24H IV 11/20/24 12:15 objective GENERAL: Ill appearing, intubated on ventilator. EYES: PERRL, EOMI. Anicteric. HENT: Moist mucous membranes. LUNGS: Decreased breath sounds. CARDIOVASCULAR: Regular rate and rhythm. ABDOMEN: Soft, non-tender and non-distended. EXTREMITIES: No edema. SKIN: Warm, dry. laboratory and microbiology Laboratory Tests 11/20/24 02:43 Test 11/20/24 02:43 Range/Units Serum Glucose 73 L 74-106 mg/dL Problem List Septic shock with PNA/UTI. Acute on chronic hypoxic respiratory failure. Acute kidney injury. NSTEMI type 2 secondary to above. Ascending aortic aneurysm at 4.2 cm. Presence of dual-chamber pacemaker ([employer]). Aortic valve stenosis, moderate degree. Parkinson's disease. Thrombocytopenia. FAMILIA on CPAP HS. History of tobacco use. Assessment/Plan Continued all current supportive medical care. Sinemet. IV antibiotics as ordered. Nebulized breathing treatments. Vasopressors for hemodynamic support. Additional plan as per the hospital course. Critical care time of 45 minutes provided to include time spent evaluation of patient at bedside, when appropriate patient/family education for diagnosis, treatment plan, review of pertinent medical information and discussion of care with specialty providers and PCP. Mechanical ventilator parameters, treatment and adjustments have personally been reviewed by me and treatment plan by printing screen assembler has also been reviewed. Dietary Evaluation Review Comments: 1) Refer CDE for weight management on DC 2) Monitor PO intake, Lab values, I/O, wt trend Expected Outcomes/Goals: To meet >75% estimated needs Fu 3-5 days Plan discussed with: Other NAYELY CHAVEZ MD Nov 20, 2024 14:02
[2024-11-21] VITALS (109 sets, daily range): BP systolic 81–172; BP diastolic 35–151; PULSE 75–97; RESP 12–19; TEMP 98.1–100.2; O2SAT 82–100
[2024-11-21 03:46] LABS: Hematocrit 31.5 % (41.0-53.0); Hemoglobin 9.9 g/dL (13.5-17.5)
[2024-11-21 03:50] LABS: Mean Corpuscular Hemoglobin 21.0 pg (28.0-32.0); Mean Corpuscular Volume 66.6 fL (80.0-100.0)
[2024-11-21 03:54] LABS: Anion Gap 9 (5-15); BUN/Creatinine Ratio 50.0 (10.0-20.0); Chloride 100 mmol/L (98-107); Glucose 81 mg/dL (74-106); Potassium 3.7 mmol/L (3.5-5.1); Sodium 141 mmol/L (136-145)
[2024-11-21 04:36] LABS: Alanine Aminotransferase < 9 U/L (7-40); Albumin 3.1 g/dL (3.2-4.8); Alkaline Phosphatase 133 U/L (46-116); Bilirubin, Total 1.7 mg/dL (0.2-1.0); Blood Urea Nitrogen 33 mg/dL (9-23); Calcium 8.3 mg/dL (8.7-10.4); Carbon Dioxide 32 mmol/L (20-31); Total Protein 5.0 g/dL (5.7-8.2)
[2024-11-21 04:54] LABS: Total Cells Counted 100.0 (100)
[2024-11-21 04:55] LABS: Ovalocytes FEW
[2024-11-21 07:34] LABS: Base Excess 4.5 mmol/L (-2.0-3.0)
[2024-11-21] MEDS: PANTOPRAZOLE 40 MG/10 ML VIAL INJ IV SCH (10:10)
--- NOTE | 2024-11-21 11:08 | DVHPN2 ---
Progress Note - Dictate Date Seen: Nov 21, 2024 Medical Necessity Reason Pt with a Central, PICC or Fol: No The following are medically ne: Castanon Catheter Subjective Mr. Avina is a 74 years old right-handed gentleman with a history of hypertension, bradycardia status post pacemaker insertion, chronic lung disease, he came to the hospital on 11/06/2024 with a chief complaint of chest pain, general weakness, and dizziness. I have seen and examined the patient, talked to his nurse. He is intubated, sedated,, responsive to light painful stimuli He was intubated, transferred to ICU on 11/19/2024 Fentanyl 75 mcg/hour, Versed 2 mg/hour levo 1 mcg//minute, Blood culture, 11/06/2024: Negative UDS, 11/07/2024: Negative Plasma alcohol, 11/06/2024: <3 Urinalysis, 11/07/2024: WBC: Five, urine leukocyte esterase: 1+ ABG, 11/08/2024: Respiratory acidosis, hypoxia 11/11/2024: Respiratory acidosis, hypoxia 11/13/24: Respiratory acidosis, hypoxia, 11/19/2024: Respiratory acidosis PT/INR/PTT, 11/14/2024: 12.4/1./.6 WBC/HB/PLT/MCV, 11/14/2024: 61/10.9/98/67.5, 11/1924: 61.9/11.3/70/69.4 BUN/CR, 11/06/2024: 40/2.02 Lactic acid, 11/06/2024: 3.6 HGB A1c, 11/06/24: 5.2 TBI/AST/ALT/AP, 11/06/2024: 0.8/39/26/77 TG/HDL/LDL/HDL, 11/06/2024: 81/108/64/35 Vitamin B12, 11/06/2024: 1960 TSH, 11/06/2024: 1.77 Chest x-ray, 11/19/2024: 1. Endotracheal tube terminates 4 cm above the orestes. 2. Pulmonary edema. CT head, 11/20/2024: No acute intracranial abnormality. vital signs Vital Sign Date Time Temp Pulse Resp B/P (MAP) Pulse Ox O2 Delivery O2 Flow Rate FiO2 11/21/24 09:22 87 18 91/63 (72) 96 35 11/21/24 08:30 98.2 208.8 11/21/24 08:00 Mechanical Ventilator+ Total Intake and Output 11/20/24 11/20/24 11/21/24 15:00 23:00 07:00 Intake Total 275.41 ml 290.375 ml 342.75 ml Output Total 0 ml 700 ml 1150 ml Balance 275.41 ml -409.625 ml -807.25 ml medications Current Medications Medications Dose Ordered Sig/Amol Route Start Time Stop Time Status Last Admin Dose Admin Albuterol 2.5 mg Q4HR NEB 11/07/24 02:00 11/21/24 09:22 2.5 MG Ipratropium [place] 0.5 mg Q4HR NEB 11/07/24 10:00 11/21/24 09:22 0.5 MG Lidocaine 1 patch Q24H TOP 11/09/24 18:00 11/20/24 17:48 1 PATCH Polyethylene Glycol 17 gm DAILY PO 11/10/24 10:00 11/21/24 10:10 17 GM Trolamine Salicylate 1 applic BID TOP 11/10/24 10:00 11/20/24 22:12 1 APPLIC Tamsulosin HCl 0.4 mg QPM PO 11/14/24 18:00 11/20/24 17:48 0.4 MG Carbidopa/Levodopa 1 tab QID PO 11/19/24 06:00 11/21/24 05:49 1 TAB Acetylcysteine 200 mg Q4HR NEB 11/18/24 23:00 11/21/24 09:22 200 MG Midazolam HCl 50 ml @ 1 mls/hr Q24H IV 11/19/24 07:45 11/21/24 08:28 2 MLS/HR Fentanyl Citrate 250 ml @ 2.5 mls/hr Q24H IV 11/19/24 07:45 11/21/24 05:47 7.5 MLS/HR Acetaminophen 650 mg Q6HP PRN MD 11/19/24 07:45 11/20/24 22:22 650 MG Vancomycin HCl 0 ml @ 0 mls/hr UD IV 11/19/24 10:00 Vancomycin HCl 150 ml @ 150 mls/hr Q12H IV 11/19/24 23:00 11/21/24 10:44 150 MLS/HR Acetaminophen 1,000 mg Q8H PRN IV 11/19/24 12:30 Docusate Sodium 100 mg BID GT 11/20/24 22:00 11/21/24 10:10 100 MG Pantoprazole Sodium 40 mg DAILY IV 11/21/24 10:00 11/21/24 10:10 40 MG Norepinephrine Bitartrate 250 ml @ 3.75 mls/hr Q24H IV 11/20/24 12:15 11/20/24 16:01 3.75 MLS/HR Piperacillin Sod/ Tazobactam Sod 100 ml @ 25 mls/hr Q8HR IV 11/21/24 14:00 objective The patient is well-nourished and well-developed with no distress. The patient is intubated MENTAL STATUS: Subjective SPEECH, LANGUAGE, HIGHER CORTICAL FUNCTION: Subjective. CRANIAL NERVES: Pupils are equal, round and reactive.There are corneal reflexes and doll's eyes phenomenon. No signs of facial weakness. There are gagging or coughing reflexes SENSATION: Responses to pain stimuli. MOTOR: Normal tone in the upper and lower extremity. Normal muscle bulk. No fasciculations. Tremor in the arms on waking up, he moves the arms to touch stimuli REFLEXES: Deep tendon reflexes are symmetrical. No pathological reflexes. CEREBELLAR/COORDINATION: Deferred GAIT/STATION: deferred. laboratory and microbiology Laboratory Tests 11/21/24 03:07 Test 11/21/24 03:07 Range/Units Serum Glucose 81 74-106 mg/dL Problem List Acute respiratory failure Metabolic/hypoxic/toxic encephalopathy Tremors Parkinson's disease ? Essential tremors Gait disturbance, multifactorial ? REM sleep behavior disorder Chronic spine fracture status post surgical repair Chronic pain syndrome secondary to spine injury/fracture Chronic respiratory failure Leukocytosis status post bone marrow biopsy Visual hallucination/metabolic encephalopathy secondary to respiratory failure Assessment/Plan Monitoring Supportive treatment ICU care Stabilize vitals/pressor drip Respiratory support/vent management Oxygen IV antibiotics Sinemet to 25/100 mg Q.i.d. Tylenol 500 mg t.i.d. Lidocaine patch [place] 10/325 q.6 hours, escalate as indicated Consider physical therapy once the patient proved More recommendation per clinical course This medical document was created using an electronic medical record system with [employer] dictation system. Although this document has been carefully reviewed, there may still be some phonetic and typographical errors. These areas are purely typographical due to imperfections of the software programs, and do not reflect any compromise in the patient's medical care. Prognosis Guarded Dietary Evaluation Review Comments: 1) Refer CDE for weight management on DC 2) Monitor PO intake, Lab values, I/O, wt trend Expected Outcomes/Goals: To meet >75% estimated needs Fu 3-5 days Plan discussed with: Other Critical Care Time(min): 35 BRITNEY HORTA MD Nov 21, 2024 11:08
[2024-11-21] MEDS: PIPERACILLIN-TAZOB 3.375GM 100 ML IV SCH (13:21)
--- NOTE | 2024-11-21 21:13 | DVHPNRES ---
Progress Note Date Seen: Nov 21, 2024 Resident Creating Document: NEERU SCHULZ RESIDENT Medical Necessity Reason Pt with a Central, PICC or Fol: No The following are medically ne: Castanon Catheter Subjective Review of Systems Patient is a 74-year-old male with past medical history of hypertension, symptomatic bradycardia s/p pacemaker 3 years ago, sleep apnea on CPAP, recently diagnosed Parkinson's disease, possible Agent [place] exposure? , ascending aortic aneurysm 4.2 cm, who comes in due to severe generalized weakness. According to the patient and his , patient has been feeling increasingly weak for the past 1 week, 2 days ago he also sustained a fall where he slipped off of his bed and fell on his knees without any head trauma. Per , yesterday patient was complaining of chest pain that started 2 days ago, intermittent and worsened with eating, along with abdominal pain, sweating and generalized weakness, was unable to get up from the chair which is what prompted this visit to the hospital. On review of systems patient is complaining of chest pain that has been ongoing intermittently for the last 1 week, palpitations, urinary frequency and urinary incontinence. Serial troponins were 80, 100, 113, 107 and chest x-ray showed no acute abnormality. Past surgical history: Pacemaker, back surgery? Home medications: Smoking: Quit 40 years ago, prior to that was smoking 1 pack per day for 30 years Alcohol: Past history of heavy use, currently denies Drugs: Denies Lives with Allergies: Denies 11/08/2024: Patient seen and examined at bedside. Patient is alert and oriented to time, place person and responding to all questions. Patient reports improved symptoms from when he 1st came to the hospital. 1+ lower extremity edema, decreased bilateral breath sounds. Complaining of lower back pain, started on [place] 5q 8 hours as needed. Denies any new complaints. Denies any suicidal ideation. 11/09/24: overnight episode of agitation, paco2 noted to be 71, placed on bipap for 4 hours. today saturating 88-93% of 2-4L o2 via NC. improved backache. will follow serum LDH tomorrow. 11/10/2024: Patient notes improvement in symptoms, however, overnight episode of desaturation along with an episode of vomiting with desaturation in the afternoon. LDH was in the 500s, scheduled patient for bone marrow biopsy tomorrow. Transition IV steroids to p.o. prednisolone. 11/12-patient doing well. No significant or severe cramps concerning for worsening of Parkinson's or failure. Continue IV antibiotics. Patient has decreased breath sounds at bases we will start incentive spirometer. No PT onboard. We will get PT and continue q.2 hours turns until patient is able to move himself. Castanon in place good urine output. Patient is able to talk in short sentences due to his parkinsonism.. Platelets stable, WBCs elevated in stable. Primary team planning for possible bone marrow biopsy. I will hold off neurology consult as patient appears to be stable Parkinson's and defer to primary for the neurology consult. No other complaints from patient. Cough is improved. 11/13/2024-overnight patient became aggressive, confused swinging arms at staff. soft mittens were put on. This a.m. patient is A&O times 3-4, delusional as keeps saying that we are there to hurt him, but he is able to articulate reason for being here and understands if he declines therapy his condition could worsen. We will get psych evaluation to determine if patient has decision making capacity. He is declining suicidal ideations but appears very depressive and emotionally abusive comments towards spouse. Which is not his normal. Right now it is hard to assess if he has decision-making capacity as he is not as his normal function mentally. Patient is also too weak to get out of bed. Otherwise we will continue antibiotics for pneumonia in wait for bone marrow biopsy tomorrow. 11/14/24: Patient seen and examined at bedside, notes increasing weakness. Repeatedly had episodes of delirium overnight. Added Flomax 0.4 mg, neurology consulted. Patient completed bone marrow biopsy today, we will follow results. 11/15/2024: Patient seen and examined at bedside, reports improvement in breathing, however, reports increasing weakness and generalized body aches. Currently on 1 L of oxygen, downgraded to telemetry. We will get PT evaluation today. 11/16/2024: Tried weaning oxygen off of patient, however desaturated, continues to use 1 L. Currently on doxycycline and ceftriaxone. 11/18/2024: Patient is seen and examined at bedside, continued back pain. Scheduled to work with physical therapy today. Awaiting biopsy results, preliminarily inconclusive. Later in the day, patient was noted to have difficulty coughing up phlegm and clearing secretions requiring increasing levels of oxygen, patient cleared bedside swallow evaluation, was placed on a pureed diet. Progressing with PT evaluation. 11/21/24: on levophed 1mcg/min, vancomycin and zosyn. CXR: L basilar airspace dx, pulmonary edema. Objective vital signs Vital Sign Date Time Temp Pulse Resp B/P (MAP) Pulse Ox O2 Delivery O2 Flow Rate FiO2 11/21/24 20:30 99.5 92 18 95/50 (65) 93 211.1 11/21/24 20:06 35 11/21/24 20:00 Mechanical Ventilator+ Total Intake and Output 11/20/24 11/20/24 11/21/24 15:00 23:00 07:00 Intake Total 275.41 ml 290.375 ml 340.875 ml Output Total 0 ml 700 ml 1150 ml Balance 275.41 ml -409.625 ml -809.125 ml medications Current Medications Medications Dose Ordered Sig/Amol Route Start Time Stop Time Status Last Admin Dose Admin Albuterol 2.5 mg Q4HR NEB 11/07/24 02:00 11/21/24 18:41 2.5 MG Ipratropium [place] 0.5 mg Q4HR NEB 11/07/24 10:00 11/21/24 18:41 0.5 MG Lidocaine 1 patch Q24H TOP 11/09/24 18:00 11/20/24 17:48 1 PATCH Polyethylene Glycol 17 gm DAILY PO 11/10/24 10:00 11/21/24 10:10 17 GM Trolamine Salicylate 1 applic BID TOP 11/10/24 10:00 11/20/24 22:12 1 APPLIC Tamsulosin HCl 0.4 mg QPM PO 11/14/24 18:00 11/21/24 17:32 0.4 MG Carbidopa/Levodopa 1 tab QID PO 11/19/24 06:00 11/21/24 17:32 1 TAB Acetylcysteine 200 mg Q4HR NEB 11/18/24 23:00 11/21/24 18:41 200 MG Midazolam HCl 50 ml @ 1 mls/hr Q24H IV 11/19/24 07:45 11/21/24 08:28 2 MLS/HR Fentanyl Citrate 250 ml @ 2.5 mls/hr Q24H IV 11/19/24 07:45 11/21/24 05:47 7.5 MLS/HR Acetaminophen 650 mg Q6HP PRN [place] 11/19/24 07:45 11/20/24 22:22 650 MG Vancomycin HCl 0 ml @ 0 mls/hr UD IV 11/19/24 10:00 Vancomycin HCl 150 ml @ 150 mls/hr Q12H IV 11/19/24 23:00 11/21/24 10:44 150 MLS/HR Acetaminophen 1,000 mg Q8H PRN IV 11/19/24 12:30 Docusate Sodium 100 mg BID GT 11/20/24 22:00 11/21/24 10:10 100 MG Pantoprazole Sodium 40 mg DAILY IV 11/21/24 10:00 11/21/24 10:10 40 MG Norepinephrine Bitartrate 250 ml @ 3.75 mls/hr Q24H IV 11/20/24 12:15 11/20/24 16:01 3.75 MLS/HR Piperacillin Sod/ Tazobactam Sod 100 ml @ 25 mls/hr Q8HR IV 11/21/24 14:00 11/21/24 13:21 25 MLS/HR Examination General Appearance: Cooperative. Well developed. In moderate distress Pulmonary/Respiratory: Chest non-tender. Scattered bilateral wheezes, decreased b/l breath sounds Cardiovascular/Chest: Tachycardia No murmurs. No JVD. Peripheries: Cold to touch Abdominal Exam: Normal bowel sounds. Soft. normal abdomen, no visible veins, Nontender. No hepatospenomegaly. No masses Lower extremities: 1+ lower extremity edema Neuro/Mental Status: A&O x4. Coherent. tremor noted, most pronounced in RUE Thoughts/Psych: Normal thought pattern. Appropriate mood and affect. laboratory and microbiology Laboratory Tests 11/21/24 03:07 Test 11/21/24 03:07 Range/Units Serum Glucose 81 74-106 mg/dL Microbiology Date/Time Source Procedure Growth Status 11/19/24 19:00 Urine - Catheterized Urine Culture - Preliminary Resulted 11/19/24 11:50 Nose MRSA Screen - Final Complete 11/19/24 08:41 Blood Blood Culture - Preliminary NO GROWTH AFTER 48 HOURS OF INCUBATION. Resulted 11/19/24 07:25 Sputum Gram Stain - Final Resulted 11/19/24 07:25 Sputum Respiratory Culture - Preliminary Resulted Problem List/Assessment/Plan Problem List/Assessment/Plan Neurology # newly diagnosed Parkinson's disease - resumed home medication carbidopa levodopa - consulted neurology - nicotine patch Cardiovascular # Septic shock possibly secondary to pneumonia versus complicated UTI # NSTEMI likely type 2 due to above # mild left atrial enlargement # moderate aortic stenosis with mean gradient of 25 mm of Hg # ascending aortic aneurysm measuring 4.2 cm 12 months ago - echocardiogram: lvef 55%. mild LVH. grade 1 diastolic dysfunction. normal rv function. RV not well seen. left atrium enlarged mild. moderate aortic stenosis, mean gradient of 25 mmg . mild pulm htn - CXR: No acute abnormality demonstrated, low lung volumes with crowding of the bronchovascular markings. - Vancomycin, cefepime Respiratory # Acute hypoxic/hypercapnic respiratory failure, on BiPAP # possible acute exacerbation of COPD # community-acquired pneumonia, Gram-positive versus Gram-negative? # pulmonary hypertension, RVSP 65 mmHg # 6.3 mm soft nodule right middle lobe - echocardiogram: lvef 55%. mild LVH. grade 1 diastolic dysfunction. normal rv function. RV not well seen. left atrium enlarged mild. moderate aortic stenosis, mean gradient of 25 mmg . mild pulm htn - IV vancomycin per-pharmacy - IV cefepime - ipratropium and albuterol med nebs - V/Q scan - continue BiPAP at night - requested PT evaluation - outpatient follow up for evaluation and monitoring of right-sided soft nodule in the lung - incentive spirometry GI # Peptic ulcer prophylaxis -Pantoprazole 40 mg IV daily # Castanon catheter placed on 11/07/2024 # acute complicated UTI # likely benign prostatic hyperplasia - IV vancomycin, IV cefepime -tamsulosin 0.4 mg Nephrology # SHREYA likely hemodynamically mediated/VMN on questionable CKD, baseline unavailable - nephrology on board - strict I&Os - monitor Infectious disease # acute complicated UTI # possible community-acquired pneumonia - IV vancomycin per pharmacy - IV cefepime - IV NS at 75 cc/hour, now dc'ed - norepinephrine at 0.5 mcg, now dc'ed Hem/onc # severe leukocytosis # microcytic anemia, MCV 69.4 # thrombocytopenia, serum platelets 82 - abdominal usg: splenomegaly - ordered serum LDH; 550 - scheduled for bone marrow biopsy tomorrow - monitor DVT prophylaxis - bilateral lower extremity Doppler: No right or left femoropopliteal venous thrombosis - holding due to low platelet count Nutrition Cardiac diet Lines - right 20 gauge placed on 11/11/2024 Social service consulted for assisted facility for physical therapy. Code status discussed greater than 20 minutes: NO CHEST COMPRESSIONS. ok to intubated. POA. paperwork on file. Family at bedside explained about the condition of the patient critical care time outside of procedures is 56 mins Plan discussed with Dr. Blum Plan discussed with: Spouse, Other (RN) My Orders My Orders Orders - NEERU SCHULZ RESIDENT Procedure Category Date Status Time Abg W/ Co-Ox RT 11/21/24 Logged 06:00 Piperacillin-Tazob PHA 11/21/24 In Process 3.375gm (Zosyn 3.375g 14:00 Mrsa Screen VENKAT 11/21/24 In Process 19:56 Dietary Evaluation Review Comments: 1) Refer CDE for weight management on DC 2) Monitor PO intake, Lab values, I/O, wt trend Expected Outcomes/Goals: To meet >75% estimated needs Fu 3-5 days Date of Service: Nov 21, 2024 Billing Provider: CARMINE BLUM MD Common Visit Codes: 23490-AMRPEKLS CARE 30-74 MIN NEERU SCHULZ Nov 21, 2024 21:13 CARMINE BLUM MD Nov 22, 2024 16:18
--- NOTE | 2024-11-21 23:01 | DVHPN2 ---
Progress Note - Dictate Date Seen: Nov 21, 2024 Medical Necessity Reason Pt with a Central, PICC or Fol: No The following are medically ne: Castanon Catheter Subjective Patient was seen and evaluated in follow up in the ICU. Patient is intubated and sedated on ventilator. 35% FiO2. Patient remains on vasopressors support. WBC 46.4, HGB 9.9, HCT 31.5, CO2 32, BUN 33. vital signs Vital Sign Date Time Temp Pulse Resp B/P (MAP) Pulse Ox O2 Delivery O2 Flow Rate FiO2 11/21/24 22:37 89 18 107/56 (73) 95 35 11/21/24 20:30 99.5 211.1 11/21/24 20:00 Mechanical Ventilator+ Total Intake and Output 11/20/24 11/20/24 11/21/24 15:00 23:00 07:00 Intake Total 275.41 ml 290.375 ml 340.875 ml Output Total 0 ml 700 ml 1150 ml Balance 275.41 ml -409.625 ml -809.125 ml medications Current Medications Medications Dose Ordered Sig/Amol Route Start Time Stop Time Status Last Admin Dose Admin Albuterol 2.5 mg Q4HR NEB 11/07/24 02:00 11/21/24 22:37 2.5 MG Ipratropium [place] 0.5 mg Q4HR NEB 11/07/24 10:00 11/21/24 22:37 0.5 MG Lidocaine 1 patch Q24H TOP 11/09/24 18:00 11/20/24 17:48 1 PATCH Polyethylene Glycol 17 gm DAILY PO 11/10/24 10:00 11/21/24 10:10 17 GM Trolamine Salicylate 1 applic BID TOP 11/10/24 10:00 11/20/24 22:12 1 APPLIC Tamsulosin HCl 0.4 mg QPM PO 11/14/24 18:00 11/21/24 17:32 0.4 MG Carbidopa/Levodopa 1 tab QID PO 11/19/24 06:00 11/21/24 22:02 1 TAB Acetylcysteine 200 mg Q4HR NEB 11/18/24 23:00 11/21/24 22:38 200 MG Midazolam HCl 50 ml @ 1 mls/hr Q24H IV 11/19/24 07:45 11/21/24 08:28 2 MLS/HR Fentanyl Citrate 250 ml @ 2.5 mls/hr Q24H IV 11/19/24 07:45 11/21/24 05:47 7.5 MLS/HR Acetaminophen 650 mg Q6HP PRN [place] 11/19/24 07:45 11/20/24 22:22 650 MG Vancomycin HCl 0 ml @ 0 mls/hr UD IV 11/19/24 10:00 Vancomycin HCl 150 ml @ 150 mls/hr Q12H IV 11/19/24 23:00 11/21/24 10:44 150 MLS/HR Acetaminophen 1,000 mg Q8H PRN IV 11/19/24 12:30 Docusate Sodium 100 mg BID GT 11/20/24 22:00 11/21/24 22:02 100 MG Pantoprazole Sodium 40 mg DAILY IV 11/21/24 10:00 11/21/24 10:10 40 MG Norepinephrine Bitartrate 250 ml @ 3.75 mls/hr Q24H IV 11/20/24 12:15 11/20/24 16:01 3.75 MLS/HR Piperacillin Sod/ Tazobactam Sod 100 ml @ 25 mls/hr Q8HR IV 11/21/24 14:00 11/21/24 22:02 25 MLS/HR objective GENERAL: Ill appearing, intubated on ventilator. EYES: PERRL, EOMI. Anicteric. HENT: Moist mucous membranes. LUNGS: Decreased breath sounds. CARDIOVASCULAR: Regular rate and rhythm. ABDOMEN: Soft, non-tender and non-distended. EXTREMITIES: No edema. SKIN: Warm, dry. laboratory and microbiology Laboratory Tests 11/21/24 03:07 Test 11/21/24 03:07 Range/Units Serum Glucose 81 74-106 mg/dL Problem List Septic shock with PNA/UTI. Acute on chronic hypoxic respiratory failure. Acute kidney injury. NSTEMI type 2 secondary to above. Ascending aortic aneurysm at 4.2 cm. Presence of dual-chamber pacemaker ([employer] Aortic valve stenosis, moderate degree. Parkinson's disease. Thrombocytopenia. FAMILIA on CPAP HS. History of tobacco use. Assessment/Plan Continued all current supportive medical care. Sinemet. IV antibiotics as ordered. Nebulized breathing treatments. Vasopressors for hemodynamic support. Additional plan as per the hospital course. Critical care time of 45 minutes provided to include time spent evaluation of patient at bedside, when appropriate patient/family education for diagnosis, treatment plan, review of pertinent medical information and discussion of care with specialty providers and PCP. Mechanical ventilator parameters, treatment and adjustments have personally been reviewed by me and treatment plan by correctional supervisor lieutenant has also been reviewed. Dietary Evaluation Review Comments: 1) Refer CDE for weight management on DC 2) Monitor PO intake, Lab values, I/O, wt trend Expected Outcomes/Goals: To meet >75% estimated needs Fu 3-5 days Plan discussed with: Other NAYELY CHAVEZ MD Nov 21, 2024 23:01
[2024-11-22] VITALS (107 sets, daily range): BP systolic 84–134; BP diastolic 33–66; PULSE 72–102; RESP 12–26; TEMP 92.1–100.4; O2SAT 92–100
[2024-11-22 03:33] LABS: Hematocrit 32.2 % (41.0-53.0); Mean Corpuscular Hemoglobin 21.1 pg (28.0-32.0)
[2024-11-22 03:37] LABS: Hemoglobin 10.1 g/dL (13.5-17.5); Mean Corpuscular Volume 66.9 fL (80.0-100.0)
[2024-11-22 03:45] LABS: Alanine Aminotransferase 12 U/L (7-40); Anion Gap 9 (5-15); BUN/Creatinine Ratio 46.2 (10.0-20.0); Chloride 100 mmol/L (98-107); Glucose 91 mg/dL (74-106); Potassium 3.9 mmol/L (3.5-5.1); Sodium 141 mmol/L (136-145)
[2024-11-22 03:54] LABS: Albumin 3.2 g/dL (3.2-4.8); Alkaline Phosphatase 190 U/L (46-116); Bilirubin, Total 1.6 mg/dL (0.2-1.0); Blood Urea Nitrogen 30 mg/dL (9-23); Calcium 8.2 mg/dL (8.7-10.4); Carbon Dioxide 32 mmol/L (20-31); Total Protein 5.2 g/dL (5.7-8.2)
--- NOTE | 2024-11-22 04:47 | DVH ---
CHEST RADIOGRAPH Indication: pna Technique: Single frontal view of the chest was obtained COMPARISON: XY CHEST PORTABLE on DOS: 11/20/24, XY CHEST PORTABLE on DOS: 11/19/24, XY CHEST PORTABLE o n DOS: 11/19/24, XY CHEST PORTABLE on DOS: 11/19/24, XY CHEST PORTABLE on DOS: 11/18/24 FINDINGS: Lines and Tubes: Unchanged. Lungs: Stable appearing left basilar pulmonary airspace disease and probable small pleural effusion. Mild diffuse increased prominence of the pulmonary vasculature. No pneumothorax. Cardiomediastinal contours: Cardiomegaly. Bones: Unremarkable. Spinal fixation hardware. IMPRESSION: 1. Stable left basilar pulmonary airspace disease, small left pleural effusion and diffuse increased prominence of the pulmonary vasculature. 2. Cardiomegaly. 3. Lines and tubes unchanged.
[2024-11-22 05:00] LABS: Ovalocytes FEW; Total Cells Counted 100.0 (100)
[2024-11-22 07:29] LABS: Base Excess 5.2 mmol/L (-2.0-3.0)
[2024-11-22] MEDS ORDERED: Jevity 1.2 Cal/Fiber 1 Liter GT SCH (09:30)
--- NOTE | 2024-11-22 10:55 | DVHPN2 ---
Progress Note - Dictate Date Seen: Nov 22, 2024 Medical Necessity Reason Pt with a Central, PICC or Fol: No The following are medically ne: Castanon Catheter Subjective Mr. Avina is a 74 years old right-handed gentleman with a history of hypertension, bradycardia status post pacemaker insertion, chronic lung disease, he came to the hospital on 11/06/2024 with a chief complaint of chest pain, general weakness, and dizziness. I have seen and examined the patient, talked to his nurse and the medical staff. He is intubated, sedated,, responsive to light painful stimuli. I only see questionable tremors in right hand after painful stimuli He was intubated, transferred to ICU on 11/19/2024 Fentanyl 75 mcg/hour, Versed 2 mg/hour, Blood culture, 11/06/2024: Negative UDS, 11/07/2024: Negative Plasma alcohol, 11/06/2024: <3 Urinalysis, 11/07/2024: WBC: Five, urine leukocyte esterase: 1+ ABG, 11/08/2024: Respiratory acidosis, hypoxia 11/11/2024: Respiratory acidosis, hypoxia 11/13/24: Respiratory acidosis, hypoxia, 11/19/2024: Respiratory acidosis PT/INR/PTT, 11/14/2024: 12.4/1.19/25.6 WBC/HB/PLT/MCV, 11/14/2024: 61/10.9/98/67.5, 11/1924: 61.9/11.3/70/69.4 BUN/CR, 11/06/2024: 40/2.02 Lactic acid, 11/06/2024: 3.6 HGB A1c, 11/06/24: 5.2 TBI/AST/ALT/AP, 11/06/2024: 0.8/39/26/77 TG/HDL/LDL/HDL, 11/06/2024: 81/108/64/35 Vitamin B12, 11/06/2024: 1960 TSH, 11/06/2024: 1.77 Chest x-ray, 11/19/2024: 1. Endotracheal tube terminates 4 cm above the orestes. 2. Pulmonary edema. CT head, 11/20/2024: No acute intracranial abnormality. vital signs Vital Sign Date Time Temp Pulse Resp B/P (MAP) Pulse Ox O2 Delivery O2 Flow Rate FiO2 11/22/24 10:00 18 94 Mechanical Ventilator+ 35 35 11/22/24 10:00 91 11/22/24 10:00 100.2 212.4 Total Intake and Output 11/21/24 11/21/24 11/22/24 15:00 23:00 07:00 Intake Total 290.9995 ml 233.000 ml 862.250 ml Output Total 400 ml 500 ml Balance 290.9995 ml -167.000 ml 362.250 ml medications Current Medications Medications Dose Ordered Sig/Amol Route Start Time Stop Time Status Last Admin Dose Admin Albuterol 2.5 mg Q4HR NEB 11/07/24 02:00 11/22/24 09:47 2.5 MG Ipratropium [place] 0.5 mg Q4HR NEB 11/07/24 10:00 11/22/24 09:47 0.5 MG Lidocaine 1 patch Q24H TOP 11/09/24 18:00 11/20/24 17:48 1 PATCH Polyethylene Glycol 17 gm DAILY PO 11/10/24 10:00 11/22/24 09:50 17 GM Trolamine Salicylate 1 applic BID TOP 11/10/24 10:00 11/21/24 22:00 1 APPLIC Tamsulosin HCl 0.4 mg QPM PO 11/14/24 18:00 11/21/24 17:32 0.4 MG Carbidopa/Levodopa 1 tab QID PO 11/19/24 06:00 11/22/24 05:30 1 TAB Acetylcysteine 200 mg Q4HR NEB 11/18/24 23:00 11/22/24 09:47 200 MG Midazolam HCl 50 ml @ 1 mls/hr Q24H IV 11/19/24 07:45 11/22/24 05:50 2 MLS/HR Fentanyl Citrate 250 ml @ 2.5 mls/hr Q24H IV 11/19/24 07:45 11/22/24 05:51 7.5 MLS/HR Acetaminophen 650 mg Q6HP PRN [place] 11/19/24 07:45 11/20/24 22:22 650 MG Vancomycin HCl 0 ml @ 0 mls/hr UD IV 11/19/24 10:00 Vancomycin HCl 150 ml @ 150 mls/hr Q12H IV 11/19/24 23:00 11/21/24 23:03 150 MLS/HR Acetaminophen 1,000 mg Q8H PRN IV 11/19/24 12:30 Docusate Sodium 100 mg BID GT 11/20/24 22:00 11/22/24 09:50 100 MG Pantoprazole Sodium 40 mg DAILY IV 11/21/24 10:00 11/22/24 09:50 40 MG Norepinephrine Bitartrate 250 ml @ 3.75 mls/hr Q24H IV 11/20/24 12:15 11/20/24 16:01 3.75 MLS/HR Piperacillin Sod/ Tazobactam Sod 100 ml @ 25 mls/hr Q8HR IV 11/21/24 14:00 11/22/24 05:30 25 MLS/HR Enteral Nutritional Formula 1,000 ml 30ML/HR GT 11/22/24 09:30 objective The patient is well-nourished and well-developed with no distress. The patient is intubated MENTAL STATUS: Subjective SPEECH, LANGUAGE, HIGHER CORTICAL FUNCTION: Subjective. CRANIAL NERVES: Pupils are equal, round and reactive.There are corneal reflexes and doll's eyes phenomenon. No signs of facial weakness. There are gagging or coughing reflexes SENSATION: Responses to pain stimuli. MOTOR: Normal tone in the upper and lower extremity. Normal muscle bulk. No fasciculations. He moves the arms to painful stimuli REFLEXES: Deep tendon reflexes are symmetrical. No pathological reflexes. CEREBELLAR/COORDINATION: Deferred GAIT/STATION: deferred. laboratory and microbiology Laboratory Tests 11/22/24 02:54 Test 11/22/24 02:54 Range/Units Serum Glucose 91 74-106 mg/dL Problem List Acute respiratory failure Metabolic/hypoxic/toxic encephalopathy Tremors Parkinson's disease ? Essential tremors Gait disturbance, multifactorial ? REM sleep behavior disorder Chronic spine fracture status post surgical repair Chronic pain syndrome secondary to spine injury/fracture Chronic respiratory failure Leukocytosis status post bone marrow biopsy Visual hallucination/metabolic encephalopathy secondary to respiratory failure Assessment/Plan Monitoring Supportive treatment ICU care Stabilize vitals/pressor drip Respiratory support/vent management Oxygen IV antibiotics Sinemet to 25/100 mg Q.i.d. Tylenol 500 mg t.i.d. Lidocaine patch [place] 10/325 q.6 hours, escalate as indicated Consider physical therapy once the patient proved More recommendation per clinical course This medical document was created using an electronic medical record system with [employer] computerized dictation system. Although this document has been carefully reviewed, there may still be some phonetic and typographical errors. These areas are purely typographical due to imperfections of the software programs, and do not reflect any compromise in the patient's medical care. Prognosis guarded Dietary Evaluation Review Comments: 1) Refer CDE for weight management on DC 2) Monitor PO intake, Lab values, I/O, wt trend Expected Outcomes/Goals: To meet >75% estimated needs Fu 3-5 days Plan discussed with: Other Critical Care Time(min): 30 BRITNEY HORTA MD Nov 22, 2024 10:55
--- NOTE | 2024-11-22 15:12 | DVH ---
Left lower extremity venous duplex Clinical History: warmth, erythema Comparison: US BILAT LOWER DVT on DOS: 11/07/24 Findings: Duplex Doppler evaluation of the deep venous system of the left lower extremity from the common femor al vein to the popliteal vein including color Doppler and spectral/pulsed waveform analysis was perfo rmed. The common femoral vein demonstrates appropriate compressibility and waveform variability. There is compressibility/patency of the great saphenous vein at the proximal thigh. The femoral vein demonstrates appropriate compressibility and waveform variability. The deep femoral vein demonstrates appropriate compressibility and waveform variability. The popliteal vein demonstrates appropriate compressibility and waveform variability. There is normal compressibility at the tibioperoneal trunk. Impression: No left femoropopliteal venous thrombosis. If clinical concern/symptoms persist or worsen, short-interval follow-up study is suggested.
--- NOTE | 2024-11-22 17:08 | DVHPN2 ---
Progress Note - Dictate Date Seen: Nov 22, 2024 Medical Necessity Reason Pt with a Central, PICC or Fol: No The following are medically ne: Castanon Catheter Subjective Patient was seen and evaluated in follow up in the ICU. Patient is intubated and sedated on ventilator. 35% FiO2. Patient is responsive to light painful stimuli. WBC 43.5, CO2 32, BUN 30. Chest x-ray shows stable left basilar pulmonary airspace disease, small left pleural effusion and diffuse increased prominence of the pulmonary vasculature. and cardiomegaly. Left lower extremity venous duplex is negative for DVT. vital signs Vital Sign Date Time Temp Pulse Resp B/P (MAP) Pulse Ox O2 Delivery O2 Flow Rate FiO2 11/22/24 17:00 89/35 11/22/24 15:45 76 18 95 35 11/22/24 15:30 100.0 212.0 11/22/24 14:00 Mechanical Ventilator+ Total Intake and Output 11/21/24 11/21/24 11/22/24 15:00 23:00 07:00 Intake Total 290.9995 ml 233.000 ml 862.250 ml Output Total 400 ml 500 ml Balance 290.9995 ml -167.000 ml 362.250 ml medications Current Medications Medications Dose Ordered Sig/Amol Route Start Time Stop Time Status Last Admin Dose Admin Albuterol 2.5 mg Q4HR [facility] 11/07/24 02:00 11/22/24 13:52 2.5 MG Ipratropium [place] 0.5 mg Q4HR [facility] 11/07/24 10:00 11/22/24 13:52 0.5 MG Lidocaine 1 patch Q24H TOP 11/09/24 18:00 11/20/24 17:48 1 PATCH Polyethylene Glycol 17 gm DAILY PO 11/10/24 10:00 11/22/24 09:50 17 GM Trolamine Salicylate 1 applic BID TOP 11/10/24 10:00 11/21/24 22:00 1 APPLIC Carbidopa/Levodopa 1 tab QID PO 11/19/24 06:00 11/22/24 11:09 1 TAB Acetylcysteine 200 mg Q4HR NEB 11/18/24 23:00 11/22/24 13:52 200 MG Midazolam HCl 50 ml @ 1 mls/hr Q24H IV 11/19/24 07:45 11/22/24 05:50 2 MLS/HR Fentanyl Citrate 250 ml @ 2.5 mls/hr Q24H IV 11/19/24 07:45 11/22/24 05:51 7.5 MLS/HR Acetaminophen 650 mg Q6HP PRN [place] 11/19/24 07:45 11/20/24 22:22 650 MG Vancomycin HCl 0 ml @ 0 mls/hr UD IV 11/19/24 10:00 Vancomycin HCl 150 ml @ 150 mls/hr Q12H IV 11/19/24 23:00 11/22/24 11:03 150 MLS/HR Acetaminophen 1,000 mg Q8H PRN IV 11/19/24 12:30 Docusate Sodium 100 mg BID GT 11/20/24 22:00 11/22/24 09:50 100 MG Pantoprazole Sodium 40 mg DAILY IV 11/21/24 10:00 11/22/24 09:50 40 MG Norepinephrine Bitartrate 250 ml @ 3.75 mls/hr Q24H IV 11/20/24 12:15 11/22/24 15:57 1.875 MLS/HR Piperacillin Sod/ Tazobactam Sod 100 ml @ 25 mls/hr Q8HR IV 11/21/24 14:00 11/22/24 14:18 25 MLS/HR Enteral Nutritional Formula 1,000 ml 30ML/HR GT 11/22/24 09:30 objective GENERAL: Ill appearing, intubated on ventilator. EYES: PERRL, EOMI. Anicteric. HENT: Moist mucous membranes. LUNGS: Decreased breath sounds. CARDIOVASCULAR: Regular rate and rhythm. ABDOMEN: Soft, non-tender and non-distended. EXTREMITIES: No edema. SKIN: Warm, dry. laboratory and microbiology Laboratory Tests 11/22/24 02:54 Test 11/22/24 02:54 Range/Units Serum Glucose 91 74-106 mg/dL Problem List Septic shock with PNA/UTI. Acute on chronic hypoxic respiratory failure. Acute kidney injury. NSTEMI type 2 secondary to above. Ascending aortic aneurysm at 4.2 cm. Presence of dual-chamber pacemaker ([employer]). Aortic valve stenosis, moderate degree. Parkinson's disease. Thrombocytopenia. FAMILIA on CPAP HS. History of tobacco use. Assessment/Plan Continued all current supportive medical care. Sinemet. Vasopressors for hemodynamic support. Nebulized breathing treatments. IV antibiotics as ordered. Additional plan as per the hospital course. Critical care time of 45 minutes provided to include time spent evaluation of patient at bedside, when appropriate patient/family education for diagnosis, treatment plan, review of pertinent medical information and discussion of care with specialty providers and PCP. Mechanical ventilator parameters, treatment and adjustments have personally been reviewed by me and treatment plan by automated weaver has also been reviewed. Dietary Evaluation Review Comments: 1) Refer CDE for weight management on DC 2) Monitor PO intake, Lab values, I/O, wt trend Expected Outcomes/Goals: To meet >75% estimated needs Fu 3-5 days Plan discussed with: Other NAYELY CHAVEZ MD Nov 22, 2024 17:08
--- NOTE | 2024-11-22 18:10 | DVHPNRES ---
Progress Note Date Seen: Nov 22, 2024 Resident Creating Document: NEERU SCHULZ RESIDENT Medical Necessity Reason Pt with a Central, PICC or Fol: No The following are medically ne: Castanon Catheter Subjective Review of Systems Patient is a 74-year-old male with past medical history of hypertension, symptomatic bradycardia s/p pacemaker 3 years ago, sleep apnea on CPAP, recently diagnosed Parkinson's disease, possible Agent [place] exposure? , ascending aortic aneurysm 4.2 cm, who comes in due to severe generalized weakness. According to the patient and his , patient has been feeling increasingly weak for the past 1 week, 2 days ago he also sustained a fall where he slipped off of his bed and fell on his knees without any head trauma. Per , yesterday patient was complaining of chest pain that started 2 days ago, intermittent and worsened with eating, along with abdominal pain, sweating and generalized weakness, was unable to get up from the chair which is what prompted this visit to the hospital. On review of systems patient is complaining of chest pain that has been ongoing intermittently for the last 1 week, palpitations, urinary frequency and urinary incontinence. Serial troponins were 80, 100, 113, 107 and chest x-ray showed no acute abnormality. Past surgical history: Pacemaker, back surgery? Home medications: Smoking: Quit 40 years ago, prior to that was smoking 1 pack per day for 30 years Alcohol: Past history of heavy use, currently denies Drugs: Denies Lives with Allergies: Denies 11/08/2024: Patient seen and examined at bedside. Patient is alert and oriented to time, place person and responding to all questions. Patient reports improved symptoms from when he 1st came to the hospital. 1+ lower extremity edema, decreased bilateral breath sounds. Complaining of lower back pain, started on [place] 5q 8 hours as needed. Denies any new complaints. Denies any suicidal ideation. 11/09/24: overnight episode of agitation, paco2 noted to be 71, placed on bipap for 4 hours. today saturating 88-93% of 2-4L o2 via NC. improved backache. will follow serum LDH tomorrow. 11/10/2024: Patient notes improvement in symptoms, however, overnight episode of desaturation along with an episode of vomiting with desaturation in the afternoon. LDH was in the 500s, scheduled patient for bone marrow biopsy tomorrow. Transition IV steroids to p.o. prednisolone. 11/12-patient doing well. No significant or severe cramps concerning for worsening of Parkinson's or failure. Continue IV antibiotics. Patient has decreased breath sounds at bases we will start incentive spirometer. No PT onboard. We will get PT and continue q.2 hours turns until patient is able to move himself. Castanon in place good urine output. Patient is able to talk in short sentences due to his parkinsonism.. Platelets stable, WBCs elevated in stable. Primary team planning for possible bone marrow biopsy. I will hold off neurology consult as patient appears to be stable Parkinson's and defer to primary for the neurology consult. No other complaints from patient. Cough is improved. 11/13/2024-overnight patient became aggressive, confused swinging arms at staff. soft mittens were put on. This a.m. patient is A&O times 3-4, delusional as keeps saying that we are there to hurt him, but he is able to articulate reason for being here and understands if he declines therapy his condition could worsen. We will get psych evaluation to determine if patient has decision making capacity. He is declining suicidal ideations but appears very depressive and emotionally abusive comments towards spouse. Which is not his normal. Right now it is hard to assess if he has decision-making capacity as he is not as his normal function mentally. Patient is also too weak to get out of bed. Otherwise we will continue antibiotics for pneumonia in wait for bone marrow biopsy tomorrow. 11/14/24: Patient seen and examined at bedside, notes increasing weakness. Repeatedly had episodes of delirium overnight. Added Flomax 0.4 mg, neurology consulted. Patient completed bone marrow biopsy today, we will follow results. 11/15/2024: Patient seen and examined at bedside, reports improvement in breathing, however, reports increasing weakness and generalized body aches. Currently on 1 L of oxygen, downgraded to telemetry. We will get PT evaluation today. 11/16/2024: Tried weaning oxygen off of patient, however desaturated, continues to use 1 L. Currently on doxycycline and ceftriaxone. 11/18/2024: Patient is seen and examined at bedside, continued back pain. Scheduled to work with physical therapy today. Awaiting biopsy results, preliminarily inconclusive. Later in the day, patient was noted to have difficulty coughing up phlegm and clearing secretions requiring increasing levels of oxygen, patient cleared bedside swallow evaluation, was placed on a pureed diet. Progressing with PT evaluation. 11/21/24: on levophed 1mcg/min, vancomycin and zosyn. CXR: L basilar airspace dx, pulmonary edema. 11/22/24: FISH results came back positive BCR-ABL,discussed with who would like to liberate patient from MV, plan to bronch tomorrow, CPAP trial after. Objective vital signs Vital Sign Date Time Temp Pulse Resp B/P (MAP) Pulse Ox O2 Delivery O2 Flow Rate FiO2 11/22/24 17:00 89/35 11/22/24 17:00 99.5 81 18 96 211.1 11/22/24 16:00 35 11/22/24 16:00 Mechanical Ventilator+ Total Intake and Output 11/21/24 11/21/24 11/22/24 15:00 23:00 07:00 Intake Total 290.9995 ml 233.000 ml 862.250 ml Output Total 400 ml 500 ml Balance 290.9995 ml -167.000 ml 362.250 ml medications Current Medications Medications Dose Ordered Sig/Amol Route Start Time Stop Time Status Last Admin Dose Admin Albuterol 2.5 mg Q4HR NEB 11/07/24 02:00 11/22/24 13:52 2.5 MG Ipratropium [place] 0.5 mg Q4HR NEB 11/07/24 10:00 11/22/24 13:52 0.5 MG Lidocaine 1 patch Q24H TOP 11/09/24 18:00 11/20/24 17:48 1 PATCH Polyethylene Glycol 17 gm DAILY PO 11/10/24 10:00 11/22/24 09:50 17 GM Trolamine Salicylate 1 applic BID TOP 11/10/24 10:00 11/21/24 22:00 1 APPLIC Carbidopa/Levodopa 1 tab QID PO 11/19/24 06:00 11/22/24 17:51 1 TAB Acetylcysteine 200 mg Q4HR NEB 11/18/24 23:00 11/22/24 13:52 200 MG Midazolam HCl 50 ml @ 1 mls/hr Q24H IV 11/19/24 07:45 11/22/24 05:50 2 MLS/HR Fentanyl Citrate 250 ml @ 2.5 mls/hr Q24H IV 11/19/24 07:45 11/22/24 05:51 7.5 MLS/HR Acetaminophen 650 mg Q6HP PRN [place] 11/19/24 07:45 11/20/24 22:22 650 MG Vancomycin HCl 0 ml @ 0 mls/hr UD IV 11/19/24 10:00 Vancomycin HCl 150 ml @ 150 mls/hr Q12H IV 11/19/24 23:00 11/22/24 11:03 150 MLS/HR Acetaminophen 1,000 mg Q8H PRN IV 11/19/24 12:30 Docusate Sodium 100 mg BID GT 11/20/24 22:00 11/22/24 09:50 100 MG Pantoprazole Sodium 40 mg DAILY IV 11/21/24 10:00 11/22/24 09:50 40 MG Norepinephrine Bitartrate 250 ml @ 3.75 mls/hr Q24H IV 11/20/24 12:15 11/22/24 15:57 1.875 MLS/HR Piperacillin Sod/ Tazobactam Sod 100 ml @ 25 mls/hr Q8HR IV 11/21/24 14:00 11/22/24 14:18 25 MLS/HR Enteral Nutritional Formula 1,000 ml 30ML/HR GT 11/22/24 09:30 Examination General Appearance: Cooperative. Well developed. In moderate distress Pulmonary/Respiratory: Chest non-tender. Scattered bilateral wheezes, decreased b/l breath sounds Cardiovascular/Chest: Tachycardia No murmurs. No JVD. Peripheries: Cold to touch Abdominal Exam: Normal bowel sounds. Soft. normal abdomen, no visible veins, Nontender. No hepatospenomegaly. No masses Lower extremities: 1+ lower extremity edema Neuro/Mental Status: A&O x4. Coherent. tremor noted, most pronounced in RUE Thoughts/Psych: Normal thought pattern. Appropriate mood and affect. laboratory and microbiology Laboratory Tests 11/22/24 02:54 Test 11/22/24 02:54 Range/Units Serum Glucose 91 74-106 mg/dL Microbiology Date/Time Source Procedure Growth Status 11/19/24 19:00 Urine - Catheterized Urine Culture - Final Complete 11/19/24 11:50 Nose MRSA Screen - Final Complete 11/19/24 08:41 Blood Blood Culture - Preliminary NO GROWTH AFTER 72 HOURS OF INCUBATION. Resulted 7/19/25 07:25 Sputum Gram Stain - Final Resulted 11/19/24 07:25 Sputum Respiratory Culture - Preliminary Resulted Labs and/or images reviewed: Labs reviewed by me, Image(s) reviewed by me Problem List/Assessment/Plan Problem List/Assessment/Plan Neurology # newly diagnosed Parkinson's disease - resumed home medication carbidopa levodopa - consulted neurology - nicotine patch Cardiovascular # Septic shock possibly secondary to pneumonia versus complicated UTI # NSTEMI likely type 2 due to above # mild left atrial enlargement # moderate aortic stenosis with mean gradient of 25 mm of Hg # ascending aortic aneurysm measuring 4.2 cm 12 months ago - echocardiogram: lvef 55%. mild LVH. grade 1 diastolic dysfunction. normal rv function. RV not well seen. left atrium enlarged mild. moderate aortic stenosis, mean gradient of 25 mmg . mild pulm htn - CXR: No acute abnormality demonstrated, low lung volumes with crowding of the bronchovascular markings. - Vancomycin, cefepime Respiratory # Acute hypoxic/hypercapnic respiratory failure, on BiPAP # possible acute exacerbation of COPD # community-acquired pneumonia, Gram-positive versus Gram-negative? # pulmonary hypertension, RVSP 65 mmHg # 6.3 mm soft nodule right middle lobe - echocardiogram: lvef 55%. mild LVH. grade 1 diastolic dysfunction. normal rv function. RV not well seen. left atrium enlarged mild. moderate aortic stenosis, mean gradient of 25 mmg . mild pulm htn - IV vancomycin per-pharmacy - IV cefepime - ipratropium and albuterol med nebs - V/Q scan - continue BiPAP at night - requested PT evaluation - outpatient follow up for evaluation and monitoring of right-sided soft nodule in the lung - incentive spirometry GI # Peptic ulcer prophylaxis -Pantoprazole 40 mg IV daily # Castanon catheter placed on 11/07/2024 # acute complicated UTI # likely benign prostatic hyperplasia - IV vancomycin, IV cefepime -tamsulosin 0.4 mg Nephrology # SHREYA likely hemodynamically mediated/VMN on questionable CKD, baseline unavailable - nephrology on board - strict I&Os - monitor Infectious disease # acute complicated UTI # possible community-acquired pneumonia - IV vancomycin per pharmacy - IV cefepime - IV NS at 75 cc/hour, now dc'ed - norepinephrine at 0.5 mcg, now dc'ed Hem/onc # severe leukocytosis -CML # microcytic anemia, MCV 69.4 # thrombocytopenia, serum platelets 82 - abdominal usg: splenomegaly - ordered serum LDH; 550 - monitor DVT prophylaxis - bilateral lower extremity Doppler: No right or left femoropopliteal venous thrombosis - holding due to low platelet count Nutrition Cardiac diet Lines - right 20 gauge placed on 11/11/2024 Social service consulted for [facility] facility for physical therapy. Code status discussed greater than 20 minutes: NO CHEST COMPRESSIONS. ok to intubated. POA. paperwork on file. Family at bedside explained about the condition of the patient critical care time excluding procedures- 61 mins Plan discussed with Dr. Blum Plan discussed with: Spouse, Other (RN) My Orders My Orders Orders - NEERU SCHULZ Procedure Category Date Status Time Mrsa Screen VENKAT 11/21/24 Logged 19:56 Chest Portable XY 11/22/24 Resulted 04:00 Abg W/ Co-Ox RT 11/22/24 Logged 04:00 Modified Resuscitive CODE 11/21/24 Transmitted Measures Nutritional PHA 11/22/24 In Process Supplements (Jevity 09:30 Tube Feeding DIET 11/22/24 Transmitted Breakfast Lt Lower Dvt US 11/22/24 Resulted 13:24 Complete Blood Count LAB 11/23/24 Verified 04:00 Comprehensive LAB 11/23/24 Verified Metabolic Panel 04:00 Abg W/ Co-Ox RT 11/23/24 Logged 04:00 Chest Portable XY 11/23/24 Logged 04:00 Dietary Evaluation Review Comments: 1) Refer CDE for weight management on DC 2) Monitor PO intake, Lab values, I/O, wt trend Expected Outcomes/Goals: To meet >75% estimated needs Fu 3-5 days Date of Service: Nov 22, 2024 Billing Provider: CARMINE BLUM MD Common Visit Codes: 68224-[id number] CARE 30-74 MIN NEERU SCHULZ Nov 22, 2024 18:10 CARMINE BLUM MD Nov 23, 2024 11:32
[2024-11-23] VITALS (108 sets, daily range): BP systolic 92–142; BP diastolic 45–72; PULSE 71–94; RESP 11–33; TEMP 98.1–100.4; O2SAT 72–100
[2024-11-23] MEDS: ACETAMINOPHEN IV 1000 MG/100ML (10MG/ML) IV PRN (02:39)
[2024-11-23 03:30] LABS: Hemoglobin 10.0 g/dL (13.5-17.5)
[2024-11-23 03:32] LABS: Hematocrit 31.7 % (41.0-53.0); Mean Corpuscular Hemoglobin 20.8 pg (28.0-32.0); Mean Corpuscular Volume 66.1 fL (80.0-100.0)
[2024-11-23 03:47] LABS: Alanine Aminotransferase 16 U/L (7-40); Anion Gap 9 (5-15); Carbon Dioxide 30 mmol/L (20-31); Chloride 101 mmol/L (98-107); Glucose 104 mg/dL (74-106); Potassium 3.6 mmol/L (3.5-5.1); Sodium 140 mmol/L (136-145)
[2024-11-23 03:48] LABS: BUN/Creatinine Ratio 50.9 (10.0-20.0)
[2024-11-23 03:49] LABS: Albumin 3.2 g/dL (3.2-4.8)
[2024-11-23 03:50] LABS: Alkaline Phosphatase 204 U/L (46-116); Bilirubin, Total 1.3 mg/dL (0.2-1.0); Blood Urea Nitrogen 29 mg/dL (9-23); Calcium 8.2 mg/dL (8.7-10.4); Total Protein 5.2 g/dL (5.7-8.2)
[2024-11-23 04:12] LABS: Ovalocytes FEW; Total Cells Counted 100.0 (100)
--- NOTE | 2024-11-23 04:54 | DVH ---
CHEST RADIOGRAPH Indication: pna Technique: Single frontal view of the chest was obtained COMPARISON: XY CHEST PORTABLE on DOS: 11/22/24, XY CHEST PORTABLE on DOS: 11/20/24, XY CHEST PORTABLE o n DOS: 11/19/24, XY CHEST PORTABLE on DOS: 11/19/24, XY CHEST PORTABLE on DOS: 11/19/24 FINDINGS: Lines and Tubes: Unchanged. Lungs: Stable appearing left pleural effusion and left basilar pulmonary airspace disease with diffus e increased prominence of the pulmonary vasculature redemonstrated. No pneumothorax. Cardiomediastinal contours: Cardiomegaly. Bones: Unremarkable IMPRESSION: 1. Stable cardiomegaly, diffuse increased prominence of the pulmonary vasculature, left basilar pulmo nary airspace disease and left pleural effusion. 2. Lines and tubes unchanged.
[2024-11-23 08:04] LABS: Base Excess 4.8 mmol/L (-2.0-3.0)
[2024-11-23] MEDS ORDERED: Vital High Protein 1liter Bottle GT SCH (09:30)
[2024-11-23] MEDS: LACTULOSE 20Gm/30ML SOLN PO SCH (09:44)
--- NOTE | 2024-11-23 10:47 | DVHPN2 ---
Progress Note - Dictate Date Seen: Nov 23, 2024 Medical Necessity Reason Pt with a Central, PICC or Fol: No The following are medically ne: Castanon Catheter Subjective Mr. Avina is a 74 years old right-handed gentleman with a history of hypertension, bradycardia status post pacemaker insertion, chronic lung disease, he came to the hospital on 11/06/2024 with a chief complaint of chest pain, general weakness, and dizziness. He was intubated, transferred to ICU on 11/19/2024 I have seen and examined the patient, talked to his nurse. He is intubated, sedated, responsive to light touch, he has mild tremor in both hands, with right side more affected. Fentanyl 75 mcg/hour, Versed 2 mg/hour, levo 1 mcg/minutes Blood culture, 11/06/2024: Negative UDS, 11/07/2024: Negative Plasma alcohol, 11/06/2024: <3 Urinalysis, 11/07/2024: WBC: Five, urine leukocyte esterase: 1+ ABG, 11/08/2024: Respiratory acidosis, hypoxia 11/11/2024: Respiratory acidosis, hypoxia 11/13/24: Respiratory acidosis, hypoxia, 11/19/2024: Respiratory acidosis PT/INR/PTT, 11/14/2024: 12.4/1.19/25.6 WBC/HB/PLT/MCV, 11/14/2024: 61/10.9/98/67.5, 11/1924: 61.9/11.3/70/69.4 BUN/CR, 11/06/2024: 40/2.02 Lactic acid, 11/06/2024: 3.6 HGB A1c, 11/06/24: 5.2 TBI/AST/ALT/AP, 11/06/2024: 0.8/39/26/77 TG/HDL/LDL/HDL, 11/06/2024: 81/108/64/35 Vitamin B12, 11/06/2024: 1960 TSH, 11/06/2024: 1.77 Chest x-ray, 11/19/2024: 1. Endotracheal tube terminates 4 cm above the orestes. 2. Pulmonary edema. CT head, 11/20/2024: No acute intracranial abnormality. vital signs Vital Sign Date Time Temp Pulse Resp B/P (MAP) Pulse Ox O2 Delivery O2 Flow Rate FiO2 11/23/24 10:16 115/55 11/23/24 09:26 71 18 98 30 11/23/24 08:00 Mechanical Ventilator+ 11/23/24 07:45 98.6 209.5 Total Intake and Output 11/22/24 11/22/24 11/23/24 14:59 22:59 06:59 Intake Total 276.0 ml 692.75 ml 684.000 ml Output Total 475 ml Balance 276.0 ml 692.75 ml 209.000 ml medications Current Medications Medications Dose Ordered Sig/Amol Route Start Time Stop Time Status Last Admin Dose Admin Albuterol 2.5 mg Q4HR [facility] 11/07/24 02:00 11/23/24 09:26 2.5 MG Ipratropium [place] 0.5 mg Q4HR [facility] 11/07/24 10:00 11/23/24 09:26 0.5 MG Lidocaine 1 patch Q24H TOP 11/09/24 18:00 11/20/24 17:48 1 PATCH Polyethylene Glycol 17 gm DAILY PO 11/10/24 10:00 11/23/24 09:44 17 GM Trolamine Salicylate 1 applic BID TOP 11/10/24 10:00 11/21/24 22:00 1 APPLIC Carbidopa/Levodopa 1 tab QID PO 11/19/24 06:00 11/23/24 05:38 1 TAB Acetylcysteine 200 mg Q4HR NEB 11/18/24 23:00 11/23/24 09:26 200 MG Midazolam HCl 50 ml @ 1 mls/hr Q24H IV 11/19/24 07:45 11/22/24 20:00 2 MLS/HR Fentanyl Citrate 250 ml @ 2.5 mls/hr Q24H IV 11/19/24 07:45 11/23/24 10:16 7.5 MLS/HR Acetaminophen 650 mg Q6HP PRN [place] 11/19/24 07:45 11/20/24 22:22 650 MG Vancomycin HCl 0 ml @ 0 mls/hr UD IV 11/19/24 10:00 Vancomycin HCl 150 ml @ 150 mls/hr Q12H IV 11/19/24 23:00 11/22/24 22:43 150 MLS/HR Acetaminophen 1,000 mg Q8H PRN IV 11/19/24 12:30 11/23/24 02:39 1,000 MG Docusate Sodium 100 mg BID GT 11/20/24 22:00 11/23/24 09:44 100 MG Pantoprazole Sodium 40 mg DAILY IV 11/21/24 10:00 11/23/24 09:44 40 MG Norepinephrine Bitartrate 250 ml @ 3.75 mls/hr Q24H IV 11/20/24 12:15 11/22/24 15:57 1.875 MLS/HR Piperacillin Sod/ Tazobactam Sod 100 ml @ 25 mls/hr Q8HR IV 11/21/24 14:00 11/23/24 05:38 25 MLS/HR Lactulose 15 ml DAILY PO 11/23/24 10:00 11/23/24 09:44 15 ML Enteral Nutritional Formula 1,000 ml 30ML/HR GT 11/23/24 09:30 objective The patient is well-nourished and well-developed with no distress. The patient is intubated MENTAL STATUS: Subjective SPEECH, LANGUAGE, HIGHER CORTICAL FUNCTION: Subjective. CRANIAL NERVES: Pupils are equal, round and reactive.There are corneal reflexes and doll's eyes phenomenon. No signs of facial weakness. There are gagging or coughing reflexes SENSATION: Responses to pain stimuli. MOTOR: Normal tone in the upper and lower extremity. Normal muscle bulk. No fasciculations. He moves the arms to light touch REFLEXES: Deep tendon reflexes are symmetrical. No pathological reflexes. CEREBELLAR/COORDINATION: Deferred GAIT/STATION: deferred. laboratory and microbiology Laboratory Tests 11/23/24 02:45 Test 11/23/24 02:45 Range/Units Serum Glucose 104 74-106 mg/dL Problem List Acute respiratory failure Metabolic/hypoxic/toxic encephalopathy Tremors Parkinson's disease ? Essential tremors Gait disturbance, multifactorial ? REM sleep behavior disorder Chronic spine fracture status post surgical repair Chronic pain syndrome secondary to spine injury/fracture Chronic respiratory failure Leukocytosis status post bone marrow biopsy Visual hallucination/metabolic encephalopathy secondary to respiratory failure Assessment/Plan Monitoring Supportive treatment ICU care Stabilize vitals/pressor drip Respiratory support/vent management Oxygen IV antibiotics Sinemet to 25/100 mg Q.i.d. Tylenol 500 mg t.i.d. Lidocaine patch [place] 10/325 q.6 hours, escalate as indicated Consider physical therapy once the patient proved More recommendation per clinical course This medical document was created using an electronic medical record system with [employer] dictation system. Although this document has been carefully reviewed, there may still be some phonetic and typographical errors. These areas are purely typographical due to imperfections of the software programs, and do not reflect any compromise in the patient's medical care. Prognosis guarded Dietary Evaluation Review Comments: 1) Refer CDE for weight management on DC 2) Monitor PO intake, Lab values, I/O, wt trend Expected Outcomes/Goals: To meet >75% estimated needs Fu 3-5 days Plan discussed with: Other Critical Care Time(min): 30 BRITNEY HORTA MD Nov 23, 2024 10:47
--- NOTE | 2024-11-23 13:39 | DVHNC2 ---
Procedure - Procedure- Bronchoscopy and bronchial washings Indication- Secretions Procedure in detail We were asked to see patient for bronchoscopy. Consent was obtained and timeout performed per protocol. The patient was placed on 100% FiO2. Olympus bronchoscope was used and passed through the endotracheal tube, tracheobronchial tree was examined. There were minimal nonpurulent secretions in the airways bilaterally that were loosened up with approximately 50 cc of normal saline and thoroughly suctioned into a separate specimen container. There were no endobronchial lesions and mucosa appeared pale. After the procedure, the scope was removed. Patient tolerated the procedure well. ARTHUR DARLING MD Nov 23, 2024 13:39
--- NOTE | 2024-11-23 16:03 | DVHPNRES ---
Progress Note Date Seen: Nov 23, 2024 Resident Creating Document: NEERU SCHULZ RESIDENT Medical Necessity Reason Pt with a Central, PICC or Fol: No The following are medically ne: Castanon Catheter Subjective Review of Systems Patient is a 74-year-old male with past medical history of hypertension, symptomatic bradycardia s/p pacemaker 3 years ago, sleep apnea on CPAP, recently diagnosed Parkinson's disease, possible [employer] [place] exposure? , ascending aortic aneurysm 4.2 cm, who comes in due to severe generalized weakness. According to the patient and his , patient has been feeling increasingly weak for the past 1 week, 2 days ago he also sustained a fall where he slipped off of his bed and fell on his knees without any head trauma. Per , yesterday patient was complaining of chest pain that started 2 days ago, intermittent and worsened with eating, along with abdominal pain, sweating and generalized weakness, was unable to get up from the chair which is what prompted this visit to the hospital. On review of systems patient is complaining of chest pain that has been ongoing intermittently for the last 1 week, palpitations, urinary frequency and urinary incontinence. Serial troponins were 80, 100, 113, 107 and chest x-ray showed no acute abnormality. Past surgical history: Pacemaker, back surgery? Home medications: Smoking: Quit 40 years ago, prior to that was smoking 1 pack per day for 30 years Alcohol: Past history of heavy use, currently denies Drugs: Denies Lives with Allergies: Denies 11/08/2024: Patient seen and examined at bedside. Patient is alert and oriented to time, place person and responding to all questions. Patient reports improved symptoms from when he 1st came to the hospital. 1+ lower extremity edema, decreased bilateral breath sounds. Complaining of lower back pain, started on [place] 5q 8 hours as needed. Denies any new complaints. Denies any suicidal ideation. 11/09/24: overnight episode of agitation, paco2 noted to be 71, placed on bipap for 4 hours. today saturating 88-93% of 2-4L o2 via NC. improved backache. will follow serum LDH tomorrow. 11/10/2024: Patient notes improvement in symptoms, however, overnight episode of desaturation along with an episode of vomiting with desaturation in the afternoon. LDH was in the 500s, scheduled patient for bone marrow biopsy tomorrow. Transition IV steroids to p.o. prednisolone. 11/12-patient doing well. No significant or severe cramps concerning for worsening of Parkinson's or failure. Continue IV antibiotics. Patient has decreased breath sounds at bases we will start incentive spirometer. No PT onboard. We will get PT and continue q.2 hours turns until patient is able to move himself. Castanon in place good urine output. Patient is able to talk in short sentences due to his parkinsonism.. Platelets stable, WBCs elevated in stable. Primary team planning for possible bone marrow biopsy. I will hold off neurology consult as patient appears to be stable Parkinson's and defer to primary for the neurology consult. No other complaints from patient. Cough is improved. 11/13/2024-overnight patient became aggressive, confused swinging arms at staff. soft mittens were put on. This a.m. patient is A&O times 3-4, delusional as keeps saying that we are there to hurt him, but he is able to articulate reason for being here and understands if he declines therapy his condition could worsen. We will get psych evaluation to determine if patient has decision making capacity. He is declining suicidal ideations but appears very depressive and emotionally abusive comments towards spouse. Which is not his normal. Right now it is hard to assess if he has decision-making capacity as he is not as his normal function mentally. Patient is also too weak to get out of bed. Otherwise we will continue antibiotics for pneumonia in wait for bone marrow biopsy tomorrow. 11/14/24: Patient seen and examined at bedside, notes increasing weakness. Repeatedly had episodes of delirium overnight. Added Flomax 0.4 mg, neurology consulted. Patient completed bone marrow biopsy today, we will follow results. 11/15/2024: Patient seen and examined at bedside, reports improvement in breathing, however, reports increasing weakness and generalized body aches. Currently on 1 L of oxygen, downgraded to telemetry. We will get PT evaluation today. 11/16/2024: Tried weaning oxygen off of patient, however desaturated, continues to use 1 L. Currently on doxycycline and ceftriaxone. 11/18/2024: Patient is seen and examined at bedside, continued back pain. Scheduled to work with physical therapy today. Awaiting biopsy results, preliminarily inconclusive. Later in the day, patient was noted to have difficulty coughing up phlegm and clearing secretions requiring increasing levels of oxygen, patient cleared bedside swallow evaluation, was placed on a pureed diet. Progressing with PT evaluation. 11/21/24: on levophed 1mcg/min, vancomycin and zosyn. CXR: L basilar airspace dx, pulmonary edema. 11/22/24: FISH results came back positive BCR-ABL,discussed with who would like to liberate patient from MV, plan to bronch tomorrow, CPAP trial after. 11/23/2024: Completed bronchoscopy today without any complications. Scheduled for CPAP trial tomorrow. Objective vital signs Vital Sign Date Time Temp Pulse Resp B/P (MAP) Pulse Ox O2 Delivery O2 Flow Rate FiO2 11/23/24 15:45 100.2 79 18 105/51 (69) 93 212.4 11/23/24 15:39 30 11/23/24 14:00 Mechanical Ventilator+ Total Intake and Output 11/22/24 11/22/24 11/23/24 15:00 23:00 07:00 Intake Total 251.0 ml 762.625 ml 616.000 ml Output Total 475 ml Balance 251.0 ml 762.625 ml 141.000 ml medications Current Medications Medications Dose Ordered Sig/Amol Route Start Time Stop Time Status Last Admin Dose Admin Albuterol 2.5 mg Q4HR NEB 11/07/24 02:00 11/23/24 14:01 2.5 MG Ipratropium [place] 0.5 mg Q4HR NEB 11/07/24 10:00 11/23/24 14:01 0.5 MG Polyethylene Glycol 17 gm DAILY PO 11/10/24 10:00 11/23/24 09:44 17 GM Trolamine Salicylate 1 applic BID TOP 11/10/24 10:00 11/21/24 22:00 1 APPLIC Carbidopa/Levodopa 1 tab QID PO 11/19/24 06:00 11/23/24 12:01 1 TAB Acetylcysteine 200 mg Q4HR NEB 11/18/24 23:00 11/23/24 14:01 200 MG Midazolam HCl 50 ml @ 1 mls/hr Q24H IV 11/19/24 07:45 11/22/24 20:00 2 MLS/HR Fentanyl Citrate 250 ml @ 2.5 mls/hr Q24H IV 11/19/24 07:45 11/23/24 10:16 7.5 MLS/HR Acetaminophen 650 mg Q6HP PRN [place] 11/19/24 07:45 11/20/24 22:22 650 MG Vancomycin HCl 0 ml @ 0 mls/hr UD IV 11/19/24 10:00 Vancomycin HCl 150 ml @ 150 mls/hr Q12H IV 11/19/24 23:00 11/23/24 12:01 150 MLS/HR Acetaminophen 1,000 mg Q8H PRN IV 11/19/24 12:30 11/23/24 02:39 1,000 MG Docusate Sodium 100 mg BID GT 11/20/24 22:00 11/23/24 09:44 100 MG Pantoprazole Sodium 40 mg DAILY IV 11/21/24 10:00 11/23/24 09:44 40 MG Norepinephrine Bitartrate 250 ml @ 3.75 mls/hr Q24H IV 11/20/24 12:15 11/22/24 15:57 1.875 MLS/HR Piperacillin Sod/ Tazobactam Sod 100 ml @ 25 mls/hr Q8HR IV 11/21/24 14:00 11/23/24 14:10 25 MLS/HR Lactulose 15 ml DAILY PO 11/23/24 10:00 11/23/24 09:44 15 ML Enteral Nutritional Formula 1,000 ml 30ML/HR GT 11/23/24 09:30 Examination General Appearance: Cooperative. Well developed. In moderate distress Pulmonary/Respiratory: Chest non-tender. Scattered bilateral wheezes, decreased b/l breath sounds Cardiovascular/Chest: Tachycardia No murmurs. No JVD. Peripheries: Cold to touch Abdominal Exam: Normal bowel sounds. Soft. normal abdomen, no visible veins, Nontender. No hepatospenomegaly. No masses Lower extremities: 1+ lower extremity edema Neuro/Mental Status: A&O x4. Coherent. tremor noted, most pronounced in RUE Thoughts/Psych: Normal thought pattern. Appropriate mood and affect. laboratory and microbiology Laboratory Tests 11/23/24 02:45 Test 11/23/24 02:45 Range/Units Serum Glucose 104 74-106 mg/dL Microbiology Date/Time Source Procedure Growth Status 11/22/24 12:45 Nose MRSA Screen - Final Complete 11/19/24 19:00 Urine - Catheterized Urine Culture - Final Complete 11/19/24 08:41 Blood Blood Culture - Preliminary NO GROWTH AFTER 72 HOURS OF INCUBATION. Resulted 11/19/24 07:25 Sputum Gram Stain - Final Complete 11/19/24 07:25 Sputum Respiratory Culture - Final Complete Labs and/or images reviewed: Labs reviewed by me, Image(s) reviewed by me Problem List/Assessment/Plan Problem List/Assessment/Plan Neurology # newly diagnosed Parkinson's disease - resumed home medication carbidopa levodopa - consulted neurology - nicotine patch Cardiovascular # Septic shock possibly secondary to pneumonia versus complicated UTI # NSTEMI likely type 2 due to above # mild left atrial enlargement # moderate aortic stenosis with mean gradient of 25 mm of Hg # ascending aortic aneurysm measuring 4.2 cm 12 months ago - echocardiogram: lvef 55%. mild LVH. grade 1 diastolic dysfunction. normal rv function. RV not well seen. left atrium enlarged mild. moderate aortic stenosis, mean gradient of 25 mmg . mild pulm htn - CXR: No acute abnormality demonstrated, low lung volumes with crowding of the bronchovascular markings. - Vancomycin, cefepime Respiratory # Acute hypoxic/hypercapnic respiratory failure, intubated on 11/19/2024 # possible acute exacerbation of COPD # community-acquired pneumonia, Gram-positive versus Gram-negative? # pulmonary hypertension, RVSP 65 mmHg # 6.3 mm soft nodule right middle lobe - echocardiogram: lvef 55%. mild LVH. grade 1 diastolic dysfunction. normal rv function. RV not well seen. left atrium enlarged mild. moderate aortic stenosis, mean gradient of 25 mmg . mild pulm htn - IV vancomycin per-pharmacy - IV cefepime - ipratropium and albuterol med nebs - V/Q scan - continue BiPAP at night - requested PT evaluation - outpatient follow up for evaluation and monitoring of right-sided soft nodule in the lung - incentive spirometry GI # Peptic ulcer prophylaxis # Constipation, likely slow transit -Pantoprazole 40 mg IV daily - added lactulose 15 mg daily # Castanon catheter placed on 11/07/2024 # acute complicated UTI # likely benign prostatic hyperplasia - IV vancomycin, IV cefepime -tamsulosin 0.4 mg Nephrology # SHREYA likely hemodynamically mediated/VMN on questionable CKD, baseline unavailable - nephrology on board - strict I&Os - monitor Infectious disease # acute complicated UTI # possible community-acquired pneumonia - IV vancomycin per pharmacy - IV cefepime - IV NS at 75 cc/hour, now dc'ed - norepinephrine at 0.5 mcg, now dc'ed Hem/onc # severe leukocytosis -CML # microcytic anemia, MCV 69.4 # thrombocytopenia, serum platelets 82 - abdominal usg: splenomegaly - ordered serum LDH; 550 - monitor DVT prophylaxis - bilateral lower extremity Doppler: No right or left femoropopliteal venous thrombosis - holding due to low platelet count Nutrition Tube feedings Vital high-protein Drips Levophed at 1 mcg Versed 2 Fentanyl 75 Lines - right 20 gauge placed on 11/11/2024 Intubated on 11/19/2024: RR 18, TV 500, FiO2 35, peep 5 Social service consulted for intermediate facility for physical therapy. Code status discussed greater than 20 minutes: NO CHEST COMPRESSIONS. ok to intubated. POA. paperwork on file. Family at bedside explained about the condition of the patient critical care time excluding procedures- 61 mins Plan discussed with Dr. Blum Plan discussed with: Spouse, Other (RN) My Orders My Orders Orders - NEERU SCHULZ Procedure Category Date Status Time Chest Portable XY 11/23/24 Resulted 04:00 Abg W/ Co-Ox RT 11/23/24 Logged 06:34 Lactulose Oral PHA 11/23/24 In Process 10:00 Nutritional PHA 11/23/24 In Process Supplements (Vital 09:30 Dietary Evaluation Review Comments: 1) Refer CDE for weight management on DC 2) Monitor PO intake, Lab values, I/O, wt trend Expected Outcomes/Goals: To meet >75% estimated needs Fu 3-5 days Date of Service: Nov 23, 2024 Billing Provider: CARMINE BLUM MD Common Visit Codes: 51299-[id number] CARE 30-74 MIN NEERU SCHULZ Nov 23, 2024 16:03 CARMINE BLUM MD Nov 24, 2024 12:05
--- NOTE | 2024-11-23 23:54 | DVHPN2 ---
Progress Note - Dictate Date Seen: Nov 23, 2024 Medical Necessity Reason Pt with a Central, PICC or Fol: No The following are medically ne: Castanon Catheter Subjective Patient was seen and evaluated in follow up in the ICU. Patient is intubated and sedated on ventilator. 30% FiO2. Patient has mild tremors of both hands. Patient underwent bedside bronchoscopy and bronchial washings with Dr. Clifford, patient tolerated procedure well. WBC 48.3, BUN 29, AST 58. Chest x-ray show stable cardiomegaly, diffuse increased prominence of the pulmonary vasculature, left basilar pulmonary airspace disease and left pleural effusion. vital signs Vital Sign Date Time Temp Pulse Resp B/P (MAP) Pulse Ox O2 Delivery O2 Flow Rate FiO2 11/23/24 13:57 75 18 115/55 (75) 95 30 11/23/24 08:00 Mechanical Ventilator+ 11/23/24 07:45 98.6 209.5 Total Intake and Output 11/22/24 11/22/24 11/23/24 15:00 23:00 07:00 Intake Total 251.0 ml 762.625 ml 616.000 ml Output Total 475 ml Balance 251.0 ml 762.625 ml 141.000 ml medications Current Medications Medications Dose Ordered Sig/Amol Route Start Time Stop Time Status Last Admin Dose Admin Albuterol 2.5 mg Q4HR NEB 11/07/24 02:00 11/23/24 14:01 2.5 MG Ipratropium [place] 0.5 mg Q4HR NEB 11/07/24 10:00 11/23/24 14:01 0.5 MG Polyethylene Glycol 17 gm DAILY PO 11/10/24 10:00 11/23/24 09:44 17 GM Trolamine Salicylate 1 applic BID TOP 11/10/24 10:00 11/21/24 22:00 1 APPLIC Carbidopa/Levodopa 1 tab QID PO 11/19/24 06:00 11/23/24 12:01 1 TAB Acetylcysteine 200 mg Q4HR NEB 11/18/24 23:00 11/23/24 14:01 200 MG Midazolam HCl 50 ml @ 1 mls/hr Q24H IV 11/19/24 07:45 11/22/24 20:00 2 MLS/HR Fentanyl Citrate 250 ml @ 2.5 mls/hr Q24H IV 11/19/24 07:45 11/23/24 10:16 7.5 MLS/HR Acetaminophen 650 mg Q6HP PRN [place] 11/19/24 07:45 11/20/24 22:22 650 MG Vancomycin HCl 0 ml @ 0 mls/hr UD IV 11/19/24 10:00 Vancomycin HCl 150 ml @ 150 mls/hr Q12H IV 11/19/24 23:00 11/23/24 12:01 150 MLS/HR Acetaminophen 1,000 mg Q8H PRN IV 11/19/24 12:30 11/23/24 02:39 1,000 MG Docusate Sodium 100 mg BID GT 11/20/24 22:00 11/23/24 09:44 100 MG Pantoprazole Sodium 40 mg DAILY IV 11/21/24 10:00 11/23/24 09:44 40 MG Norepinephrine Bitartrate 250 ml @ 3.75 mls/hr Q24H IV 11/20/24 12:15 11/22/24 15:57 1.875 MLS/HR Piperacillin Sod/ Tazobactam Sod 100 ml @ 25 mls/hr Q8HR IV 11/21/24 14:00 11/23/24 05:38 25 MLS/HR Lactulose 15 ml DAILY PO 11/23/24 10:00 11/23/24 09:44 15 ML Enteral Nutritional Formula 1,000 ml 30ML/HR GT 11/23/24 09:30 objective GENERAL: Ill appearing, intubated on ventilator. EYES: PERRL, EOMI. Anicteric. HENT: Moist mucous membranes. LUNGS: Decreased breath sounds. CARDIOVASCULAR: Regular rate and rhythm. ABDOMEN: Soft, non-tender and non-distended. EXTREMITIES: No edema. SKIN: Warm, dry. laboratory and microbiology Laboratory Tests 11/23/24 02:45 Test 11/23/24 02:45 Range/Units Serum Glucose 104 74-106 mg/dL Problem List Septic shock with PNA/UTI. Acute on chronic hypoxic respiratory failure. Acute kidney injury. NSTEMI type 2 secondary to above. Ascending aortic aneurysm at 4.2 cm. Presence of dual-chamber pacemaker ([employer]). Aortic valve stenosis, moderate degree. Parkinson's disease. Thrombocytopenia. FAMILIA on CPAP HS. History of tobacco use. Assessment/Plan Continued all current supportive medical care. Sinemet. GI prophylactics. Nebulized breathing treatments. IV antibiotics as ordered. Additional plan as per the hospital course. Critical care time of 45 minutes provided to include time spent evaluation of patient at bedside, when appropriate patient/family education for diagnosis, treatment plan, review of pertinent medical information and discussion of care with specialty providers and PCP. Mechanical ventilator parameters, treatment and adjustments have personally been reviewed by me and treatment plan by journeyman patternmaker has also been reviewed. Dietary Evaluation Review Comments: 1) Refer CDE for weight management on DC 2) Monitor PO intake, Lab values, I/O, wt trend Expected Outcomes/Goals: To meet >75% estimated needs Fu 3-5 days Plan discussed with: Other NAYELY CHAVEZ MD Nov 23, 2024 14:09
[2024-11-24] VITALS (100 sets, daily range): BP systolic 84–141; BP diastolic 37–70; PULSE 79–105; RESP 14–28; TEMP 98–100.2; O2SAT 92–100
[2024-11-24 03:20] LABS: Hematocrit 31.8 % (41.0-53.0); Hemoglobin 10.0 g/dL (13.5-17.5); Mean Corpuscular Hemoglobin 21.0 pg (28.0-32.0); Mean Corpuscular Volume 66.7 fL (80.0-100.0)
[2024-11-24 03:28] LABS: Alanine Aminotransferase 12 U/L (7-40); Anion Gap 10 (5-15); BUN/Creatinine Ratio 44.0 (10.0-20.0); Blood Urea Nitrogen 22 mg/dL (9-23); Carbon Dioxide 28 mmol/L (20-31); Chloride 101 mmol/L (98-107); Potassium 3.7 mmol/L (3.5-5.1); Sodium 139 mmol/L (136-145)
[2024-11-24 03:29] LABS: Bilirubin, Total 1.0 mg/dL (0.2-1.0)
[2024-11-24 03:31] LABS: Albumin 3.1 g/dL (3.2-4.8); Alkaline Phosphatase 220 U/L (46-116); Calcium 8.2 mg/dL (8.7-10.4); Glucose 111 mg/dL (74-106); Total Protein 5.2 g/dL (5.7-8.2)
[2024-11-24 04:40] LABS: Total Cells Counted 100.0 (100)
[2024-11-24 04:41] LABS: Ovalocytes FEW
--- NOTE | 2024-11-24 06:22 | DVH ---
CHEST RADIOGRAPH Indication: pna Technique: Single frontal view of the chest was obtained COMPARISON: XY CHEST PORTABLE on DOS: 11/23/24, XY CHEST PORTABLE on DOS: 11/22/24, XY CHEST PORTABLE o n DOS: 11/20/24, XY CHEST PORTABLE on DOS: 11/19/24, XY CHEST PORTABLE on DOS: 11/19/24 FINDINGS: Lines and Tubes: Unchanged. Lungs: Stable appearing bibasilar pulmonary airspace disease and small bilateral pleural effusions. No pneumothorax. Cardiomediastinal contours: Unremarkable Bones: Unremarkable IMPRESSION: 1. Bibasilar pulmonary airspace disease and small bilateral pleural effusions. 2. Lines and tubes unchanged.
[2024-11-24 08:57] LABS: Base Excess 1.7 mmol/L (-2.0-3.0)
--- NOTE | 2024-11-24 10:50 | DVHPN2 ---
Progress Note - Dictate Date Seen: Nov 24, 2024 Medical Necessity Reason Pt with a Central, PICC or Fol: No The following are medically ne: Castanon Catheter Subjective Mr. Avina is a 74 years old right-handed gentleman with a history of hypertension, bradycardia status post pacemaker insertion, chronic lung disease, he came to the hospital on 11/06/2024 with a chief complaint of chest pain, general weakness, and dizziness. He was intubated, transferred to ICU on 11/19/2024 I have seen and examined the patient, talked to his nurse, his friend are in the room. He is intubated, awake, he follows verbal commands. He moves the arms, I did not see tremors today Blood culture, 11/06/2024: Negative UDS, 11/07/2024: Negative Plasma alcohol, 11/06/2024: <3 Urinalysis, 11/07/2024: WBC: Five, urine leukocyte esterase: 1+ ABG, 11/08/2024: Respiratory acidosis, hypoxia 11/11/2024: Respiratory acidosis, hypoxia 11/13/24: Respiratory acidosis, hypoxia, 11/19/2024: Respiratory acidosis PT/INR/PTT, 11/14/2024: 12.4/1..6 WBC/HB/PLT/MCV, 11/14/2024: 61/10.9/98/67.5, 11/1924: 61.9/11.3/70/69.4 BUN/CR, 11/06/2024: 40/2.02 Lactic acid, 11/06/2024: 3.6 HGB A1c, 11/06/24: 5.2 TBI/AST/ALT/AP, 11/06/2024: 0.8/39/26/77 TG/HDL/LDL/HDL, 11/06/2024: 81/108/64/35 Vitamin B12, 11/06/2024: 1960 TSH, 11/06/2024: 1.77 Chest x-ray, 11/19/2024: 1. Endotracheal tube terminates 4 cm above the orestes. 2. Pulmonary edema. CT head, 11/20/2024: No acute intracranial abnormality. vital signs Vital Sign Date Time Temp Pulse Resp B/P (MAP) Pulse Ox O2 Delivery O2 Flow Rate FiO2 11/24/24 10:16 83 19 100 11/24/24 09:43 121/58 (79) 40 11/24/24 08:30 98.8 98.8 11/24/24 08:30 Mechanical Ventilator Total Intake and Output 11/23/24 11/23/24 11/24/24 15:00 23:00 07:00 Intake Total 234.125 ml 1012.5 ml 407.5 ml Output Total 550 ml 475 ml Balance 234.125 ml 462.5 ml -67.5 ml medications Current Medications Medications Dose Ordered Sig/Amol Route Start Time Stop Time Status Last Admin Dose Admin Albuterol 2.5 mg Q4HR NEB 11/07/24 02:00 11/24/24 10:14 2.5 MG Ipratropium [place] 0.5 mg Q4HR NEB 11/07/24 10:00 11/24/24 10:14 0.5 MG Polyethylene Glycol 17 gm DAILY PO 11/10/24 10:00 11/23/24 09:44 17 GM Trolamine Salicylate 1 applic BID TOP 11/10/24 10:00 11/21/24 22:00 1 APPLIC Carbidopa/Levodopa 1 tab QID PO 11/19/24 06:00 11/24/24 05:29 1 TAB Acetylcysteine 200 mg Q4HR NEB 11/18/24 23:00 11/24/24 10:14 200 MG Midazolam HCl 50 ml @ 1 mls/hr Q24H IV 11/19/24 07:45 11/22/24 20:00 2 MLS/HR Fentanyl Citrate 250 ml @ 2.5 mls/hr Q24H IV 11/19/24 07:45 11/23/24 10:16 7.5 MLS/HR Acetaminophen 650 mg Q6HP PRN MS 11/19/24 07:45 11/20/24 22:22 650 MG Vancomycin HCl 0 ml @ 0 mls/hr UD IV 11/19/24 10:00 Vancomycin HCl 150 ml @ 150 mls/hr Q12H IV 11/19/24 23:00 11/23/24 22:09 150 MLS/HR Docusate Sodium 100 mg BID GT 11/20/24 22:00 11/23/24 21:51 100 MG Pantoprazole Sodium 40 mg DAILY IV 11/21/24 10:00 11/23/24 09:44 40 MG Norepinephrine Bitartrate 250 ml @ 3.75 mls/hr Q24H IV 11/20/24 12:15 11/22/24 15:57 1.875 MLS/HR Piperacillin Sod/ Tazobactam Sod 100 ml @ 25 mls/hr Q8HR IV 11/21/24 14:00 11/24/24 05:29 25 MLS/HR Lactulose 15 ml DAILY PO 11/23/24 10:00 11/23/24 09:44 15 ML Enteral Nutritional Formula 1,000 ml 30ML/HR GT 11/23/24 09:30 objective The patient is well-nourished and well-developed with no distress. The patient is intubated MENTAL STATUS: Subjective SPEECH, LANGUAGE, HIGHER CORTICAL FUNCTION: Subjective. CRANIAL NERVES: Pupils are equal, round and reactive.There are corneal reflexes and doll's eyes phenomenon. No signs of facial weakness. There are gagging or coughing reflexes SENSATION: Responses to pain stimuli. MOTOR: Normal tone in the upper and lower extremity. Normal muscle bulk. No fasciculations. He moves the arms to light touch REFLEXES: Deep tendon reflexes are symmetrical. No pathological reflexes. CEREBELLAR/COORDINATION: Deferred GAIT/STATION: deferred. laboratory and microbiology Laboratory Tests 11/24/24 02:40 Test 11/24/24 02:40 Range/Units Serum Glucose 111 H 74-106 mg/dL Problem List Acute respiratory failure Metabolic/hypoxic/toxic encephalopathy Tremors Parkinson's disease ? Essential tremors Gait disturbance, multifactorial ? REM sleep behavior disorder Chronic spine fracture status post surgical repair Chronic pain syndrome secondary to spine injury/fracture Chronic respiratory failure Leukocytosis status post bone marrow biopsy Visual hallucination/metabolic encephalopathy secondary to respiratory failure Assessment/Plan Monitoring Supportive treatment ICU care Stabilize vitals/pressor drip Respiratory support/vent management Oxygen IV antibiotics Sinemet to 25/100 mg Q.i.d. Tylenol 500 mg t.i.d. Lidocaine patch [place] 10/325 q.6 hours, escalate as indicated Consider physical therapy once the patient proved More recommendation per clinical course This medical document was created using an electronic medical record system with [employer] dictation system. Although this document has been carefully reviewed, there may still be some phonetic and typographical errors. These areas are purely typographical due to imperfections of the software programs, and do not reflect any compromise in the patient's medical care. Prognosis guarded Dietary Evaluation Review Comments: 1) Refer CDE for weight management on DC 2) Monitor PO intake, Lab values, I/O, wt trend Expected Outcomes/Goals: To meet >75% estimated needs Fu 3-5 days Plan discussed with: Spouse, Other Critical Care Time(min): 30 BRITNEY HORTA MD Nov 24, 2024 10:50
--- NOTE | 2024-11-24 19:13 | DVHPNRES ---
Progress Note Date Seen: Nov 24, 2024 Resident Creating Document: NEERU SCHULZ RESIDENT Medical Necessity Reason Pt with a Central, PICC or Fol: No The following are medically ne: Castanon Catheter Subjective Review of Systems Patient is a 74-year-old male with past medical history of hypertension, symptomatic bradycardia s/p pacemaker 3 years ago, sleep apnea on CPAP, recently diagnosed Parkinson's disease, possible Agent [place] exposure? , ascending aortic aneurysm 4.2 cm, who comes in due to severe generalized weakness. According to the patient and his , patient has been feeling increasingly weak for the past 1 week, 2 days ago he also sustained a fall where he slipped off of his bed and fell on his knees without any head trauma. Per , yesterday patient was complaining of chest pain that started 2 days ago, intermittent and worsened with eating, along with abdominal pain, sweating and generalized weakness, was unable to get up from the chair which is what prompted this visit to the hospital. On review of systems patient is complaining of chest pain that has been ongoing intermittently for the last 1 week, palpitations, urinary frequency and urinary incontinence. Serial troponins were 80, 100, 113, 107 and chest x-ray showed no acute abnormality. Past surgical history: Pacemaker, back surgery? Home medications: Smoking: Quit 40 years ago, prior to that was smoking 1 pack per day for 30 years Alcohol: Past history of heavy use, currently denies Drugs: Denies Lives with Allergies: Denies 11/08/2024: Patient seen and examined at bedside. Patient is alert and oriented to time, place person and responding to all questions. Patient reports improved symptoms from when he 1st came to the hospital. 1+ lower extremity edema, decreased bilateral breath sounds. Complaining of lower back pain, started on [place] 5q 8 hours as needed. Denies any new complaints. Denies any suicidal ideation. 11/09/24: overnight episode of agitation, paco2 noted to be 71, placed on bipap for 4 hours. today saturating 88-93% of 2-4L o2 via NC. improved backache. will follow serum LDH tomorrow. 11/10/2024: Patient notes improvement in symptoms, however, overnight episode of desaturation along with an episode of vomiting with desaturation in the afternoon. LDH was in the 500s, scheduled patient for bone marrow biopsy tomorrow. Transition IV steroids to p.o. prednisolone. 11/12-patient doing well. No significant or severe cramps concerning for worsening of Parkinson's or failure. Continue IV antibiotics. Patient has decreased breath sounds at bases we will start incentive spirometer. No PT onboard. We will get PT and continue q.2 hours turns until patient is able to move himself. Castanon in place good urine output. Patient is able to talk in short sentences due to his parkinsonism.. Platelets stable, WBCs elevated in stable. Primary team planning for possible bone marrow biopsy. I will hold off neurology consult as patient appears to be stable Parkinson's and defer to primary for the neurology consult. No other complaints from patient. Cough is improved. 11/13/2024-overnight patient became aggressive, confused swinging arms at staff. soft mittens were put on. This a.m. patient is A&O times 3-4, delusional as keeps saying that we are there to hurt him, but he is able to articulate reason for being here and understands if he declines therapy his condition could worsen. We will get psych evaluation to determine if patient has decision making capacity. He is declining suicidal ideations but appears very depressive and emotionally abusive comments towards spouse. Which is not his normal. Right now it is hard to assess if he has decision-making capacity as he is not as his normal function mentally. Patient is also too weak to get out of bed. Otherwise we will continue antibiotics for pneumonia in wait for bone marrow biopsy tomorrow. 11/14/24: Patient seen and examined at bedside, notes increasing weakness. Repeatedly had episodes of delirium overnight. Added Flomax 0.4 mg, neurology consulted. Patient completed bone marrow biopsy today, we will follow results. 11/15/2024: Patient seen and examined at bedside, reports improvement in breathing, however, reports increasing weakness and generalized body aches. Currently on 1 L of oxygen, downgraded to telemetry. We will get PT evaluation today. 11/16/2024: Tried weaning oxygen off of patient, however desaturated, continues to use 1 L. Currently on doxycycline and ceftriaxone. 11/18/2024: Patient is seen and examined at bedside, continued back pain. Scheduled to work with physical therapy today. Awaiting biopsy results, preliminarily inconclusive. Later in the day, patient was noted to have difficulty coughing up phlegm and clearing secretions requiring increasing levels of oxygen, patient cleared bedside swallow evaluation, was placed on a pureed diet. Progressing with PT evaluation. 11/21/24: on levophed 1mcg/min, vancomycin and zosyn. CXR: L basilar airspace dx, pulmonary edema. 11/22/24: FISH results came back positive BCR-ABL,discussed with who would like to liberate patient from MV, plan to bronch tomorrow, CPAP trial after. 11/23/2024: Completed bronchoscopy today without any complications. Scheduled for CPAP trial tomorrow. 11/24/2024: Patient was extubated today as per 's wishes, decided to opt for home hospice, code status DNR. Discharge to home hospice in the a.m.. Objective vital signs Vital Sign Date Time Temp Pulse Resp B/P (MAP) Pulse Ox O2 Delivery O2 Flow Rate FiO2 11/24/24 17:30 97 15 127/68 (87) 100 11/24/24 16:00 40 11/24/24 16:00 Mechanical Ventilator+ 11/24/24 16:00 98.0 98.0 Total Intake and Output 11/23/24 11/23/24 11/24/24 15:00 23:00 07:00 Intake Total 234.125 ml 1012.5 ml 407.5 ml Output Total 550 ml 475 ml Balance 234.125 ml 462.5 ml -67.5 ml medications Current Medications Medications Dose Ordered Sig/Amol Route Start Time Stop Time Status Last Admin Dose Admin Albuterol 2.5 mg Q4HR NEB 11/07/24 02:00 11/24/24 18:47 2.5 MG Ipratropium [place] 0.5 mg Q4HR NEB 11/07/24 10:00 11/24/24 18:47 0.5 MG Polyethylene Glycol 17 gm DAILY PO 11/10/24 10:00 11/24/24 18:57 17 GM Trolamine Salicylate 1 applic BID TOP 11/10/24 10:00 11/24/24 18:55 1 APPLIC Carbidopa/Levodopa 1 tab QID PO 11/19/24 06:00 11/24/24 18:56 1 TAB Acetylcysteine 200 mg Q4HR NEB 11/18/24 23:00 11/24/24 18:47 200 MG Acetaminophen 650 mg Q6HP PRN IN 11/19/24 07:45 11/20/24 22:22 650 MG Vancomycin HCl 0 ml @ 0 mls/hr UD IV 11/19/24 10:00 Vancomycin HCl 150 ml @ 150 mls/hr Q12H IV 11/19/24 23:00 11/24/24 11:28 150 MLS/HR Docusate Sodium 100 mg BID GT 11/20/24 22:00 11/23/24 21:51 100 MG Pantoprazole Sodium 40 mg DAILY IV 11/21/24 10:00 11/24/24 11:29 40 MG Norepinephrine Bitartrate 250 ml @ 3.75 mls/hr Q24H IV 11/20/24 12:15 11/22/24 15:57 1.875 MLS/HR Piperacillin Sod/ Tazobactam Sod 100 ml @ 25 mls/hr Q8HR IV 11/21/24 14:00 11/24/24 18:56 25 MLS/HR Lactulose 15 ml DAILY PO 11/23/24 10:00 11/24/24 18:55 15 ML Enteral Nutritional Formula 1,000 ml 30ML/HR GT 11/23/24 09:30 Examination General Appearance: Cooperative. Well developed. In moderate distress Pulmonary/Respiratory: Chest non-tender. Scattered bilateral wheezes, decreased b/l breath sounds Cardiovascular/Chest: Tachycardia No murmurs. No JVD. Peripheries: Cold to touch Abdominal Exam: Normal bowel sounds. Soft. normal abdomen, no visible veins, Nontender. No hepatospenomegaly. No masses Lower extremities: 1+ lower extremity edema Neuro/Mental Status: A&O x4. Coherent. tremor noted, most pronounced in RUE Thoughts/Psych: Normal thought pattern. Appropriate mood and affect. laboratory and microbiology Laboratory Tests 11/24/24 02:40 Test 11/24/24 02:40 Range/Units Serum Glucose 111 H 74-106 mg/dL Microbiology Date/Time Source Procedure Growth Status 11/23/24 10:16 Bronchial Washings Gram Stain - Final Resulted 11/23/24 10:16 Bronchial Washings Respiratory Culture - Preliminary Resulted 11/22/24 12:45 Nose MRSA Screen - Final Complete 11/19/24 19:00 Urine - Catheterized Urine Culture - Final Complete 11/19/24 08:41 Blood Blood Culture - Final NO GROWTH AFTER 5 DAYS OF INCUBATION. Complete Labs and/or images reviewed: Labs reviewed by me, Image(s) reviewed by me Problem List/Assessment/Plan Problem List/Assessment/Plan Neurology # newly diagnosed Parkinson's disease - resumed home medication carbidopa levodopa - consulted neurology - nicotine patch Cardiovascular # Septic shock possibly secondary to pneumonia versus complicated UTI # NSTEMI likely type 2 due to above # mild left atrial enlargement # moderate aortic stenosis with mean gradient of 25 mm of Hg # ascending aortic aneurysm measuring 4.2 cm 12 months ago - echocardiogram: lvef 55%. mild LVH. grade 1 diastolic dysfunction. normal rv function. RV not well seen. left atrium enlarged mild. moderate aortic stenosis, mean gradient of 25 mmg . mild pulm htn - CXR: No acute abnormality demonstrated, low lung volumes with crowding of the bronchovascular markings. - Vancomycin, cefepime Respiratory # Acute hypoxic/hypercapnic respiratory failure, intubated on 11/19/2024 # possible acute exacerbation of COPD # community-acquired pneumonia, Gram-positive versus Gram-negative? # pulmonary hypertension, RVSP 65 mmHg # 6.3 mm soft nodule right middle lobe - echocardiogram: lvef 55%. mild LVH. grade 1 diastolic dysfunction. normal rv function. RV not well seen. left atrium enlarged mild. moderate aortic stenosis, mean gradient of 25 mmg . mild pulm htn - IV vancomycin per-pharmacy - IV cefepime - ipratropium and albuterol med nebs - V/Q scan - continue BiPAP at night - requested PT evaluation - outpatient follow up for evaluation and monitoring of right-sided soft nodule in the lung - incentive spirometry GI # Peptic ulcer prophylaxis # Constipation, likely slow transit -Pantoprazole 40 mg IV daily - added lactulose 15 mg daily # Castanon catheter placed on 11/07/2024 # acute complicated UTI # likely benign prostatic hyperplasia - IV vancomycin, IV cefepime -tamsulosin 0.4 mg Nephrology # SHREYA likely hemodynamically mediated/VMN on questionable CKD, baseline unavailable - nephrology on board - strict I&Os - monitor Infectious disease # acute complicated UTI # possible community-acquired pneumonia - IV vancomycin per pharmacy - IV cefepime - IV NS at 75 cc/hour, now dc'ed - norepinephrine at 0.5 mcg, now dc'ed Hem/onc # severe leukocytosis -CML # microcytic anemia, MCV 69.4 # thrombocytopenia, serum platelets 82 - abdominal usg: splenomegaly - ordered serum LDH; 550 - monitor DVT prophylaxis - bilateral lower extremity Doppler: No right or left femoropopliteal venous thrombosis - holding due to low platelet count Nutrition Tube feedings Vital high-protein Drips Levophed at 1 mcg Versed 2 Fentanyl 75 Lines - right 20 gauge placed on 11/11/2024 Intubated on 11/19/2024: RR 18, TV 500, FiO2 35, peep 5 Extubated on 11/24/2024 Social service consulted for home hospice Code status discussed greater than 20 minutes: DNR. POA. paperwork on file. Family at bedside explained about the condition of the patient critical care time including long dw and extubation and excluding procedures- 81 mins Plan discussed with Dr. Blum Plan discussed with: Spouse, Other (RN) My Orders My Orders Orders - NEERU SCHULZ RESIDENT Procedure Category Date Status Time Code Status CODE 11/24/24 Transmitted 15:47 Dietary Evaluation Review Comments: 1) Refer CDE for weight management on DC 2) Monitor PO intake, Lab values, I/O, wt trend Expected Outcomes/Goals: To meet >75% estimated needs Fu 3-5 days Date of Service: Nov 24, 2024 Billing Provider: CARMINE BLUM MD Common Visit Codes: 25039-YVYPAKYV CARE 30-74 MIN, 17287-EZJGOPTM CARE-EACH +30MIN NEERU SCHULZ Nov 24, 2024 19:13 CARMINE BLUM MD Nov 26, 2024 12:48
[2024-11-25] VITALS (71 sets, daily range): BP systolic 96–139; BP diastolic 43–77; PULSE 64–95; RESP 12–29; TEMP 97.6–99.9; O2SAT 92–100
--- NOTE | 2024-11-25 00:17 | DVHPN2 ---
Progress Note - Dictate Date Seen: Nov 24, 2024 Medical Necessity Reason Pt with a Central, PICC or Fol: No The following are medically ne: Castanon Catheter Subjective Patient was seen and evaluated in follow up in the ICU. Patient is intubated and sedated on ventilator. 35% FiO2. Patient's and friend are at bedside. Patient is able to follow verbal commands and move upper extremities. Patient failed CPAP trial today. WBC 54.1, AST 53. Chest x-ray showed bibasilar pulmonary airspace disease and small bilateral pleural effusions. vital signs Vital Sign Date Time Temp Pulse Resp B/P (MAP) Pulse Ox O2 Delivery O2 Flow Rate FiO2 11/24/24 11:30 84 18 121/45 (70) 100 11/24/24 10:00 35 11/24/24 10:00 Mechanical Ventilator+ 11/24/24 08:30 98.8 98.8 Total Intake and Output 11/23/24 11/23/24 11/24/24 15:00 23:00 07:00 Intake Total 234.125 ml 1012.5 ml 407.5 ml Output Total 550 ml 475 ml Balance 234.125 ml 462.5 ml -67.5 ml medications Current Medications Medications Dose Ordered Sig/Amol Route Start Time Stop Time Status Last Admin Dose Admin Albuterol 2.5 mg Q4HR NEB 11/07/24 02:00 11/24/24 10:14 2.5 MG Ipratropium [place] 0.5 mg Q4HR NEB 11/07/24 10:00 11/24/24 10:14 0.5 MG Polyethylene Glycol 17 gm DAILY PO 11/10/24 10:00 11/23/24 09:44 17 GM Trolamine Salicylate 1 applic BID TOP 11/10/24 10:00 11/21/24 22:00 1 APPLIC Carbidopa/Levodopa 1 tab QID PO 11/19/24 06:00 11/24/24 05:29 1 TAB Acetylcysteine 200 mg Q4HR NEB 11/18/24 23:00 11/24/24 10:14 200 MG Acetaminophen 650 mg Q6HP PRN ME 11/19/24 07:45 11/20/24 22:22 650 MG Vancomycin HCl 0 ml @ 0 mls/hr UD IV 11/19/24 10:00 Vancomycin HCl 150 ml @ 150 mls/hr Q12H IV 11/19/24 23:00 11/24/24 11:28 150 MLS/HR Docusate Sodium 100 mg BID GT 11/20/24 22:00 11/23/24 21:51 100 MG Pantoprazole Sodium 40 mg DAILY IV 11/21/24 10:00 11/24/24 11:29 40 MG Norepinephrine Bitartrate 250 ml @ 3.75 mls/hr Q24H IV 11/20/24 12:15 11/22/24 15:57 1.875 MLS/HR Piperacillin Sod/ Tazobactam Sod 100 ml @ 25 mls/hr Q8HR IV 11/21/24 14:00 11/24/24 05:29 25 MLS/HR Lactulose 15 ml DAILY PO 11/23/24 10:00 11/23/24 09:44 15 ML Enteral Nutritional Formula 1,000 ml 30ML/HR GT 11/23/24 09:30 objective GENERAL: Ill appearing, intubated on ventilator. EYES: PERRL, EOMI. Anicteric. HENT: Moist mucous membranes. LUNGS: Decreased breath sounds. CARDIOVASCULAR: Regular rate and rhythm. ABDOMEN: Soft, non-tender and non-distended. EXTREMITIES: No edema. SKIN: Warm, dry. laboratory and microbiology Laboratory Tests 11/24/24 02:40 Test 11/24/24 02:40 Range/Units Serum Glucose 111 H 74-106 mg/dL Problem List Septic shock with PNA/UTI. Acute on chronic hypoxic respiratory failure. Acute kidney injury. NSTEMI type 2 secondary to above. Ascending aortic aneurysm at 4.2 cm. Presence of dual-chamber pacemaker ([employer]). Aortic valve stenosis, moderate degree. Parkinson's disease. Thrombocytopenia. FAMILIA on CPAP HS. History of tobacco use. Assessment/Plan Continued all current supportive medical care. Sinemet. GI prophylactics. Nebulized breathing treatments. IV antibiotics as ordered. Additional plan as per the hospital course. Critical care time of 45 minutes provided to include time spent evaluation of patient at bedside, when appropriate patient/family education for diagnosis, treatment plan, review of pertinent medical information and discussion of care with specialty providers and PCP. Mechanical ventilator parameters, treatment and adjustments have personally been reviewed by me and treatment plan by hull molder has also been reviewed. Dietary Evaluation Review Comments: 1) Refer CDE for weight management on DC 2) Monitor PO intake, Lab values, I/O, wt trend Expected Outcomes/Goals: To meet >75% estimated needs Fu 3-5 days Plan discussed with: Other NAYELY CHAVEZ MD Nov 24, 2024 12:57
--- NOTE | 2024-11-25 08:02 | DVHDSRES ---
Discharge Summary Date of Admission Resident Creating Document: NEERU SCHULZ RESIDENT Nov 06, 2024 at 23:46 Date of Discharge: Nov 25, 2024 Admitting Diagnosis Septic shock Labs/Diagnostic Data: Laboratory Results Test 11/25/24 03:15 11/24/24 08:25 11/24/24 02:40 11/22/24 10:00 Creatinine 0.50 mg/dL (0.700-1.30) Glomerular Filtration Rate Calc 106 mL/min (>90) Blood Gas Specimen Type Arterial Blood Gas Sample Site Right brachial Blood Gas Patient Temperature 37.0 Arterial Blood Date Drawn [id number] Arterial Blood pH 7.456 (7.350-7.450) Arterial Blood Partial Pressure CO2 37.0 mmHg (35.0-48.0) Arterial Blood Partial Pressure O2 83.9 mmHg (83.0-108.0) Arterial Blood HCO3 25.5 mmol/L (21.0-28.0) Arterial Blood Oxygen Saturation 96.4 % (94.0-98.0) Arterial Blood Base Excess 1.7 mmol/L (-2.0-3.0) Arterial Blood Oxyhemoglobin 95.3 % (94.0-98.0) Arterial Blood Carboxyhemoglobin 1.0 % (0.5-1.5) Arterial Blood Methemoglobin 0.1 % (0.0-1.5) Adonis Test N/a Blood Gas Total Hemoglobin 11.00 g/dL (13.5-17.5) Blood Gas Set Respiration Rate 18.0 Blood Gas Modality Vent - ac Blood Gas Spontaneous Rate 20 FiO2 % 30.0 Blood Gas Tidal Volume 500.0 Blood Gas PEEP or CPAP 5.0 White Blood Count 54.1 10^3/uL (4.4-10.8) Red Blood Count 4.76 10^6/uL (4.5-5.90) Hemoglobin 10.0 g/dL (13.5-17.5) Hematocrit 31.8 % (41.0-53.0) Mean Corpuscular Volume 66.7 fL (80.0-100.0) Mean Corpuscular Hemoglobin 21.0 pg (28.0-32.0) Mean Corpuscular Hemoglobin Concent 31.5 g/dL (32.0-36.0) Red Cell Distribution Width 18.6 % (11.8-14.3) Platelet Count 89 10^3/uL (140-450) Mean Platelet Volume 8.5 fL (6.9-10.8) Neutrophils (%) (Auto) % (37.0-80.0) Lymphocytes (%) (Auto) % (10.0-50.0) Monocytes (%) (Auto) % (0.0-12.0) Basophils (%) (Auto) % (0.0-2.0) Neutrophils # (Auto) 10 ^3/uL (1.6-8.6) Lymphocytes # (Auto) 10 ^3/uL (0.4-5.4) Monocytes # (Auto) 10 ^3/uL (0-1.3) Differential Total Cells Counted 100.0 (100) Neutrophils % (Manual) 60 (37.0-80.0) Band Neutrophils % (Manual) 2 Lymphocytes % (Manual) 4 (10.0-50.0) Monocytes % (Manual) 27 (0-12) Eosinophils % (Manual) 2 (0-7) Basophils % (Manual) 0 (0.0-2.0) Metamyelocytes % (manual) 1 Myelocytes % (Manual) 1 Promyelocytes % (Manual) 3 Blast Cells % (Manual) 0 Reactive Lymphocytes 0 Platelet Estimate Decreased Hypochromasia (manual) Moderate Microcytosis Marked Ovalocytes Few Sodium Level 139 mmol/L (136-145) Potassium Level 3.7 mmol/L (3.5-5.1) Chloride Level 101 mmol/L (98-107) Carbon Dioxide Level 28 mmol/L (20-31) Anion Gap 10 (5-15) Blood Urea Nitrogen 22 mg/dL (9-23) BUN/Creatinine Ratio 44.0 (10.0-20.0) Serum Glucose 111 mg/dL (74-106) Calcium Level 8.2 mg/dL (8.7-10.4) Total Bilirubin 1.0 mg/dL (0.2-1.0) Aspartate Amino Transferase (AST) 53 U/L (13-40) Alanine Aminotransferase (ALT) 12 U/L (7-40) Alkaline Phosphatase 220 U/L (46-116) Total Protein 5.2 g/dL (5.7-8.2) Albumin 3.1 g/dL (3.2-4.8) Vancomycin Level Trough 16.3 ug/mL (5-10) Test 11/20/24 08:08 11/20/24 02:43 11/19/24 19:00 11/19/24 08:41 Specimen Drawn By Elian patient account specialist Stomatocytes Few Troponin I High Sensitivity 33 ng/L (</=54) Influenza Type A Antigen Negative (Negative) Influenza Type B Antigen Negative (Negative) SARS-CoV-2 Antigen (Rapid) Negative (NEGATIVE) Lactic Acid Level 1.5 mmol/L (0.4-2.0) Test 11/19/24 08:32 11/19/24 06:42 11/19/24 06:41 11/18/24 05:54 Urine Color Yellow (Yellow) Urine Clarity Turbid (Clear) Urine pH 5.5 (5.0-9.0) Urine Specific [place] 1.022 (1.001-1.035) Urine Protein 1+ (Negative) Urine Ketones Negative (Negative) Urine Blood 2+ /uL (Negative) Urine Nitrite Negative (Negative) Urine Bilirubin Negative (Negative) Urine Urobilinogen Normal mg/dL (Negative) Urine Leukocyte Esterase Negative /uL (Negative) Urine RBC 5 /hpf (0 - 3) Urine Microscopic WBC 5 /HPF (0-3) Urine Squamous Epithelial Cells Few /hpf (<5) Urine Bacteria Few /hpf (None Seen) Urine Mucus Few (None Seen) Urine Glucose Normal mg/dL (Normal) Blood Gas Liter Flow 10.00 Blood Gas Critical Value Read Back Yes Blood Gas Notified Whom benjamin Carvalho md Blood Gas Notified Time [id number] Blood Gas Notified By Dry Goods Clerk mena moreno Phosphorus Level 3.9 mg/dL (2.4-5.1) Magnesium Level 1.8 mg/dL (1.6-2.6) Nucleated Red Blood Cells 1.0 % Test 11/14/24 05:13 11/13/24 06:54 11/12/24 08:22 11/11/24 09:54 Anisocytosis (manual) Slight Prothrombin Time 12.4 sec (9.3-11.8) Prothrombin Time INR 1.19 (0.9-1.15) Activated Partial Thromboplast Time 25.6 SEC (24.5-34.5) Blood Gas EPAP 5 Blood Gas IPAP 15 Eosinophils (%) (Auto) 0.1 % (0.0-7.0) Eosinophils # (Auto) 0.1 10 ^3/uL (0-0.8) Basophils # (Auto) 0.3 10 ^3/uL (0-0.2) POC Glucose 172 mg/dl (70-106) Test 11/10/24 04:53 11/09/24 05:36 11/07/24 10:34 11/07/24 03:30 Lactate Dehydrogenase 559 U/L (120-246) Random Vancomycin Level 10.2 ug/mL (5-10) Creatine Kinase 48 U/L (46-171) Urine Hyaline Casts Mod /lpf (0 - 2) Urine Creatinine 391.78 mg/dL (30.0-125.0) Urine Protein/Creatinine Ratio 0.17 Urine Sodium 20 mmol/L (40-220) Urine Total Protein 67.4 mg/dL (1-14) Urine Opiates Screen Neg (NEGATIVE) Urine Fentanyl Screen Neg (NEGATIVE) Urine Barbiturates Screen Neg (NEGATIVE) Urine Phencyclidine Screen Neg (NEGATIVE) Urine Amphetamines Screen Neg (NEGATIVE) Urine Benzodiazepines Screen Neg (NEGATIVE) Urine Cocaine Screen Neg (NEGATIVE) Urine Cannabinoids Screen Neg (NEGATIVE) Test 11/06/24 23:07 11/06/24 21:55 Triglycerides Level 81 mg/dL (< 150) Cholesterol Level 108 mg/dL (< 200) LDL Cholesterol 64 mg/dL (< 100) HDL Cholesterol 35 mg/dL (40-59) D-Dimer, Quantitative 0.60 mg/L FEU (0.0-0.49) Hemoglobin A1c 5.2 % A1C (<5.7) B-Type Natriuretic Peptide 587.05 pg/mL (0-100) Vitamin B12 Level 1960 pg/mL (211-911) Vitamin D 25-Hydroxy 42.2 ng/mL (30.0-100) Thyroid Stimulating Hormone (TSH) 1.77 uIU/mL (0.55-4.78) Plasma/Serum Blood Alcohol < 3.0 mg/dL (<10) Other Laboratory Tests 11/25/24 03:15 11/24/24 02:40 Brief Hx & Hospital Course: This is a 74-year-old male with a complex medical history including hypertension, symptomatic bradycardia s/p pacemaker, sleep apnea, and recently diagnosed Parkinsons disease, who presented with severe generalized weakness, chest pain, and a fall. He was found to have elevated troponins, hypoxia, and signs of infection. During hospitalization, the patient experienced progressive respiratory failure, requiring intubation on 11/19/2024. He was treated empirically with IV vancomycin and cefepime for suspected pneumonia and UTI. He also developed delirium, agitation, and episodes of confusion. Neurology was consulted for Parkinsons management. 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 The patient was started on supportive care, but due to worsening condition and poor prognosis, the family opted for comfort-focused care. On 11/24/2024, the patient was extubated per family wishes, transitioned to DNR status, and arrangements were made for home hospice care. Discharge planning time 42 minutes Operations or Procedures Procedure- Right IJ central line placement ultrasound guided Indication- Intravenous access Procedure in detail Consent was obtained and timeout performed per protocol. The patient was placed in the supine position and the right IJ vein was localized using ultrasound SonoSite. ChloraPrep was used to clean the operative field, sterile drapes used to cover the area and local analgesia Lidocaine 1% 3 cc. Triple-lumen catheter was inserted over the wire with direct ultrasound guidance in the right IJ vein. The wire was removed, catheter flushed with normal saline and secured with 2 sutures. Sterile dressing applied. No complications. Intubation Indication: Respiratory Insufficiency Prep: Preoxygenation Pretreated with: Analgesia, Sedation Medicated with: Other (etomodate and rocuronium) Intubation Approach: Orotracheal Intubation size: cm (8) Informed consent obtained: Yes Risks/benefits/alt described: Yes Notes Patient was found to be in respiratory distress, with bilateral lung crackles, seemed to be patient is aspirating given underlying neuromuscular disorder. ABG was done patient on retaining CO2 around 78, not opening eyes, was called however did not cotton picker operator the call, we went ahead with intubation for protection of airway and with acute hypercapnic respiratory failure. A time out was performed. My hands were washed immediately prior to the procedure. I wore a surgical cap, mask with protective eyewear, gown and gloves throughout the procedure. The patient was placed on a monitor tech including continuous pulse oximetry. Rapid Sequence Intubation was conducted. The patient received 20mg of etomidate for induction and 50 mg of rocuronium for adequate paralysis. Cricoid pressure was maintained from time induction agent was given to time of cuff balloon inflation. Using a GlideScope _ laryngoscope and a size _ eight endotracheal tube with stylet, the patient was intubated on the _ 1st attempt. The stylet was removed and cuff balloon was inflated. Appropriate endotracheal tube position was confirmed by direct visualization of vocal cord passage, fogging of the tube, CO2 colormetric indicator and symmetric breath sounds. The tube was secured at _ 24 cm at the lips. Post intubation chest x- ray reviewed, with physical examination bilateral entry of air present. Procedure- Bronchoscopy and bronchial washings Indication- Secretions Procedure in detail We were asked to see patient for bronchoscopy. Consent was obtained and timeout performed per protocol. The patient was placed on 100% FiO2. Olympus bronchoscope was used and passed through the endotracheal tube, tracheobronchial tree was examined. There were minimal nonpurulent secretions in the airways bilaterally that were loosened up with approximately 50 cc of normal saline and thoroughly suctioned into a separate specimen container. There were no endobronchial lesions and mucosa appeared pale. After the procedure, the scope was removed. Patient tolerated the procedure well. Condition at Discharge: Guarded Final Diagnosis/Problems List # newly diagnosed Parkinson's disease # Septic shock possibly secondary to pneumonia versus complicated UTI # NSTEMI likely type 2 due to above # mild left atrial enlargement # moderate aortic stenosis with mean gradient of 25 mm of Hg # ascending aortic aneurysm measuring 4.2 cm 12 months ago # Acute hypoxic/hypercapnic respiratory failure, intubated on 11/19/2024 # possible acute exacerbation of COPD # community-acquired pneumonia, Gram-positive versus Gram-negative? # pulmonary hypertension, RVSP 65 mmHg # 6.3 mm soft nodule right middle lobe # Peptic ulcer prophylaxis # Constipation, likely slow transit # Castanon catheter placed on 11/07/2024 # acute complicated UTI # likely benign prostatic hyperplasia # SHREYA likely hemodynamically mediated/VMN on questionable CKD, baseline unavailable # acute complicated UTI # possible community-acquired pneumonia # severe leukocytosis -CML # microcytic anemia, MCV 69.4 # thrombocytopenia, serum platelets 82 Discharge Disposition: Hospice - Home Discharge Instruct/Medications Diet: Regular Activity: No Restrictions, As Tolerated Follow Up/Referral: as per hospice Medications: as per hospice Scheduled Albuterol Sulfate (Ventolin), 1 VIAL NEB Q6HR, (Reported) Albuterol Sulfate (Ventolin Mdi), 90 MCG IN PRN, (Reported) Azithromycin (Azithromycin), 250 MG PO DAILY, (Reported) Losartan Potassium (Losartan Potassium), 25 MG PO DAILY, (Reported) Magnesium Oxide (Magnesium Oxide), 1 TAB PO DAILY, (Reported) Misc Natural Products (Cramp Releaf), 70 MG OR DAILY, (Reported) Naproxen (Naproxen), 375 MG PO BIDWM, (Reported) Tamsulosin Hcl (Flomax), 1 CAP PO DAILY, (Reported) Scheduled PRN Acetaminophen (Acetaminophen), 325 MG PO Q8HP PRN for MILD PAIN, (Reported) Trazodone Hcl (Trazodone Hcl), 50 MG PO HSPRN PRN for FOR INSOMNIA, (Reported) Miscellaneous Medications Carbidopa-Levodopa (Carbidopa/Levodopa Odt 25-250 mg), 1 TAB PO, (Reported) Naproxen Sodium (Aleve Arthritis), 220 MG PO, (Reported) Discharge Statement: "Patient was advised to return to the ER or call 911 if any headaches, dizziness, shortness of breath, chest pain, abdominal pain, bleeding, fevers, or worsening of medical condition. Patient was counseled about treatment plan, medications, possible side effects, patientverbalized understanding. All questions were answered to the best of my ability. This discharge took greater then 30 minutes in planning, reviewing documentation, counseling the patient, and discussing with other team members." ASSESSMENT ASSESSMENT Assessment # newly diagnosed Parkinson's disease # Septic shock possibly secondary to pneumonia versus complicated UTI # NSTEMI likely type 2 due to above # mild left atrial enlargement # moderate aortic stenosis with mean gradient of 25 mm of Hg # ascending aortic aneurysm measuring 4.2 cm 12 months ago # Acute hypoxic/hypercapnic respiratory failure, intubated on 11/19/2024 # possible acute exacerbation of COPD # community-acquired pneumonia, Gram-positive versus Gram-negative? # pulmonary hypertension, RVSP 65 mmHg # 6.3 mm soft nodule right middle lobe # Peptic ulcer prophylaxis # Constipation, likely slow transit # Castanon catheter placed on 11/07/2024 # acute complicated UTI # likely benign prostatic hyperplasia # SHREYA likely hemodynamically mediated/VMN on questionable CKD, baseline unavailable # acute complicated UTI # possible community-acquired pneumonia # severe leukocytosis -CML # microcytic anemia, MCV 69.4 # thrombocytopenia, serum platelets 82 Additional Comments Additional Comments Additional Comments Patient was seen and evaluated by me. Patient's family [facility]. Patient will be discharged with the home hospice. Please see the dictated discharge summary from November 25. NEERU SCHULZ RESIDENT Nov 25, 2024 08:02 MITZI SANCHEZ MD Nov 26, 2024 15:40
--- NOTE | 2024-11-25 10:17 | DVHPNRES ---
Progress Note Date Seen: Nov 25, 2024 Resident Creating Document: NEERU SCHULZ RESIDENT Medical Necessity Reason Pt with a Central, PICC or Fol: No The following are medically ne: Castanon Catheter Subjective Review of Systems Patient is a 74-year-old male with past medical history of hypertension, symptomatic bradycardia s/p pacemaker 3 years ago, sleep apnea on CPAP, recently diagnosed Parkinson's disease, possible Agent [place] exposure? , ascending aortic aneurysm 4.2 cm, who comes in due to severe generalized weakness. According to the patient and his , patient has been feeling increasingly weak for the past 1 week, 2 days ago he also sustained a fall where he slipped off of his bed and fell on his knees without any head trauma. Per , yesterday patient was complaining of chest pain that started 2 days ago, intermittent and worsened with eating, along with abdominal pain, sweating and generalized weakness, was unable to get up from the chair which is what prompted this visit to the hospital. On review of systems patient is complaining of chest pain that has been ongoing intermittently for the last 1 week, palpitations, urinary frequency and urinary incontinence. Serial troponins were 80, 100, 113, 107 and chest x-ray showed no acute abnormality. Past surgical history: Pacemaker, back surgery? Home medications: Smoking: Quit 40 years ago, prior to that was smoking 1 pack per day for 30 years Alcohol: Past history of heavy use, currently denies Drugs: Denies Lives with Allergies: Denies 11/08/2024: Patient seen and examined at bedside. Patient is alert and oriented to time, place person and responding to all questions. Patient reports improved symptoms from when he 1st came to the hospital. 1+ lower extremity edema, decreased bilateral breath sounds. Complaining of lower back pain, started on [place] 5q 8 hours as needed. Denies any new complaints. Denies any suicidal ideation. 11/09/24: overnight episode of agitation, paco2 noted to be 71, placed on bipap for 4 hours. today saturating 88-93% of 2-4L o2 via NC. improved backache. will follow serum LDH tomorrow. 11/10/2024: Patient notes improvement in symptoms, however, overnight episode of desaturation along with an episode of vomiting with desaturation in the afternoon. LDH was in the 500s, scheduled patient for bone marrow biopsy tomorrow. Transition IV steroids to p.o. prednisolone. 11/12-patient doing well. No significant or severe cramps concerning for worsening of Parkinson's or failure. Continue IV antibiotics. Patient has decreased breath sounds at bases we will start incentive spirometer. No PT onboard. We will get PT and continue q.2 hours turns until patient is able to move himself. Castanon in place good urine output. Patient is able to talk in short sentences due to his parkinsonism.. Platelets stable, WBCs elevated in stable. Primary team planning for possible bone marrow biopsy. I will hold off neurology consult as patient appears to be stable Parkinson's and defer to primary for the neurology consult. No other complaints from patient. Cough is improved. 11/13/2024-overnight patient became aggressive, confused swinging arms at staff. soft mittens were put on. This a.m. patient is A&O times 3-4, delusional as keeps saying that we are there to hurt him, but he is able to articulate reason for being here and understands if he declines therapy his condition could worsen. We will get psych evaluation to determine if patient has decision making capacity. He is declining suicidal ideations but appears very depressive and emotionally abusive comments towards spouse. Which is not his normal. Right now it is hard to assess if he has decision-making capacity as he is not as his normal function mentally. Patient is also too weak to get out of bed. Otherwise we will continue antibiotics for pneumonia in wait for bone marrow biopsy tomorrow. 11/14/24: Patient seen and examined at bedside, notes increasing weakness. Repeatedly had episodes of delirium overnight. Added Flomax 0.4 mg, neurology consulted. Patient completed bone marrow biopsy today, we will follow results. 11/15/2024: Patient seen and examined at bedside, reports improvement in breathing, however, reports increasing weakness and generalized body aches. Currently on 1 L of oxygen, downgraded to telemetry. We will get PT evaluation today. 11/16/2024: Tried weaning oxygen off of patient, however desaturated, continues to use 1 L. Currently on doxycycline and ceftriaxone. 11/18/2024: Patient is seen and examined at bedside, continued back pain. Scheduled to work with physical therapy today. Awaiting biopsy results, preliminarily inconclusive. Later in the day, patient was noted to have difficulty coughing up phlegm and clearing secretions requiring increasing levels of oxygen, patient cleared bedside swallow evaluation, was placed on a pureed diet. Progressing with PT evaluation. 11/21/24: on levophed 1mcg/min, vancomycin and zosyn. CXR: L basilar airspace dx, pulmonary edema. 11/22/24: FISH results came back positive BCR-ABL,discussed with who would like to liberate patient from MV, plan to bronch tomorrow, CPAP trial after. 11/23/2024: Completed bronchoscopy today without any complications. Scheduled for CPAP trial tomorrow. 11/24/2024: Patient was extubated today as per 's wishes, decided to opt for home hospice, code status DNR. Discharge to home hospice in the a.m.. 11/25/24: Discharge could not be completed today. Patient pulled out NG tube, bedside swallow eval inconclusive, ordered swallow eval by speech therapist, we will continue to monitor. code status remains DNR Objective vital signs Vital Sign Date Time Temp Pulse Resp B/P (MAP) Pulse Ox O2 Delivery O2 Flow Rate FiO2 11/25/24 08:00 20 95 Nasal Cannula* 2 28 11/25/24 08:00 70 11/25/24 07:30 114/49 (70) 11/25/24 04:00 99.9 99.9 Total Intake and Output 11/24/24 11/24/24 11/25/24 15:00 23:00 07:00 Intake Total 126.6 ml 245 ml 280 ml Output Total 1450 ml 1000 ml Balance 126.6 ml -1205 ml -720 ml medications Current Medications Medications Dose Ordered Sig/Amol Route Start Time Stop Time Status Last Admin Dose Admin Albuterol 2.5 mg Q4HR NEB 11/07/24 02:00 11/25/24 07:01 2.5 MG Ipratropium [place] 0.5 mg Q4HR NEB 11/07/24 10:00 11/25/24 07:01 0.5 MG Polyethylene Glycol 17 gm DAILY PO 11/10/24 10:00 11/23/24 09:44 17 GM Trolamine Salicylate 1 applic BID TOP 11/10/24 10:00 11/24/24 22:27 1 APPLIC Carbidopa/Levodopa 1 tab QID PO 11/19/24 06:00 11/25/24 05:38 1 TAB Acetylcysteine 200 mg Q4HR NEB 11/18/24 23:00 11/25/24 07:01 200 MG Acetaminophen 650 mg Q6HP PRN [place] 11/19/24 07:45 11/20/24 22:22 650 MG Vancomycin HCl 0 ml @ 0 mls/hr UD IV 11/19/24 10:00 Vancomycin HCl 150 ml @ 150 mls/hr Q12H IV 11/19/24 23:00 11/24/24 23:59 150 MLS/HR Docusate Sodium 100 mg BID GT 11/20/24 22:00 11/24/24 22:27 100 MG Pantoprazole Sodium 40 mg DAILY IV 11/21/24 10:00 11/24/24 11:29 40 MG Norepinephrine Bitartrate 250 ml @ 3.75 mls/hr Q24H IV 11/20/24 12:15 11/22/24 15:57 1.875 MLS/HR Piperacillin Sod/ Tazobactam Sod 100 ml @ 25 mls/hr Q8HR IV 11/21/24 14:00 11/25/24 05:38 25 MLS/HR Lactulose 15 ml DAILY PO 11/23/24 10:00 11/24/24 18:55 15 ML Enteral Nutritional Formula 1,000 ml 30ML/HR GT 11/23/24 09:30 Examination General Appearance: Cooperative. Well developed. In moderate distress Pulmonary/Respiratory: Chest non-tender. Scattered bilateral wheezes, decreased b/l breath sounds Cardiovascular/Chest: Tachycardia No murmurs. No JVD. Peripheries: Cold to touch Abdominal Exam: Normal bowel sounds. Soft. normal abdomen, no visible veins, Nontender. No hepatospenomegaly. No masses Lower extremities: 1+ lower extremity edema Neuro/Mental Status tremor noted, most pronounced in RUE Thoughts/Psych: Normal thought pattern. Appropriate mood and affect. laboratory and microbiology Laboratory Tests 11/25/24 03:15 11/24/24 02:40 Test 11/24/24 02:40 Range/Units Serum Glucose 111 H 74-106 mg/dL Microbiology Date/Time Source Procedure Growth Status 11/23/24 10:16 Bronchial Washings Gram Stain - Final Resulted 11/23/24 10:16 Bronchial Washings Respiratory Culture - Preliminary Resulted 11/22/24 12:45 Nose MRSA Screen - Final Complete 11/19/24 19:00 Urine - Catheterized Urine Culture - Final Complete 11/19/24 08:41 Blood Blood Culture - Final NO GROWTH AFTER 5 DAYS OF INCUBATION. Complete Labs and/or images reviewed: Labs reviewed by me, Image(s) reviewed by me Problem List/Assessment/Plan Problem List/Assessment/Plan Neurology # newly diagnosed Parkinson's disease - resumed home medication carbidopa levodopa - consulted neurology - nicotine patch Cardiovascular # Septic shock possibly secondary to pneumonia versus complicated UTI # NSTEMI likely type 2 due to above # mild left atrial enlargement # moderate aortic stenosis with mean gradient of 25 mm of Hg # ascending aortic aneurysm measuring 4.2 cm 12 months ago - echocardiogram: lvef 55%. mild LVH. grade 1 diastolic dysfunction. normal rv function. RV not well seen. left atrium enlarged mild. moderate aortic stenosis, mean gradient of 25 mmg . mild pulm htn - CXR: No acute abnormality demonstrated, low lung volumes with crowding of the bronchovascular markings. - Vancomycin, cefepime Respiratory # Acute hypoxic/hypercapnic respiratory failure, intubated on 11/19/2024 # possible acute exacerbation of COPD # community-acquired pneumonia, Gram-positive versus Gram-negative? # pulmonary hypertension, RVSP 65 mmHg # 6.3 mm soft nodule right middle lobe - echocardiogram: lvef 55%. mild LVH. grade 1 diastolic dysfunction. normal rv function. RV not well seen. left atrium enlarged mild. moderate aortic stenosis, mean gradient of 25 mmg . mild pulm htn - IV vancomycin per-pharmacy - IV cefepime - ipratropium and albuterol med nebs - V/Q scan - continue BiPAP at night - requested PT evaluation - outpatient follow up for evaluation and monitoring of right-sided soft nodule in the lung - incentive spirometry GI # Peptic ulcer prophylaxis # Constipation, likely slow transit -Pantoprazole 40 mg IV daily - added lactulose 15 mg daily # Castanon catheter placed on 11/07/2024 # acute complicated UTI # likely benign prostatic hyperplasia - IV vancomycin, IV cefepime -tamsulosin 0.4 mg Nephrology # SHREYA likely hemodynamically mediated/VMN on questionable CKD, baseline unavailable - nephrology on board - strict I&Os - monitor Infectious disease # acute complicated UTI # possible community-acquired pneumonia - IV vancomycin per pharmacy - IV cefepime - IV NS at 75 cc/hour, now dc'ed - norepinephrine at 0.5 mcg, now dc'ed Hem/onc # severe leukocytosis -CML # microcytic anemia, MCV 69.4 # thrombocytopenia, serum platelets 82 - abdominal usg: splenomegaly - ordered serum LDH; 550 - monitor DVT prophylaxis - bilateral lower extremity Doppler: No right or left femoropopliteal venous thrombosis - holding due to low platelet count Nutrition Tube feedings Vital high-protein Drips Levophed at 1 mcg Versed 2 Fentanyl 75 Lines - right 20 gauge placed on 11/11/2024 Intubated on 11/19/2024: RR 18, TV 500, FiO2 35, peep 5 Extubated on 11/24/2024 Social service consulted for home hospice Code status discussed greater than 20 minutes: DNR. POA. paperwork on file. Family at bedside explained about the condition of the patient critical care time excluding procedures- 61 mins Plan discussed with Dr. Rodríguez Plan discussed with: Patient, Other (RN) My Orders My Orders Orders - NEERU SCHULZ RESIDENT Procedure Category Date Status Time Code Status CODE 11/24/24 Transmitted 15:47 Transfer Orders XFER 11/25/24 Transmitted 09:30 Speech Pathologist JULI 11/25/24 In Process Eval: Vannesa 09:30 Diet JULI 11/25/24 In Process 09:30 Dietary Evaluation Review Comments: 1) Refer CDE for weight management on DC 2) Monitor PO intake, Lab values, I/O, wt trend Expected Outcomes/Goals: To meet >75% estimated needs Fu 3-5 days NEERU SCHULZ RESIDENT Nov 25, 2024 10:17
[2024-11-25] MEDS: LIDOCAINE 5% TOPICAL PATCH TOP SCH (17:00)
--- NOTE | 2024-11-25 18:21 | DVHTSRES ---
Transfer Summary Transfer Summary Resident Creating Document: NEERU SCHULZ RESIDENT Date of Admission Nov 06, 2024 at 23:46 Date of Transfer: Nov 25, 2024 Brief Hx & Hospital Course: Patient: 74-year-old male PMH: Hypertension, symptomatic bradycardia s/p pacemaker (3 years ago), sleep apnea (on CPAP), newly diagnosed Parkinsons disease, ascending aortic aneurysm (4.2 cm), possible Agent [place] exposure Presentation: Presented with 1 week of worsening generalized weakness, fall 2 days prior (no head trauma), intermittent chest pain worsened with eating, abdominal pain, palpitations, urinary frequency, and incontinence. Serial troponins elevated (80 ? 113). CXR: No acute abnormality. Hospital Course Summary: Neurology: Diagnosis: Parkinsons disease, acute delirium, possible alcohol-related or metabolic encephalopathy Symptoms: Delirium, agitation, confusion, emotional lability, delusions Management: Resumed carbidopa-levodopa Neurology consulted Nicotine patch Psychiatry consulted for capacity evaluation Cardiovascular: Diagnosis: Septic shock (pneumonia vs. UTI) NSTEMI (likely type 2) Moderate aortic stenosis (mean gradient 25 mmHg) Ascending aortic aneurysm (4.2 cm) Mild LA enlargement, mild pulmonary HTN Echocardiogram: LVEF 55%, mild LVH, grade 1 diastolic dysfunction Management: Vancomycin, cefepime Levophed (weaned off) Telemetry monitoring Respiratory: Diagnosis: Acute hypoxic/hypercapnic respiratory failure, pneumonia, possible COPD exacerbation Ventilation: Intubated 11/19/2024, extubated 11/24/2024 Vent settings: RR 18, TV 500, FiO2 35%, PEEP 5 Imaging: CXR: L basilar airspace disease, pulmonary edema V/Q scan: No PE 6.3 mm RML pulmonary nodule (outpatient follow-up) Management: BiPAP at night Incentive spirometry Ipratropium/albuterol nebs Bronchoscopy completed 11/23 without complications GI: Diagnosis: Constipation, peptic ulcer prophylaxis Management: Pantoprazole 40 mg IV daily Lactulose 15 mg daily : Diagnosis: Acute complicated UTI, likely BPH Management: Castanon catheter placed 11/07 Tamsulosin 0.4 mg IV vancomycin, cefepime Renal: Diagnosis: SHREYA likely hemodynamic/VMN on CKD (baseline unknown) Management: Nephrology on board Strict I&Os IV NS (discontinued) Infectious Disease: Diagnosis: Community-acquired pneumonia, complicated UTI Management: IV vancomycin, cefepime Cultures obtained Weaned off norepinephrine Hematology/Oncology: Diagnosis: Chronic Myeloid Leukemia (CML) BCR-ABL positive Labs: Severe leukocytosis Microcytic anemia (MCV 69.4) Thrombocytopenia (platelets 82) LDH: 550 Imaging: Abdominal US: Splenomegaly Bone Marrow Biopsy: Completed, preliminary inconclusive DVT Prophylaxis: Dopplers: Bilateral LE negative for DVT Management: Held due to thrombocytopenia Nutrition: Tube feeds: Vital High-Protein Cleared bedside swallow eval ? transitioned to pureed diet Lines/Drips: Right 20G IV placed 11/11 Drips: Levophed (1 mcg/min), Versed (2 mcg/hr), Fentanyl (75 mcg/hr) all disc ontinued after extubation Extubated: 11/24/2024 per family wishes Code Status: DNR Discharge Plan: Home hospice arranged per wifes request Scheduled Albuterol Sulfate (Ventolin), 1 VIAL NEB Q6HR, (Reported) Albuterol Sulfate (Ventolin Mdi), 90 MCG IN PRN, (Reported) Azithromycin (Azithromycin), 250 MG PO DAILY, (Reported) Losartan Potassium (Losartan Potassium), 25 MG PO DAILY, (Reported) Magnesium Oxide (Magnesium Oxide), 1 TAB PO DAILY, (Reported) Misc Natural Products (Cramp Releaf), 70 MG OR DAILY, (Reported) Naproxen (Naproxen), 375 MG PO BIDWM, (Reported) Tamsulosin Hcl (Flomax), 1 CAP PO DAILY, (Reported) Scheduled PRN Acetaminophen (Acetaminophen), 325 MG PO Q8HP PRN for MILD PAIN, (Reported) Trazodone Hcl (Trazodone Hcl), 50 MG PO HSPRN PRN for FOR INSOMNIA, (Reported) Miscellaneous Medications Carbidopa-Levodopa (Carbidopa/Levodopa Odt 25-250 mg), 1 TAB PO, (Reported) Naproxen Sodium (Aleve Arthritis), 220 MG PO, (Reported) NEERU SCHULZ RESIDENT Nov 25, 2024 18:21
--- NOTE | 2024-11-25 20:12 | DVHPN2 ---
Progress Note - Dictate Date Seen: Nov 25, 2024 Medical Necessity Reason Pt with a Central, PICC or Fol: No The following are medically ne: Castanon Catheter Subjective Mr. Avina is a 74 years old right-handed gentleman with a history of hypertension, bradycardia status post pacemaker insertion, chronic lung disease, he came to the hospital on 11/06/2024 with a chief complaint of chest pain, general weakness, and dizziness. He was intubated, transferred to ICU on 11/19/2024 I have seen and examined the patient, talked to his nurse. He is extubated, a wake, oriented to person, place, he follows verbal commands, but he is very weak, I do not see tremors in the hands Blood culture, 11/06/2024: Negative UDS, 11/07/2024: Negative Plasma alcohol, 11/06/2024: <3 Urinalysis, 11/07/2024: WBC: Five, urine leukocyte esterase: 1+ ABG, 11/08/2024: Respiratory acidosis, hypoxia 11/11/2024: Respiratory acidosis, hypoxia 11/13/24: Respiratory acidosis, hypoxia, 11/19/2024: Respiratory acidosis PT/INR/PTT, 11/14/2024: 12.4/1..6 WBC/HB/PLT/MCV, 11/14/2024: 61/10.9/98/67.5, 11/1924: 61.9/11.3/70/69.4 BUN/CR, 11/06/2024: 40/2.02 Lactic acid, 11/06/2024: 3.6 HGB A1c, 11/06/24: 5.2 TBI/AST/ALT/AP, 11/06/2024: 0.8/39/26/77 TG/HDL/LDL/HDL, 11/06/2024: 81/108/64/35 Vitamin B12, 11/06/2024: 1960 TSH, 11/06/2024: 1.77 Chest x-ray, 11/19/2024: 1. Endotracheal tube terminates 4 cm above the orestes. 2. Pulmonary edema. CT head, 11/20/2024: No acute intracranial abnormality. vital signs Vital Sign Date Time Temp Pulse Resp B/P (MAP) Pulse Ox O2 Delivery O2 Flow Rate FiO2 11/25/24 18:00 19 100 Nasal Cannula* 2 28 11/25/24 18:00 83 11/25/24 17:45 11/25/24 17:00 98.0 98.0 Total Intake and Output 11/24/24 11/24/24 11/25/24 15:00 23:00 07:00 Intake Total 126.6 ml 245 ml 280 ml Output Total 1450 ml 1000 ml Balance 126.6 ml -1205 ml -720 ml medications Current Medications Medications Dose Ordered Sig/Amol Route Start Time Stop Time Status Last Admin Dose Admin Albuterol 2.5 mg Q4HR NEB 11/07/24 02:00 11/25/24 19:34 2.5 MG Ipratropium [place] 0.5 mg Q4HR NEB 11/07/24 10:00 11/25/24 19:34 0.5 MG Polyethylene Glycol 17 gm DAILY PO 11/10/24 10:00 11/23/24 09:44 17 GM Trolamine Salicylate 1 applic BID TOP 11/10/24 10:00 11/24/24 22:27 1 APPLIC Carbidopa/Levodopa 1 tab QID PO 11/19/24 06:00 11/25/24 05:38 1 TAB Acetylcysteine 200 mg Q4HR NEB 11/18/24 23:00 11/25/24 19:35 200 MG Acetaminophen 650 mg Q6HP PRN [place] 11/19/24 07:45 11/20/24 22:22 650 MG Vancomycin HCl 0 ml @ 0 mls/hr UD IV 11/19/24 10:00 Vancomycin HCl 150 ml @ 150 mls/hr Q12H IV 11/19/24 23:00 11/25/24 10:42 150 MLS/HR Docusate Sodium 100 mg BID GT 11/20/24 22:00 11/24/24 22:27 100 MG Pantoprazole Sodium 40 mg DAILY IV 11/21/24 10:00 11/25/24 10:42 40 MG Norepinephrine Bitartrate 250 ml @ 3.75 mls/hr Q24H IV 11/20/24 12:15 11/22/24 15:57 1.875 MLS/HR Piperacillin Sod/ Tazobactam Sod 100 ml @ 25 mls/hr Q8HR IV 11/21/24 14:00 11/25/24 14:52 25 MLS/HR Lactulose 15 ml DAILY PO 11/23/24 10:00 11/24/24 18:55 15 ML Enteral Nutritional Formula 1,000 ml 30ML/HR GT 11/23/24 09:30 Lidocaine 1 patch DAILY@1700 TOP 11/25/24 17:00 11/25/24 17:00 1 PATCH objective The patient is well-nourished and well-developed with no distress. MENTAL STATUS: Subjective SPEECH, LANGUAGE, HIGHER CORTICAL FUNCTION: Subjective. CRANIAL NERVES: Pupils are equal round and reactive to light briskly, normal external eye movement, normal sensation and motor examination in the lateral trigeminal nerve distribution, no facial weakness. SENSATION: Okay to pinprick MOTOR: Normal tone in the upper and lower extremity. Normal muscle bulk. No fasciculations. He moves the arms to light touch REFLEXES: Deep tendon reflexes are symmetrical. No pathological reflexes. CEREBELLAR/COORDINATION: Deferred GAIT/STATION: deferred. laboratory and microbiology Laboratory Tests 11/25/24 03:15 11/24/24 02:40 Test 11/24/24 02:40 Range/Units Serum Glucose 111 H 74-106 mg/dL Problem List Acute respiratory failure Metabolic/hypoxic/toxic encephalopathy Tremors Parkinson's disease ? Essential tremors Gait disturbance, multifactorial ? REM sleep behavior disorder Chronic spine fracture status post surgical repair Chronic pain syndrome secondary to spine injury/fracture Chronic respiratory failure Leukocytosis status post bone marrow biopsy Visual hallucination/metabolic encephalopathy secondary to respiratory failure Assessment/Plan Monitoring Supportive treatment ICU care for now Stabilize vitals p.r.n. Respiratory support p.r.n. Oxygen IV antibiotics Sinemet to 25/100 mg Q.i.d. Tylenol 500 mg t.i.d. Lidocaine patch [place] 10/325 q.6 hours, escalate as indicated Consider physical therapy once the patient proved More recommendation per clinical course This medical document was created using an electronic medical record system with [employer] dictation system. Although this document has been carefully reviewed, there may still be some phonetic and typographical errors. These areas are purely typographical due to imperfections of the software programs, and do not reflect any compromise in the patient's medical care. Prognosis poor Dietary Evaluation Review Comments: 1) Refer CDE for weight management on DC 2) Monitor PO intake, Lab values, I/O, wt trend Expected Outcomes/Goals: To meet >75% estimated needs Fu 3-5 days Plan discussed with: Other BRITNEY HORTA MD Nov 25, 2024 20:12
--- NOTE | 2024-11-25 23:53 | DVHPN2 ---
Progress Note - Dictate Date Seen: Nov 25, 2024 Medical Necessity Reason Pt with a Central, PICC or Fol: No The following are medically ne: Castanon Catheter Subjective Patient was seen and evaluated in follow up in the ICU. Patient was extubated last night per spouses wishes. Patient's has opted for home hospice. Patient pulled out NG tube, bedside swallow eval inconclusive. Patient pending swallow eval by speech therapist. vital signs Vital Sign Date Time Temp Pulse Resp B/P (MAP) Pulse Ox O2 Delivery O2 Flow Rate FiO2 11/25/24 12:00 21 99 Nasal Cannula* 2 28 11/25/24 12:00 79 11/25/24 07:30 114/49 (70) 11/25/24 04:00 99.9 99.9 Total Intake and Output 11/24/24 11/24/24 11/25/24 15:00 23:00 07:00 Intake Total 126.6 ml 245 ml 280 ml Output Total 1450 ml 1000 ml Balance 126.6 ml -1205 ml -720 ml medications Current Medications Medications Dose Ordered Sig/Amol Route Start Time Stop Time Status Last Admin Dose Admin Albuterol 2.5 mg Q4HR NEB 11/07/24 02:00 11/25/24 10:39 2.5 MG Ipratropium [place] 0.5 mg Q4HR NEB 11/07/24 10:00 11/25/24 10:39 0.5 MG Polyethylene Glycol 17 gm DAILY PO 11/10/24 10:00 11/23/24 09:44 17 GM Trolamine Salicylate 1 applic BID TOP 11/10/24 10:00 11/24/24 22:27 1 APPLIC Carbidopa/Levodopa 1 tab QID PO 11/19/24 06:00 11/25/24 05:38 1 TAB Acetylcysteine 200 mg Q4HR NEB 11/18/24 23:00 11/25/24 10:39 200 MG Acetaminophen 650 mg Q6HP PRN VT 11/19/24 07:45 11/20/24 22:22 650 MG Vancomycin HCl 0 ml @ 0 mls/hr UD IV 11/19/24 10:00 Vancomycin HCl 150 ml @ 150 mls/hr Q12H IV 11/19/24 23:00 11/25/24 10:42 150 MLS/HR Docusate Sodium 100 mg BID GT 11/20/24 22:00 11/24/24 22:27 100 MG Pantoprazole Sodium 40 mg DAILY IV 11/21/24 10:00 11/25/24 10:42 40 MG Norepinephrine Bitartrate 250 ml @ 3.75 mls/hr Q24H IV 11/20/24 12:15 11/22/24 15:57 1.875 MLS/HR Piperacillin Sod/ Tazobactam Sod 100 ml @ 25 mls/hr Q8HR IV 11/21/24 14:00 11/25/24 05:38 25 MLS/HR Lactulose 15 ml DAILY PO 11/23/24 10:00 11/24/24 18:55 15 ML Enteral Nutritional Formula 1,000 ml 30ML/HR GT 11/23/24 09:30 Lidocaine 1 patch DAILY@1700 TOP 11/25/24 17:00 objective GENERAL: Ill appearing. EYES: PERRL, EOMI. Anicteric. HENT: Moist mucous membranes. LUNGS: Decreased breath sounds. CARDIOVASCULAR: Regular rate and rhythm. ABDOMEN: Soft, non-tender and non-distended. EXTREMITIES: No edema. SKIN: Warm, dry. laboratory and microbiology Laboratory Tests 11/25/24 03:15 11/24/24 02:40 Test 11/24/24 02:40 Range/Units Serum Glucose 111 H 74-106 mg/dL Problem List Septic shock with PNA/UTI. Acute on chronic hypoxic respiratory failure. Acute kidney injury. NSTEMI type 2 secondary to above. Ascending aortic aneurysm at 4.2 cm. Presence of dual-chamber pacemaker ([employer]). Aortic valve stenosis, moderate degree. Parkinson's disease. Thrombocytopenia. FAMILIA on CPAP HS. History of tobacco use. Assessment/Plan Continued all current supportive medical care. Sinemet. GI prophylactics. Nebulized breathing treatments. IV antibiotics as ordered. Additional plan as per the hospital course. Critical care time of 45 minutes provided to include time spent evaluation of patient at bedside, when appropriate patient/family education for diagnosis, treatment plan, review of pertinent medical information and discussion of care with specialty providers and PCP. Dietary Evaluation Review Comments: 1) Refer CDE for weight management on DC 2) Monitor PO intake, Lab values, I/O, wt trend Expected Outcomes/Goals: To meet >75% estimated needs Fu 3-5 days Plan discussed with: Patient NAYELY CHAVEZ MD Nov 25, 2024 12:35
[2024-11-26] VITALS (13 sets, daily range): BP systolic 111–133; BP diastolic 64–71; PULSE 79–88; RESP 16–20; TEMP 36.6; O2SAT 92–99
--- NOTE | 2024-11-26 23:53 | DVHPN2 ---
Progress Note - Dictate Date Seen: Nov 26, 2024 Medical Necessity Reason Pt with a Central, PICC or Fol: No The following are medically ne: Castanon Catheter Subjective Patient was seen and evaluated in follow up. Patient was downgraded to telemetry bed. Patient appears weak. Patient follows verbal commands. Patient is pending discharge home with Hospice care. Telemetry reviewed. vital signs Vital Sign Date Time Temp Pulse Resp B/P (MAP) Pulse Ox O2 Delivery O2 Flow Rate FiO2 11/26/24 11:04 82 18 99 11/26/24 10:55 Nasal Cannula* 2 28 11/26/24 08:51 97.6 118/70 (86) 97.6 Total Intake and Output 11/25/24 11/25/24 11/26/24 15:00 23:00 07:00 Intake Total 350 ml 105 ml 260 ml Output Total 600 ml 450 ml Balance 350 ml -495 ml -190 ml medications Current Medications Medications Dose Ordered Sig/Amol Route Start Time Stop Time Status Last Admin Dose Admin Albuterol 2.5 mg Q4HR NEB 11/07/24 02:00 11/26/24 10:55 2.5 MG Ipratropium [place] 0.5 mg Q4HR NEB 11/07/24 10:00 11/26/24 10:55 0.5 MG Polyethylene Glycol 17 gm DAILY PO 11/10/24 10:00 11/23/24 09:44 17 GM Trolamine Salicylate 1 applic BID TOP 11/10/24 10:00 11/26/24 11:33 1 APPLIC Carbidopa/Levodopa 1 tab QID PO 11/19/24 06:00 11/26/24 11:33 1 TAB Acetylcysteine 200 mg Q4HR NEB 11/18/24 23:00 11/26/24 10:55 200 MG Acetaminophen 650 mg Q6HP PRN DC 11/19/24 07:45 11/20/24 22:22 650 MG Vancomycin HCl 0 ml @ 0 mls/hr UD IV 11/19/24 10:00 Vancomycin HCl 150 ml @ 150 mls/hr Q12H IV 11/19/24 23:00 11/26/24 11:33 150 MLS/HR Docusate Sodium 100 mg BID GT 11/20/24 22:00 11/24/24 22:27 100 MG Pantoprazole Sodium 40 mg DAILY IV 11/21/24 10:00 11/26/24 11:32 40 MG Piperacillin Sod/ Tazobactam Sod 100 ml @ 25 mls/hr Q8HR IV 11/21/24 14:00 11/26/24 05:52 25 MLS/HR Lactulose 15 ml DAILY PO 11/23/24 10:00 11/24/24 18:55 15 ML Enteral Nutritional Formula 1,000 ml 30ML/HR GT 11/23/24 09:30 Lidocaine 1 patch DAILY@1700 TOP 11/25/24 17:00 11/25/24 17:00 1 PATCH objective GENERAL: Ill appearing. EYES: PERRL, EOMI. Anicteric. HENT: Moist mucous membranes. LUNGS: Decreased breath sounds. CARDIOVASCULAR: Regular rate and rhythm. ABDOMEN: Soft, non-tender and non-distended. EXTREMITIES: No edema. SKIN: Warm, dry. laboratory and microbiology Laboratory Tests 11/25/24 03:15 11/24/24 02:40 Test 11/24/24 02:40 Range/Units Serum Glucose 111 H 74-106 mg/dL Problem List Septic shock with PNA/UTI. Acute on chronic hypoxic respiratory failure. Acute kidney injury. NSTEMI type 2 secondary to above. Ascending aortic aneurysm at 4.2 cm. Presence of dual-chamber pacemaker ([employer]). Aortic valve stenosis, moderate degree. Parkinson's disease. Thrombocytopenia. FAMILIA on CPAP HS. History of tobacco use. Assessment/Plan Continued all current supportive medical care. Sinemet. GI prophylactics. Nebulized breathing treatments. IV antibiotics as ordered. Additional plan as per the hospital course. Dietary Evaluation Review Comments: 1) Refer CDE for weight management on DC 2) Monitor PO intake, Lab values, I/O, wt trend Expected Outcomes/Goals: To meet >75% estimated needs Fu 3-5 days Plan discussed with: Patient NAYELY CHAVEZ MD Nov 26, 2024 12:32
== END 2024-11-26 16:30 | disposition hospice, home (50) | DRG 870 ==
LOC: EDBD 21:28 → ER 21:28 → OVERFLOW 23:46 → DOU IN ICU 11-09 05:46 → TELE-CENTR 11-16 01:06 → ICU WEST 11-19 11:37 → TELE-WESTW 11-25 18:44
PROVIDERS: ADMIT Internal Medicine Pulmonary Disease; ATTEND Internal Medicine Pulmonary Disease
PROC: 5A09357 Assistance with Respiratory Ventilation, Less than 24 Consecutive Hours, Continuous Positive Airway Pressure (ICD-10-PCS; 2024-11-07)
PROC: 5A09357 Assistance with Respiratory Ventilation, Less than 24 Consecutive Hours, Continuous Positive Airway Pressure (ICD-10-PCS; 2024-11-08)
PROC: 5A09357 Assistance with Respiratory Ventilation, Less than 24 Consecutive Hours, Continuous Positive Airway Pressure (ICD-10-PCS; 2024-11-09)
PROC: 5A09357 Assistance with Respiratory Ventilation, Less than 24 Consecutive Hours, Continuous Positive Airway Pressure (ICD-10-PCS; 2024-11-10)
PROC: 5A09357 Assistance with Respiratory Ventilation, Less than 24 Consecutive Hours, Continuous Positive Airway Pressure (ICD-10-PCS; 2024-11-11)
PROC: 5A09357 Assistance with Respiratory Ventilation, Less than 24 Consecutive Hours, Continuous Positive Airway Pressure (ICD-10-PCS; 2024-11-12)
PROC: 5A09357 Assistance with Respiratory Ventilation, Less than 24 Consecutive Hours, Continuous Positive Airway Pressure (ICD-10-PCS; 2024-11-13)
PROC: 07DR3ZX Extraction of Iliac Bone Marrow, Percutaneous Approach, Diagnostic (ICD-10-PCS; 2024-11-14)
PROC: 5A09357 Assistance with Respiratory Ventilation, Less than 24 Consecutive Hours, Continuous Positive Airway Pressure (ICD-10-PCS; 2024-11-14)
PROC: 5A09357 Assistance with Respiratory Ventilation, Less than 24 Consecutive Hours, Continuous Positive Airway Pressure (ICD-10-PCS; 2024-11-15)
PROC: 5A09357 Assistance with Respiratory Ventilation, Less than 24 Consecutive Hours, Continuous Positive Airway Pressure (ICD-10-PCS; 2024-11-16)
PROC: 5A09357 Assistance with Respiratory Ventilation, Less than 24 Consecutive Hours, Continuous Positive Airway Pressure (ICD-10-PCS; 2024-11-17)
PROC: 5A09357 Assistance with Respiratory Ventilation, Less than 24 Consecutive Hours, Continuous Positive Airway Pressure (ICD-10-PCS; 2024-11-18)
PROC: 0BH17EZ Insertion of Endotracheal Airway into Trachea, Via Natural or Artificial Opening (ICD-10-PCS; principal; 2024-11-19)
PROC: 5A1955Z Respiratory Ventilation, Greater than 96 Consecutive Hours (ICD-10-PCS; 2024-11-19)
PROC: 05HM33Z Insertion of Infusion Device into Right Internal Jugular Vein, Percutaneous Approach (ICD-10-PCS; 2024-11-19)
PROC: B543ZZA Ultrasonography of Right Jugular Veins, Guidance (ICD-10-PCS; 2024-11-19)
PROC: 0B9M8ZZ Drainage of Bilateral Lungs, Via Natural or Artificial Opening Endoscopic (ICD-10-PCS; 2024-11-23)
DX: A41.59 Other Gram-negative sepsis (principal); G92.8 Other toxic encephalopathy; I21.A1 Myocardial infarction type 2; R65.21 Severe sepsis with septic shock; N17.0 Acute kidney failure with tubular necrosis; J15.69 Pneumonia due to other Gram-negative bacteria; J96.21 Acute and chronic respiratory failure with hypoxia; J10.00 Influenza due to other identified influenza virus with unspecified type of pneumonia; J96.22 Acute and chronic respiratory failure with hypercapnia; J15.9 Unspecified bacterial pneumonia; N39.0 Urinary tract infection, site not specified; J44.1 Chronic obstructive pulmonary disease with (acute) exacerbation; I42.0 Dilated cardiomyopathy; E87.4 Mixed disorder of acid-base balance; I50.22 Chronic systolic (congestive) heart failure; J44.0 Chronic obstructive pulmonary disease with (acute) lower respiratory infection; I48.92 Unspecified atrial flutter; C92.10 Chronic myeloid leukemia, BCR/ABL-positive, not having achieved remission; I13.0 Hypertensive heart and chronic kidney disease with heart failure and stage 1 through stage 4 chronic kidney disease, or unspecified chronic kidney disease; Z20.822 Contact with and (suspected) exposure to COVID-19; Z51.5 Encounter for palliative care; G20.A1 Parkinson's disease without dyskinesia, without mention of fluctuations; I27.20 Pulmonary hypertension, unspecified; G47.33 Obstructive sleep apnea (adult) (pediatric); G89.4 Chronic pain syndrome; I35.0 Nonrheumatic aortic (valve) stenosis; I71.21 Aneurysm of the ascending aorta, without rupture; K59.01 Slow transit constipation; N18.9 Chronic kidney disease, unspecified; N40.0 Benign prostatic hyperplasia without lower urinary tract symptoms; D69.6 Thrombocytopenia, unspecified; R26.9 Unspecified abnormalities of gait and mobility; F10.10 Alcohol abuse, uncomplicated; D50.9 Iron deficiency anemia, unspecified; E87.5 Hyperkalemia; E66.9 Obesity, unspecified; F17.200 Nicotine dependence, unspecified, uncomplicated; F32.A Depression, unspecified; Z95.0 Presence of cardiac pacemaker; Z79.899 Other long term (current) drug therapy; Z90.49 Acquired absence of other specified parts of digestive tract; Z79.2 Long term (current) use of antibiotics; Z83.3 Family history of diabetes mellitus; Z68.36 Body mass index [BMI] 36.0-36.9, adult; Y90.9 Presence of alcohol in blood, level not specified
CPT/HCPCS: 10005; 31720; 36415; 36556; 36600; 70450; 71045; 71250; 72192; 76705; 77012; 80048; 80053; 80061; 80202; 80307; 80320; 81001; 82306; 82550; 82565; 82570; 82607; 82805; 82962; 83036; 83605; 83615; 83735; 83880; 84100; 84132; 84156; 84300; 84443; 84484; 85007; 85025; 85027; 85379; 85610; 85730; 87040; 87070; 87081; 87086; 87205; 87426; 87804; 93005; 93306; 93925; 93970; 93971; 94002; 94003; 94640; 94660; 94667; 94668; 96365; 97110; 97116; 97163; 97530; G0378; J0131; J0692; J1885; J2003; J2250; J2405; J2470; J2543; J7060